=== PATIENT | male | born 1950 | race Caucasian/White ===

== ENCOUNTER 2017-07-01 12:18 | Inpatient (IN) | payer MEDICARE, OTHER ==
[2017-07-01] MEDS ORDERED: methylPREDNISolone 125 MG* 2 ML VIAL IV ONE (12:21)
[2017-07-01] MEDS ORDERED: Albuterol/Ipratropium NEB.SOL* Albuterol 2.5 MG/Ipratropium 0.5 MG 3 ML INH ONE (12:21)
[2017-07-01] MEDS ORDERED: Diltiazem IV* 5 MG/ML 5 ML VIAL (for loading dose/IV Push) (25 MG) IV SLOW PU ONE ×2 (12:30→16:55)
[2017-07-01 13:01] LABS: Hematocrit 39 % (42-52); Mean Corpuscular HGB Conc 33 g/dl (31-36); Mean Corpuscular Hemoglobin 35 pg (27-31); Mean Corpuscular Volume 105 fL (80-94); Mean Platelet Volume 7.9 um3 (7.4-10.4); Platelet Count 318 10^3/ul (150-450); Red Blood Count 3.73 10^6/ul (4.0-5.4); Red Cell Distribution Width 20 % (10.5-15); White Blood Count 5.8 10^3/ul (3.5-10.8)
[2017-07-01 13:08] LABS: INR 1.24 (0.77-1.02)
--- NOTE | 2017-07-01 13:10 | RAD ---
INDICATION: Shortness of breath. COMPARISON: Comparison is made with a prior chest x-ray study from March 03, 2017. TECHNIQUE: Dual-energy PA and lateral views of the chest were obtained. FINDINGS: The heart is upper limits of normal in size and unchanged from the prior exam. The lungs are clear. No pleural effusion is present. IMPRESSION: NO EVIDENCE FOR ACTIVE CARDIOPULMONARY DISEASE.
[2017-07-01 13:21] LABS: EGFR Non-African American 71.2 (>60)
[2017-07-01 13:55] LABS: ABS Basophils 0.1 10^3/ul (0-0.2); ABS Eosinophils 0.1 10^3/ul (0-0.6); ABS Lymphocytes 1.7 10^3/ul (1.0-4.8); ABS Monocytes 0.7 10^3/ul (0-0.8); ABS Neutrophils 3.3 10^3/ul (1.5-7.7); ABS Nucleated RBC 0 10^3/ul; Nucleated Red Blood Cells % 0.3
[2017-07-01 13:59] LABS: Monocytes % 10 % (0-7)
[2017-07-01] MEDS ORDERED: Mouth Piece, Nicotine* 1 EACH CARTRIDGE INH PRN (14:38)
[2017-07-01] MEDS ORDERED: Acetaminophen TAB* 325 MG PO PRN (14:38)
[2017-07-01] MEDS ORDERED: Ondansetron INJ* 2 MG/ML VIAL IV PRN (14:38)
[2017-07-01] MEDS ORDERED: Thiamine IV* 100 MG/ML 2 ML VIAL IM ONE (14:38)
[2017-07-01] MEDS ORDERED: Nicotine Inhaler* 10 MG AMP INH PRN (14:38)
[2017-07-01 14:39] LABS: Urine Appearance Cloudy; Urine Blood 3+ (Negative); Urine Color Yellow; Urine Ketones Negative (Negative); Urine Protein 2+(100 mg/dL) (Negative); Urine Specific Gravity 1.009 (1.010-1.030); Urine Urobilinogen Negative (Negative)
[2017-07-01] MEDS ORDERED: LORazepam INJ* 2 MG/ML 1 ML VIAL IV PUSH SCH (15:00)
--- NOTE | 2017-07-01 16:35 | RAD ---
Indication: Swollen feet. Abdominal pain. Comparison: No relevant prior exams available on the [facility] for comparison. Technique: RIGHT upper quadrant ultrasound. Report: Appropriate direction flow documented in the portal and hepatic veins. 16 cm liver is heterogeneously increased in echogenicity. Negative for focal hepatic lesions. Negative for intrahepatic biliary dilatation. 3.5 mm common bile duct. Adequately distended gallbladder with thickened 6.5 mm wall. No conspicuous gallstones or biliary sludge. Trace pericholecystic fluid however this is nonspecific in setting of mild diffuse perihepatic ascites. Negative for sonographic Card's sign. The pancreas is obscured secondary to bowel gas and body habitus limiting assessment. 9.8 x 4.7 x 5.3 cm RIGHT kidney with normal cortical echogenicity and absence of conspicuous stones or hydronephrosis is remarkable for a sharply circumscribed 5.6 cm maximum dimension simple cortical cyst at the upper pole without concern. IMPRESSION: 1. Hepatosteatosis with suggestion of early cirrhotic morphology. No focal hepatic lesions evident. 2. Small perihepatic ascites. 3. Nonspecific mild gallbladder wall thickening and trace pericholecystic fluid without additional abnormality of the gallbladder or sonographic Card's sign to suggest acute gallbladder pathology. 4. Negative for biliary dilatation.
--- NOTE | 2017-07-01 16:43 | ECHO ---
Patient: SHAE DOMINIQUE [facility] Rec#: [id number] : 1950 Date: 07/01/2017 Age: 66y Height: 175.26 cm / 69.0 in Weight: 81.65 kg / 180.0 lbs Sex: M BSA: 1.98 Room#: [id number] Admit Date#: 07/01/2017 Type: Inpatient Referring: Escobar Le Reading: Esvin Smiley MD Joy Operator Helper: Maddi Dumont RDCS CC: Amandeep Morel MD Transthoracic Echocardiogram Indication: Edema, dyspnea BP: 125/103 HR: 104 Rhythm: A-Fib Findings History: HTN, HLD, COPD, CHF, prostate cancer, smoker, ETOH use. Technical Comments: The study quality is fair. The study is technically limited due to the patient's history of COPD. Completed at 1610. Left Ventricle: The left ventricular chamber size is decreased. Mild concentric left ventricular hypertrophy is observed. Global left ventricular wall motion and contractility are within normal limits. Left ventricular systolic function is at the lower limits of normal. With longer R to R interval beats the LVEF is higher. The estimated ejection fraction is 50-55%. There is septal flattening of the interventricular septum consistent with right ventricular volume or pressure overload. The assessment of diastolic function is non-diagnostic. Left Atrium: The left atrium is mildly dilated. Right Ventricle: Moderator Band present. The right ventricle is mildly dilated. The right ventricular global systolic function is mildly reduced. Right Atrium: The right atrium is mild to moderately dilated. Aortic Valve: The aortic valve is trileaflet. The aortic valve leaflets are mildly thickened. There is evidence of aortic sclerosis without stenosis. There is a trace of aortic regurgitation. There is no evidence of aortic stenosis. Mitral Valve: The mitral valve leaflets are mildly thickened. There is mild mitral regurgitation. There is no evidence of mitral stenosis. Tricuspid Valve: The tricuspid valve leaflets are normal. There is mild tricuspid regurgitation. The right ventricular systolic pressure is estimated at 49 mmHg. There is evidence of moderate pulmonary hypertension. There is no tricuspid stenosis. Pulmonic Valve: The pulmonic valve appears normal. There is a trace pulmonic regurgitation. There is no pulmonic stenosis. Pericardium: There is no significant pericardial effusion. Aorta: There is no dilatation of the ascending aorta. The aortic arch is not well visualized. The aortic root is normal in size. Pulmonary Artery: The main pulmonary artery appears normal. Venous: The inferior vena cava is dilated. There is an approximate 50% respiratory change in the inferior vena cava dimension. Conclusions Suboptimal imaging due to lung tissue interference Mild concentric left ventricular hypertrophy is observed. Global left ventricular wall motion and contractility are within normal limits. Left ventricular systolic function is at the lower limits of normal. (With longer R to R interval beats the LVEF is higher). The estimated ejection fraction is 50-55%. The right ventricle is mildly dilated. The right ventricular global systolic function is mildly reduced. There is a trace of aortic regurgitation. There is mild mitral regurgitation. There is mild tricuspid regurgitation. There is evidence of moderate pulmonary hypertension. The right ventricular systolic pressure is estimated at 49 mmHg. There is a trace pulmonic regurgitation. Compared to report of study from 07/31/2015 the overall LV systolic function is mildly decreased (was 55-60%). The degree of tricuspid regurgitation is mildly increased (was trace and no pulmonary HTN could be assessed). RV systolic function is decreased (was reported as normal). The patient is now seen to be in atrial fibrillation (was reported as being in NSR 89 beats/min). Measurements Name Value Normal Range RVIDd (AP) 2D 3.98 cm (0.9 - 2.6) RVDdMajor (2D) 4.8 cm (2.2 - 4.4) RAd ISD 4CH 5.8 cm (3.4 - 4.9) RA (A4C)W 5.2 cm (2.9 - 4.6) IVSd (2D) 1.1 cm (0.6 - 1) LVPWd (2D) 1.2 cm (0.6 - 1) LVIDd (2D) 3.4 cm (3.6 - 5.4) LVIDs (2D) 3 cm - LV FS (2D) 14 % (25 - 45) Aortic Annulus 2 cm (1.4 - 2.6) Ao root diameter (2D) 3.2 cm (2.1 - 3.5) Ascending Ao 3.1 cm (2.1 - 3.4) LA dimension (AP) 2D 4.8 cm (2.3 - 3.8) LAd ISD 4CH 5.3 cm (2.9 - 5.3) LA ISD 4CH W 4.4 cm (2.5 - 4.5) Name Value Normal Range LA ESV SP 4CH (A/L) 75 ml - LA ESV SP 2CH (A/L) 46 ml - LA ESV BP (A/L) 59 ml - LA ESV BP (A/L) index 30 ml/m2 - LA ESV SP 4CH (MOD) 68 ml - LA ESV SP 2CH (MOD) 46 ml - Name Value Normal Range MV E-wave Vmax 1.23 m/sec - MV deceleration time 89.8 msec - LV septal e' Vmax 0.13 m/sec - LV lateral e' Vmax 0.12 m/sec - LV E:e' septal ratio 9.46 ratio - LV E:e' lateral ratio 10.25 ratio - Name Value Normal Range AV Vmax 1.3 m/sec - AV VTI 20.25 cm - AV peak gradient 6.62 mmHg - AV mean gradient 3.66 mmHg - LVOT Vmax 0.8 m/sec - LVOT VTI 11.89 cm - LVOT peak gradient 2.43 mmHg - LVOT mean gradient 1.11 mmHg - Name Value Normal Range TR Vmax 2.9 m/sec - TR peak gradient 34 mmHg - RAP 15 mmHg - RVSP 49 mmHg - IVC diameter 2.2 cm - Name Value Normal Range PV Vmax 0.75 m/sec - PV peak gradient 2.24 mmHg - NC end-diastolic Vmax 1.28 m/sec -
[2017-07-01] MEDS: Rivaroxaban TAB(*) 20 MG TAB PO SCH (16:53)
[2017-07-01] MEDS: Metoprolol Tartrate TAB* 25 MG PO SCH ×2 (16:53→22:40)
[2017-07-01] MEDS ORDERED: Magnesium Sulfate IV* 3 GM in NS 0.9% 100 ML* 100 ML IVPB ONE (17:07)
[2017-07-01] MEDS ORDERED: NS 0.9% 100 ML* 100 ML ONE (17:48)
[2017-07-01] MEDS: Levalbuterol 1.25MG/0.5ML NEB INH SCH ×2 (18:25→20:38)
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
[2017-07-01] MEDS ORDERED: CMCS Melatonin (NF) 3 MG TAB PO PRN (21:00)
[2017-07-01] MEDS ORDERED: Metoprolol Tartrate TAB* 50 mg PO SCH (21:00)
[2017-07-02] MEDS: Levalbuterol 1.25MG/0.5ML NEB INH SCH ×3 (00:55→07:25)
[2017-07-02 05:25] LABS: Hematocrit 38 % (42-52); Hemoglobin 13.1 g/dl (14.0-18.0); Mean Corpuscular HGB Conc 34 g/dl (31-36); Mean Corpuscular Hemoglobin 36 pg (27-31); Mean Corpuscular Volume 105 fL (80-94); Mean Platelet Volume 8.2 um3 (7.4-10.4); Platelet Count 330 10^3/ul (150-450); Red Blood Count 3.64 10^6/ul (4.0-5.4); Red Cell Distribution Width 20 % (10.5-15); White Blood Count 3.2 10^3/ul (3.5-10.8)
[2017-07-02 05:33] LABS: EGFR Non-African American 66.1 (>60)
[2017-07-02] MEDS: Metoprolol Tartrate TAB* 25 MG PO SCH ×3 (06:17→16:35)
[2017-07-02 06:27] LABS: ABS Basophils 0 10^3/ul (0-0.2); ABS Eosinophils 0 10^3/ul (0-0.6); ABS Lymphocytes 0.6 10^3/ul (1.0-4.8); ABS Monocytes 0.3 10^3/ul (0-0.8); ABS Neutrophils 2.3 10^3/ul (1.5-7.7); ABS Nucleated RBC 0 10^3/ul; Eosinophil % 0 % (0-6); Lymphocyte % 17.8 % (25-47); Nucleated Red Blood Cells % 0.6
[2017-07-02] MEDS: Furosemide IV* 10 MG/ML 2 ML VIAL (20 MG) IV SLOW PU SCH (08:18)
[2017-07-02] MEDS: Calcium Carbonate CHEW TAB* 500 MG (TUMS) PO SCH (08:19)
[2017-07-02] MEDS: predniSONE TAB* 50 MG PO SCH (08:19)
[2017-07-02] MEDS: Diltiazem CD CAP* 120 MG PO SCH (08:19)
[2017-07-02] MEDS: Rivaroxaban TAB(*) 20 MG TAB PO SCH (08:19)
[2017-07-02] MEDS: Multivitamins/Minerals TAB PO SCH (08:19)
[2017-07-02] MEDS: Cholecalciferol TAB* 1000 UNITS PO SCH (08:19)
[2017-07-02] MEDS: Folic Acid TAB* 1 MG PO SCH (08:19)
[2017-07-02] MEDS: Thiamine TAB* 100 MG TAB PO SCH (08:19)
[2017-07-02] MEDS: Tamsulosin CAP* 0.4 MG PO SCH (08:19)
[2017-07-02] MEDS ORDERED: Rivaroxaban TAB(*) 20 MG TAB PO SCH (09:00)
[2017-07-02] MEDS ORDERED: Metoprolol Tartrate IV* 1 MG/ML 5 ML VIAL IV PRN (09:29)
[2017-07-02] MEDS ORDERED: Levalbuterol 1.25MG/0.5ML NEB INH SCH (13:00)
--- NOTE | 2017-07-02 16:25 | ED ---
Marlon Pearce Thomas, scribed for Eliseo Wong MD on 07/01/17 at 1317 . Shortness of Breath - HPI Summary HPI Summary: The patient is a 66 year old male brought in by ambulance with shortness of breath and a productive cough for the last few days. He went to see the MI and they noticed lower extremity edema and shortness of breath. Since there is no EKG available at the MI office, the patient was sent to the emergency department for further evaluation. In the emergency department, the patient denies chest pain. He was drinking a couple of beers this morning. He smokes one PPD. He was taking Lasix for 20 days but he ran out of his medication and now he has more lower extremity edema than before. - History of Current Complaint Chief Complaint: EDExtremityLower Time Seen by Provider: 07/01/17 12:21 Hx Obtained From: Patient Onset/Duration: Lasting Days, Still Present Timing: Constant Current Severity: Moderate Dyspnea At: Rest Alleviating Factors: Nothing Associated Signs & Symptoms: Negative - CP, Edema - Allergy/Home Medications Allergies/Adverse Reactions: Allergies Allergy/AdvReac Type Severity Reaction Status Date / Time meperidine [From Demerol] Allergy Mild Nausea Verified 07/01/17 14:04 morphine Allergy Nausea Verified 07/01/17 14:04 Home Medications: Home Medications Albuterol HFA INHALER* [Ventolin HFA Inhaler*] 2 puff INH Q4H PRN 07/01/17 [ History Confirmed 07/01/17] Calcium Carbonate CHEW TAB* [Tums*] 1,000 mg PO DAILY 07/01/17 [History Confirmed 07/01/17] Carvedilol TAB* [Coreg TAB*] 25 mg PO BID 07/01/17 [History Confirmed 07/01/17] Hydrocortisone 1% CREAM(NF) 1 applic TOPICAL DAILY PRN 07/01/17 [History Confirmed 07/01/17] Oxybutynin TAB* [Ditropan TAB*] 10 mg PO DAILY 07/01/17 [History Confirmed 07/01] Rivaroxaban TAB(*) [Xarelto 20 mg] 20 mg PO DAILY 07/01/17 [History Confirmed ] dilTIAZem HCl [Cardizem] 120 mg PO DAILY 07/01/17 [History Confirmed 07/01/17] PMH/Surg Hx/FS Hx/Imm Hx Endocrine/Hematology History: Denies: Hx Anemia, Hx Unexplained Bleeding Cardiovascular History: Reports: Hx Hypercholesterolemia, Hx Hypertension - W/ MEDS Denies: Hx Aneurysm, Hx Angina, Hx Angioplasty, Hx Auto Implanted Cardiovert Defib, Hx Cardiac Arrest, Hx Cardiomegaly, Hx Congenital Heart Disease, Hx Congestive Heart Failure - elevated BNP on admit, Hx Coronary Artery Disease, Hx Deep Vein Thrombosis, Hx Embolism, Hx Hypotension, Hx Pacemaker/ICD, Hx Peripheral Vascular Disease, Hx Rheumatic Fever, Hx Syncope, Hx Valvular Heart Disease Respiratory History: Reports: Hx Chronic Obstructive Pulmonary Disease (COPD) History: Comment Only: Other Problems/Disorders - h/o prostate CA 2009, s/p radiation Musculoskeletal History: Comment Only: Other Musculoskeletal History - degenerative arthritis L knee Sensory History: Reports: Hx Contacts or Glasses - reading Denies: Hx Eye Injury, Hx Eye Prosthesis, Hx Glaucoma, Hx Legally Blind, Hx Macular Degeneration, Hx Vision Problem, Hx Deafness, Hx Hearing Aid, Hx Hearing Problem, Other Sensory Impairments Opthamlomology History: Reports: Hx Contacts or Glasses - reading Denies: Hx Eye Injury, Hx Eye Prosthesis, Hx Glaucoma, Hx Legally Blind, Hx Macular Degeneration, Hx Vision Problem, Other Sensory Impairments Psychiatric History: Reports: Hx Anxiety, Hx Depression, Hx Suicide Attempt, Hx Substance Abuse Denies: Hx Eating Disorder, Hx of Violent Episodes Against Others - Cancer History Cancer Type, Location and Year: prostate 2009 Hx Radiation Therapy: Yes - Surgical History Surgery Procedure, Year, and Place: R ankle ORIF. L knee "screws placed" Hx Anesthesia Reactions: No Infectious Disease History: No Infectious Disease History: Denies: Traveled Outside the [place] in Last 30 Days - Family History Known Family History: Positive: Other - Patient denies relevant FHx - Social History Alcohol Use: Daily Alcohol Amount: 5-6 beers daily, and whiskey 4-5 shots Substance Use Type: Reports: Prescribed, Sedatives Substance Use Comment - Amount & Last Used: Pt now reports chronic lower back pain, takes Hydrocodone prn Hx Tobacco Use: Yes Smoking Status (MU): Heavy Every Day Tobacco Smoker Type: Cigarettes Amount Used/How Often: 1 PPD Length of Time of Smoking/Using Tobacco: 50 years Have You Smoked in the Last Year: Yes Review of Systems Negative: Chest Pain Positive: Shortness Of Breath, Cough Positive: Edema All Other Systems Reviewed And Are Negative: Yes Physical Exam - Summary Physical Exam Summary: VITAL SIGNS: Reviewed. GENERAL: Patient is a well-developed and nourished male who is lying comfortable in the stretcher. Patient is not in any acute respiratory distress. There is the smell of alcohol on his breath. He smells of cigarette smoke. He is speaking in full sentences. HEAD AND FACE: No signs of trauma.~No ecchymosis, hematomas or skull depressions. No sinus tenderness. EYES: PERRLA, EOMI x 2, No injected conjunctiva, no nystagmus. EARS: Hearing grossly intact. Ear canals and tympanic membranes are within normal limits. MOUTH: Oropharynx within normal limits. NECK: Supple, trachea is midline, no adenopathy, no JVD, no carotid bruit, no c- spine tenderness, neck with full ROM. CHEST: Symmetric, no tenderness at palpation LUNGS: He has crackles on both bases of the lungs. He is not in any acute respiratory distress. He is speaking in full sentences. CVS: Regular rate and rhythm, S1 and S2 present, no murmurs or gallops appreciated. ABDOMEN: Soft, non-tender. No signs of distention. No rebound no guarding, and no masses palpated. Bowel sounds are normal. EXTREMITIES: He has 2+ pitting edema. FROM in all major joints, no cyanosis or clubbing. NEURO: Alert and oriented x 3. No acute neurological deficits. Speech is normal and follows commands. SKIN: Dry and warm Triage Information Reviewed: Yes Vital Signs On Initial Exam: Initial Vitals Temp Pulse Resp BP Pulse Ox 99 F 117 24 145/105 93 07/01/17 12:20 07/01/17 12:20 07/01/17 12:20 07/01/17 12:20 07/01/17 12:20 Vital Signs Reviewed: Yes Diagnostics - Vital Signs Vital Signs Temp Pulse Resp BP Pulse Ox 07/01/17 13:03 132 19 116/86 90 07/01/17 13:01 110 96 07/01/17 12:30 120 21 149/101 94 07/01/17 12:24 111 25 95 07/01/17 12:23 145/105 07/01/17 12:20 99 F 117 24 145/105 93 - Laboratory Lab Results: Lab Results 07/01/17 07/01/17 Range/Units 12:45 12:45 WBC 5.8 (3.5-10.8) 10^3/ul RBC 3.73 L (4.0-5.4) 10^6/ul Hgb 13.0 L (14.0-18.0) g/dl Hct 39 L (42-52) % MCV 105 H (80-94) fL MCH 35 H (27-31) pg MCHC 33 (31-36) g/dl RDW 20 H (10.5-15) % Plt Count 318 (150-450) 10^3/ul MPV 7.9 (7.4-10.4) um3 Neut % (Auto) Pending Lymph % (Auto) Pending [place] % (Auto) Pending Eos % (Auto) Pending Baso % (Auto) Pending Absolute Neuts (auto) Pending Absolute Lymphs (auto) Pending Absolute Monos (auto) Pending Absolute Eos (auto) Pending Absolute Basos (auto) Pending Absolute Nucleated RBC Pending Nucleated RBC % Pending INR (Anticoag Therapy) 1.24 H (0.77-1.02) APTT 38.3 H (26.0-36.3) seconds Result Diagrams: 07/01/17 12:45 07/01/17 12:45 Lab Statement: Any lab studies that have been ordered have been reviewed, and results considered in the medical decision making process. - Radiology CXR Xray Interpretation: No Acute Changes - IMPRESSION: NO EVIDENCE FOR ACTIVE CARDIOPULMONARY DISEASE. Dr. Wong has reviewed this report. Radiology Interpretation Completed By: Radiologist - EKG 12:24 Cardiac Rate: Tachycardia EKG Rhythm: Atrial Fibrillation - at 118 BPM EKG Interpretation: No ST elevations. Re-Evaluation - Re-Evaluation First Eval Comment: Results discussed. Patient will be admitted to Dr. Caraballo. Course/Dx - Course Assessment/Plan: The patient is a 66 year old male brought in by ambulance with shortness of breath and a productive cough for the last few days. He went to see the MI and they noticed lower extremity edema and shortness of breath. Since there is no EKG available at the MI office, the patient was sent to the emergency department for further evaluation. In the emergency department, the patient denies chest pain. He was drinking a couple of beers this morning. He smokes one PPD. He was taking Lasix for 20 days but he ran out of his medication and now he has more lower extremity edema than before. Rest results show a slight anemia. ABG shows that the patient is slightly hypoxic. Troponin is 0.04 and CRP is 7.61. CXR shows no evidence for active cardiopulmonary disease. In the ED course, the patient was given DuoNebs and SoluMedrol for his COPD exacerbation. I ordered Cardizem because of the patients A-Fib, however his blood pressure was low and his heart rate was in the 110-120s so this was not given. The patient is hemodynamically stable. I discussed the case with Dr. Caraballo, who accepts the patient for admission. ADDITIONAL DIAGNOSIS: Increased troponin rule out acute coronary syndrome. - Diagnoses Provider Diagnoses: Atrial fibrillation with RVR, Bilateral lower extremity edema, New onset a-fib , COPD exacerbation - Physician Notifications Discussed Care of Patient With: Abisai Caraballo Time Discussed With Above Provider: 14:00 Instructed by Provider To: Admit As Inpatient Discharge - Sign-Out/Discharge Documenting (check all that apply): Discharge - The patient is [place] [facility] [place] - Discharge Plan Condition: Stable Disposition: ADMITTED TO [facility] Referrals: Amandeep Morel DO [Primary Care Provider] - The documentation as recorded by the Marlon kong Thomas accurately reflects the service I personally performed and the decisions made by me, Eliseo Wong MD.
--- NOTE | 2017-07-02 16:47 | PN ---
Subjective Date of Service: 07/02/17 Interval History: No overnight events, he feels good this morning. Breathing feels comfortable unless he lies down flat, still complains of leg edema. No chest pain, cough, palpitations. Objective Active Medications: Acetaminophen (Tylenol Tab*) 650 mg PO Q6H PRN PRN Reason: FEVER/PAIN Calcium Carbonate (Tums*) 1,000 mg PO DAILY [facility] Last Admin: 07/02/17 08:19 Dose: 1,000 mg Cholecalciferol (Vitamin D Tab*) 4,000 units PO DAILY [facility] Last Admin: 07/02/17 08:19 Dose: 4,000 units Device (Nicotine Mouth Piece*) 1 each INH .USE WITH NICOTROL PRN PRN Reason: CRAVING Diltiazem HCl (Cardizem Cd Cap*) 120 mg PO DAILY [facility] Last Admin: 07/02/17 08:19 Dose: 120 mg Folic Acid (Folvite Tab*) 1 mg PO DAILY [facility] Last Admin: 07/02/17 08:19 Dose: 1 mg Furosemide (Lasix Iv*) 20 mg IV SLOW PU DAILY [facility] Last Admin: 07/02/17 08:18 Dose: 20 mg Lorazepam (Ativan Inj*) 0 - 3 mg IV PUSH .PER [facility] PROTOCOL [facility] PRN Reason: Protocol Melatonin (Melatonin (Nf)) 1 mg PO BEDTIME PRN PRN Reason: INSOMNIA Metoprolol Tartrate (Lopressor Tab*) 25 mg PO Q6H [facility] Last Admin: 07/02/17 16:35 Dose: 25 mg Metoprolol Tartrate (Lopressor Iv*) 5 mg IV Q6H PRN PRN Reason: HEART RATE/PULSE GREATER THAN: Last Admin: 07/02/17 09:47 Dose: 5 mg Multivitamins/Minerals (Theragran/Minerals Tab*) 1 tab PO DAILY [facility] Last Admin: 07/02/17 08:19 Dose: 1 tab Nicotine (Nicotine Inhaler*) 10 mg INH Q2H PRN PRN Reason: CRAVING Ondansetron HCl (Zofran Inj*) 4 mg IV Q6H PRN PRN Reason: NAUSEA Prednisone (Deltasone Tab*) 50 mg PO DAILY [facility] Last Admin: 07/02/17 08:19 Dose: 50 mg Rivaroxaban (Xarelto(*)) 20 mg PO DAILY [facility] Last Admin: 07/02/17 08:19 Dose: 20 mg Tamsulosin HCl (Flomax Cap*) 0.4 mg PO DAILY [facility] Last Admin: 07/02/17 08:19 Dose: 0.4 mg Thiamine HCl (Vitamin B-1 Tab*) 100 mg PO DAILY [facility] Last Admin: 07/02/17 08:19 Dose: 100 mg Vital Signs - 8 hr 07/02/17 07/02/17 11:14 15:44 Temperature 99.1 F 97.3 F Pulse Rate 113 112 Respiratory 16 18 Rate Blood Pressure 117/72 108/89 (mmHg) O2 Sat by Pulse 99 100 Oximetry Oxygen Devices in Use Now: Nasal Cannula Appearance: alert, no distress, no tremor Eyes: No Scleral Icterus Ears/Nose/Mouth/Throat: NL Teeth, Lips, Gums Neck: - - JVP ~12cm Respiratory: Symmetrical Chest Expansion and Respiratory Effort, Clear to Auscultation Cardiovascular: - - tachycardic, no murmurs, irregular rhythm Abdominal: NL Sounds; No Tenderness; No Distention, No Hepatosplenomegaly Lymphatic: No Cervical Adenopathy Extremities: - - 3+ edema b/l Skin: No Rash or Ulcers Neurological: Alert and Oriented x 3 Result Diagrams: 07/02/17 04:35 07/02/17 04:35 Additional Lab and Data: Lab Results 07/01/17 07/01/17 Range/Units 12:45 12:45 WBC 5.8 (3.5-10.8) 10^3/ul RBC 3.73 L (4.0-5.4) 10^6/ul Hgb 13.0 L (14.0-18.0) g/dl Hct 39 L (42-52) % MCV 105 H (80-94) fL MCH 35 H (27-31) pg MCHC 33 (31-36) g/dl RDW 20 H (10.5-15) % Plt Count 318 (150-450) 10^3/ul MPV 7.9 (7.4-10.4) um3 Neut % (Auto) Pending Lymph % (Auto) Pending [place] % (Auto) Pending Eos % (Auto) Pending Baso % (Auto) Pending Absolute Neuts (auto) Pending Absolute Lymphs (auto) Pending Absolute Monos (auto) Pending Absolute Eos (auto) Pending Absolute Basos (auto) Pending Absolute Nucleated RBC Pending Nucleated RBC % Pending INR (Anticoag Therapy) 1.24 H (0.77-1.02) APTT 38.3 H (26.0-36.3) seconds Assess/Plan/Problems-Billing Assessment: 66 yo man with history of atrial fibrillation and alcohol abuse admitted yesterday with leg swelling and sob, found to be in afib with RVR - Patient Problems (1) Atrial fibrillation with rapid ventricular response Current Visit: Yes Status: Acute Code(s): I48.91 - UNSPECIFIED ATRIAL FIBRILLATION SNOMED Code(s): 135084715929978 Comment: poorly controlled, likely due to volume overload (versus volume overload is a result of poorly controlled afib) required iv metoprolol 5mg this morning increase po metoprolol now continue diuresis (2) Volume overload Current Visit: Yes Status: Acute Code(s): E87.70 - FLUID OVERLOAD, UNSPECIFIED SNOMED Code(s): 67053657 Comment: In/Out inaccurate, continue iv diuresis (3) Alcoholism /alcohol abuse Current Visit: No Status: Acute Priority: High Code(s): F10.20 - ALCOHOL DEPENDENCE, UNCOMPLICATED SNOMED Code(s): 6224689 Comment: no signs of withdrawal (4) COPD (chronic obstructive pulmonary disease) Current Visit: No Status: Chronic Priority: Medium Code(s): J44.9 - CHRONIC OBSTRUCTIVE PULMONARY DISEASE, UNSPECIFIED SNOMED Code(s): 50936671 Comment: no exacerbation
[2017-07-02] MEDS: Metoprolol Tartrate TAB* 50 mg PO SCH ×2 (17:23→22:03)
[2017-07-02] MEDS: Albuterol HFA INHALER* 8 gm MDI INH PRN (23:03)
[2017-07-03] MEDS: Metoprolol Tartrate TAB* 50 mg PO SCH ×4 (04:46→21:05)
[2017-07-03 05:34] LABS: ABS Basophils 0.1 10^3/ul (0-0.2); ABS Eosinophils 0 10^3/ul (0-0.6); ABS Lymphocytes 1.7 10^3/ul (1.0-4.8); ABS Monocytes 1.2 10^3/ul (0-0.8); ABS Neutrophils 6.2 10^3/ul (1.5-7.7); ABS Nucleated RBC 0.1 10^3/ul; Eosinophil % 0.3 % (0-6); Hematocrit 40 % (42-52); Hemoglobin 13.3 g/dl (14.0-18.0); Lymphocyte % 18.2 % (25-47); Mean Corpuscular HGB Conc 33 g/dl (31-36); Mean Corpuscular Hemoglobin 35 pg (27-31); Mean Corpuscular Volume 105 fL (80-94); Nucleated Red Blood Cells % 0.7; Platelet Count 343 10^3/ul (150-450); Red Cell Distribution Width 20 % (10.5-15); White Blood Count 9.1 10^3/ul (3.5-10.8)
[2017-07-03 05:51] LABS: EGFR Non-African American 53.6 (>60)
[2017-07-03] MEDS: Cholecalciferol TAB* 1000 UNITS PO SCH (09:21)
[2017-07-03] MEDS: Folic Acid TAB* 1 MG PO SCH (09:22)
[2017-07-03] MEDS: Rivaroxaban TAB(*) 20 MG TAB PO SCH (09:22)
[2017-07-03] MEDS: predniSONE TAB* 50 MG PO SCH (09:22)
[2017-07-03] MEDS: Furosemide IV* 10 MG/ML 2 ML VIAL (20 MG) IV SLOW PU SCH (09:22)
[2017-07-03] MEDS: Multivitamins/Minerals TAB PO SCH (09:22)
[2017-07-03] MEDS: Thiamine TAB* 100 MG TAB PO SCH (09:22)
[2017-07-03] MEDS: Diltiazem CD CAP* 120 MG PO SCH (09:22)
[2017-07-03] MEDS: Tamsulosin CAP* 0.4 MG PO SCH (09:22)
[2017-07-03] MEDS: Calcium Carbonate CHEW TAB* 500 MG (TUMS) PO SCH (09:25)
--- NOTE | 2017-07-03 10:43 | PN ---
Subjective Date of Service: 07/03/17 Interval History: No overnight events, hr has been 110s-120s. His is at the bedside and says he is more short of breath than usual with ambulation. Objective Active Medications: Acetaminophen (Tylenol Tab*) 650 mg PO Q6H PRN PRN Reason: FEVER/PAIN Albuterol (Ventolin Hfa Inhaler*) 2 puff INH Q4H PRN PRN Reason: SHORTNESS OF BREATH Last Admin: 07/02/17 23:03 Dose: 2 puff Calcium Carbonate (Tums*) 1,000 mg PO DAILY [facility] Last Admin: 07/03/17 09:25 Dose: 1,000 mg Cholecalciferol (Vitamin D Tab*) 4,000 units PO DAILY [facility] Last Admin: 07/03/17 09:21 Dose: 4,000 units Device (Nicotine Mouth Piece*) 1 each INH .USE WITH NICOTROL PRN PRN Reason: CRAVING Diltiazem HCl (Cardizem Cd Cap*) 120 mg PO DAILY [facility] Last Admin: 07/03/17 09:22 Dose: 120 mg Folic Acid (Folvite Tab*) 1 mg PO DAILY [facility] Last Admin: 07/03/17 09:22 Dose: 1 mg Lorazepam (Ativan Inj*) 0 - 3 mg IV PUSH .PER [facility] PROTOCOL [facility] PRN Reason: Protocol Melatonin (Melatonin (Nf)) 1 mg PO BEDTIME PRN PRN Reason: INSOMNIA Metoprolol Tartrate (Lopressor Iv*) 5 mg IV Q6H PRN PRN Reason: HEART RATE/PULSE GREATER THAN: Last Admin: 07/02/17 09:47 Dose: 5 mg Metoprolol Tartrate (Lopressor Tab*) 50 mg PO Q6H [facility] Last Admin: 07/03/17 09:22 Dose: 50 mg Multivitamins/Minerals (Theragran/Minerals Tab*) 1 tab PO DAILY [facility] Last Admin: 07/03/17 09:22 Dose: 1 tab Nicotine (Nicotine Inhaler*) 10 mg INH Q2H PRN PRN Reason: CRAVING Ondansetron HCl (Zofran Inj*) 4 mg IV Q6H PRN PRN Reason: NAUSEA Prednisone (Deltasone Tab*) 50 mg PO DAILY [facility] Last Admin: 07/03/17 09:22 Dose: 50 mg Rivaroxaban (Xarelto(*)) 20 mg PO DAILY [facility] Last Admin: 07/03/17 09:22 Dose: 20 mg Tamsulosin HCl (Flomax Cap*) 0.4 mg PO DAILY [facility] Last Admin: 07/03/17 09:22 Dose: 0.4 mg Thiamine HCl (Vitamin B-1 Tab*) 100 mg PO DAILY [facility] Last Admin: 07/03/17 09:22 Dose: 100 mg Vital Signs - 8 hr 07/03/17 07/03/17 07/03/17 04:03 06:00 07:42 Temperature 97.3 F 97.5 F Pulse Rate 120 87 Respiratory 20 20 24 Rate Blood Pressure 120/80 117/88 (mmHg) O2 Sat by Pulse 100 98 Oximetry Oxygen Devices in Use Now: Nasal Cannula Appearance: alert, dyspneic when speaking in full sentences, ambulated to the bathroom without trouble but was tachypneic when he returned to the bed Eyes: No Scleral Icterus Ears/Nose/Mouth/Throat: NL Teeth, Lips, Gums Neck: - - no JVP Respiratory: - - prolonged expiratory phase, no wheezing or rhonchi or rales Cardiovascular: - - tachycardic, irregular rhythm Abdominal: NL Sounds; No Tenderness; No Distention Lymphatic: No Cervical Adenopathy Extremities: No Edema, - - legs wrapped with stacey wraps Skin: No Rash or Ulcers Neurological: Alert and Oriented x 3 Result Diagrams: 07/03/17 05:04 07/03/17 05:04 Additional Lab and Data: Lab Results 07/01/17 07/01/17 Range/Units 12:45 12:45 WBC 5.8 (3.5-10.8) 10^3/ul RBC 3.73 L (4.0-5.4) 10^6/ul Hgb 13.0 L (14.0-18.0) g/dl Hct 39 L (42-52) % MCV 105 H (80-94) fL MCH 35 H (27-31) pg MCHC 33 (31-36) g/dl RDW 20 H (10.5-15) % Plt Count 318 (150-450) 10^3/ul MPV 7.9 (7.4-10.4) um3 Neut % (Auto) Pending Lymph % (Auto) Pending [place] % (Auto) Pending Eos % (Auto) Pending Baso % (Auto) Pending Absolute Neuts (auto) Pending Absolute Lymphs (auto) Pending Absolute Monos (auto) Pending Absolute Eos (auto) Pending Absolute Basos (auto) Pending Absolute Nucleated RBC Pending Nucleated RBC % Pending INR (Anticoag Therapy) 1.24 H (0.77-1.02) APTT 38.3 H (26.0-36.3) seconds Microbiology and Other Data: Microbiology 07/03/17 06:50 Gram Stain - Final Sputum 07/02/17 22:00 Gram Stain - Final Sputum Assess/Plan/Problems-Billing Assessment: 66 yo man with history of atrial fibrillation and alcohol abuse admitted with leg swelling and sob, found to be in afib with RVR - Patient Problems (1) Atrial fibrillation with rapid ventricular response Current Visit: Yes Status: Acute Code(s): I48.91 - UNSPECIFIED ATRIAL FIBRILLATION SNOMED Code(s): 643030098697448 Comment: poorly controlled, but improved this morning with increasing doses of metoprolol--now on 50mg q6 and cardizem 120mg daily he reports checking his hr at home, and it has been in the 150s for months now appears euvolemic; may have been exacerbated by volume overload, which is now resolved continue eliquis consult cardiology today for consideration of cardioversion/celine Wednesday may have symptomatic relief by being in normal sinus rhythm (2) JOSE ENRIQUE (acute kidney injury) Current Visit: Yes Status: Acute Code(s): N17.9 - ACUTE KIDNEY FAILURE, UNSPECIFIED SNOMED Code(s): 73741465 Comment: may have been overdiuresed; also some evidence of contraction with rising hco3- dc lasix today in/out inaccurate (3) Volume overload Current Visit: Yes Status: Acute Code(s): E87.70 - FLUID OVERLOAD, UNSPECIFIED SNOMED Code(s): 12561581 Comment: Now resolved s/p diuresis In/Out inaccurate (4) Alcoholism /alcohol abuse Current Visit: No Status: Acute Priority: High Code(s): F10.20 - ALCOHOL DEPENDENCE, UNCOMPLICATED SNOMED Code(s): 5514870 Comment: no signs of withdrawal, can decrease frequency of WAM protocol (5) COPD (chronic obstructive pulmonary disease) Current Visit: No Status: Chronic Priority: Medium Code(s): J44.9 - CHRONIC OBSTRUCTIVE PULMONARY DISEASE, UNSPECIFIED SNOMED Code(s): 95316494 Comment: May be in some exacerbation; prednisone started at admission. His reports poor exertional capacity at baseline, but it is currently worse than usual. Status and Disposition: stop iv lasix today; cardiology consult, add nebs, possible cardioversion wednesday
[2017-07-03] MEDS ORDERED: Albuterol/Ipratropium NEB.SOL* Albuterol 2.5 MG/Ipratropium 0.5 MG 3 ML INH PRN (10:45)
[2017-07-03] MEDS ORDERED: Diltiazem TAB* 30 MG PO ONE (11:23)
[2017-07-04] MEDS: Albuterol HFA INHALER* 8 gm MDI INH PRN ×2 (01:30→16:40)
[2017-07-04] MEDS: Metoprolol Tartrate TAB* 50 mg PO SCH ×4 (04:21→23:41)
[2017-07-04 05:25] LABS: Hematocrit 38 % (42-52); Hemoglobin 12.5 g/dl (14.0-18.0); Mean Corpuscular HGB Conc 33 g/dl (31-36); Mean Corpuscular Hemoglobin 35 pg (27-31); Mean Corpuscular Volume 105 fL (80-94); Platelet Count 339 10^3/ul (150-450); Red Blood Count 3.59 10^6/ul (4.0-5.4); Red Cell Distribution Width 20 % (10.5-15); White Blood Count 8.5 10^3/ul (3.5-10.8)
[2017-07-04 05:40] LABS: EGFR Non-African American 54.6 (>60)
[2017-07-04 05:45] LABS: ABS Basophils 0.1 10^3/ul (0-0.2); ABS Eosinophils 0 10^3/ul (0-0.6); ABS Lymphocytes 1.8 10^3/ul (1.0-4.8); ABS Monocytes 0.9 10^3/ul (0-0.8); ABS Neutrophils 5.7 10^3/ul (1.5-7.7); ABS Nucleated RBC 0.1 10^3/ul; Eosinophil % 0.4 % (0-6); Lymphocyte % 21.7 % (25-47); Nucleated Red Blood Cells % 0.5
[2017-07-04] MEDS ORDERED: Magnesium Sulfate 2 GM IV* 2 GM/50 ML BAG IVPB ONE (07:57)
[2017-07-04] MEDS: Calcium Carbonate CHEW TAB* 500 MG (TUMS) PO SCH (09:08)
[2017-07-04] MEDS: Cholecalciferol TAB* 1000 UNITS PO SCH (09:09)
[2017-07-04] MEDS: predniSONE TAB* 50 MG PO SCH (09:09)
[2017-07-04] MEDS: Tamsulosin CAP* 0.4 MG PO SCH (09:09)
[2017-07-04] MEDS: Rivaroxaban TAB(*) 20 MG TAB PO SCH (09:09)
[2017-07-04] MEDS: Thiamine TAB* 100 MG TAB PO SCH (09:09)
[2017-07-04] MEDS: Multivitamins/Minerals TAB PO SCH (09:09)
[2017-07-04] MEDS: Folic Acid TAB* 1 MG PO SCH (09:09)
[2017-07-04] MEDS: Diltiazem CD CAP* 120 MG PO SCH (09:09)
[2017-07-04] MEDS: Amiodarone TAB* 200 MG PO SCH ×2 (11:03→20:45)
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
--- NOTE | 2017-07-04 17:33 | PN ---
Subjective Date of Service: 07/04/17 Interval History: Feels much better today. Feels his shortness of breath is improving. Has been walking to the hallways without trouble. Still cannot lie down flat, but says this has been the case for years. Still complains of a cough, also says he has a chronic cough and that this is unchanged from baseline. Objective Active Medications: Acetaminophen (Tylenol Tab*) 650 mg PO Q6H PRN PRN Reason: FEVER/PAIN Albuterol (Ventolin Hfa Inhaler*) 2 puff INH Q4H PRN PRN Reason: SHORTNESS OF BREATH Last Admin: 07/04/17 16:40 Dose: 2 puff Albuterol/Ipratropium (Duoneb (Albuterol 2.5 Mg/Ipratropium 0.5 Mg)) 1 neb INH Q4H PRN PRN Reason: SOB/WHEEZING Amiodarone HCl (Cordarone Tab*) 200 mg PO BID [facility] Last Admin: 07/04/17 11:03 Dose: 200 mg Calcium Carbonate (Tums*) 1,000 mg PO DAILY [facility] Last Admin: 07/04/17 09:08 Dose: 1,000 mg Cholecalciferol (Vitamin D Tab*) 4,000 units PO DAILY [facility] Last Admin: 07/04/17 09:09 Dose: 4,000 units Device (Nicotine Mouth Piece*) 1 each INH .USE WITH NICOTROL PRN PRN Reason: CRAVING Folic Acid (Folvite Tab*) 1 mg PO DAILY [facility] Last Admin: 07/04/17 09:09 Dose: 1 mg Lorazepam (Ativan Inj*) 0 - 3 mg IV PUSH .PER [facility] PROTOCOL [facility] PRN Reason: Protocol Melatonin (Melatonin (Nf)) 1 mg PO BEDTIME PRN PRN Reason: INSOMNIA Last Admin: 07/04/17 01:33 Dose: 1 mg Metoprolol Tartrate (Lopressor Iv*) 5 mg IV Q6H PRN PRN Reason: HEART RATE/PULSE GREATER THAN: Last Admin: 07/02/17 09:47 Dose: 5 mg Metoprolol Tartrate (Lopressor Tab*) 50 mg PO Q6H [facility] Last Admin: 07/04/17 17:02 Dose: 50 mg Multivitamins/Minerals (Theragran/Minerals Tab*) 1 tab PO DAILY [facility] Last Admin: 07/04/17 09:09 Dose: 1 tab Nicotine (Nicotine Inhaler*) 10 mg INH Q2H PRN PRN Reason: CRAVING Ondansetron HCl (Zofran Inj*) 4 mg IV Q6H PRN PRN Reason: NAUSEA Prednisone (Deltasone Tab*) 50 mg PO DAILY [facility] Last Admin: 07/04/17 09:09 Dose: 50 mg Rivaroxaban (Xarelto(*)) 20 mg PO DAILY [facility] Last Admin: 07/04/17 09:09 Dose: 20 mg Tamsulosin HCl (Flomax Cap*) 0.4 mg PO DAILY [facility] Last Admin: 07/04/17 09:09 Dose: 0.4 mg Thiamine HCl (Vitamin B-1 Tab*) 100 mg PO DAILY [facility] Last Admin: 07/04/17 09:09 Dose: 100 mg Vital Signs - 8 hr 07/04/17 07/04/17 07/04/17 12:03 15:15 16:40 Temperature 97.5 F 97.6 F Pulse Rate 117 96 92 Respiratory 20 20 18 Rate Blood Pressure 129/80 110/62 (mmHg) O2 Sat by Pulse 97 96 95 Oximetry Oxygen Devices in Use Now: Nasal Cannula Appearance: alert, well appearing, sitting on the edge of the bed Eyes: No Scleral Icterus Ears/Nose/Mouth/Throat: NL Teeth, Lips, Gums Neck: NL Appearance and Movements; NL JVP, - - No JVP Respiratory: Symmetrical Chest Expansion and Respiratory Effort, - - prolonged expiratory phase, no wheezes or rhonchi Cardiovascular: No Edema, - Abdominal: NL Sounds; No Tenderness; No Distention, No Hepatosplenomegaly Lymphatic: No Cervical Adenopathy Extremities: No Edema Skin: No Rash or Ulcers Neurological: Alert and Oriented x 3 Result Diagrams: 07/04/17 04:53 07/04/17 04:53 Additional Lab and Data: Lab Results 07/01/17 07/01/17 Range/Units 12:45 12:45 WBC 5.8 (3.5-10.8) 10^3/ul RBC 3.73 L (4.0-5.4) 10^6/ul Hgb 13.0 L (14.0-18.0) g/dl Hct 39 L (42-52) % MCV 105 H (80-94) fL MCH 35 H (27-31) pg MCHC 33 (31-36) g/dl RDW 20 H (10.5-15) % Plt Count 318 (150-450) 10^3/ul MPV 7.9 (7.4-10.4) um3 Neut % (Auto) Pending Lymph % (Auto) Pending [place] % (Auto) Pending Eos % (Auto) Pending Baso % (Auto) Pending Absolute Neuts (auto) Pending Absolute Lymphs (auto) Pending Absolute Monos (auto) Pending Absolute Eos (auto) Pending Absolute Basos (auto) Pending Absolute Nucleated RBC Pending Nucleated RBC % Pending INR (Anticoag Therapy) 1.24 H (0.77-1.02) APTT 38.3 H (26.0-36.3) seconds Microbiology and Other Data: Microbiology 07/03/17 06:50 Gram Stain - Final Sputum 07/02/17 22:00 Gram Stain - Final Sputum Assess/Plan/Problems-Billing Assessment: 66 yo man with history of atrial fibrillation and alcohol abuse admitted with leg swelling and sob, found to be in afib with RVR - Patient Problems (1) Atrial fibrillation with rapid ventricular response Current Visit: Yes Status: Acute Code(s): I48.91 - UNSPECIFIED ATRIAL FIBRILLATION SNOMED Code(s): 616572301934142 Comment: now well controlled on metoprolol 50mg q6 and cardizem 120mg daily he reports checking his hr at home, and it has been in the 150s for months now appears euvolemic; may have been exacerbated by volume overload, which is now resolved continue eliquis Evaluated by Dr. Bradley for consideration of cardioversion--planned for tomorrow may have symptomatic relief by being in normal sinus rhythm (2) JOSE ENRIQUE (acute kidney injury) Current Visit: Yes Status: Acute Code(s): N17.9 - ACUTE KIDNEY FAILURE, UNSPECIFIED SNOMED Code(s): 45968781 Comment: may have been overdiuresed in/out inaccurate I do not think he is volume overloaded (3) Volume overload Current Visit: Yes Status: Acute Code(s): E87.70 - FLUID OVERLOAD, UNSPECIFIED SNOMED Code(s): 33642344 Comment: Now resolved s/p diuresis In/Out inaccurate (4) Alcoholism /alcohol abuse Current Visit: No Status: Acute Priority: High Code(s): F10.20 - ALCOHOL DEPENDENCE, UNCOMPLICATED SNOMED Code(s): 3370928 Comment: no signs of withdrawal (5) COPD (chronic obstructive pulmonary disease) Current Visit: No Status: Chronic Priority: Medium Code(s): J44.9 - CHRONIC OBSTRUCTIVE PULMONARY DISEASE, UNSPECIFIED SNOMED Code(s): 32981827 Comment: May be in some exacerbation; prednisone started at admission. His reports poor exertional capacity at baseline, but it is currently worse than usual. Continue nebs. Status and Disposition: cardioversion tomorrow
[2017-07-05] MEDS: Metoprolol Tartrate TAB* 50 mg PO SCH ×2 (04:00→09:38)
[2017-07-05 06:06] LABS: EGFR Non-African American 64.1 (>60)
[2017-07-05] MEDS: Amiodarone TAB* 200 MG PO SCH (09:08)
[2017-07-05] MEDS: Calcium Carbonate CHEW TAB* 500 MG (TUMS) PO SCH (09:08)
[2017-07-05] MEDS: Cholecalciferol TAB* 1000 UNITS PO SCH (09:09)
[2017-07-05] MEDS: predniSONE TAB* 50 MG PO SCH (09:09)
[2017-07-05] MEDS: Multivitamins/Minerals TAB PO SCH (09:09)
[2017-07-05] MEDS: Folic Acid TAB* 1 MG PO SCH (09:09)
[2017-07-05] MEDS: Rivaroxaban TAB(*) 20 MG TAB PO SCH (09:10)
[2017-07-05] MEDS: Thiamine TAB* 100 MG TAB PO SCH (09:10)
[2017-07-05] MEDS: Tamsulosin CAP* 0.4 MG PO SCH (09:10)
[2017-07-05] MEDS ORDERED: Midazolam* 1 MG/ML 10 ML VIAL (10 MG) ONE (11:28)
[2017-07-05] MEDS ORDERED: fentaNYL* 50 MCG/ML 2 ML VIAL (100 MCG VIAL) ONE (11:29)
[2017-07-05] MEDS ORDERED: Naloxone* 0.4 MG/ML 1 ML VIAL ONE (11:31)
[2017-07-05] MEDS ORDERED: Flumazenil* 0.1 MG/ML 5 ML MDV ONE (11:31)
--- NOTE | 2017-07-05 12:41 | CARD ---
CARDIOVERSION: DATE OF PROCEDURE: 07/05/17 - ROOM #431 PROCEDURE: Cardioversion. INDICATION: Atrial fibrillation. HISTORY: The patient is a 66-year-old gentleman who was in atrial fibrillation for a number of months. He was started on anticoagulation 6 weeks ago. The patient was admitted to the hospital with shortness of breath. Cardioversion was recommended. The patient had started on amiodarone last night. DESCRIPTION OF PROCEDURE: The patient was in a fasting state. Informed consent had been obtained prior to the procedure. All labs were reviewed. The patient was given 8 mg of Versed and 100 mcg of fentanyl for conscious sedation. The patient was cardioverted with 150 joules of synchronized biphasic energy. The patient converted to normal sinus rhythm. The patient tolerated the procedure well with no complications. The patient will be discharged from the hospital. He will be continued on Xarelto. Recommendation is that he start amiodarone 200 mg b.i.d. for 2 weeks and then decrease to 200 mg once a day. The patient's metoprolol tartrate should be 25 mg twice a day. I will be glad to see the patient in followup as an outpatient; however, the patient does have a [place] regional economist that he could follow up with. [id number]/[facility] #: [id number] TOBY
[2017-07-05 13:52] VITALS: BP 126/71
--- NOTE | 2017-07-05 18:30 | PN ---
Subjective Date of Service: 07/05/17 Interval History: No complaints, states that he want to leave, wants to smoke, agitated. Denies chest pain or shortness of breath. denies abd pain, n/v/d Family History: Unchanged from Admission Social History: Unchanged from Admission Past Medical History: Unchanged from Admission Objective Vital Signs - 8 hr 07/05/17 12:51 Temperature 97.2 F Pulse Rate 54 Respiratory 16 Rate Blood Pressure 126/71 (mmHg) O2 Sat by Pulse 98 Oximetry Oxygen Devices in Use Now: Nasal Cannula Appearance: appears comfortable sitting on the bed. Ears/Nose/Mouth/Throat: Clear Oropharnyx, Mucous Membranes Moist Neck: NL Appearance and Movements; NL JVP, Trachea Midline Respiratory: Symmetrical Chest Expansion and Respiratory Effort, Clear to Auscultation Cardiovascular: NL Sounds; No Murmurs; No JVD Abdominal: NL Sounds; No Tenderness; No Distention Extremities: No Clubbing, Cyanosis, - - bilat lower leg with edema +2 Skin: No Rash or Ulcers Neurological: Alert and Oriented x 3, NL Gait, NL Muscle Strength and Tone Nutrition: Taking PO's Result Diagrams: 07/04/17 04:53 07/05/17 05:16 Additional Lab and Data: Lab Results 07/01/17 07/01/17 Range/Units 12:45 12:45 WBC 5.8 (3.5-10.8) 10^3/ul RBC 3.73 L (4.0-5.4) 10^6/ul Hgb 13.0 L (14.0-18.0) g/dl Hct 39 L (42-52) % MCV 105 H (80-94) fL MCH 35 H (27-31) pg MCHC 33 (31-36) g/dl RDW 20 H (10.5-15) % Plt Count 318 (150-450) 10^3/ul MPV 7.9 (7.4-10.4) um3 Neut % (Auto) Pending Lymph % (Auto) Pending [place] % (Auto) Pending Eos % (Auto) Pending Baso % (Auto) Pending Absolute Neuts (auto) Pending Absolute Lymphs (auto) Pending Absolute Monos (auto) Pending Absolute Eos (auto) Pending Absolute Basos (auto) Pending Absolute Nucleated RBC Pending Nucleated RBC % Pending INR (Anticoag Therapy) 1.24 H (0.77-1.02) APTT 38.3 H (26.0-36.3) seconds Microbiology and Other Data: Microbiology 07/03/17 06:50 Gram Stain - Final Sputum 07/02/17 22:00 Gram Stain - Final Sputum Assess/Plan/Problems-Billing Assessment: 66 yo man with history of atrial fibrillation and alcohol abuse admitted with leg swelling and sob, found to be in afib with RVR - Patient Problems (1) Alcoholism /alcohol abuse Status: Acute Priority: High Code(s): F10.20 - ALCOHOL DEPENDENCE, UNCOMPLICATED SNOMED Code(s): 9695808 Comment: no signs of withdrawal (2) Atrial fibrillation with rapid ventricular response Status: Acute Code(s): I48.91 - UNSPECIFIED ATRIAL FIBRILLATION SNOMED Code( s): 515908947667475 Comment: Evaluated by Dr. Bradley for cardioversion--completed converted to NSR Will continue metoprolol 50 mg daily amiodarone 200 mg BID for 14 days then 200 mg daily follow up with DR. Bradley or [place] [facility] 3 to 4 weeks (3) COPD (chronic obstructive pulmonary disease) Status: Chronic Priority: Medium Code(s): J44.9 - CHRONIC OBSTRUCTIVE PULMONARY DISEASE, UNSPECIFIED SNOMED Code(s): 52419326 Comment: Denies shortness - no wheezing resume home medications Status and Disposition: cardioversion tomorrow - discharge home
--- NOTE | 2017-07-07 04:04 | DS ---
DISCHARGE SUMMARY: DATE OF ADMISSION: 07/01/17 DATE OF DISCHARGE: 07/05/17 ATTENDING PHYSICIAN: Dr. Abisai Caraballo * (Dictated by Joy Cazares NP). PROVIDER: Joy Cazares NP. PRIMARY CARE PROVIDER: YESSENIA Pastor. PRIMARY DIAGNOSES: 1. Atrial fibrillation with rapid ventricular response. 2. Cardioversion. 3. Acute kidney injury. SECONDARY DIAGNOSES: 1. Hypertension. 2. Hyperlipidemia. 3. Chronic obstructive pulmonary disease. 4. Alcoholism. 5. Tobacco abuse. 6. Prostate cancer in remission status post radiation. 7. Depression. STUDIES COMPLETED WHILE IN THE HOSPITAL: 1. Head and chest x-ray on 07/01/17. Impression: No evidence for active cardiopulmonary disease. A transthoracic echo on 07/01/17. Conclusion: Suboptimal imaging due to lung tissue interference and mild concentric left ventricular hypertrophy is observed, global left ventricular wall motion and contractility were all within normal limits. Left ventricular systolic function is at the lower limits of normal. Estimated ejection fraction is 55%. The right ventricle is mildly dilated. The right ventricular global systolic function is mildly reduced. There is trace aortic regurgitation. There is mild mitral regurgitation. There is mild tricuspid regurgitation. There is evidence of moderate pulmonary hypertension. The right ventricular systolic pressure is estimated at 49. There is trace pulmonic regurgitation. Compared to report studied from 07/31/15. The overall left ventricular systolic function is mildly decreased, was 55% to 60%. The degree of tricuspid regurgitation is mildly increased and no pulmonary hypertension could be assessed. The right systolic function is decreased, was reported as normal. The patient now seem to be in atrial fibrillation and was reported in normal sinus rhythm. He also had a gallbladder ultrasound on 07/01/17. Radiologist's impression: 1. Hepatosteatosis with suggestion of early cirrhotic pathology. No focal hepatic lesion evident. 2. Small perihepatic ascites. 3. Nonspecific mild gallbladder wall thickening with trace pericholecystic fluid without additional abnormality of the gallbladder or sonographic Card sign to suggest acute gallbladder pathology. 4. Negative for biliary dilation. He had a cardioversion on 07/05/17 and was converted to normal sinus rhythm in the rate of 70s. DISCHARGE MEDICATIONS: New medications: 1. Amiodarone 200 mg p.o. b.i.d. x14 days, then needs to decrease to amiodarone 200 mg p.o. daily. 2. Metoprolol succinate 50 mg p.o. daily. Continued Home Medications: 1. Albuterol inhaler. 2. Symbicort 160/4.5. 3. Calcium carbonate 1000 mg p.o. daily. 4. Vitamin D 4000 units p.o. daily. 5. Folic acid 1 mg p.o. daily. 6. Hydrocortisone cream one topically as needed. 7. Oxybutynin 10 mg p.o. daily. 8. Xarelto 20 mg p.o. daily. 9. Viagra 100 mg p.o. daily as needed. 10. Flomax 0.4 mg p.o. daily. 11. Trazodone 100 mg p.o. at bedtime. 12. Vitamin B complex one tablet p.o. b.i.d. HISTORY OF PRESENT ILLNESS AND HOSPITAL COURSE: Mr. Solis is a 66-year-old male with a past medical history significant for hypertension, hyperlipidemia, COPD, alcohol, AFib, who presented after swelling in his feet, which has gotten worse over the past couple of days. The patient previously had this issue approximately two months ago. He took 20 days of Lasix during which time it resolved. The patient reports that he has been having increased orthopnea, now sleeping on two pillows and increased dyspnea with exertion and being unable to climb up moderate grades anymore without being short of breath. The patient has difficulty breathing at all times and a chronic productive cough of clear sputum. No changes in the shortness of breath or sputum have occurred. The patient reports that he does not take inhalers frequently. The patient has also noticed no wheezing. The patient has had no fever, chills, nausea, vomiting, diarrhea. The patient does report that he drinks a 6-pack of beer a day and a pint of whiskey on the weekends. He states he has been doing this for a long period of time and is not interested in stopping. The patient 4 months ago was told that he was in atrial fibrillation with the rate in the 150s. He was started on Xarelto, and another pill for his heart, which he does know what it the name is, likely metoprolol. The patient has been feeling palpitations, lightheaded, chest pain with this increased heart rate. In the emergency room, the patient was found to be in atrial fibrillation with the rates in the 130s as well and having significant wheezing, elevated troponin and elevated severe alcohol level as well and 3+ edema in his bilateral lower extremities for his multiple medical complaints. The hospitalist team was asked to evaluate him and admitted him to the hospital. During his hospitalization, he was placed on monitor and routine lab work was drawn. The patient had an echocardiogram. Results are noted as above. He also was seen by Cardiology. Cardiology was consulted on this case and elected to do a cardioversion. The patient was cardioverted on 07/05/17 to see if this assists with his symptomatic relief of shortness of breath. Postcardioversion, the patient was very adamant and wanted to leave. The patient threatened to remove his IVs and leave against medical advice. He was adamant that he wanted to go home. The patient is rate controlled now. His blood pressure is also controlled. He is in normal sinus rhythm. At this time, I feel Mr. Solis can return home. Mr. Solis will be discharged home. Vital signs are as follows. Blood pressure was 126/71, respirations were 16, heart rate was anywhere from 54 to 87 , temperature was 97.2, O2 saturation was 98%. DISCHARGE PLAN: 1. Mr. Solis will be discharged home. 2. Activity as tolerated. He should continue on a heart-healthy low sodium diet. 3. In regards to his AFib and cardioversion, he should continue with amiodarone 200 mg p.o. b.i.d. for 14 days and then decrease to 200 mg p.o. daily. He is to continue metoprolol 50 mg p.o. daily. He should also continue his Xarelto 20 mg p.o. daily as previously prescribed. He was instructed to return to the hospital in the event he is lightheaded, dizzy, or any syncopal episodes or develops any chest pain or shortness of breath. Per his COPD, he should continue his albuterol and Symbicort inhalers. As far as his alcohol abuse, he was advised not to drink any alcohol as he does have some changes on the CAT scan of his liver as well as the effects that he is having on his heart. FOLLOWUP: The patient is to follow up with his primary care provider in 4 to 7 days. He should follow up with Cardiology in 2-[address] Bradley or with [facility]. The patient was advised to return to the emergency room for any chest pain, shortness of breath or any other concerning symptoms. This is a summarization of her hospitalization. For further details, please see the entire medical record. TIME SPENT: Time spent on this discharge was approximately 60 minutes, greater than half that time was spent with the patient discussing discharge plans. CONDITION AT DISCHARGE: Stable. This discharge plan was discussed with my attending Dr. Abisai Caraballo and he is in agreement with my plan. JOY CAZARES, [employer] [id number]/[facility] #: [id number] TOBY
== END 2017-07-05 17:19 | disposition home or self-care (01) | DRG 309 ==
LOC: ED 12:18 → MEDTELE 16:01
PROVIDERS: ADMIT Internal Medicine; ATTEND Internal Medicine
PROC: 5A2204Z Restoration of Cardiac Rhythm, Single (ICD-10-PCS; principal; 2017-07-05 09:30)
DX: I48.91 Unspecified atrial fibrillation (principal); N17.9 Acute kidney failure, unspecified; I10 Essential (primary) hypertension; E78.5 Hyperlipidemia, unspecified; J44.9 Chronic obstructive pulmonary disease, unspecified; F10.20 Alcohol dependence, uncomplicated; Y90.4 Blood alcohol level of 80-99 mg/100 ml; I08.1 Rheumatic disorders of both mitral and tricuspid valves; F17.210 Nicotine dependence, cigarettes, uncomplicated; I27.20 Pulmonary hypertension, unspecified; F32.9 Major depressive disorder, single episode, unspecified; R10.11 Right upper quadrant pain; E87.70 Fluid overload, unspecified; R06.02 Shortness of breath; Z85.46 Personal history of malignant neoplasm of prostate; Z92.3 Personal history of irradiation; Z79.899 Other long term (current) drug therapy; Z88.5 Allergy status to narcotic agent; Z88.8 Allergy status to other drugs, medicaments and biological substances; Z82.49 Family history of ischemic heart disease and other diseases of the circulatory system; Z79.01 Long term (current) use of anticoagulants
CPT/HCPCS: 36415; 36600; 71046; 76705; 80048; 80053; 80061; 80320; 81003; 81015; 82550; 82553; 82607; 82728; 82746; 82803; 83540; 83550; 83605; 83735; 83880; 84484; 85025; 85610; 85730; 86140; 87070; 87086; 87205; 92960; 93005; 93306; 94640; 94760; 99156; 99284; A9270-GY; G0480; J1940; J2250; J2310; J2930; J3010; J3411; J3475; J3490; J7512

== ENCOUNTER 2018-08-02 14:23 | Observation (INO) | payer MEDICARE, OTHER ==
[2018-08-02] MEDS ORDERED: NS 0.9% 1000 ML** 2,000 ML IV ONE (14:54)
--- NOTE | 2018-08-02 14:54 | ED ---
GI/ HPI - HPI Summary HPI Summary: Patient is a 67 y/o M presenting to ED with complaints of bloody stool onsetting this morning at around 0700. He states that he was sitting in a chair drinking coffee when he began to feel something come out of his rectum. Patient went to the bathroom, had a bowel movement, and noted bright red blood. Bleeding eventually stopped, patient continued with his day. He states that later, while he was taking a shower, patient began to experience rectal bleeding once more. Patient reports another episode of rectal bleeding while he was doing his dishes later, stating that he went to the bathroom and the "bowl was red" after bowel movement. Patient states that he was asymptomatic yesterday. He denies having abdominal pain, dizziness and light-headedness at any point but states that he felt a pressure before having bowel movements. Patient notes that he had similar Sx years ago when he was received radiotherapy for his prostate cancer. PMHx of afib, patient is on Xeralto. PMHx of HLD, HTN, COPD, anxiety, depression, suicide attempt, substance abuse. History of prostate cancer. PSHx of R ankle ORIF, left knee surgery. FMHx of cardiac disease. Patient reports daily alcohol usage and smokes tobacco daily. On triage, pain is denied, nothing is noted to aggravate/alleviate Sx. Home medications and allergies are reviewed. - History of Current Complaint Chief Complaint: EDGIBleed Time Seen by Provider: 08/02/18 14:31 Stated Complaint: RECTAL BLEED PER EMS Hx Obtained From: Patient Onset/Duration: Started Hours Ago - onset 0700 this morning, Still Present Timing: Constant, Lasting Hours - onset 0700 this morning Current Severity: None - pain denied Pain Intensity: 0 Associated Signs and Symptoms: Positive: Bright Red Blood w/Stool, Other: - pressure before having bowel movements. Negative: Dizziness, Lightheadedness, Abdominal Pain Aggravating Factor(s): Nothing Alleviating Factor(s): Nothing - Additional Pertinent History Primary Care Physician: [id number] - Allergy/Home Medications Allergies/Adverse Reactions: Allergies Allergy/AdvReac Type Severity Reaction Status Date / Time meperidine [From Demerol] Allergy Mild Nausea Verified 07/01/17 14:04 morphine Allergy Nausea Verified 07/01/17 14:04 Home Medications: Home Medications Albuterol HFA INHALER* [Ventolin HFA Inhaler*] 2 puff INH Q4H PRN 08/02/18 [ History Confirmed 08/02/18] Calcium Carbonate CHEW TAB* [Tums*] 1,000 mg PO DAILY 08/02/18 [History Confirmed 08/02/18] Hydrocortisone 1% CREAM(NF) 1 applic TOPICAL DAILY PRN 08/02/18 [History Confirmed 08/02/18] Lidocaine [Rectasmoothe] 5 % TOPICAL BID 08/02/18 [History Confirmed 08/02/18] Psyllium JOANNA* [Metamucil JOANNA*] 1 pkt PO DAILY PRN 08/02/18 [History Confirmed ] PMH/Surg Hx/FS Hx/Imm Hx Endocrine/Hematology History: Denies: Hx Anemia, Hx Unexplained Bleeding Cardiovascular History: Reports: Hx Hypercholesterolemia, Hx Hypertension - W/ MEDS Denies: Hx Aneurysm, Hx Angina, Hx Angioplasty, Hx Auto Implanted Cardiovert Defib, Hx Cardiac Arrest, Hx Cardiomegaly, Hx Congenital Heart Disease, Hx Congestive Heart Failure - elevated BNP on admit, Hx Coronary Artery Disease, Hx Deep Vein Thrombosis, Hx Embolism, Hx Hypotension, Hx Pacemaker/ICD, Hx Peripheral Vascular Disease, Hx Rheumatic Fever, Hx Syncope, Hx Valvular Heart Disease Respiratory History: Reports: Hx Chronic Obstructive Pulmonary Disease (COPD) Denies: Hx Asthma History: Comment Only: Other Problems/Disorders - h/o prostate CA 2009, s/p radiation Musculoskeletal History: Comment Only: Other Musculoskeletal History - degenerative arthritis L knee Sensory History: Denies: Hx Contacts or Glasses - unable to obtain at this time, Hx Eye Injury , Hx Eye Prosthesis, Hx Glaucoma, Hx Legally Blind, Hx Macular Degeneration, Hx Vision Problem, Hx Deafness, Hx Hearing Aid - unable to obtain at this time, Hx Hearing Problem, Other Sensory Impairments Opthamlomology History: Denies: Hx Contacts or Glasses - unable to obtain at this time, Hx Eye Injury , Hx Eye Prosthesis, Hx Glaucoma, Hx Legally Blind, Hx Macular Degeneration, Hx Vision Problem, Other Sensory Impairments Psychiatric History: Reports: Hx Anxiety, Hx Depression, Hx Suicide Attempt, Hx Substance Abuse Denies: Hx Eating Disorder, Hx of Violent Episodes Against Others - Cancer History Cancer Type, Location and Year: 2009 Hx Radiation Therapy: Yes - Surgical History Surgery Procedure, Year, and Place: R ankle ORIF. L knee "screws placed" Hx Anesthesia Reactions: No - Immunization History Immunizations Up to Date: Yes Infectious Disease History: No Infectious Disease History: Denies: Traveled Outside the [place] in Last 30 Days - Social History Alcohol Use: Daily Alcohol Amount: 5-6 beers daily, and whiskey 4-5 shots Substance Use Type: Reports: Other Substance Use Comment - Amount & Last Used: HX of substance abuse Hx Tobacco Use: Yes Smoking Status (MU): Heavy Every Day Tobacco Smoker Type: Cigarettes Amount Used/How Often: 1 PPD Length of Time of Smoking/Using Tobacco: 50 years Have You Smoked in the Last Year: Yes Review of Systems Gastrointestinal: Other - POSITIVE - bloody stools, pressure before having bowel movements Negative: Abdominal Pain Neurological: Other - NEGATIVE - DIZZINESS/LIGHT-HEADEDNESS All Other Systems Reviewed And Are Negative: Yes Physical Exam - Summary Physical Exam Summary: Appearance: Well-appearing, Well-nourished, lying in bed comfortably Skin: Warm, dry, no obvious rash Eyes: sclera anicteric, no conjunctival pallor ENT: mucous membranes moist, pharynx appears normal Neck: Supple, nontender Respiratory: Clear to auscultation, no signs of respiratory distress Cardiovascular: Normal S1, S2. No murmurs. Normal distal pulses in tibial and radial bilaterally. Abdomen: Soft, nontender, normal active bowel sounds present Rectal: Bright red blood in rectal vault, no hemorrhoids Musculoskeletal: Normal, Strength/ROM Intact Neurological: A&Ox3, awake and alert, mentation is normal, speech is fluent and appropriate Psychiatric: affect is normal, does not appear anxious or depressed Triage Information Reviewed: Yes Vital Signs On Initial Exam: Initial Vitals Temp Pulse Resp BP Pulse Ox 99.2 F 66 18 150/88 96 08/02/18 14:29 08/02/18 14:29 08/02/18 14:29 08/02/18 14:29 08/02/18 14:29 Vital Signs Reviewed: Yes Diagnostics - Vital Signs Vital Signs Temp Pulse Resp BP Pulse Ox 08/02/18 14:29 99.2 F 66 18 150/88 96 - Laboratory Result Diagrams: 08/02/18 14:43 08/02/18 14:43 Lab Statement: Any lab studies that have been ordered have been reviewed, and results considered in the medical decision making process. - EKG 1445 Cardiac Rate: NL - rate of 63 BPM EKG Rhythm: Sinus Rhythm Summary of EKG Findings: NSR at 63 BPM, P waves, QRS complex, and T waves are within normal limits, T waves and intervals are normal, no ischemic changes. This is a normal EKG. Re-Evaluation - Re-Evaluation First Eval Re-Evaluation Time: 15:26 Comment: Nurse Heath notes that the patient had a small amount of blood in his attends GIGU Course/Dx - Course Course Of Treatment: Patient is a 67 y/o M presenting to ED with complaints of bloody stool onsetting this morning at around 0700. He states that he was sitting in a chair drinking coffee when he began to feel something come out of his rectum. Patient went to the bathroom, had a bowel movement, and noted bright red blood. Bleeding eventually stopped, patient continued with his day. He states that later, while he was taking a shower, patient began to experience rectal bleeding once more. Patient reports another episode of rectal bleeding while he was doing his dishes later, stating that he went to the bathroom and the "bowl was red" after bowel movement. Patient states that he was asymptomatic yesterday. He denies having abdominal pain, dizziness and light- headedness at any point but states that he felt a pressure before having bowel movements. Patient notes that he had similar Sx years ago when he was received radiotherapy for his prostate cancer. On physial exam, bright red blood in rectal vault is noted, no hemorrhoids. EKG showed NSR at 63 BPM, P waves, QRS complex, and T waves are within normal limits, T waves and intervals are normal , no ischemic changes. This is a normal EKG. Labs showed RBC 3.81, Hgb 13.5, Hct 40, MCV 105, MCH 35, RDW 20, absolute monos 0.9, INR 2.2, APTT 47.2, chloride 100, BUN 29, creatinine 1.3, BUN/creatinine ratio 22.3, globulin 4.3, albumin/globulin ratio 0.9. During ED course, patient received fluids. Patient 's case was discussed with Dr. Gonzalez, Dr. Gonzalez will admit the patient. - Diagnoses Provider Diagnoses: Lower GI bleed, Coagulopathy - Physician Notifications Discussed Care Of Patient With: Basilia Gonzalez Time Discussed With Above Provider: 16:19 Instructed by Provider To: Other - Patient's case was discussed with Dr. Gonzalez , Dr. Gonzalez will admit the patient. Discharge - Sign-Out/Discharge Documenting (check all that apply): Patient Departure - admit Patient Received Moderate/Deep Sedation with Procedure: No - Discharge Plan Condition: Stable Disposition: ADMITTED TO [facility] - Billing Disposition and Condition Condition: STABLE Disposition: Admitted to [facility] - Attestation Statements Document Initiated by Perla: Yes Documenting Scribe: JAYSON HICKS Provider For Whom Perla is Documenting (Include Credential): YOUNG ALBERTS MD Scribe Attestation: IJAYSON, scribed for YOUNG ALBERTS MD on 08/02/18 at 2053. Scribe Documentation Reviewed: Yes Provider Attestation: The documentation as recorded by the JAYSON kong accurately reflects the service I personally performed and the decisions made by me, YOUNG ALBERTS MD Status of Scribe Document: Viewed
[2018-08-02 15:11] LABS: Calcium 9.6 mg/dL (8.6-10.3); Potassium 4.4 mmol/L (3.5-5.0); Total Bilirubin 0.2 mg/dL (0.2-1.0)
[2018-08-02 15:17] LABS: Albumin/Globulin Ratio 0.9 (1-3); BUN/Creatinine Ratio 22.3 (8-20); EGFR African American 66.4 (>60); EGFR Non-African American 54.9 (>60); Globulin 4.3 g/dL (2-4); Total Protein 8.3 g/dL (6.4-8.9)
[2018-08-02 15:22] LABS: Activated Partial Thrombo Time 47.2 seconds (26.0-36.3); INR 2.2 (0.82-1.09)
[2018-08-02 16:12] LABS: Hematocrit 40 % (42-52); Hemoglobin 13.5 g/dL (14.0-18.0); Mean Corpuscular HGB Conc 34 g/dL (31-36); Mean Corpuscular Hemoglobin 35 pg (27-31); Mean Corpuscular Volume 105 fL (80-94); Mean Platelet Volume 8.3 fL (7.4-10.4); Platelet Count 348 10^3/uL (150-450); Red Blood Count 3.81 10^6 /uL (4.18-5.48); Red Cell Distribution Width 20 % (10.5-15); White Blood Count 8.8 10^3/uL (3.5-10.8)
[2018-08-02 16:29] LABS: ABS Basophils 0.1 10^3/ul (0-0.2); ABS Eosinophils 0.4 10^3/ul (0-0.6); ABS Lymphocytes 2.1 10^3/ul (1.0-4.8); ABS Monocytes 0.9 10^3/ul (0-0.8); ABS Neutrophils 5.4 10^3/ul (1.5-7.7); Eosinophil % 4.5 %; Lymphocyte % 24.2 %; Nucleated Red Blood Cells % 0.1
[2018-08-02] MEDS ORDERED: traZODone TAB* 100 MG PO PRN (17:19)
[2018-08-02] MEDS ORDERED: Albuterol HFA INHALER* 8 gm MDI INH PRN (17:19)
[2018-08-02] MEDS: NS 0.9% 1000 ML** 1,000 ML IV SCH (20:04)
--- NOTE | 2018-08-02 20:04 | HP ---
CC: Betty Saunders NP * [facility] MEDICINE HISTORY AND PHYSICAL: DATE OF ADMISSION: 08/02/18 PRIMARY CARE PROVIDER: Betty Saunders NP ATTENDING PHYSICIAN: Dr. Garcia * (dictation provided by Rea Subramanian NP). CHIEF COMPLAINT: Bright red blood per rectum. HISTORY OF PRESENT ILLNESS: Mr. Solis is a 67-year-old male with a past medical history of COPD, atrial fibrillation, on chronic Xarelto therapy, recent colonoscopy with finding of multiple benign polyps approximately 1 month ago, diastolic congestive heart failure and continued smoking with history of alcoholism, who presents to the hospital today with concern for bright red blood per rectum. Mr. Solis states that he has been in his normal state of health when today he noticed 2 episodes where he had bright red blood per rectum. He denies lightheadedness or dizziness. The report is that since being in the emergency room, he has also had continued small amount of blood per rectum noted mostly in his Depends undergarment. He states he has never had any GI bleeding before. He notes that he recently had a colonoscopy 1 month ago in [place], at which time there were multiple polyps removed, all of which were reported to him to be benign. He did not report NSAID use, but is on Xarelto for atrial fibrillation. In the emergency room, Mr. Solis had labs which showed that his hemoglobin was 13.5 with hematocrit of 40. He does have a slight acute kidney injury with a creatinine of 1.30 and a BUN of 29. His vitals are stable showing heart rate in the 60s and blood pressure systolically running in the 130s. PAST MEDICAL HISTORY: 1. COPD. 2. Hypertension. 3. Hyperlipidemia. 4. Alcoholism. 5. Tobacco abuse, continued. 6. History of prostate cancer, status post radiation. 7. History of depression. MEDICATIONS: 1. Trazodone 100 mg p.o. at bedtime p.r.n. 2. Tamsulosin 0.4 mg p.o. daily. 3. Oxybutynin 10 mg p.o. daily. 4. Symbicort 160/4.5 one puff inhaled b.i.d. 5. Albuterol inhaler 2 puffs inhaled q.4 hours p.r.n. 6. Vitamin B complex 1 cap p.o. daily. 7. Tiotropium 1 cap inhaled daily. 8. Thiamine 100 mg p.o. daily. 9. Sildenafil 25 mg p.o. daily p.r.n. 10. Rivaroxaban 20 mg p.o. daily. 11. Psyllium 1 packet p.o. daily p.r.n. 12. Metoprolol tartrate 25 mg p.o. b.i.d. 13. Magnesium oxide 400 mg p.o. daily. 14. Lidocaine 5% topically b.i.d. 15. Hydrocortisone 1% cream 1 application topically daily p.r.n. 16. Folic acid 1 mg p.o. daily. 17. Diltiazem CD 120 mg p.o. daily. 18. Cholecalciferol 1000 units p.o. daily. 19. Calcium carbonate 1000 mg p.o. daily. 20. Amiodarone 200 mg p.o. b.i.d. ALLERGIES: MEPERIDINE and MORPHINE. SOCIAL HISTORY: The patient states he is a continued pack-a-day smoker. He has previously reported to drink 6 pack a day with whisky on the weekends, but tells me today that he is only drinking about 2 beers per day. The patient lives with his and states that she would be the healthcare proxy. FAMILY HISTORY: The patient's mother related to an aneurysm, the father related to an NV. He has several uncles who of an NV. He has a brother who accidently, and a sister who is alive and well. He has 2 children, one of whom related to accident and one of whom is alive and well. REVIEW OF SYSTEMS: A 14-point review of systems was completed with Mr. Solis and all those not mentioned above are negative. PHYSICAL EXAMINATION GENERAL: Mr. Solis is sitting in the bed. He is in good spirits, in no acute distress. VITAL SIGNS: Temperature 99.2, pulse rate 62, respiratory rate 18, O2 saturation 96% on room air, blood pressure 130/84. LUNGS: Clear to auscultation bilaterally with no accessory muscle use and good aeration. HEART: S1, S2. No murmur, rub, or gallop and regular. ABDOMEN: Soft, nontender with bowel sounds positive x4. EXTREMITIES: No cyanosis, no edema. NEURO: He is alert, he is oriented x3. He moves all extremities equally. There is no facial asymmetry or focal weakness. Extraocular movements are intact. SKIN: Intact. LABORATORY DATA: Sodium 133, potassium 4.4, chloride 100, serum bicarbonate 26 , BUN 29, creatinine 1.30, glucose 83. WBC 8.8, hemoglobin 13.5, hematocrit 40 , platelet count 348. INR 2.20, aPTT is 47.2. ASSESSMENT: Mr. Solis is a 67-year-old male with a past medical history of chronic obstructive pulmonary disease, diastolic congestive heart failure, and atrial fibrillation, on Xarelto, who presents to the hospital today with concern for bright red blood per rectum with concern for lower gastrointestinal bleed. Our plan is for observation in the hospital for the followin. Lower gastrointestinal bleeding: The patient has had a small amount of blood per rectum today. Fortunately, his hemoglobin is thus far stable. We will continue to check it about every q.8 hours through the night. I have written for the patient to have 2 large-bore IVs at all times. He will have normal saline at 75 mL per hour. I have spoken with Dr. Reardon from GI who will be providing consultation tomorrow as needed. The patient does have a history of recent colonoscopy about a month ago and we will seek to obtain those records from [facility] in the morning when the office is open. Plan to hold Xarelto. 2. Chronic obstructive pulmonary disease. The patient has no evidence of exacerbation. Plan to continue his home albuterol and tiotropium. We will hold Symbicort as it is non-formulary. He does not wear oxygen at home and is not requiring oxygen now. 3. History of atrial fibrillation. Plan to hold Xarelto. He states that he takes amiodarone 200 mg p.o. b.i.d., though on his list he states it is written for daily. It would be prudent to check in with his primary care physician tomorrow to verify the dose. Given that he is bleeding, we will plan to hold Cardizem for now, but we will continue metoprolol 25 b.i.d. and we can resume Cardizem in the a.m. if he is stable. 4. History of diastolic congestive heart failure. No evidence of exacerbation. We will monitor closely. 5. Code status is full code. This was addressed with the patient today at the bedside. TIME SPENT: Approximately 60 minutes were spent in the admission of this patient; more than half of the time was spent with the patient at the bedside reviewing the events leading up to this hospitalization, performing the physical examination and reviewing the plan of care. REA SUBRAMANIAN NP [id number]/[facility] #: [id number] TOBY
[2018-08-02] MEDS: Amiodarone TAB* 200 MG PO SCH (20:05)
[2018-08-02] MEDS: Metoprolol Tartrate TAB* 50 mg PO SCH (20:07)
[2018-08-03 00:09] LABS: Hematocrit 32 % (42-52); Hemoglobin 10.7 g/dL (14.0-18.0)
[2018-08-03 06:56] LABS: Hematocrit 34 % (42-52); Hemoglobin 11.1 g/dL (14.0-18.0)
[2018-08-03 07:14] LABS: BUN/Creatinine Ratio 17.8 (8-20); Calcium 8.3 mg/dL (8.6-10.3); EGFR African American 74.3 (>60); EGFR Non-African American 61.4 (>60); Potassium 4.6 mmol/L (3.5-5.0)
[2018-08-03] MEDS: Metoprolol Tartrate TAB* 50 mg PO SCH (08:52)
[2018-08-03] MEDS: Amiodarone TAB* 200 MG PO SCH (08:52)
[2018-08-03] MEDS ORDERED: Pantoprazole TAB * 40 MG TAB PO SCH (09:00)
[2018-08-03] MEDS ORDERED: Tamsulosin CAP* 0.4 MG PO SCH (09:00)
[2018-08-03] MEDS ORDERED: Tiotropium CAP.INH* CAP.INH/18 MCG (USE ORDER SET !) INH SCH (09:00)
[2018-08-03] MEDS ORDERED: Spiriva Inhaler DEVICE* 1 EACH DEVICE INH ONE (09:00)
[2018-08-03] MEDS ORDERED: Calcium Carbonate CHEW TAB* 500 MG (TUMS) PO SCH (09:00)
[2018-08-03] MEDS: NS 0.9% 1000 ML** 1,000 ML IV SCH (09:30)
--- NOTE | 2018-08-03 10:23 | PN ---
Subjective Date of Service: 08/03/18 Interval History: Mr. Solis reports that he is feeling well. He continued to have blood that was "dripping out" any time he stood or had a bowel movement through the night. However, he only had a pink tinge in the toilet bowl when he went to the bathroom most recently. He has a history of hemorrhoids but denies pain or itching now and though he has had some blood tinged bowel movements in the past he has never had anything like this amount of bleeding before. Objective Active Medications: Albuterol (Ventolin Hfa Inhaler*) 2 puff INH Q4H PRN Amiodarone HCl (Cordarone Tab*) 200 mg PO BID ARLENE Calcium Carbonate (Tums*) 1,000 mg PO DAILY ARLENE Sodium Chloride (Ns 0.9% 1000 Ml) 1,000 mls @ 75 mls/hr IV PER RATE ARLENE Metoprolol Tartrate (Lopressor Tab*) 25 mg PO BID ARLENE Pantoprazole Sodium (Protonix Tab*) 40 mg PO DAILY ARLENE Tamsulosin HCl (Flomax Cap*) 0.4 mg PO DAILY ARLENE Tiotropium [place] (Spiriva Cap.Inh*) 1 cap INH DAILY ARLENE Trazodone HCl (Desyrel Tab*) 100 mg PO BEDTIME PRN Vital Signs: Temp Pulse Resp BP Pulse Ox 97.5 F 64 18 138/90 96 08/03/18 07:31 08/03/18 07:31 08/03/18 08:00 08/03/18 07:31 08/03/18 07:31 Oxygen Devices in Use Now: None Appearance: Male ambulating in room in [facility] Eyes: No Scleral Icterus Ears/Nose/Mouth/Throat: Mucous Membranes Moist Neck: Trachea Midline Respiratory: Symmetrical Chest Expansion and Respiratory Effort, Clear to Auscultation Cardiovascular: NL Sounds; No Murmurs; No JVD, No Edema Abdominal: NL Sounds; No Tenderness; No Distention, - - No external hemorrhoids Extremities: No Edema Skin: No Rash or Ulcers Neurological: Alert and Oriented x 3, NL Muscle Strength and Tone Nutrition: Taking PO's Result Diagrams: 08/03/18 04:56 08/03/18 06:27 Assess/Plan/Problems-Billing Assessment: Mr. Solis is a 67 yo M with a PMH of afib on eliquis and COPD who was admitted on 08/02/18 with lower GI bleed. - Patient Problems (1) Lower GI bleed Comment: - Hgb feel slightly to 11, small amount of blood in stool this morning. Anemia could be related to hydration as well. Asymptomatic. - GI consult pending. I have requested records regarding recent colonoscopy ( one month ago at [place] with reported finding of multiple benign polyps). - Hold xarelto. Continue IVF, maintain 2 large bore IVs. (2) JOSE ENRIQUE (acute kidney injury) Comment: - Resolving with IVF, continue NS @ 75 ml/hr. (3) COPD (chronic obstructive pulmonary disease) Comment: - No evidence of acute exacerbation - Continue available home meds (4) Atrial fibrillation Comment: - HR 60s - Continue amiodarone - Hold xarelto in setting of GI bleed. (5) DVT prophylaxis Comment: - SCDs. (6) Full code status Comment: Status and Disposition: OBV. Anticipate discharge to home when medically stable.
[2018-08-03 13:13] VITALS: BP 140/76
[2018-08-03 15:00] LABS: Hematocrit 34 % (42-52); Hemoglobin 11.3 g/dL (14.0-18.0)
--- NOTE | 2018-08-03 22:22 | DS ---
CC: Betty Saunders NP * DISCHARGE SUMMARY: DATE OF ADMISSION: 08/02/18 DATE OF DISCHARGE: 08/03/18 PRIMARY CARE PROVIDER: Betty Saunders NP ATTENDING PHYSICIAN: Dr. Aby Grissom * (dictation provided by Rea Subramanian NP ). PRIMARY DIAGNOSIS: Lower gastrointestinal bleed, stable. SECONDARY DIAGNOSES: 1. History of chronic obstructive pulmonary disease. 2. Hypertension. 3. Hyperlipidemia. 4. History of alcoholism. 5. Tobacco abuse, continued. 6. History of prostate cancer, status post radiation. 7. History of depression. MEDICATIONS AT THE TIME OF DISCHARGE: 1. Trazodone 100 mg p.o. at bedtime p.r.n. 2. Tamsulosin 0.4 mg p.o. daily. 3. Oxybutynin 10 mg p.o. daily. 4. Symbicort 160/4.5 one puff inhaled b.i.d. 5. Albuterol 2 puffs inhaled q.4 hours p.r.n. 6. Vitamin B complex 1 cap p.o. daily. 7. Tiotropium 1 cap inhaled daily. 8. Thiamine 100 mg p.o. daily. 9. Psyllium pack 1 packet p.o. daily p.r.n. 10. Metoprolol tartrate 25 mg p.o. b.i.d. 11. Magnesium oxide 400 mg p.o. daily. 12. Lidocaine as needed. 13. Hydrocortisone cream as needed. 14. Folic acid 1 mg p.o. daily. 15. Diltiazem CD 120 mg p.o. daily. 16. Cholecalciferol 1000 units p.o. daily. 17. Calcium carbonate 2 tabs 1000 mg p.o. daily. 18. Amiodarone 200 mg p.o. daily (hold Xarelto until followup with GI). HOSPITAL COURSE: Mr. Solis is a 67-year-old male with past medical history as outlined above who presented to the emergency room on 08/02/18 with concern for bright red blood per rectum. Please see the dictated H and P from myself for complete details. In brief, the patient had stated that the morning prior to admission he developed blood in his stool. As it persisted through today, he ultimately presented to the ED for evaluation. He denied lightheadedness or dizziness. His vitals were stable. His initial hemoglobin was 13.5. He reported that he had had a colonoscopy 1 month ago, outpatient, with findings of benign polyps only. Mr. Solis was admitted to the hospital. His hemoglobin and hematocrit were checked repeatedly and as of time of discharge is 11.3 and 34. He did not require blood transfusions. He has remained stable with stable vital signs. I discussed the case with Dr. Felicity Rosales. The patient reported he has had no further blood per stool after his last bowel movement this morning. He is up and ambulating independently. Suspected that perhaps he had some bleeding internal hemorrhoids. I did obtain the record from his colonoscopy 1 month ago where internal hemorrhoids were noted. Regardless, he is stable and has a recent negative colonoscopy and has had no further bleeding and is not anemic, therefore, he will be following up with his GI doctor in [place]; I have asked that he call for an appointment in the morning. DISPOSITION: Home. DIET: Low fat, low salt. ACTIVITY: As tolerated. FOLLOWUP PLANS: 1. Please follow up with the GI provider in [place] for evaluation in the next 1 to 2 weeks. 2. The patient is strongly encouraged to return to the emergency room immediately should he have further bleeding per rectum. TIME SPENT: Approximately 60 minutes was spent on the discharge of this patient , more than half of the time was spent with the patient at the bedside reviewing the events leading up to this hospitalization, performing the physical examination, and reviewing the plan of care. REA SUBRAMANIAN NP [id number]/[facility] #: [id number] TOBY
[2018-08-04] MEDS ORDERED: Amiodarone TAB* 200 MG PO SCH (09:00)
== END 2018-08-03 17:50 | disposition home or self-care (01) ==
LOC: ED 14:23 → MEDTELE 17:14
PROVIDERS: ADMIT Internal Medicine; ATTEND Hospitalist
DX: K92.2 Gastrointestinal hemorrhage, unspecified (principal); J44.9 Chronic obstructive pulmonary disease, unspecified; I10 Essential (primary) hypertension; E78.5 Hyperlipidemia, unspecified; F10.21 Alcohol dependence, in remission; F17.210 Nicotine dependence, cigarettes, uncomplicated; Z85.46 Personal history of malignant neoplasm of prostate; F32.9 Major depressive disorder, single episode, unspecified; N17.9 Acute kidney failure, unspecified; Z88.6 Allergy status to analgesic agent; Z79.899 Other long term (current) drug therapy
CPT/HCPCS: 36415; 80048; 80053; 85014; 85018; 85025; 85610; 85730; 86850; 86900; 86901; 93005; 94640; 99284; A9270-GY; G0378

== ENCOUNTER 2018-10-08 22:52 | Inpatient (IN) | payer OTHER ==
[2018-10-08] MEDS ORDERED: methylPREDNISolone 125 MG* 2 ML VIAL IV ONE (22:56)
[2018-10-08] MEDS ORDERED: Albuterol/Ipratropium NEB.SOL* Albuterol 2.5 MG/Ipratropium 0.5 MG 3 ML INH ONE (22:56)
[2018-10-08] MEDS ORDERED: Magnesium Sulfate 2 GM IV* 2 GM/50 ML BAG IVPB ONE (22:58)
--- NOTE | 2018-10-08 23:00 | ED ---
Shortness of Breath - HPI Summary HPI Summary: Patient is a 67 y/o M presenting to ED via EMS with complaints of SOB for the past 24 hours. PMHx of COPD and recent Lung CA Dx. Patient was placed on bipap. PMHx of HTN, HLD, anxiety, depression. Patient is a daily smoker, daily drinker , and has Hx of substance abuse. FMHx of cardiac disease. On triage, pain is denied, nothing is noted to aggravate/alleviate Sx. Home medications and allergies are reviewed. It is reported that the patient is a full code. - History of Current Complaint Hx Obtained From: Patient Onset/Duration: Lasting Days, Still Present Aggravating Factors: Nothing Alleviating Factors: Nothing Associated Signs & Symptoms: Negative - Allergy/Home Medications Allergies/Adverse Reactions: Allergies Allergy/AdvReac Type Severity Reaction Status Date / Time meperidine [From Demerol] Allergy Mild Nausea Verified 07/01/17 14:04 morphine Allergy Nausea Verified 07/01/17 14:04 PMH/Surg Hx/FS Hx/Imm Hx Endocrine/Hematology History: Denies: Hx Anemia, Hx Unexplained Bleeding Cardiovascular History: Reports: Hx Hypercholesterolemia, Hx Hypertension - W/ MEDS Denies: Hx Aneurysm, Hx Angina, Hx Angioplasty, Hx Auto Implanted Cardiovert Defib, Hx Cardiac Arrest, Hx Cardiomegaly, Hx Congenital Heart Disease, Hx Congestive Heart Failure - elevated BNP on admit, Hx Coronary Artery Disease, Hx Deep Vein Thrombosis, Hx Embolism, Hx Hypotension, Hx Pacemaker/ICD, Hx Peripheral Vascular Disease, Hx Rheumatic Fever, Hx Syncope, Hx Valvular Heart Disease Respiratory History: Reports: Hx Chronic Obstructive Pulmonary Disease (COPD) Denies: Hx Asthma History: Comment Only: Other Problems/Disorders - h/o prostate CA 2009, s/p radiation Musculoskeletal History: Comment Only: Other Musculoskeletal History - degenerative arthritis L knee Sensory History: Denies: Hx Contacts or Glasses - unable to obtain at this time, Hx Eye Injury , Hx Eye Prosthesis, Hx Glaucoma, Hx Legally Blind, Hx Macular Degeneration, Hx Vision Problem, Hx Deafness, Hx Hearing Aid - unable to obtain at this time, Hx Hearing Problem, Other Sensory Impairments Opthamlomology History: Denies: Hx Contacts or Glasses - unable to obtain at this time, Hx Eye Injury , Hx Eye Prosthesis, Hx Glaucoma, Hx Legally Blind, Hx Macular Degeneration, Hx Vision Problem, Other Sensory Impairments Psychiatric History: Reports: Hx Anxiety, Hx Depression, Hx Suicide Attempt, Hx Substance Abuse Denies: Hx Eating Disorder, Hx of Violent Episodes Against Others - Cancer History Cancer Type, Location and Year: prostate 2010 Hx Radiation Therapy: Yes - Surgical History Surgery Procedure, Year, and Place: R ankle ORIF. L knee "screws placed" Hx Anesthesia Reactions: No - Social History Alcohol Use: Daily Alcohol Amount: 5-6 beers daily, and whiskey 4-5 shots Substance Use Type: Reports: Other Substance Use Comment - Amount & Last Used: HX of substance abuse Hx Tobacco Use: Yes Smoking Status (MU): Heavy Every Day Tobacco Smoker Type: Cigarettes Amount Used/How Often: 1 PPD Length of Time of Smoking/Using Tobacco: 50 years Have You Smoked in the Last Year: Yes Review of Systems Negative: Fever - on vitals, temp 96.5 F Positive: Shortness Of Breath All Other Systems Reviewed And Are Negative: Yes Physical Exam - Summary Physical Exam Summary: VITAL SIGNS: Reviewed. GENERAL: Patient is a well-developed and nourished male who is lying comfortable in the stretcher. Patient is in respiratory distress. HEAD AND FACE: No signs of trauma. No ecchymosis, hematomas or skull depressions. No sinus tenderness. EYES: PERRLA, EOMI x 2, No injected conjunctiva, no nystagmus. EARS: Hearing grossly intact. Ear canals and tympanic membranes are within normal limits. MOUTH: Oropharynx within normal limits. NECK: Supple, trachea is midline, no adenopathy, no JVD, no carotid bruit, no c- spine tenderness, neck with full ROM CHEST: Symmetric, no tenderness at palpation LUNGS: Significantly decreased breath sounds bilaterally. Tachypneic. CVS: Regular rate and rhythm, S1 and S2 present, no murmurs or gallops appreciated. ABDOMEN: Soft, non-tender. No signs of distention. No rebound no guarding, and no masses palpated. Bowel sounds are normal. EXTREMITIES: FROM in all major joints, no edema, no cyanosis or clubbing. NEURO: Alert and oriented x 3. No acute neurological deficits. Speech is normal and follows commands. SKIN: Dry and warm Triage Information Reviewed: Yes Vital Signs On Initial Exam: Initial Vitals Temp Pulse Resp BP Pulse Ox 96.5 F 118 31 157/124 95 10/08/18 22:54 10/08/18 22:54 10/08/18 22:54 10/08/18 22:54 10/08/18 22:54 Vital Signs Reviewed: Yes Procedures - Central Line Right Jugular Central Line Lumen: triple Central Line Procedure: betadine prep, sterile drapes applied, sterile dressing applied Central Line Position: internal jugular (R) Anesthesia: intubated and sedated Complications: none Central Line Post Position: sutured, good blood return, position confirmed w/ CXR - Chest Tube Left Mid Anterior Chest Tube Location: fifth interspace Size of Pashto Tube (cm): 20 Chest Tube Procedure: betadine prep, sterile drapes applied, sterile dressing applied Volume Anesthetic (ccs): 0 - sedated and intubated Number of Attempts: 1 Time of Successful Intubation: 02:45 Tube Drainage: none Tube Sutured to Skin: Yes Post Procedure CXR?: Yes - Pneumothorax almost resolved. Chest tube tip in mid lung field. - Intubation Time of Intubation: 02:30 Intubation Method: orotracheal Tube Size (cm): 8.0 Medications: Succinylcholine - with etomidate Breath Sounds after Intubation: equal Intubation Complications: no complications Post Intubation Xray: Yes Progress/Xray Impression: ET tube in place, pneumothorax at 1.5-2 cm Diagnostics - Laboratory Result Diagrams: 10/09/18 05:05 10/09/18 05:05 Lab Statement: Any lab studies that have been ordered have been reviewed, and results considered in the medical decision making process. - Radiology CXR Radiology Interpretation Completed By: ED Physician Summary of Radiographic Findings: CXR showed left pneumothorax, largest is 1 cm from the chest wall, no infiltrate, pending official report. 2nd CXR Radiology Interpretation Completed By: ED Physician Summary of Radiographic Findings: CXR showed left pneumothorax increased to 1.5 cm, pending official report. 3rd CXR Radiology Interpretation Completed By: ED Physician Summary of Radiographic Findings: CXR showed ET tube in place, pneumothorax at 1.5-2 cm, pending official report. 4th CXR Radiology Interpretation Completed By: ED Physician Summary of Radiographic Findings: CXR showed post chest tube, pneumothorax almost resolved, chest tube tip in mid lung field, pending official report. 5th CXR Radiology Interpretation Completed By: ED Physician Summary of Radiographic Findings: CXR showed central line in place, et tube in place, pending official report. - CT CT CHEST CT Interpretation Completed By: Radiologist Summary of CT Findings: IMPRESSION: 1. Left pneumothorax occupying approximately 20% of the left hemithorax. 2. Multiple pulmonary nodules located in the left lung. Largest nodule is. approximately 1.4 cm in length. The CT findings are very suspicious for a. malignancy. There are at least 3 nodules located in the left lung. For patients. at low risk (minimal or absent history of smoking and of other known risk. factors), recommend CT at 3-6 months, then consider CT at 18-24 months. For. patients at high risk (history of smoking or of other known risk factors),. recommend CT at 3-6 months, then CT at 18-24 months. (Juliette et al.,. Fleischner Society, 2017). 3. Multiple large paratracheal and mediastinal adenopathy. THIS REPORT WAS REVIEWED BY DR. JOHNSON. - EKG 2309 Cardiac Rate: Tachycardia - rate of 122 BPM EKG Rhythm: Sinus Tachycardia Summary of EKG Findings: EKG showed sinus tachycardia with rate of 122 BPM, normal interval, normal axis, no acute ischemic changes. 2358 Cardiac Rate: Tachycardia - rate of 115 BPM EKG Rhythm: Sinus Tachycardia Summary of EKG Findings: Repeat EKG showed showed sinus tachycardia with rate of 115 BPM no acute ischemic changes. Re-Evaluation - Re-Evaluation First Eval Re-Evaluation Time: 23:44 Comment: Nurse notifies MD of trop 1.3 and lactic 5.3 Second Eval Re-Evaluation Time: 02:30 Comment: Intubation completed. Third Eval Re-Evaluation Time: 02:45 Comment: Chest tube placed. Fourth Eval Re-Evaluation Time: 04:30 Comment: Central line had been placed Course/Dx - Course Course Of Treatment: Patient is a 67 y/o M presenting to ED via EMS with complaints of SOB for the past 24 hours. PMHx of COPD and recent Lung CA Dx. Patient was placed on bipap. PMHx of HTN, HLD, anxiety, depression. Patient is a daily smoker, daily drinker, and has Hx of substance abuse. FMHx of cardiac disease. Patient is in respiratory distress. Patient has significantly decreased breath sounds bilaterally and is tachypneic. EKG showed sinus tachycardia with rate of 122 BPM no acute ischemic changes. Repeat EKG showed showed sinus tachycardia with rate of 115 BPM no acute ischemic changes. CXR showed left pneumothorax, largest is 1 cm from the chest wall, no infiltrate, pending official report. Labs showed WBC 13.4, MCV 104, MCH 35, RDW 22, absolute neuts 11.3, absolute lymphs 0.8, absolute monos 1.3, sodium 134, chloride 94, anion gap 17, BUN 42, creatinine 1.86, BUN/creatinine 22.6, glucose 216, lactic acid 5.3, AST 44, alk phos 105, trop 1.3, CRP 401.78, BNP > 1300, total protein 10.1, globulin 6.3, albumin/globulin ratio 0.6. ABG showed o2 sat 100, pO2 193. During ED course, patient received anabel-medrol 125 mg IV, magnesium sulfate 2 gm in 50 mls @ 50 mls/hr IVPB, Levaquin 750 mg in 150 mls @ 100 mls/hr IVPB, duoneb, 1 neb, albuterol 2.5 mg INH, and fluids. 0018 - Patient's case was discussed with Dr. Jaramillo, Dr. Jaramillo requests CT chest of patient and agrees to admit. 0109 - Dr. Tran, surgery, was consulted on the patient's case. Dr. Tran states that the pneumothorax is too small for intervention at this time, she recommends admission of patient. CT CHEST IMPRESSION: 1. Left pneumothorax occupying approximately 20% of the left hemithorax. 2. Multiple pulmonary nodules located in the left lung. Largest nodule is. approximately 1.4 cm in length. The CT findings are very suspicious for a. malignancy. There are at least 3 nodules located in the left lung. For patients. at low risk (minimal or absent history of smoking and of other known risk. factors), recommend CT at 3-6 months, then consider CT at 18-24 months. For. patients at high risk (history of smoking or of other known risk factors), . recommend CT at 3-6 months, then CT at 18-24 months. (Juliette et al.,. Fleischner Society, 2017). 3. Multiple large paratracheal and mediastinal adenopathy. Attempted to wean the patient off of bipap. However, the patient failed. He has visible shakes, compares Sx to withdrawals but worse. Patient placed on bipap, 2 mg Ativan and 10 mg valium given. Repeat Lactic was 3, second trop 1.1. 2nd CXR showed pneumothorax at 1.5 cm. Patient was intubated with orotracheal 8 cm tube. He was sedated with succinylcholine and etomidate. During intubation, it was found that the patient's trachea was shifted to the right side. No complications, breath sounds equal, CXR post intubation showed ET tube in place. Chest tube placed at fifth interspace, betadine prep, sterile drapes and dressing applied. Patient already sedated and intubated. No tube drainage. Tube sutured to skin. CXR showed pneumothorax almost resolved, chest tube in mid lung field. Central line was placed. Triple Central Line Lumen used. Betadine prep, sterile drapes and dressing applied. RIJ, patient was already intubated and sedated. No complications, central line sutured, good blood return, position confirmed w/ CXR. Case discussed with Dr. Tran, post chest tube insertion, she reviewed X-ray, chest tube position is satisfactory. Maria Alejandranet was admitted to ICU. - Diagnoses Provider Diagnoses: Pneumothorax, COPD (chronic obstructive pulmonary disease) - Physician Notifications Discussed Care of Patient With: David Jaramillo Time Discussed With Above Provider: 00:18 Instructed by Provider To: Other - 0018 - Patient's case was discussed with Dr. Jaramillo, Dr. Jaramillo requests CT chest and accepts for admission. 0109 - Dr. Tran, surgery, was consulted on the patient's case. Dr. Tran states that the pneumothorax is too small for intervention at this time, she recommends admission of patient. 0418 - Case discussed with Dr. Tran, post chest tube insertion, she reviewed X-ray, chest tube position is satisfactory. Discharge - Sign-Out/Discharge Documenting (check all that apply): Patient Departure - admit All imaging exams completed and their final reports reviewed: Yes Patient Received Moderate/Deep Sedation with Procedure: Yes - Discharge Plan Condition: Fair Disposition: ADMITTED TO [facility] - Billing Disposition and Condition Condition: FAIR Disposition: Admitted to [facility] - Attestation Statements Document Initiated by Scribe: Yes Documenting Scribe: JAYSON HICKS Provider For Whom Scribe is Documenting (Include Credential): REJI JOHNSON MD Scribe Attestation: I, JAYSON HICKS, scribed for REJI JOHNSON MD on 10/09/18 at 1931. Scribe Documentation Reviewed: Yes Provider Attestation: The documentation as recorded by the scribeJAYSON accurately reflects the service I personally performed and the decisions made by me, REJI JOHNSON MD Status of Scribe Document: Viewed
[2018-10-08 23:16] LABS: Hematocrit 46 % (42-52); Hemoglobin 15.3 g/dL (14.0-18.0); Mean Corpuscular HGB Conc 33 g/dL (31-36); Mean Corpuscular Hemoglobin 35 pg (27-31); Mean Corpuscular Volume 104 fL (80-94); Platelet Count 353 10^3/uL (150-450); Red Blood Count 4.41 10^6 /uL (4.18-5.48); Red Cell Distribution Width 22 % (10-15); White Blood Count 13.4 10^3/uL (3.5-10.8)
[2018-10-08] MEDS: Albuterol 2.5 MG/3 ML NEB.SOL* (0.083%) INH SCH ×2 (23:16→23:30)
[2018-10-08 23:20] LABS: ABS Lymphocytes 0.8 10^3/ul (1.0-4.8); ABS Monocytes 1.3 10^3/ul (0-0.8); ABS Neutrophils 11.3 10^3/ul (1.5-7.7); ABS Nucleated RBC 0.1 10^3/ul
[2018-10-08 23:25] LABS: Activated Partial Thrombo Time 35.3 seconds (26.0-38.0); INR 1.06 (0.82-1.09)
[2018-10-08 23:39] LABS: ALT 22 U/L (7-52); AST 44 U/L (13-39); Albumin 3.8 g/dL (3.2-5.2); Albumin/Globulin Ratio 0.6 (1-3); Alkaline Phosphatase 105 U/L (34-104); Anion Gap 17 mmol/L (2-11); BUN/Creatinine Ratio 22.6 (8-20); Blood Urea Nitrogen 42 mg/dL (6-24); C Reactive Protein 401.78 mg/L (<8.01); CO2 Carbon Dioxide 23 mmol/L (22-32); Calcium 9.4 mg/dL (8.6-10.3); Chloride 94 mmol/L (101-111); EGFR African American 43.9 (>60); EGFR Non-African American 36.3 (>60); Globulin 6.3 g/dL (2-4); Glucose 216 mg/dL (70-100); Sodium 134 mmol/L (135-145); Total Protein 10.1 g/dL (6.4-8.9)
[2018-10-08 23:41] LABS: Eosinophil % 0.1 %; Lymphocyte % 5.7 %; Nucleated Red Blood Cells % 0.8
[2018-10-08] MEDS ORDERED: Levofloxacin 750 MG IVPREMIX(* 750 MG/150 ML BAG IVPB ONE (23:49)
[2018-10-09] MEDS: NS 0.9% 1000 ML** 1,000 ML IV SCH ×2 (00:08→01:19)
--- NOTE | 2018-10-09 01:21 | HP ---
History of Present Illness - History of Present Illness Reason for Visit: Shortness of breath History of Present Illness: Mr. Solis is a 67-year-old male with a past medical history of COPD, atrial fibrillation, on chronic Xarelto therapy stopped 2 months ago, diastolic congestive heart failure and continued smoking with history of alcoholism, recently admitted for lower GI bleeding from hemorrhoids, recent lung biopsy on 09/28/2018 postive for lung cancer comes in due to shortness of breath for over a day. Denies any chest pain. Has chronic cough. He also attempted to stop alcohol as of Wednesday which was his last drink and states he is withdrawing. He is having shakes feels anxious. Past Medical History Admitted for GI bleed 2 months ago suspected internal hemorrhoidal Atrial Fibrillation was on xarelto up until 2 months ago COPD. Hypertension. Hyperlipidemia. Alcoholism. Diastolic Heart Failure. Tobacco abuse, continued. History of prostate cancer, status post radiation in 2009. History of depression. Past Surgical History Left Knee screws Right Ankle ORIF Social History The patient states he is a continued pack-a-day smoker. He has previously reported to drink 6 pack a day with whisky on the weekends, but has completely stopped as of Wednesday. The patient lives with his and states that she would be the healthcare proxy. Family History The patient's mother related to an aneurysm, the father related to an NV. He has several uncles who of an NV. He has a brother who accidentally, and a sister who is alive and well. He has 2 children, one of whom related to accident and one of whom is alive and well. Allergies Allergy/AdvReac Type Severity Reaction Status Date / Time meperidine [From Demerol] Allergy Mild Nausea Verified 07/01/17 14:04 morphine Allergy Nausea Verified 07/01/17 14:04 Home Medications Medication Instructions Recorded Confirmed Type Budesonide/Formote 160/4.5(NF) 1 puff INH BID 09/03/17 10/08/18 History [Symbicort 160/4.5 (NF)] Cholecalciferol TAB* [Vitamin D 1,000 unit PO DAILY 09/03/17 10/08/18 History TAB*] Folic Acid TAB* [Folvite TAB*] 1 mg PO DAILY 09/03/17 10/08/18 History Metoprolol Tartrate TAB* 25 mg PO BID 09/03/17 10/08/18 History [Lopressor TAB*] Oxybutynin TAB* [Ditropan TAB*] 10 mg PO DAILY 09/03/17 10/08/18 History Tamsulosin CAP* [Flomax CAP*] 0.4 mg PO DAILY 09/03/17 10/08/18 History Thiamine TAB* [Vitamin B-1 TAB 100 100 mg PO DAILY 09/03/17 10/08/18 History MG*] Tiotropium CAP.INH* [Spiriva 1 cap.inh INH DAILY 09/03/17 10/08/18 History CAP.INH*] Vitamin B Complex CAP* [B Complex 1 cap PO DAILY 09/03/17 10/08/18 History CAP*] traZODone TAB* [Desyrel TAB*] 100 mg PO BEDTIME PRN 09/03/17 10/08/18 History Diltiazem CD CAP* [Cardizem CD 120 mg PO DAILY #30 cap.cd 09/09/17 10/08/18 Rx CAP*] Magnesium Oxide TAB* [MagOx 400 400 mg PO DAILY #30 tab 09/09/17 10/08/18 Rx TAB*] Albuterol HFA INHALER* [Ventolin 2 puff INH Q4H PRN 08/02/18 10/08/18 History HFA Inhaler*] Calcium Carbonate CHEW TAB* [Tums*] 1,000 mg PO DAILY 08/02/18 10/08/18 History Hydrocortisone 1% CREAM(NF) 1 applic TOPICAL DAILY PRN 08/02/18 10/08/18 History Lidocaine [Rectasmoothe] 5 % TOPICAL BID 08/02/18 10/08/18 History Psyllium JOANNA* [Metamucil JOANNA*] 1 pkt PO DAILY PRN 08/02/18 10/08/18 History Amiodarone TAB* [Cordarone Tab*] 200 mg PO DAILY tab 08/03/18 10/08/18 Rx Review of Systems - Measurements Intake and Output: Intake and Output Last 24 Hours 10/06/18 10/07/18 10/08/18 10/09/18 06:59 06:59 06:59 06:59 Weight 158 lb - Review of Systems Constitutional Symptoms: Negative: Fever Thyroid: Positive: Tremor - Shakes due to alcohol withdrawl. Cardiology: Positive: Shortness of Breath, Palpitations Negative: Chest Pain, Swelling of Ankles, Edema Gastroenterology: Negative: Abdominal Pain, Nausea, Vomiting Objective Active Medications: Sodium Chloride (Ns 0.9% 1000 Ml) 1,000 mls @ 150 mls/hr IV PER RATE ARLENE Last Admin: 10/09/18 00:08 Dose: 150 mls/hr Vital Signs - 8 hr 10/08/18 10/08/18 10/08/18 22:54 22:57 23:01 Temperature 96.5 F Pulse Rate 118 120 120 Respiratory 31 39 48 Rate Blood Pressure 157/124 164/116 (mmHg) O2 Sat by Pulse 95 95 95 Oximetry 10/08/18 10/08/18 10/08/18 23:17 23:18 23:20 Temperature Pulse Rate 116 116 114 Respiratory 38 38 40 Rate Blood Pressure 132/96 (mmHg) O2 Sat by Pulse 100 100 100 Oximetry 10/08/18 10/08/18 10/08/18 23:31 23:32 23:46 Temperature Pulse Rate 114 114 Respiratory 40 39 42 Rate Blood Pressure 112/91 127/94 (mmHg) O2 Sat by Pulse 100 99 Oximetry 10/09/18 10/09/18 10/09/18 00:00 00:01 00:05 Temperature Pulse Rate 115 115 114 Respiratory 24 30 40 Rate Blood Pressure 140/100 (mmHg) O2 Sat by Pulse 99 100 100 Oximetry 10/09/18 10/09/18 10/09/18 00:16 00:32 00:47 Temperature Pulse Rate 113 111 114 Respiratory 33 33 Rate Blood Pressure 119/87 83/61 141/94 (mmHg) O2 Sat by Pulse 99 99 97 Oximetry 10/09/18 01:01 Temperature Pulse Rate 110 Respiratory 30 Rate Blood Pressure (mmHg) O2 Sat by Pulse 99 Oximetry Oxygen Devices in Use Now: BiPAP Eyes: No Scleral Icterus, PERRLA Ears/Nose/Mouth/Throat: - - Wearing mask. Neck: - - Trachea deviated. Respiratory: - - Tachypneac with use of accessary muscles. Decreased air entry on the left. Some wheezing noted. Cardiovascular: - - Regular tachycardic. Abdominal: NL Sounds; No Tenderness; No Distention Extremities: No Edema Skin: No Rash or Ulcers Neurological: Alert and Oriented x 3 Result Diagrams: 10/08/18 23:03 10/08/18 23:03 Diagnostic Imaging: CT chest shows circumferential pneumothorax on the left side EKG Data: Sinus Tachycardia no Assess/Plan/Problems-Billing Impression: 67year old male with PMHx of COPD, recently diagnosed lung cancer here due to respiratory distress secondary to pneumothorax. Initially case was discussed with Dr. Tran by ER and plan was to monitor without chest tube. After much discussion with ER it was decided to intubate the patient along with a chest tube placement. Assessment: Left Pneumothorax s/p VDRF likely secondary to recent biopsy. Elevated troponin likely due to increased intrathorasix pressure and cardiac stress from pneumothorax. Acute Kidney Injury Hypotension likely due to dehydration and decreased venous return due to pneumothorax Alcohol abuse with acute withdrawal COPD. Elevated lactic acid again from dehydration and decreased venous return Recent GI bleeding. Atrial Fibrillation was on xarelto up until 2 months ago Hypertension. Hyperlipidemia. Diastolic Heart Failure. Plan: Continue with vent monitoring, repeat ABG, Successful chest tube placement done by ER. Central line placed by ER. Case to be transferred to underwriting consultant in AM. Serial troponin for now. ECHO in AM. Cardiology consult in AM. Continue aggressive IV hydration. Hold home BP meds. Code status and goals of care discussed with patient prior to intubation he wants everything to be done. Patient already on versed will consider WAM once he gets extubated. Start IV banana bag once daily for now. Murphy placed monitor urine output. Follow up UA and repeat creatinine in AM. DVT PPx Subcutaneous Heparin. Over 120 minutes of critical care time spent reviewing labs, images and discussing with ER doctor.
[2018-10-09] MEDS ORDERED: LORazepam INJ* 2 MG/ML 1 ML VIAL IV PUSH ONE ×2 (01:34→01:49)
[2018-10-09] MEDS ORDERED: Lorazepam PYXIS KEY PRN ×3 (01:34→11:50)
[2018-10-09] MEDS ORDERED: Lorazepam PYXIS KEY ONE ×2 (01:46→11:54)
[2018-10-09] MEDS ORDERED: LORazepam INJ* 2 MG/ML 1 ML VIAL ONE ×2 (01:47→11:54)
[2018-10-09] MEDS ORDERED: Diazepam INJ (NF) 5 MG/ML 10 ML VIAL (50 MG TOTAL) IV ONE (01:50)
[2018-10-09] MEDS ORDERED: Diazepam INJ CARPUJECT* 5 MG/ML IV ONE (01:50)
[2018-10-09] MEDS ORDERED: Succinylcholine* 20 MG/ML 10 ML VIAL IV ONE (02:14)
[2018-10-09] MEDS ORDERED: Etomidate* 2 MG/ML 10 ML VIAL IV ONE (02:14)
[2018-10-09] MEDS ORDERED: Etomidate* 2 MG/ML 20 ML VIAL (40 MG) ONE (02:20)
[2018-10-09] MEDS ORDERED: Rocuronium* 10 MG/ML VIAL ONE (02:20)
[2018-10-09] MEDS ORDERED: Midazolam* 1 MG/ML 10 ML VIAL (10 MG) ONE (02:35)
[2018-10-09] MEDS ORDERED: Midazolam IV for DRIP* 100 MG in NS 0.9% 100 ML* 80 ML IV SCH (03:00)
[2018-10-09] MEDS ORDERED: fentaNYL* 50 MCG/ML 2 ML VIAL (100 MCG VIAL) ONE (03:07)
[2018-10-09] MEDS ORDERED: fentaNYL INFUSION 50 MCG/ML* 2,500 MCG/50 ML BAG IV SCH ×2 (03:30→04:00)
[2018-10-09] MEDS ORDERED: NS 0.9% 1000 ML** 1,000 ML IV SCH (03:45)
[2018-10-09] MEDS: Thiamine IV 100 MG, Folic Acid IV* 1 MG, Multiple Vitamin IV ADULT* 10 ML in NS 0.9% 10... IV SCH ×2 (04:44→10:38)
[2018-10-09 05:26] LABS: Hematocrit 33 % (42-52); Hemoglobin 11.4 g/dL (14.0-18.0); Mean Corpuscular HGB Conc 34 g/dL (31-36); Mean Corpuscular Hemoglobin 35 pg (27-31); Mean Corpuscular Volume 102 fL (80-94); Mean Platelet Volume 7.8 fL (7.4-10.4); Platelet Count 275 10^3/uL (150-450); Red Blood Count 3.27 10^6 /uL (4.18-5.48); Red Cell Distribution Width 22 % (10-15); White Blood Count 12.6 10^3/uL (3.5-10.8)
[2018-10-09 05:31] LABS: ABS Basophils 0.1 10^3/ul (0-0.2); ABS Lymphocytes 0.2 10^3/ul (1.0-4.8); ABS Monocytes 0.3 10^3/ul (0-0.8)
[2018-10-09 05:37] LABS: Urine Appearance Turbid; Urine Bacteria Absent (Absent); Urine Bilirubin Negative (Negative); Urine Blood 3+ (Negative); Urine Color Amber; Urine Glucose 1+(50 mg/dL) (Negative); Urine Granular Casts Present (Absent); Urine Ketones Negative (Negative); Urine Nitrite Negative (Negative); Urine Protein 3+(>=500 mg/dL) (Negative); Urine Red Blood Cell 3+(>10/hpf) (Absent); Urine Specific Gravity 1.024 (1.010-1.030); Urine Squamous Epithelial Cell Present (Absent); Urine Transitional Epithelial Present (Absent); Urine Urobilinogen Negative (Negative); Urine White Blood Cell 2+(11-20/hpf) (Absent)
[2018-10-09 05:52] LABS: Troponin I 1.24 ng/mL (<0.04)
[2018-10-09 05:59] LABS: Eosinophil % 0.1 %; Lymphocyte % 1.7 %; Nucleated Red Blood Cells % 0.2
[2018-10-09] MEDS: Heparin VIAL(*) 5000 UNITS/ML VIAL (FIVE THOUSAND) SUBCUT SCH ×3 (06:13→23:11)
[2018-10-09 06:37] LABS: ALT 15 U/L (7-52); AST 33 U/L (13-39); Albumin 2.8 g/dL (3.2-5.2); Albumin/Globulin Ratio 0.7 (1-3); Alkaline Phosphatase 67 U/L (34-104); Anion Gap 9 mmol/L (2-11); BUN/Creatinine Ratio 25.7 (8-20); Blood Urea Nitrogen 44 mg/dL (6-24); CO2 Carbon Dioxide 24 mmol/L (22-32); Calcium 7.4 mg/dL (8.6-10.3); Chloride 103 mmol/L (101-111); EGFR African American 48.4 (>60); Globulin 3.8 g/dL (2-4); Glucose 160 mg/dL (70-100); Magnesium 2.1 mg/dL (1.9-2.7); Phosphorus 4.4 mg/dL (2.5-5.0); Potassium 4.4 mmol/L (3.5-5.0); Sodium 136 mmol/L (135-145); Total Protein 6.6 g/dL (6.4-8.9)
[2018-10-09 09:16] LABS: Troponin I 1.3 ng/mL (<0.04)
[2018-10-09] MEDS ORDERED: Aspirin TAB* 325 MG PO ONE (10:19)
--- NOTE | 2018-10-09 10:21 | CONSULT ---
Consult Consult: Consultation Note -- Critical Care Requesting Physician: Dr David Jaramillo Reason for consult: respiratory failure, pneumothorax Limitations in history/physical: intubated, sedated; histoyr from chart and record Date of consult: 10/09/2018 HPI: 67y M w/pmhx of HTN, HLD, COPD, lung nodules, Afib (h/o cardiovesion 2017) off Xarelto due to recent GI bleeds, h/o alcohol abuse, Active smoker+, LV diastolic dysfunction, H/o PRostate Ca s/p radiation tx, depression; comes to ER for respiratory distress x1 day. He stated to ER last drink on or wednesday and possible feeling of withdrawal. Noted to have recent left lung biopsy at [facility] on 09/28 as per ER history and diagnosed with lung cancer, unknown type. In ER, CXR revealed small ptx on the left. He was intubated for increasing respiratory distress. A Chest tube was placed in the ER on the left, with subsequent CXR demonstrating improvement. CT chest confirmed 20% left PTX. He has remained hemodynamically stable, no pressors, only IVF administration. IV levaquin x1 dose and solumedrol/nebulizers given. Currently he is sedated on versed and fentanyl, intubated, sats 100% on 40% fio2. Secretions mild thick on suctioning. ED/floor Course: as above ROS: ROS limited due to intubated/sedated state PMHx: HTN, HLD, COPD, lung nodules, Afib off Xarelto due to recent GI bleeds, h/ o alcohol abuse, Active smoker+, LV diastolic dysfunction, H/o PRostate Ca s/p radiation tx, depression PSHx: Right ankle ORIF, left knee screws Family History: mother from aneurysm, father from [place]; 2 children but one alive Social History: Alcohol-6pack per day, Smoking-active 1 ppd, Drug use-unknown; family-lived with who is HCP Allergies: Allergies Allergy/AdvReac Type Severity Reaction Status Date / Time meperidine [From Demerol] Allergy Mild Nausea Verified 07/01/17 14:04 morphine Allergy Nausea Verified 07/01/17 14:04 Home Medications: Budesonide/Formote 160/4.5(NF) [Symbicort 160/4.5 (NF)] 1 puff INH BID 09/03/17 [History Confirmed 10/08/18] Cholecalciferol TAB* [Vitamin D TAB*] 1,000 unit PO DAILY 09/03/17 [History Confirmed 10/08/18] Folic Acid TAB* [Folvite TAB*] 1 mg PO DAILY 09/03/17 [History Confirmed ] Metoprolol Tartrate TAB* [Lopressor TAB*] 25 mg PO BID 09/03/17 [History Confirmed 10/08/18] Oxybutynin TAB* [Ditropan TAB*] 10 mg PO DAILY 09/03/17 [History Confirmed 10/08] Tamsulosin CAP* [Flomax CAP*] 0.4 mg PO DAILY 09/03/17 [History Confirmed ] Thiamine TAB* [Vitamin B-1 TAB 100 MG*] 100 mg PO DAILY 09/03/17 [History Confirmed 10/08/18] Tiotropium CAP.INH* [Spiriva CAP.INH*] 1 cap.inh INH DAILY 09/03/17 [History Confirmed 10/08/18] Vitamin B Complex CAP* [B Complex CAP*] 1 cap PO DAILY 09/03/17 [History Confirmed 10/08/18] traZODone TAB* [Desyrel TAB*] 100 mg PO BEDTIME PRN 09/03/17 [History Confirmed 10/08/18] Diltiazem CD CAP* [Cardizem CD CAP*] 120 mg PO DAILY #30 cap.cd 09/09/17 [Rx Confirmed 10/08/18] Magnesium Oxide TAB* [MagOx 400 TAB*] 400 mg PO DAILY #30 tab 09/09/17 [Rx Confirmed 10/08/18] Albuterol HFA INHALER* [Ventolin HFA Inhaler*] 2 puff INH Q4H PRN 08/02/18 [ History Confirmed 10/08/18] Calcium Carbonate CHEW TAB* [Tums*] 1,000 mg PO DAILY 08/02/18 [History Confirmed 10/08/18] Hydrocortisone 1% CREAM(NF) 1 applic TOPICAL DAILY PRN 08/02/18 [History Confirmed 10/08/18] Lidocaine [Rectasmoothe] 5 % TOPICAL BID 08/02/18 [History Confirmed 10/08/18] Psyllium JOANNA* [Metamucil JOANNA*] 1 pkt PO DAILY PRN 08/02/18 [History Confirmed ] Amiodarone TAB* [Cordarone Tab*] 200 mg PO DAILY tab 08/03/18 [Rx Confirmed ] Tele: NSR Vitals: Vital Signs Temp 98.2 F 10/09/18 09:30 Pulse 94 10/09/18 09:30 Resp 20 10/09/18 06:00 BP 111/78 10/09/18 09:30 Pulse Ox 96 10/09/18 09:30 Intake & Output 10/08/18 10/09/18 10/09/18 18:59 06:59 18:59 Intake Total 339 Output Total 100 Balance 239 Weight 73.2 kg Intake: IV Fluids 339 thiamine 339 Output: Beatty 100 O2/Vent: Ac 20/500/+5/40% Infusions: fentanyl, versed, NS 125 Current Medications: Amiodarone HCl (Cordarone Tab*) 200 mg G TUBE DAILY [facility] Folic Acid (Folvite Tab*) 1 mg G TUBE DAILY [facility] Heparin Sodium (Porcine) (Heparin Vial(*)) 5,000 units SUBCUT Q8HR ARLENE Last Admin: 10/09/18 06:13 Dose: 5,000 units Midazolam HCl 100 mg/ Sodium (Chloride) 100 mls @ 0 mls/hr IV .Q24HR ARLENE; Protocol Last Admin: 10/09/18 04:47 Dose: 2 mls/hr Thiamine HCl 100 mg/ Folic Acid 1 mg/ Multivitamins 10 ml / Sodium Chloride 1, 011.2 mls @ 249.013 mls/hr IV DAILY ARLENE Stop: 10/12/18 03:59 Last Admin: 10/09/18 04:44 Dose: 249.013 mls/hr Sodium Chloride (Ns 0.9% 1000 Ml) 1,000 mls @ 100 mls/hr IV PER RATE [facility] Methylprednisolone Sodium Succinate (Solu-Medrol 40 Mg) 40 mg IV Q8H [facility] Miscellaneous (Ativan Pyxis Lai) 1 ea N/A .ATIVAN IV LAI PRN PRN Reason: PYXIS LAI Pantoprazole Sodium (Protonix Iv*) 40 mg IV DAILY [facility] Thiamine HCl (Vitamin B-1 Tab*) 100 mg G TUBE DAILY [facility] Physical Exam: Constitutional: intubated, sedated, no distress, no diaphoresis Head: normocephalic, atraumatic Eyes: no pallor, no icterus ENT: moist mucous membranes Neck: soft, supple, no jvd CVS: normal rate, regular, no murmur Resp: bilateral air entry, no rhales, Left wheeze+, no rhonchi, no acc muscle use; Left lower chest tube+ Abdomen/GI: soft, nondistended, BS+ Ext/Msk: warm, pulses+, no edema Skin: intact, warm Neuro: sedated, pupils reactive, intubated Labs: Laboratory Results - last 24 hr 10/08/18 10/08/18 10/08/18 23:03 23:03 23:03 WBC 13.4 H RBC 4.41 Hgb 15.3 Hct 46 MCV 104 H MCH 35 H MCHC 33 RDW 22 H Plt Count 353 MPV 8.0 Neut % (Auto) 84.1 Lymph % (Auto) 5.7 Faulkner % (Auto) 9.8 Eos % (Auto) 0.1 Baso % (Auto) 0.3 Absolute Neuts (auto) 11.3 H Absolute Lymphs (auto) 0.8 L Absolute Monos (auto) 1.3 H Absolute Eos (auto) 0.0 Absolute Basos (auto) 0.0 Absolute Nucleated RBC 0.1 Nucleated RBC % 0.8 INR (Anticoag Therapy) 1.06 APTT 35.3 Patient Temperature ABG pH ABG pH (Temp Correct) ABG pCO2 ABG pCO2 (Temp Corrct ABG pO2 ABG pO2 (Temp Correct ABG HCO3 ABG O2 Saturation ABG Base Excess Respiration Rate Ventilator Type Vent Mode FiO2 Inspiratory Time PEEP Pressure Support Pressure Control EPAP IPAP BiPAP Sodium 134 L Potassium 5.0 Chloride 94 L Carbon Dioxide 23 Anion Gap 17 H BUN 42 H Creatinine 1.86 H Est GFR ( Amer) 43.9 Est GFR (Non-Af Amer) 36.3 BUN/Creatinine Ratio 22.6 H Glucose 216 H Lactic Acid Calcium 9.4 Phosphorus Magnesium Total Bilirubin 0.90 AST 44 H ALT 22 Alkaline Phosphatase 105 H Troponin I 1.30 H* C-Reactive Protein 401.78 H B-Natriuretic Peptide Total Protein 10.1 H Albumin 3.8 Globulin 6.3 H Albumin/Globulin Ratio 0.6 L Urine Color Urine Appearance Urine pH Ur Specific [place] Urine Protein Urine Ketones Urine Blood Urine Nitrate Urine Bilirubin Urine Urobilinogen Ur Leukocyte Esterase Urine WBC (Auto) Urine RBC (Auto) Ur Squamous Epith Cells Ur Transition Epith Cell Urine Bacteria Hyaline Casts Granular Casts Urine Glucose 10/08/18 10/08/18 10/08/18 23:03 23:03 23:45 WBC RBC Hgb Hct MCV MCH MCHC RDW Plt Count MPV Neut % (Auto) Lymph % (Auto) [place] % (Auto) Eos % (Auto) Baso % (Auto) Absolute Neuts (auto) Absolute Lymphs (auto) Absolute Monos (auto) Absolute Eos (auto) Absolute Basos (auto) Absolute Nucleated RBC Nucleated RBC % INR (Anticoag Therapy) APTT Patient Temperature ABG pH 7.37 ABG pH (Temp Correct) ABG pCO2 40 ABG pCO2 (Temp Corrct ABG pO2 193 H ABG pO2 (Temp Correct ABG HCO3 23.4 ABG O2 Saturation 100.0 H ABG Base Excess -2.0 Respiration Rate Ventilator Type Vent Mode FiO2 Inspiratory Time PEEP Pressure Support Pressure Control EPAP IPAP BiPAP Sodium Potassium Chloride Carbon Dioxide Anion Gap BUN Creatinine Est GFR ( Amer) Est GFR (Non-Af Amer) BUN/Creatinine Ratio Glucose Lactic Acid 5.3 H* Calcium Phosphorus Magnesium Total Bilirubin AST ALT Alkaline Phosphatase Troponin I C-Reactive Protein B-Natriuretic Peptide > 1300 H Total Protein Albumin Globulin Albumin/Globulin Ratio Urine Color Urine Appearance Urine pH Ur Specific [place] Urine Protein Urine Ketones Urine Blood Urine Nitrate Urine Bilirubin Urine Urobilinogen Ur Leukocyte Esterase Urine WBC (Auto) Urine RBC (Auto) Ur Squamous Epith Cells Ur Transition Epith Cell Urine Bacteria Hyaline Casts Granular Casts Urine Glucose 10/09/18 10/09/18 10/09/18 01:56 02:30 05:05 WBC RBC Hgb Hct MCV MCH MCHC RDW Plt Count MPV Neut % (Auto) Lymph % (Auto) [place] % (Auto) Eos % (Auto) Baso % (Auto) Absolute Neuts (auto) Absolute Lymphs (auto) Absolute Monos (auto) Absolute Eos (auto) Absolute Basos (auto) Absolute Nucleated RBC Nucleated RBC % INR (Anticoag Therapy) APTT Patient Temperature ABG pH ABG pH (Temp Correct) ABG pCO2 ABG pCO2 (Temp Corrct ABG pO2 ABG pO2 (Temp Correct ABG HCO3 ABG O2 Saturation ABG Base Excess Respiration Rate Ventilator Type Vent Mode FiO2 Inspiratory Time PEEP Pressure Support Pressure Control EPAP IPAP BiPAP Sodium Potassium Chloride Carbon Dioxide Anion Gap BUN Creatinine Est GFR ( Amer) Est GFR (Non-Af Amer) BUN/Creatinine Ratio Glucose Lactic Acid 3.0 H* Calcium Phosphorus Magnesium Total Bilirubin AST ALT Alkaline Phosphatase Troponin I 1.10 H* C-Reactive Protein B-Natriuretic Peptide Total Protein Albumin Globulin Albumin/Globulin Ratio Urine Color Karen Urine Appearance Turbid Urine pH 5.0 Ur Specific [place] 1.024 Urine Protein 3+(>=500 mg/dl) A Urine Ketones Negative Urine Blood 3+ A Urine Nitrate Negative Urine Bilirubin Negative Urine Urobilinogen Negative Ur Leukocyte Esterase Negative Urine WBC (Auto) 2+(11-20/hpf) A Urine RBC (Auto) 3+(>10/hpf) A Ur Squamous Epith Cells Present A Ur Transition Epith Cell Present A Urine Bacteria Absent Hyaline Casts Present A Granular Casts Present A Urine Glucose 1+(50 mg/dl) A 10/09/18 10/09/18 10/09/18 05:05 05:05 05:05 WBC 12.6 H RBC 3.27 L Hgb 11.4 L Hct 33 L MCV 102 H MCH 35 H MCHC 34 RDW 22 H Plt Count 275 MPV 7.8 Neut % (Auto) 95.0 Lymph % (Auto) 1.7 [place] % (Auto) 2.8 Eos % (Auto) 0.1 Baso % (Auto) 0.4 Absolute Neuts (auto) 12.0 H Absolute Lymphs (auto) 0.2 L Absolute Monos (auto) 0.3 Absolute Eos (auto) 0.0 Absolute Basos (auto) 0.1 Absolute Nucleated RBC 0.0 Nucleated RBC % 0.2 INR (Anticoag Therapy) APTT Patient Temperature ABG pH ABG pH (Temp Correct) ABG pCO2 ABG pCO2 (Temp Corrct ABG pO2 ABG pO2 (Temp Correct ABG HCO3 ABG O2 Saturation ABG Base Excess Respiration Rate Ventilator Type Vent Mode FiO2 Inspiratory Time PEEP Pressure Support Pressure Control EPAP IPAP BiPAP Sodium 136 Potassium 4.4 Chloride 103 Carbon Dioxide 24 Anion Gap 9 BUN 44 H Creatinine 1.71 H Est GFR ( Amer) 48.4 Est GFR (Non-Af Amer) 40.0 BUN/Creatinine Ratio 25.7 H Glucose 160 H Lactic Acid 1.3 Calcium 7.4 L Phosphorus 4.4 Magnesium 2.1 Total Bilirubin 0.40 AST 33 ALT 15 Alkaline Phosphatase 67 Troponin I 1.24 H* C-Reactive Protein B-Natriuretic Peptide Total Protein 6.6 Albumin 2.8 L Globulin 3.8 D Albumin/Globulin Ratio 0.7 L Urine Color Urine Appearance Urine pH Ur Specific [place] Urine Protein Urine Ketones Urine Blood Urine Nitrate Urine Bilirubin Urine Urobilinogen Ur Leukocyte Esterase Urine WBC (Auto) Urine RBC (Auto) Ur Squamous Epith Cells Ur Transition Epith Cell Urine Bacteria Hyaline Casts Granular Casts Urine Glucose 10/09/18 10/09/18 10/09/18 05:25 07:05 08:46 WBC RBC Hgb Hct MCV MCH MCHC RDW Plt Count MPV Neut % (Auto) Lymph % (Auto) [place] % (Auto) Eos % (Auto) Baso % (Auto) Absolute Neuts (auto) Absolute Lymphs (auto) Absolute Monos (auto) Absolute Eos (auto) Absolute Basos (auto) Absolute Nucleated RBC Nucleated RBC % INR (Anticoag Therapy) APTT Patient Temperature Not Reportable ABG pH 7.29 L 7.30 L ABG pH (Temp Correct) Not Reportable ABG pCO2 50 H 47 H ABG pCO2 (Temp Corrct Not Reportable ABG pO2 82 95 ABG pO2 (Temp Correct Not Reportable ABG HCO3 22.4 22.1 ABG O2 Saturation 96.7 98.5 H ABG Base Excess -3.1 L -3.6 L Respiration Rate Not Reportable Ventilator Type Not Reportable Vent Mode bipap FiO2 60 Inspiratory Time Not Reportable PEEP Not Reportable Pressure Support Not Reportable Pressure Control Not Reportable EPAP 8 IPAP 16 BiPAP Not Reportable Sodium Potassium Chloride Carbon Dioxide Anion Gap BUN Creatinine Est GFR ( Amer) Est GFR (Non-Af Amer) BUN/Creatinine Ratio Glucose Lactic Acid 1.0 Calcium Phosphorus Magnesium Total Bilirubin AST ALT Alkaline Phosphatase Troponin I C-Reactive Protein B-Natriuretic Peptide Total Protein Albumin Globulin Albumin/Globulin Ratio Urine Color Urine Appearance Urine pH Ur Specific [place] Urine Protein Urine Ketones Urine Blood Urine Nitrate Urine Bilirubin Urine Urobilinogen Ur Leukocyte Esterase Urine WBC (Auto) Urine RBC (Auto) Ur Squamous Epith Cells Ur Transition Epith Cell Urine Bacteria Hyaline Casts Granular Casts Urine Glucose 10/09/18 08:46 WBC RBC Hgb Hct MCV MCH MCHC RDW Plt Count MPV Neut % (Auto) Lymph % (Auto) [place] % (Auto) Eos % (Auto) Baso % (Auto) Absolute Neuts (auto) Absolute Lymphs (auto) Absolute Monos (auto) Absolute Eos (auto) Absolute Basos (auto) Absolute Nucleated RBC Nucleated RBC % INR (Anticoag Therapy) APTT Patient Temperature ABG pH ABG pH (Temp Correct) ABG pCO2 ABG pCO2 (Temp Corrct ABG pO2 ABG pO2 (Temp Correct ABG HCO3 ABG O2 Saturation ABG Base Excess Respiration Rate Ventilator Type Vent Mode FiO2 Inspiratory Time PEEP Pressure Support Pressure Control EPAP IPAP BiPAP Sodium Potassium Chloride Carbon Dioxide Anion Gap BUN Creatinine Est GFR ( Amer) Est GFR (Non-Af Amer) BUN/Creatinine Ratio Glucose Lactic Acid Calcium Phosphorus Magnesium Total Bilirubin AST ALT Alkaline Phosphatase Troponin I 1.30 H* C-Reactive Protein B-Natriuretic Peptide Total Protein Albumin Globulin Albumin/Globulin Ratio Urine Color Urine Appearance Urine pH Ur Specific [place] Urine Protein Urine Ketones Urine Blood Urine Nitrate Urine Bilirubin Urine Urobilinogen Ur Leukocyte Esterase Urine WBC (Auto) Urine RBC (Auto) Ur Squamous Epith Cells Ur Transition Epith Cell Urine Bacteria Hyaline Casts Granular Casts Urine Glucose Imaging: CXr 10/08-10/09 - reviewed; Left small PTX; Left CT in place with improving PTX; no clear focal infitlrates noted EKG - reviewed 10/08 and 10/09 - NSR; similar lateral aand inferior ST changes as prior 07/2018 EKGs Assessment: 67y M w/pmhx of HTN, HLD, COPD, lung nodules, Afib (h/o cardiovesion 2017) off Xarelto due to recent GI bleeds, h/o alcohol abuse, Active smoker+, LV diastolic dysfunction, H/o PRostate Ca s/p radiation tx, depression; comes to ER for respiratory distress x1 day. He stated to ER last drink on or wednesday and possible feeling of withdrawal. Noted to have recent left lung biopsy at [facility] on 09/28 as per ER history and diagnosed with lung cancer, unknown type. In ER, CXR revealed small ptx on the left. He was intubated for increasing respiratory distress. A Chest tube was placed in the ER on the left, with subsequent CXR demonstrating improvement. CT chest confirmed 20% left PTX. He has remained hemodynamically stable, no pressors, only IVF administration. IV levaquin x1 dose and solumedrol/nebulizers given. -acute hypercapneic respiratory failure; intubated 10/08 -Left Pneumothorax; suspect iatrogenic from biopsy? ; s/p left CT 10/08 -r/o bronchitis/pneumonia -Acute COPD exaccerbation -JOSE ENRIQUE Newly diagnosed Lung Ca Afib HTn Alcohol abuse Plan: Neuro- -stop fentanyl; hold versed -neuro assessment -WAM protocol once awake for possible withdrawal -cont thiaminie/folate -Delirium prec CVS- -BP stable -noted elevated troponin; last 1.3; no acute ST/T changes on EKG -obtain Cardiology consult for eval of NSTEMI; will start ASA; start statin; discussed with Cardiology; check trop trend, TTE; hold heparin IV for now -Afib history; currently in NSR; cont amio 200 po daily; restart Metoprolol and cardizem with holding parameters -off AC due to h/o GI bleed -check TTE for LV function -cont NS 100cc/hr -Maintain MAP>65 Resp- -intubated; on 40% -secretions thick and white; send sputum cultures -will start CTX IV for infxn coverage -Left PTX; s/p CT on left with improvedment; keep to continuous suction; no noted airleak of pleuravac -solumedrol 40mg iv q8h -bronchodilators q4h -Wean Fio2 to keep sat>92% -Bronchodilators PRN, Aspiration prec, Pulmonary Toilet -VAP bundle ID- afebrile. wbc 12-13. send sputum culture. -pending blood cx in lab -send sputum cultures -start CTX 1gm daily (day#2) of abx; avoid levaquin given elevated trop/nstemi GI- -NPO -GI prophylaxis - ppi Renal- -JOSE ENRIQUE noted; making urine, nonoliguric; hypoperfusion? volume depletion? -IVF NS infusion 100cc/hr -K and Mg okay; no acidosis -strict I/O, replete to keep K>4, Mg>2 -beatty as indicated Heme- hg stable, on bleeding -off AC due to GI bleeds in past -start ASA for nstemi tx, watch for bleeding -DVT proph ; SCD and heparin sq Endo- Maintain BG<200, insulin protocol as needed Musculsk- pressure ulcer prophylaxis. Bedrest. Wounds- none Nutrition- NPO DVT prophylaxis: SCD, heparin sq GI prophylaxis: ppi Central Line: no Arterial Line: no Beatty Cathetor: yes 10/09 Disposition: Patient requires Critical Care/ICU for respiratoyr failure, intubated, left ptx Patient Clinical Status: guarded, critical Code Status: full code Total Critical Care time is 45 minutes, excluding procedures/teaching Ranulfo Riggins MD Dermatologist And Dermatopathologist (Electronically Signed)
[2018-10-09] MEDS: methylPREDNISolone SOD 40 MG* 1 ML VIAL IV SCH ×2 (10:39→17:19)
[2018-10-09] MEDS: Pantoprazole IV* 40 MG IV SCH (10:39)
[2018-10-09] MEDS: Folic Acid TAB* 1 MG G TUBE SCH (10:39)
[2018-10-09] MEDS: Amiodarone TAB* 200 MG G TUBE SCH (10:39)
[2018-10-09] MEDS: Thiamine TAB* 100 MG TAB G TUBE SCH (10:39)
[2018-10-09] MEDS ORDERED: Diazepam TAB(*) 5 MG PO ONE (10:41)
[2018-10-09] MEDS: Albuterol/Ipratropium NEB.SOL* Albuterol 2.5 MG/Ipratropium 0.5 MG 3 ML INH SCH ×3 (10:48→19:03)
[2018-10-09] MEDS: Atorvastatin* 40 MG TAB PO SCH (11:10)
[2018-10-09] MEDS: Chlorhexidine MOUTHWASH 0.12%* 15 ML UDC TOPICAL SCH ×4 (11:19→23:11)
[2018-10-09] MEDS: LORazepam INJ* 2 MG/ML 1 ML VIAL IV PUSH PRN (11:58)
[2018-10-09] MEDS: cefTRIAXone(*) 1 GM in NS 0.9% 50 ML* 50 ML IVPB SCH (12:51)
[2018-10-09] MEDS: Dexmedetomidine* 1,000 MCG in NS 0.9% 250 ML* 240 ML IV SCH (12:57)
--- NOTE | 2018-10-09 14:54 | ECHO ---
*[facility]* [place] [id number] Fax #: [phone] Patient: Duane Solis : 1950 Study Date: 10/09/2018 Age: 67 Gender: M HR: 103 bpm Height: 70 in /177.8 cm BSA: 1.89 m^2 Weight: 157.7 lb /71.7 kg BMI: 22.7 kg/m^2 *Field Counsel: * Maddi Dumont [facility] *Referring Physician: * David Jaramillo *Reading Physician: * Roberto Estevez MD Indications: Elevated Troponins. Congestive Heart Failure. History: Chronic obstructive pulmonary disease. Risk factors: Current tobacco use. Heavy ETOH use. Hypertension. Dyslipidemia. Conclusions Summary: 1. Left ventricle: Systolic function is mildly reduced. The estimated ejection fraction is 40-45%. TDS and the endocardium is not well visualized. Pt is intubated. In rapid atrial flutter and difficult to make a final left ventricle ejection fraction estimate. 2. Right ventricle: The cavity size is moderately to severely dilated. Systolic function is moderately reduced. 3. Left atrium: The atrium is moderately dilated. 4. Right atrium: The atrium is moderately dilated. 5. Mitral valve: There is mild regurgitation. 6. Aortic valve: The findings are consistent with mild stenosis. There is trace regurgitation. 7. Tricuspid valve: There is trace to mild regurgitation. 8. Pulmonic valve: There is trace to mild regurgitation. 9. C/t 07/01/2017, left ventricle ejection fraction is probably reduced now from 50-55% then although it is TDS. Study data: Procedure: Transthoracic echocardiography was performed. Image quality was fair. The study was technically limited due to surgical dressings and Patient on ventilator. Complete 2D, spectral Doppler, and color flow Doppler. Location: ICU Patient status: Inpatient. Patient room number: ICU-1. Rhythm: Tachycardia. Findings Left ventricle: The cavity size is normal. Wall thickness is mildly increased. Systolic function is mildly reduced. The estimated ejection fraction is 40-45%. TDS and the endocardium is not well visualized. Pt is intubated. In rapid atrial flutter and difficult to make a final left ventricle ejection fraction estimate. Regional wall motion abnormalities: Hypokinesis of the basal-midanteroseptal and anterior myocardium. There is no consistent Doppler evidence of clinically significant diastolic dysfunction. Right ventricle: The cavity size is moderately to severely dilated. Systolic function is moderately reduced. Systolic pressure cannot be accurately determined, but appears to be increased. Ventricular septum: There is septal flattening of the interventricular septum consistent with RV volume or pressure overload. Left atrium: The atrium is moderately dilated. Right atrium: The atrium is moderately dilated. Mitral valve: The leaflets are mildly thickened. There is no evidence of stenosis. There is mild regurgitation. Aortic valve: The valve is trileaflet. The leaflets are mildly thickened. The findings are consistent with mild stenosis. There is trace regurgitation. Tricuspid valve: The leaflets are normal thickness. There is no evidence of stenosis. There is trace to mild regurgitation. Pulmonic valve: The leaflets are normal thickness. There is no evidence of stenosis. There is trace to mild regurgitation. Aorta: Aortic root: The aortic root is appears normal. Ascending aorta: The ascending aorta is upper normal in size. Aortic arch: The aortic arch is not visualized. Pericardium: A prominent pericardial fat pad is present. There is no significant pericardial effusion. Pulmonary arteries: The main pulmonary artery is normal-sized. Systemic veins: Inferior vena cava: The vessel is dilated. The respirophasic diameter changes are blunted (< 50%). Measurements Left ventricle Value Ref Right atrium Value Ref RAMO, LAX (L) 3.9 cm 4.2 - 5.8 SI dim, ES (H) 6.0 cm 3.4 - 5.3 ESD, LAX 3.2 cm 2.5 - 4.0 ML dim, ES, A4C (H) 5.3 cm 2.6 - 4.4 FS, LAX (L) 17 % 25 - 43 SI dim, ES, A4C (H) 6.0 cm 3.4 - 5.3 PW, ED, LAX (H) 1.1 cm 0.6 - 1.0 FS (L) 17 % 25 - 43 Aortic valve Value Ref PW, ED (H) 1.1 cm 0.6 - 1.0 Chance diam, ED 2.1 cm --------- E', lat chance, TDI (L) 8.5 cm/sec >=10.0 Peak v, S 1.52 m/sec -- ------- E/e', lat chance, 13 VTI, S 26.7 cm ----- ---- TDI Mean grad, S 5.0 mm Hg --------- E', med chance, TDI 11.1 cm/sec >=7.0 Peak grad, S 9.0 mm Hg -- ------- E/e', med chance, 10 LVOT/AV, VTI ratio 0.45 ----- ---- TDI FIONA, VTI 1.41 cm^2 --------- E', avg, TDI 9.8 cm/sec FIONA, Vmax 1.69 cm^2 ----- ---- E/e', avg, TDI 12 <=14 Mitral valve Value Ref LVOT Value Ref Peak E 1.13 m/sec --------- Diam, S 2.00 cm Peak A 0.89 m/sec --------- Area 3.1 cm^2 Decel time 56 ms --------- Peak rosy, S 0.82 m/sec Peak grad, D 5.1 mm Hg --------- VTI, S 12.0 cm Peak E/A ratio 1.3 --------- Mean grad, S 1 mm Hg SV 37 ml Pulmonic valve Value Ref SV/bsa 20 ml/m^2 Peak v, S 0.99 m/sec --------- Peak grad, S 4.0 mm Hg --------- Ventricular septum Value Ref IVS, ED (H) 1.2 cm 0.6 - 1.0 Tricuspid valve Value Ref TR peak v 2.32 m/sec <=2.8 Right ventricle Value Ref Peak RV-RA grad, S 22 mm Hg --------- RAMO, LAX 3.8 cm RAMO minor ax, (H) 6.0 cm 1.9 - 3.5 Aortic root Value Ref A4C mid Root diam 3.4 cm <4.1 Left atrium Value Ref Ascending aorta Value Ref AP dim, ES (H) 4.20 cm 3.00 - AAo AP diam, S 3.7 cm --------- 4.00 ML dim, A4C 5.0 cm Inferior vena cava Value Ref SI dim, A4C 6.5 cm Diam 2.7 cm --------- Vol/bsa, ES, 1-p (H) 49 ml/m^2 12 - 37 A4C Vol/bsa, ES, A/L (H) 46 ml/m^2 16 - 34 Legend: (L) and (H) tao values outside specified reference range. Prepared and electronically signed by Roberto Estevez MD 10/09/2018 14:54
[2018-10-09] MEDS ORDERED: Lactated Ringers 1000 ML Bag* 1,000 ML IV SCH (15:00)
--- NOTE | 2018-10-09 17:45 | CONS ---
CC: Hospitalist Service * CARDIOLOGY CONSULTATION: DATE OF CONSULT: 10/09/18 HISTORY OF PRESENT ILLNESS: I was asked by starcher and tenter range feeder, Dr. Riggins, to see this 67- year-old male patient, who was hospitalized on 10/09/18 with symptoms of respiratory distress. The patient does have a known history of COPD, atrial fibrillation, and on a chronic medication with Xarelto that was stopped 2 months ago because of some concerns for bleeding. He does have history of diastolic congestive heart failure, alcoholism, tobacco consumption and recently was admitted with GI bleed from hemorrhoids. He did have lung biopsy on 09/28/18 and was found to have lung cancer and when he came in, he was found to have pneumothorax in the left side related to the biopsy and then he underwent intubation because of respiratory distress and chest tube was placed and he was admitted to the intensive care unit. Cardiology consult was further requested because he was found to have mildly elevated troponin of 1.1, third one 1.30. His EKG showed what appears to be rapid atrial flutter with some ST- T abnormalities. The patient is currently intubated, sedated. His medical history is obtained from the medical chart. There is no documented history of myocardial infarction. No history of coronary artery disease. He did have cardioversion in the past for atrial fibrillation. He did have an echo that was done on 07/01/17. At that time, the report showed the difficult study, LVH , EF was 50% to 55%, trace aortic insufficiency, mild mitral insufficiency, mild tricuspid insufficiency, moderate pulmonary hypertension. There is no fever, no chills appreciated. CT scan showed pneumothorax in the left side. His EKG showed, I believe what appears with the morphology more into atrial flutter. PAST MEDICAL HISTORY: Extensive, includes systemic arterial hypertension; hyperlipidemia; alcoholism; diastolic congestive heart failure; history of atrial fibrillation, was on Xarelto; history of GI bleed; history of tobacco abuse; history of prostate cancer, status post radiation in 2009; history of depression; and recently was diagnosed with lung cancer and now pneumothorax and chest tube. PAST SURGICAL HISTORY: History of right ankle ORIF, left knee screws. MEDICATIONS: His medications as an inpatient include: 1. Lipitor 40 mg daily. 2. Ceftriaxone 1 g q.24 hours. 3. Diltiazem 120 mg daily. 4. Folic acid 1 daily. 5. Heparin 5000 units subcu q.8 hours. 6. He is also on Solu-Medrol 40 mg IV q.8 hours. 7. Lopressor 25 mg twice a day. 8. Protonix IV 40 mg. 9. Vitamin B one daily. ALLERGIES: He is allergic to MEPERIDINE, nausea and MORPHINE giving him nausea. FAMILY HISTORY: There is no family history of premature coronary artery disease in the family. SOCIAL HISTORY: He continues to do 1-pack daily smoker. He drinks 6-pack a day with whiskey on the weekends. PHYSICAL EXAM: On exam, he is currently intubated and sedated. Vitals: Blood pressure 100 to 124 over 80, pulse 101, temperature 98.8. Head and Neck Exam: Normocephalic, atraumatic head. Ears, Nose, and Throat: Essentially benign. Neck: Supple. JVP is not elevated. No carotid bruits. Chest: Diminished air entry bilaterally. Cardiac: S1, S2. No added sounds. No gallops, no rubs. Abdomen: Benign. Positive bowel sounds. Extremities: No edema, no cyanosis, no clubbing. Skin exam is normal. Psych: Difficult to evaluate as he is intubated. VETERINARY PHYSIOLOGIST: No focal deficits appreciated. DIAGNOSTIC STUDIES/LAB DATA: His labs showed the following: White blood cell 12.6, hemoglobin 11.4, hematocrit 33, platelets 275. See labs from today. Sodium 136, potassium 4.4, chloride 103, total CO2 24, BUN 44, creatinine 1.7, magnesium 2.1. Troponin 1.24 and then 1.3. His BNP more than 1300. His chest x-ray was done today, shows the patient to have left chest tube in place. No pneumothorax is seen on either lung raines. IMPRESSION: The patient is a 67-year-old male with: 1. Presentation with acute respiratory distress secondary to pneumothorax, felt to be related to his lung biopsy that was done earlier this month. 2. Newly diagnosed lung cancer. 3. Severe chronic obstructive pulmonary disease. 4. History of atrial fibrillation/flutter. He was on Xarelto, that was discontinued 2 months ago secondary to bleed. 5. Gastrointestinal bleed and anemia. 6. Hyperlipidemia. 7. Abnormal EKG as described. 8. History of cardioversion for atrial flutter/fibrillation. 9. Pneumonia. 10. Mildly elevated troponin. PLAN: The patient is currently intubated and sedated, chest tube in place. His troponin could be multifactorial in nature including demand given his acute respiratory distress going on with him or could be truly indicative of mild coronary event. At the present time, continue as per starcher and tenter range feeder treatment and respiratory support, serial troponins, EKG. I agree with amiodarone. I agree with Cardizem, rate control at the present time and anticoagulation, I defer as per the starcher and tenter range feeder once it is safe. He is already on heparin subcu 5000 units q.8 hours. I agree with obtaining an echocardio-gram to evaluate his left ventricular systolic function and valvular disease, pulmonary hypertension. Once he is more stabilized and to evaluate, risk stratify him for a Lexiscan Myoview nuclear stress test sometime in the future. Thank you very much for asking us to participate in the care of this patient. TIME SPENT: Cardiology consult, discussing him further with the starcher and tenter range feeder and evaluating him, decision making, more than 65 minutes. [id number]/CPS #: [id number] TOBY
[2018-10-09] MEDS ORDERED: LR @ 40 MLS/HR IV ONE (19:00)
[2018-10-09 19:15] LABS: Troponin I 1.66 ng/mL (<0.04)
[2018-10-09 19:16] LABS: CKMB ng/mL 22.7 ng/mL (0.6-6.3)
[2018-10-09] MEDS: Metoprolol Tartrate TAB* 25 MG PO SCH (21:18)
[2018-10-10] MEDS: Albuterol/Ipratropium NEB.SOL* Albuterol 2.5 MG/Ipratropium 0.5 MG 3 ML INH SCH (00:03)
[2018-10-10] MEDS: Dexmedetomidine* 1,000 MCG in NS 0.9% 250 ML* 240 ML IV SCH ×2 (01:10→13:39)
[2018-10-10] MEDS: methylPREDNISolone SOD 40 MG* 1 ML VIAL IV SCH ×2 (02:14→08:31)
[2018-10-10] MEDS: Chlorhexidine MOUTHWASH 0.12%* 15 ML UDC TOPICAL SCH ×5 (02:15→19:53)
[2018-10-10] MEDS ORDERED: Midazolam IV for DRIP* 100 MG in NS 0.9% 100 ML* 80 ML IV SCH (03:00)
[2018-10-10] MEDS: NS 0.9% 1000 ML** 1,000 ML IV SCH (04:59)
[2018-10-10] MEDS: Heparin VIAL(*) 5000 UNITS/ML VIAL (FIVE THOUSAND) SUBCUT SCH ×2 (05:00→15:06)
[2018-10-10 05:36] LABS: ABS Lymphocytes 0.2 10^3/ul (1.0-4.8); ABS Monocytes 0.3 10^3/ul (0-0.8); ABS Neutrophils 8.1 10^3/ul (1.5-7.7); Hematocrit 29 % (42-52); Hemoglobin 9.8 g/dL (14.0-18.0); Mean Corpuscular HGB Conc 34 g/dL (31-36); Mean Corpuscular Hemoglobin 35 pg (27-31); Mean Corpuscular Volume 104 fL (80-94); Platelet Count 205 10^3/uL (150-450); Red Blood Count 2.78 10^6 /uL (4.18-5.48); Red Cell Distribution Width 22 % (10-15); White Blood Count 8.6 10^3/uL (3.5-10.8)
[2018-10-10 05:53] LABS: Albumin 2.6 g/dL (3.2-5.2); Albumin/Globulin Ratio 0.8 (1-3); BUN/Creatinine Ratio 26.2 (8-20); Calcium 6.9 mg/dL (8.6-10.3); EGFR African American 50.8 (>60); Globulin 3.4 g/dL (2-4); Potassium 4.4 mmol/L (3.5-5.0); Total Bilirubin 0.3 mg/dL (0.2-1.0)
[2018-10-10 05:58] LABS: CKMB ng/mL 17.5 ng/mL (0.6-6.3); Lymphocyte % 1.8 %; Nucleated Red Blood Cells % 0.1
[2018-10-10 05:59] LABS: Troponin I 1.78 ng/mL (<0.04)
[2018-10-10] MEDS: Diltiazem CD CAP* 120 MG PO SCH (08:31)
[2018-10-10] MEDS: Folic Acid TAB* 1 MG G TUBE SCH (08:31)
[2018-10-10] MEDS: Thiamine TAB* 100 MG TAB G TUBE SCH (08:31)
[2018-10-10] MEDS: Amiodarone TAB* 200 MG G TUBE SCH (08:31)
[2018-10-10] MEDS: Metoprolol Tartrate TAB* 25 MG PO SCH ×2 (08:32→19:53)
[2018-10-10] MEDS: Aspirin 81 mg CHEW TAB* 81 MG TAB.CHEW PO SCH (08:32)
[2018-10-10] MEDS: Pantoprazole IV* 40 MG IV SCH (11:57)
[2018-10-10] MEDS: cefTRIAXone(*) 1 GM in NS 0.9% 50 ML* 50 ML IVPB SCH (11:57)
[2018-10-10] MEDS: LORazepam INJ* 2 MG/ML 1 ML VIAL IV PUSH PRN (15:25)
--- NOTE | 2018-10-10 15:43 | PN ---
Date of Service: 10/10/18 Critical Care Services: Patient has stadily rising troponin levels - ECG shows no acute changes but cardiac ECHO shows regional wall motion abnormalities - the combination of these fndings is consistent with NSTEMI. Currently no leak from chest tube. Vital Signs: Temp Pulse Resp BP SpO2 FiO2 99.0 F 68 33 113/81 93 30 Physical Exam: Gen: agitated but unresponsive (on versed and Precedex) HEENT:No facial asymmetry Lungs: clear Cardiac: no murmurs Extremities: Cool, no cyanosis. trace edema. Fluid Balance (Past 24 Hours): 10/08/18 10/09/18 10/10/18 06:59 06:59 06:59 Intake Total 339 5149 Output Total 100 599 Balance 239 4550 Weight 161 lb 172 lb Intake: IV Fluids 339 4346 NS (0.9%) 2446 thiamine 339 1900 IVPB 607 thiamine 607 Medicated IV 106 precedex 106 IV Narcotic Infusion 80 Versed 80 Oral Murphy Irrigate Amount 10 Output: Chest Tube #1 Murphy 100 599 Other: Estimated Void Small Labs: 10/09/18 10/10/18 10/10/18 18:30 05:05 05:05 WBC 8.6 RBC 2.78 L Hgb 9.8 L Hct 29 L MCV 104 H MCH 35 H MCHC 34 RDW 22 H Plt Count 205 MPV 8.0 Neut % (Auto) 94.5 Lymph % (Auto) 1.8 [place] % (Auto) 3.4 Eos % (Auto) 0.0 Baso % (Auto) 0.3 Absolute Neuts (auto) 8.1 H Absolute Lymphs (auto) 0.2 L Absolute Monos (auto) 0.3 Absolute Eos (auto) 0.0 Absolute Basos (auto) 0.0 Absolute Nucleated RBC 0.0 Nucleated RBC % 0.1 Sodium 138 Potassium 4.4 Chloride 109 Carbon Dioxide 21 L Anion Gap 8 BUN 43 Creatinine 1.64 Est GFR ( Amer) 50.8 Est GFR (Non-Af Amer) 42.0 BUN/Creatinine Ratio 26.2 H Glucose 148 H Calcium 6.9 L Total Bilirubin 0.30 AST 38 ALT 21 Alkaline Phosphatase 79 CK-MB (CK-2) 22.7 H 17.5 Troponin I 1.66 H* 1.78 Total Protein 6.0 L Albumin 2.6 L Globulin 3.4 Albumin/Globulin Ratio 0.8 L Triglycerides 114 Cholesterol 130 LDL Cholesterol 43 HDL Cholesterol 64.0 Studies: CXR: No infiltrates - probable small left apical pneumothorax. Nutrition: None Impression: 1. Probable NSTEMI with rising troponins. Is hemodynamically stable. 2. Delirium - ? ETOH withdrawal 3. Persistent small left-sided pneumothorax, although there is no leak through BP fistula Plan: 1. Is on ASA, statin, and beta meagan for NSTEMI. 2. Monitor troponin levels until they decline. 3. No weaning until troponin levels improve. 4. Benzos for agitation Critical Care Time: 45 minutes
[2018-10-10 16:34] LABS: Troponin I 2.04 ng/mL (<0.04)
[2018-10-10] MEDS ORDERED: Propofol* 100 ML ONE (17:01)
[2018-10-10] MEDS: Heparin DRIP 25,000 UNITS(*) 25,000 UNITS/500 ML BAG IV SCH (17:47)
[2018-10-10] MEDS: Heparin VIAL(*) 5000 UNITS/ML VIAL (FIVE THOUSAND) IV SCH (17:48)
[2018-10-10] MEDS: Atorvastatin* 40 MG TAB PO SCH (19:53)
[2018-10-10] MEDS: Propofol* 100 ML IV SCH (20:53)
[2018-10-10 23:51] LABS: Troponin I 1.68 ng/mL (<0.04)
[2018-10-11] MEDS: Chlorhexidine MOUTHWASH 0.12%* 15 ML UDC TOPICAL SCH ×7 (00:22→23:48)
[2018-10-11] MEDS: Propofol* 100 ML IV SCH ×4 (00:22→20:02)
[2018-10-11] MEDS: NS 0.9% 1000 ML** 1,000 ML IV SCH ×2 (00:22→08:53)
[2018-10-11 05:31] LABS: Hematocrit 29 % (42-52); Hemoglobin 9.6 g/dL (14.0-18.0); Mean Corpuscular HGB Conc 33 g/dL (31-36); Mean Corpuscular Hemoglobin 35 pg (27-31); Mean Corpuscular Volume 104 fL (80-94); Platelet Count 203 10^3/uL (150-450); Red Blood Count 2.79 10^6 /uL (4.18-5.48); Red Cell Distribution Width 22 % (10-15); White Blood Count 6.8 10^3/uL (3.5-10.8)
[2018-10-11 06:30] LABS: ABS Lymphocytes 0.4 10^3/ul (1.0-4.8); ABS Monocytes 0.4 10^3/ul (0-0.8); ABS Neutrophils 5.8 10^3/ul (1.5-7.7); Eosinophil % 0.1 %; Lymphocyte % 6.1 %; Nucleated Red Blood Cells % 0.2
[2018-10-11] MEDS: Pantoprazole IV* 40 MG IV SCH (08:52)
[2018-10-11] MEDS: methylPREDNISolone SOD 40 MG* 1 ML VIAL IV SCH (08:52)
[2018-10-11] MEDS: Aspirin 81 mg CHEW TAB* 81 MG TAB.CHEW PO SCH (08:52)
[2018-10-11] MEDS: Folic Acid TAB* 1 MG G TUBE SCH (08:52)
[2018-10-11] MEDS: Amiodarone TAB* 200 MG G TUBE SCH (08:53)
[2018-10-11] MEDS: Thiamine TAB* 100 MG TAB G TUBE SCH (08:53)
[2018-10-11] MEDS: Metoprolol Tartrate TAB* 25 MG PO SCH ×2 (10:11→20:02)
[2018-10-11] MEDS: cefTRIAXone(*) 1 GM in NS 0.9% 50 ML* 50 ML IVPB SCH (10:30)
[2018-10-11] MEDS: Diltiazem CD CAP* 120 MG PO SCH (12:30)
--- NOTE | 2018-10-11 17:56 | PN ---
Date of Service: 10/11/18 Critical Care Services: Troponins have peaked. Patient remains on propofol - gets agitated when dose is decreased. Chest tube now on water seal without increase in pneumothorax. Vital Signs: Temp Pulse Resp BP SpO2 FiO2 97.2 F 59 20 108/75 95 30 Physical Exam: Gen: Uresponsive on propofol Lungs:Clear Cardiac: No murmurs or rubs Extremities:Trace edema - no cyanosis Fluid Balance (Past 24 Hours): 10/09/18 10/10/18 10/11/18 06:59 06:59 06:59 Intake Total 339 5149 2306 Output Total 100 599 855 Balance 239 4550 1451 Weight 161 lb 172 lb 180 lb Intake: IV Fluids 339 4346 1911 NS (0.9%) 2446 1911 thiamine 339 1900 IVPB 607 NS (0.9%) thiamine 607 Medicated IV 106 395 heparin 117 precedex 106 121 propofol 157 IV Narcotic Infusion 80 Versed 80 Oral 0 Tube Feeding Tube Feeding Flush Amount Murphy Irrigate Amount 10 0 Output: Chest Tube #1 130 Murphy 100 599 725 Other: Estimated Void Small Small Date of Last Bowel 10/10/18 Movement # Bowel Movements 1 Estimated Stool Amount Small Labs: 10/10/18 10/10/18 10/11/18 17:30 23:00 00:38 WBC RBC Hgb Hct MCV MCH MCHC RDW Plt Count MPV Neut % (Auto) Lymph % (Auto) [place] % (Auto) Eos % (Auto) Baso % (Auto) Absolute Neuts (auto) Absolute Lymphs (auto) Absolute Monos (auto) Absolute Eos (auto) Absolute Basos (auto) Absolute Nucleated RBC Nucleated RBC % APTT 35.1 126.0 H* Troponin I 1.68 10/11/18 10/11/18 10/11/18 05:14 05:14 09:32 WBC 6.8 RBC 2.79 L Hgb 9.6 L Hct 29 L MCV 104 H MCH 35 H MCHC 33 RDW 22 H Plt Count 203 MPV 8.0 Neut % (Auto) 87.1 Lymph % (Auto) 6.1 [place] % (Auto) 6.4 Eos % (Auto) 0.1 Baso % (Auto) 0.3 Absolute Neuts (auto) 5.8 Absolute Lymphs (auto) 0.4 L Absolute Monos (auto) 0.4 Absolute Eos (auto) 0.0 Absolute Basos (auto) 0.0 Absolute Nucleated RBC 0.0 Nucleated RBC % 0.2 APTT 91.0 H 77.7 H Troponin I 10/11/18 15:44 WBC RBC Hgb Hct MCV MCH MCHC RDW Plt Count MPV Neut % (Auto) Lymph % (Auto) [place] % (Auto) Eos % (Auto) Baso % (Auto) Absolute Neuts (auto) Absolute Lymphs (auto) Absolute Monos (auto) Absolute Eos (auto) Absolute Basos (auto) Absolute Nucleated RBC Nucleated RBC % APTT 73.0 H Troponin I Studies: None today Nutrition: Tube feedings started Impression: 1. Probable NSTEMI - improving by troponins 2. Still agitated - probable ETOH roxanna Plan: 1. Can wean when less agitated. 2. Keep chest tube as long as patient is on the ventilator 3. Monitor troponin levels. Critical Care Time: 40 minutes
[2018-10-11] MEDS: Atorvastatin* 40 MG TAB PO SCH (20:02)
[2018-10-12] MEDS: NS 0.9% 1000 ML** 1,000 ML IV SCH ×3 (02:22→23:23)
[2018-10-12] MEDS: Chlorhexidine MOUTHWASH 0.12%* 15 ML UDC TOPICAL SCH ×6 (02:22→23:02)
[2018-10-12] MEDS: Heparin DRIP 25,000 UNITS(*) 25,000 UNITS/500 ML BAG IV SCH (02:22)
[2018-10-12] MEDS: Propofol* 100 ML IV SCH ×4 (02:23→22:06)
[2018-10-12 04:50] LABS: Hematocrit 29 % (42-52); Hemoglobin 9.4 g/dL (14.0-18.0); Mean Corpuscular HGB Conc 33 g/dL (31-36); Mean Corpuscular Hemoglobin 35 pg (27-31); Mean Corpuscular Volume 106 fL (80-94); Mean Platelet Volume 8.1 fL (7.4-10.4); Platelet Count 218 10^3/uL (150-450); Red Blood Count 2.71 10^6 /uL (4.18-5.48); Red Cell Distribution Width 22 % (10-15); White Blood Count 10.1 10^3/uL (3.5-10.8)
[2018-10-12 05:20] LABS: Troponin I 0.85 ng/mL (<0.04)
[2018-10-12 05:33] LABS: ABS Lymphocytes 0.6 10^3/ul (1.0-4.8); ABS Monocytes 0.6 10^3/ul (0-0.8); ABS Neutrophils 8.9 10^3/ul (1.5-7.7); Lymphocyte % 5.9 %; Nucleated Red Blood Cells % 0.2
[2018-10-12] MEDS: Pantoprazole IV* 40 MG IV SCH (09:27)
[2018-10-12] MEDS: methylPREDNISolone SOD 40 MG* 1 ML VIAL IV SCH (09:30)
[2018-10-12] MEDS: Aspirin 81 mg CHEW TAB* 81 MG TAB.CHEW PO SCH (09:34)
[2018-10-12] MEDS: Thiamine TAB* 100 MG TAB G TUBE SCH (09:34)
[2018-10-12] MEDS: Folic Acid TAB* 1 MG G TUBE SCH (09:34)
[2018-10-12] MEDS: Metoprolol Tartrate TAB* 25 MG PO SCH ×2 (09:34→21:50)
[2018-10-12] MEDS: Amiodarone TAB* 200 MG G TUBE SCH (09:34)
[2018-10-12] MEDS: Diltiazem CD CAP* 120 MG PO SCH (09:35)
[2018-10-12] MEDS: cefTRIAXone(*) 1 GM in NS 0.9% 50 ML* 50 ML IVPB SCH (11:55)
--- NOTE | 2018-10-12 15:14 | PN ---
Date of Service: 10/12/18 Critical Care Services: Patient remains on the ventilator and requires propofol sedation - gets very agitated when propofol dose decreased. Vital Signs: Temp Pulse Resp BP SpO2 FiO2 98.4 F 59 26 115/76 97 30 Physical Exam: Gen:Unresponsive HEENT:OT tube in place Lungs:clear Extremities:warm. no cyanosis or edema Fluid Balance (Past 24 Hours): 10/10/18 10/11/18 10/12/18 06:59 06:59 06:59 Intake Total 5149 2306 3397 Output Total 599 855 937 Balance 4550 1451 2460 Weight 172 lb 13.478 oz 180 lb 1.883 oz 187 lb 2.759 oz Intake: IV Fluids 4346 1911 2354 NS (0.9%) 2446 1911 2354 thiamine 1900 IVPB 607 50 Ceftriaxone NS (0.9%) 50 thiamine 607 Medicated IV 106 395 504 heparin 117 239 precedex 106 121 propofol 157 265 IV Narcotic Infusion 80 Versed 80 Heparin 68 Oral 0 0 Tube Feeding 261 Tube Feeding Flush Amount 160 Murphy Irrigate Amount 10 0 0 Output: Chest Tube #1 130 102 Murphy 599 725 835 Tube Feeding Residual 0 Amount Wasted Other: Estimated Void Small Small Date of Last Bowel 10/10/18 10/10/18 Movement # Bowel Movements 1 Estimated Stool Amount Small Labs: 10/11/18 10/12/18 15:44 04:34 WBC 10.1 RBC 2.71 L Hgb 9.4 L Hct 29 L MCV 106 H MCH 35 H MCHC 33 RDW 22 H Plt Count 218 APTT 73.0 H Troponin I 0.85 Studies: Chest tube: no leak (is off sunction) Nutrition: Tube feedings Impression: No change in clinical status past 24 hrs. Plan: Continue weaning propofol when feasible - after ETOH withdrawal is over, we can wean from the ventilator. Critical Care Time: 30 minutes
[2018-10-12 15:23] LABS: ALT 22 U/L (7-52); AST 17 U/L (13-39); Albumin 2.3 g/dL (3.2-5.2); Albumin/Globulin Ratio 0.7 (1-3); Alkaline Phosphatase 91 U/L (34-104); BUN/Creatinine Ratio 33.8 (8-20); Blood Urea Nitrogen 45 mg/dL (6-24); CO2 Carbon Dioxide 21 mmol/L (22-32); Calcium 6.7 mg/dL (8.6-10.3); EGFR African American 64.7 (>60); EGFR Non-African American 53.5 (>60); Globulin 3.1 g/dL (2-4); Glucose 175 mg/dL (70-100); Potassium 4.3 mmol/L (3.5-5.0); Sodium 141 mmol/L (135-145); Total Protein 5.4 g/dL (6.4-8.9)
[2018-10-12 15:31] LABS: Anion Gap 7 mmol/L (2-11); Chloride 113 mmol/L (101-111)
--- NOTE | 2018-10-12 15:47 | PN ---
Progress Note - Progress Note Date of Service: 10/12/18 Note: ADDENDUM: NG tube draining reddish aspirate - could be blood, but not grossly bloody. Is hemoodynamically stable. Will follow hemoglobin levels.
[2018-10-12] MEDS: Atorvastatin* 40 MG TAB PO SCH (21:50)
[2018-10-13] MEDS: Propofol* 100 ML IV SCH ×5 (03:32→22:49)
[2018-10-13] MEDS: Chlorhexidine MOUTHWASH 0.12%* 15 ML UDC TOPICAL SCH ×6 (03:33→20:37)
[2018-10-13 06:17] LABS: Hematocrit 31 % (42-52); Hemoglobin 10.2 g/dL (14.0-18.0); Mean Corpuscular HGB Conc 33 g/dL (31-36); Mean Corpuscular Hemoglobin 35 pg (27-31); Mean Corpuscular Volume 106 fL (80-94); Mean Platelet Volume 7.9 fL (7.4-10.4); Platelet Count 271 10^3/uL (150-450); Red Blood Count 2.95 10^6 /uL (4.18-5.48); Red Cell Distribution Width 22 % (10-15); White Blood Count 17.8 10^3/uL (3.5-10.8)
[2018-10-13 06:30] LABS: BUN/Creatinine Ratio 33.6 (8-20); Calcium 7.3 mg/dL (8.6-10.3); EGFR African American 78.1 (>60); EGFR Non-African American 64.5 (>60)
[2018-10-13] MEDS: Heparin VIAL(*) 5000 UNITS/ML VIAL (FIVE THOUSAND) IV SCH (07:25)
[2018-10-13] MEDS: methylPREDNISolone SOD 40 MG* 1 ML VIAL IV SCH (08:29)
[2018-10-13] MEDS: Pantoprazole IV* 40 MG IV SCH (08:29)
[2018-10-13] MEDS: Amiodarone TAB* 200 MG G TUBE SCH (08:32)
[2018-10-13] MEDS: Aspirin 81 mg CHEW TAB* 81 MG TAB.CHEW PO SCH (08:32)
[2018-10-13] MEDS: Folic Acid TAB* 1 MG G TUBE SCH (08:32)
[2018-10-13] MEDS: Thiamine TAB* 100 MG TAB G TUBE SCH (08:32)
[2018-10-13] MEDS: Metoprolol Tartrate TAB* 25 MG PO SCH ×2 (08:34→20:36)
[2018-10-13] MEDS: Diltiazem CD CAP* 120 MG PO SCH (08:34)
[2018-10-13] MEDS: NS 0.9% 1000 ML** 1,000 ML IV SCH ×2 (10:42→21:56)
[2018-10-13] MEDS: cefTRIAXone(*) 1 GM in NS 0.9% 50 ML* 50 ML IVPB SCH (10:42)
[2018-10-13 11:13] LABS: Troponin I 1.02 ng/mL (<0.04)
[2018-10-13] MEDS: Heparin DRIP 25,000 UNITS(*) 25,000 UNITS/500 ML BAG IV SCH (12:55)
[2018-10-13 14:59] LABS: Troponin I 0.77 ng/mL (<0.04)
--- NOTE | 2018-10-13 15:49 | PN ---
Date of Service: 10/13/18 Critical Care Services: Continues to require propofol sedation. Becomes very agitated when propofol dose is reduced. Also leukocytosis today - Origin unclear Vital Signs: Temp Pulse Resp BP SpO2 FiO2 98.8 F 76 19 132/80 93 30 Physical Exam: Gen: unresponsive (on propofol) Lungs: scattered rhonchi. No wheezes Extremities: No cyanosis or edema. Fluid Balance (Past 24 Hours): 10/11/18 10/12/18 10/13/18 10/14/18 06:59 06:59 06:59 06:59 Intake Total 2306 3397 4675.2 1145 Output Total 247 237 2001 615 Balance 1451 2460 3532.2 530 Weight 180 lb 1.883 oz 187 lb 2.759 oz 188 lb 4.396 oz Intake: IV Fluids 1910 2354 2334 691 Ceftriaxone 691 NS (0.9%) 1910 2354 2334 IVPB 50 73 64 Ceftriaxone 73 64 NS (0.9%) 50 Medicated IV 395 504 745.2 144 heparin 117 239 349.2 precedex 121 propofol 157 265 396 144 Heparin 68 Oral 0 0 Tube Feeding 261 1183 216 Tube Feeding Flush Amount 160 340 NG Tube Irrigate Amount 30 Murphy Irrigate Amount 0 0 Output: Chest Tube #1 130 102 58 50 Murphy 529 242 3839 565 Tube Feeding Residual 0 0 0 Amount Wasted Other: Estimated Void Small Medium Date of Last Bowel 10/10/18 10/10/18 10/13/18 Movement # Bowel Movements 1 1 1 Estimated Stool Amount Small Small Medium # Voids 1 Labs: 10/13/18 10/13/18 10/13/18 06:06 06:06 06:06 WBC 17.8 H Hgb 10.2 L Hct 31 L MCV 106 H RDW 22 H Plt Count 271 MPV 7.9 APTT 41.8 H Sodium 141 Potassium 4.0 Chloride 112 H Carbon Dioxide 24 Anion Gap 5 BUN 38 H Creatinine 1.13 Est GFR ( Amer) 78.1 Est GFR (Non-Af Amer) 64.5 BUN/Creatinine Ratio 33.6 H Glucose 150 H Calcium 7.3 L Total Creatine Kinase 72 Troponin I 10/13/18 10/13/18 10/13/18 10:40 14:01 14:01 WBC RBC Hgb Hct MCV MCH MCHC RDW Plt Count MPV APTT 68.9 H Sodium Potassium Chloride Carbon Dioxide Anion Gap BUN Creatinine Est GFR ( Amer) Est GFR (Non-Af Amer) BUN/Creatinine Ratio Glucose Calcium Total Creatine Kinase Troponin I 1.02 H* 0.77 H* Studies: Sputum culture: Hemophilus influenza ECG T-wave inversion anterior precordial leads Nutrition: Tube feedings Impression: 1. Persistent agitation - maybe this is not from ETOH withdrawal. Other possibility is acute Wernicke's 2. Leukocytosis could be from 1) H flu pneumonia, or 2)extension of NSTEMI Plan: 1. Doxycycline for the H flu 2. Will rx for Wernicke's empirically with high-dose thiamine. Critical Care Time: 70 minutes (including time to evaluate possible reinfarction and possible pneumonia).
[2018-10-13] MEDS: Thiamine INJ* 500 MG in NS 0.9% 250 ML* 250 ML IV SCH (17:33)
[2018-10-13] MEDS: DOXYcycline IV* 100 MG in NS 0.9% 250 ML* 250 ML IVPB SCH (17:34)
[2018-10-13] MEDS ORDERED: Metoprolol Tartrate IV* 1 MG/ML 5 ML VIAL IV ONE (20:25)
[2018-10-13] MEDS ORDERED: Metoprolol Tartrate IV* 1 MG/ML 5 ML VIAL ONE (20:27)
[2018-10-13] MEDS: Heparin VIAL(*) 5000 UNITS/ML VIAL (FIVE THOUSAND) SUBCUT SCH (20:35)
[2018-10-13] MEDS: Atorvastatin* 40 MG TAB PO SCH (20:36)
[2018-10-14] MEDS: Thiamine INJ* 500 MG in NS 0.9% 250 ML* 250 ML IV SCH ×3 (01:17→17:31)
[2018-10-14] MEDS: Chlorhexidine MOUTHWASH 0.12%* 15 ML UDC TOPICAL SCH ×7 (01:20→22:14)
[2018-10-14] MEDS: Metoprolol Tartrate IV* 1 MG/ML 5 ML VIAL IV PRN ×3 (02:53→13:56)
[2018-10-14] MEDS: Propofol* 100 ML IV SCH ×5 (03:40→22:13)
[2018-10-14] MEDS: DOXYcycline IV* 100 MG in NS 0.9% 250 ML* 250 ML IVPB SCH ×2 (04:58→16:50)
[2018-10-14 05:30] LABS: Hematocrit 30 % (42-52); Hemoglobin 9.6 g/dL (14.0-18.0); Mean Corpuscular HGB Conc 32 g/dL (31-36); Mean Corpuscular Hemoglobin 34 pg (27-31); Mean Corpuscular Volume 106 fL (80-94); Mean Platelet Volume 7.9 fL (7.4-10.4); Platelet Count 260 10^3/uL (150-450); Red Blood Count 2.81 10^6 /uL (4.18-5.48); Red Cell Distribution Width 23 % (10-15); White Blood Count 17.9 10^3/uL (3.5-10.8)
[2018-10-14 05:36] LABS: BUN/Creatinine Ratio 29.2 (8-20); Calcium 6.7 mg/dL (8.6-10.3); EGFR African American 94.3 (>60); EGFR Non-African American 77.9 (>60); Potassium 3.8 mmol/L (3.5-5.0)
[2018-10-14] MEDS: Amiodarone TAB* 200 MG G TUBE SCH (08:03)
[2018-10-14] MEDS: Pantoprazole IV* 40 MG IV SCH (08:03)
[2018-10-14] MEDS: Aspirin 81 mg CHEW TAB* 81 MG TAB.CHEW PO SCH (08:03)
[2018-10-14] MEDS: Heparin VIAL(*) 5000 UNITS/ML VIAL (FIVE THOUSAND) SUBCUT SCH ×2 (09:51→20:19)
[2018-10-14] MEDS: methylPREDNISolone SOD 40 MG* 1 ML VIAL IV SCH (09:51)
[2018-10-14] MEDS: Folic Acid TAB* 1 MG G TUBE SCH (09:51)
[2018-10-14] MEDS: Metoprolol Tartrate TAB* 25 MG PO SCH (09:51)
[2018-10-14] MEDS: LORazepam INJ* 2 MG/ML 1 ML VIAL IV PUSH PRN (13:54)
[2018-10-14] MEDS: NS 0.9% 1000 ML** 1,000 ML IV SCH (16:32)
[2018-10-14] MEDS ORDERED: Furosemide IV* 10 MG/ML VIAL (40 MG) IV SLOW PU ONE (18:04)
--- NOTE | 2018-10-14 18:05 | PN ---
Date of Service: 10/14/16 Critical Care Services: Continued problems with agitation and rapid AF (latter controlled with beta blockers) Vital Signs: Temp Pulse Resp BP SpO2 FiO2 98.1 F 60 20 86/54 95 35 Physical Exam: Gen:Unresponsive on propofol Lungs:Scattered rhonchi Extremities:No cyanosis or edema Fluid Balance (Past 24 Hours): 10/12/18 10/13/18 10/14/18 06:59 06:59 06:59 Intake Total 3397 4675.2 5141 Output Total 937 1143 1544 Balance 2460 3532.2 3597 Weight 187 lb 188 lb 192 lb Intake: IV Fluids 2354 2334 2359 Ceftriaxone 691 NS (0.9%) 2354 2334 1668 IVPB 50 73 1108 ABX - DOXYCYCLINE 514 Ceftriaxone 73 64 NS (0.9%) 50 thiamine 530 Medicated IV 504 745.2 421 heparin 239 349.2 propofol 265 396 421 Heparin 68 175 Oral 0 Tube Feeding 261 1183 968 Tube Feeding Flush Amount 160 340 80 NG Tube Irrigate Amount 30 Murphy Irrigate Amount 0 Output: Chest Tube #1 102 58 85 Murphy 835 1085 1459 Liquid Stool Tube Feeding Residual 0 0 0 Amount Wasted Other: Estimated Void Medium Large Date of Last Bowel 10/10/18 10/13/18 10/14/18 Movement # Bowel Movements 1 1 Estimated Stool Amount Small Small # Voids 1 3 Labs: 10/13/18 10/14/18 10/14/18 20:50 05:05 05:05 WBC 17.9 H RBC 2.81 L Hgb 9.6 L Hct 30 L MCV 106 H MCH 34 H MCHC 32 RDW 23 H Plt Count 260 MPV 7.9 APTT 43.4 H Sodium 142 Potassium 3.8 Chloride 114 H Carbon Dioxide 24 Anion Gap 4 BUN 28 H Creatinine 0.96 Est GFR ( Amer) 94.3 Est GFR (Non-Af Amer) 77.9 BUN/Creatinine Ratio 29.2 H Glucose 158 H Calcium 6.7 L Nutrition: Tube feedings Impression: 1. Continued agitation - seems too prolonged for ETOH withdrawal. 2. Markedly positive fluid balance past few days. Plan: 1. Diuresis with furosemide. 2. Switch from propofol to Precedex (to wean sedation). Critical Care Time: 35 minutes
[2018-10-14] MEDS ORDERED: Furosemide IV* 10 MG/ML VIAL (40 MG) ONE (18:27)
[2018-10-14] MEDS: Atorvastatin* 40 MG TAB PO SCH (20:19)
[2018-10-14] MEDS: Metoprolol Tartrate TAB* 50 mg PO SCH (20:19)
[2018-10-15] MEDS ORDERED: NS 0.9% 250 ML* 250 ML ONE (00:28)
[2018-10-15] MEDS: Thiamine INJ* 500 MG in NS 0.9% 250 ML* 250 ML IV SCH ×3 (00:29→16:55)
[2018-10-15] MEDS: Propofol* 100 ML IV SCH ×3 (01:47→10:46)
[2018-10-15] MEDS: DOXYcycline IV* 100 MG in NS 0.9% 250 ML* 250 ML IVPB SCH ×2 (03:23→16:55)
[2018-10-15] MEDS: Chlorhexidine MOUTHWASH 0.12%* 15 ML UDC TOPICAL SCH ×3 (03:23→12:09)
[2018-10-15 05:16] LABS: Hematocrit 29 % (42-52); Hemoglobin 9.1 g/dL (14.0-18.0); Mean Corpuscular HGB Conc 32 g/dL (31-36); Mean Corpuscular Hemoglobin 34 pg (27-31); Mean Corpuscular Volume 106 fL (80-94); Mean Platelet Volume 7.9 fL (7.4-10.4); Platelet Count 272 10^3/uL (150-450); Red Cell Distribution Width 23 % (10-15); White Blood Count 11.4 10^3/uL (3.5-10.8)
[2018-10-15 05:30] LABS: BUN/Creatinine Ratio 23.2 (8-20); EGFR Non-African American 75.2 (>60)
[2018-10-15] MEDS: Heparin VIAL(*) 5000 UNITS/ML VIAL (FIVE THOUSAND) SUBCUT SCH ×2 (08:22→21:33)
[2018-10-15] MEDS ORDERED: Furosemide IV* 10 MG/ML VIAL (40 MG) IV ONE ×2 (08:24→21:18)
[2018-10-15] MEDS: Metoprolol Tartrate TAB* 50 mg PO SCH ×2 (08:28→20:33)
[2018-10-15] MEDS: Folic Acid TAB* 1 MG G TUBE SCH (08:28)
[2018-10-15] MEDS: Aspirin 81 mg CHEW TAB* 81 MG TAB.CHEW PO SCH (08:28)
[2018-10-15] MEDS: Amiodarone TAB* 200 MG G TUBE SCH (08:29)
[2018-10-15] MEDS ORDERED: Dexmedetomidine* 1,000 MCG in NS 0.9% 250 ML* 240 ML IV SCH (09:00)
[2018-10-15] MEDS: Famotidine SUSP ORALSYR 8 MG/ML G TUBE SCH (11:01)
--- NOTE | 2018-10-15 13:44 | PN ---
Date of Service: 10/15/18 Critical Care Services: Much better today. Off propofol and patient not agitated - was then weaned and extubated without incident - currently on O2 by face mask and breathing comfortably Vital Signs: Temp Pulse Resp BP SpO2 FiO2 99.5 F 74 22 135/79 97 35 Physical Exam: Gen:Somnolent but easily arousable Lungs: Inspiratory wheezes (mild) throughout Extremities:No cyanosis. 1+edema Neuro:No tremors Fluid Balance (Past 24 Hours): 10/13/18 10/14/18 10/15/18 10/16/18 06:59 06:59 06:59 06:59 Intake Total 4675.2 5141 4608 1406.1 Output Total 1143 1544 4050 1989 Balance 3532.2 3597 558 -583.9 Weight 188 lb 192 lb 193 lb Intake: IV Fluids 2334 2359 1548 20.1 ABX - DOXYCYCLINE 685 Ceftriaxone 691 NS (0.9%) 2334 1668 863 20.1 IVPB 73 1108 1188 285 ABX - DOXYCYCLINE 514 854 Ceftriaxone 73 64 thiamine 530 334 285 Medicated IV 745.2 421 495 heparin 349.2 propofol 396 421 495 Heparin 175 Oral 0 Tube Feeding 3417 635 1373 1011 Tube Feeding Flush Amount 340 80 260 90 NG Tube Irrigate Amount 30 30 Output: Chest Tube #1 58 85 40 Murphy 1085 1459 3310 1989 Liquid Stool 200 Tube Feeding Residual 0 0 250 Amount Wasted Other 250 Other: Estimated Void Medium Large Date of Last Bowel 10/13/18 10/14/18 10/14/18 Movement # Bowel Movements 1 1 1 Estimated Stool Amount Small Small Large tube Other Amount Description feed residual # Voids 1 3 Labs: 10/15/18 10/15/18 05:05 05:05 WBC 11.4 H Hgb 9.1 L Hct 29 L MCV 106 H MCH 34 H MCHC 32 RDW 23 H Plt Count 272 MPV 7.9 Sodium 142 Potassium 4.0 Chloride 111 Carbon Dioxide 25 Anion Gap 6 BUN 23 Creatinine 0.99 Glucose 148 H Calcium 7.0 L Studies: CXR: Cardiomegaly with hilar fullness and left pleural effusion. Nutrition: Has been on tube feedings - will switch to oral diet. Impression: 1. Doing well since extbation 2. Delirium has subsided - is this from resolved ETOH withdrawal or treated Wernicke's encephalopathy?? 3. Macrocytc anemia - probably folate deficiency (despite being on folate at 1 mg daily). Plan: 1. Continue high-dose thiamine Rx for Wernicke's 2. Increase folate dose to 2 mg daily 3. Diurese as needed. 4. Watch carefully for signs of laryngeal edema post-extubation. Critical Care Time: 50 minutes
[2018-10-15] MEDS ORDERED: Lorazepam PYXIS KEY ONE ×2 (14:25→19:24)
[2018-10-15] MEDS: LORazepam INJ* 2 MG/ML 1 ML VIAL IV PUSH PRN ×2 (14:27→19:28)
[2018-10-15] MEDS: Albuterol/Ipratropium NEB.SOL* Albuterol 2.5 MG/Ipratropium 0.5 MG 3 ML INH PRN (15:42)
[2018-10-15] MEDS: Metoprolol Tartrate IV* 1 MG/ML 5 ML VIAL IV PRN ×2 (18:17→21:33)
[2018-10-15] MEDS: NICARDIPINE IVPB SCH ×4 (19:28→23:57)
[2018-10-15] MEDS: [UNRECOGNIZED DRUG - OTHER] IVPB SCH ×4 (19:28→23:57)
[2018-10-15] MEDS: SODIUM CHLORIDE IVPB SCH ×4 (19:28→23:57)
[2018-10-16] MEDS: Metoprolol Tartrate IV* 1 MG/ML 5 ML VIAL IV PRN ×2 (00:31→10:16)
[2018-10-16] MEDS ORDERED: Lorazepam PYXIS KEY ONE ×3 (00:45→16:39)
[2018-10-16] MEDS ORDERED: Diltiazem IV push/loading dose 5 MG/ML 5 ML vial (25 mg) IV PUSH ONE (00:45)
[2018-10-16] MEDS ORDERED: Diltiazem IV push/loading dose 5 MG/ML 5 ML vial (25 mg) ONE (00:49)
[2018-10-16] MEDS: Metoprolol Tartrate IV* 1 MG/ML 5 ML VIAL IV ONE ×2 (01:03→01:54)
[2018-10-16] MEDS: LORazepam INJ* 2 MG/ML 1 ML VIAL IV PUSH PRN ×3 (01:29→16:44)
[2018-10-16] MEDS: NICARDIPINE IVPB SCH ×2 (04:10)
[2018-10-16] MEDS: [UNRECOGNIZED DRUG - OTHER] IVPB SCH ×2 (04:10)
[2018-10-16] MEDS: DOXYcycline IV* 100 MG in NS 0.9% 250 ML* 250 ML IVPB SCH ×2 (04:10→16:25)
[2018-10-16] MEDS: SODIUM CHLORIDE IVPB SCH ×2 (04:10)
[2018-10-16 05:02] LABS: BUN/Creatinine Ratio 22.3 (8-20); Calcium 7.8 mg/dL (8.6-10.3); EGFR African American 96.6 (>60); EGFR Non-African American 79.8 (>60); Potassium 3.8 mmol/L (3.5-5.0)
[2018-10-16 05:15] LABS: Hematocrit 32 % (42-52); Hemoglobin 10.5 g/dL (14.0-18.0); Mean Corpuscular HGB Conc 33 g/dL (31-36); Mean Corpuscular Hemoglobin 34 pg (27-31); Mean Corpuscular Volume 104 fL (80-94); Mean Platelet Volume 8.3 fL (7.4-10.4); Platelet Count 330 10^3/uL (150-450); Red Blood Count 3.05 10^6 /uL (4.18-5.48); Red Cell Distribution Width 23 % (10-15); White Blood Count 15.5 10^3/uL (3.5-10.8)
[2018-10-16] MEDS: Heparin VIAL(*) 5000 UNITS/ML VIAL (FIVE THOUSAND) SUBCUT SCH ×2 (08:21→21:51)
[2018-10-16] MEDS: Amiodarone TAB* 200 MG G TUBE SCH (08:22)
[2018-10-16] MEDS: Metoprolol Tartrate TAB* 50 mg PO SCH ×2 (08:22→21:52)
[2018-10-16] MEDS: Famotidine SUSP ORALSYR 8 MG/ML G TUBE SCH (08:22)
[2018-10-16] MEDS ORDERED: Furosemide IV* 10 MG/ML VIAL (40 MG) IV ONE (09:50)
[2018-10-16] MEDS ORDERED: Clopidogrel TAB* 75 MG PO SCH (10:00)
--- NOTE | 2018-10-16 10:05 | PN ---
Date of Service: 10/16/18 Critical Care Services: Patient has done well since extubation - states he is hungry this AM. Major problem now is rapid Afib poorly responsive to beta blockers and oral amiodarone. Vital Signs: Temp Pulse Resp BP SpO2 FiO2 98.8 F 125 24 108/79 99 60 Physical Exam: Gen: Somnolent but arousable HEENT: Oropharynx clear. No stridor Lungs: Fine insp wheezes throughout Extremities:Warm. No cyanosis or edema. Fluid Balance (Past 24 Hours): 10/15/18 10/16/18 06:59 06:59 Intake Total 4608 2301.4 Output Total 4050 6744 Balance 558 -4442.6 Weight 193 lb 1.999 oz 187 lb Intake: IV Fluids 1548 706.1 ABX - DOXYCYCLINE 685 640 Ceftriaxone NS (0.9%) 863 66.1 IVPB 1188 285 ABX - DOXYCYCLINE 854 Ceftriaxone thiamine 334 285 Medicated IV 495 209.3 cardene 67 precedex 25.3 propofol 495 117 Heparin Oral 0 0 Tube Feeding 1087 1011 Tube Feeding Flush Amount 260 90 NG Tube Irrigate Amount 30 Output: Chest Tube #1 40 Murphy 3310 6744 Liquid Stool 200 Tube Feeding Residual 250 Amount Wasted Other 250 Other: Estimated Void Date of Last Bowel 10/14/18 Movement # Bowel Movements 1 1 Estimated Stool Amount Large Medium Other Amount Description tube feed residual # Voids Labs: 10/16/18 10/16/18 04:19 04:19 WBC 15.5 H Hgb 10.5 L Hct 32 L MCV 104 H Plt Count 330 Sodium 144 Potassium 3.8 Chloride 106 Carbon Dioxide 32 Anion Gap 6 BUN 21 Creatinine 0.94 Glucose 72 Calcium 7.8 L 10/16/18 06:25 WBC RBC Hgb Hct MCV MCH MCHC RDW Plt Count MPV ABG pH 7.45 ABG pCO2 50 H ABG pO2 158 H ABG HCO3 32.1 H ABG O2 Saturation 99.3 H ABG Base Excess 9.2 H O2 Delivery Device V60 FiO2 90 Sodium Potassium Chloride Carbon Dioxide Anion Gap BUN Creatinine Est GFR ( Amer) Est GFR (Non-Af Amer) BUN/Creatinine Ratio Glucose Calcium Studies: None today Nutrition: Evaluating swallowing function for anticipated oral diet Impression: Slow but steady overall improvement. Major problems include: 1. Possible NSTEMI earlier this week. On ASA and will start Plavix when tolerates oral meds. 2. Rapid AFib, but no evidence of recurring ischemia. 3. Recovering from an encephalopathy that could be ETOH withdrawal or acute Wernicke's (treated for the latter and improved) 4. Macrocytic anemia (MCV > 100) on folate and B12 Plan: 1. Amiodarone infusion for the AFib (had been on oral amiodarone, but unsure of absorption and bioavailability from oral dosing) 2. Continue treatment for Wernicke's encephalopathy. 3. Swallowing evaluation and start oral diet as soon as feasible. Critical Care Time: 30 minutes
[2018-10-16] MEDS: Cyanocobalamin TAB* 500 MCG PO SCH (10:16)
[2018-10-16] MEDS: Aspirin 81 mg CHEW TAB* 81 MG TAB.CHEW PO SCH (10:16)
[2018-10-16] MEDS: Folic Acid TAB* 1 MG PO SCH (10:16)
[2018-10-16] MEDS: Thiamine TAB* 100 MG TAB PO SCH (11:11)
[2018-10-16 11:53] LABS: Troponin I 0.48 ng/mL (<0.04)
[2018-10-16 14:40] LABS: Troponin I 0.5 ng/mL (<0.04)
[2018-10-16] MEDS ORDERED: Amiodarone 150 MG IVPREMIX* 150 MG/100 ML BAG IV ONE (15:35)
[2018-10-16] MEDS ORDERED: Amiodarone 360 MG IVPREMIX* 360 MG/200 ML BAG IV ONE (15:35)
[2018-10-16 18:11] LABS: Troponin I 0.48 ng/mL (<0.04)
[2018-10-16] MEDS ORDERED: Magnesium Sulfate 1 GM IV* 1 GM/100 ML BAG IV ONE (19:00)
[2018-10-17] MEDS ORDERED: Lorazepam PYXIS KEY ONE ×2 (00:12→06:12)
[2018-10-17] MEDS: LORazepam INJ* 2 MG/ML 1 ML VIAL IV PUSH PRN ×2 (00:14→06:14)
[2018-10-17] MEDS: Metoprolol Tartrate IV* 1 MG/ML 5 ML VIAL IV PRN ×3 (00:21→17:06)
[2018-10-17] MEDS: DOXYcycline IV* 100 MG in NS 0.9% 250 ML* 250 ML IVPB SCH ×2 (04:04→17:10)
[2018-10-17 04:44] LABS: Hematocrit 30 % (42-52); Hemoglobin 9.7 g/dL (14.0-18.0); Mean Corpuscular HGB Conc 32 g/dL (31-36); Mean Corpuscular Hemoglobin 34 pg (27-31); Mean Corpuscular Volume 104 fL (80-94); Platelet Count 302 10^3/uL (150-450); Red Blood Count 2.87 10^6 /uL (4.18-5.48); Red Cell Distribution Width 22 % (10-15); White Blood Count 12.2 10^3/uL (3.5-10.8)
[2018-10-17 04:58] LABS: BUN/Creatinine Ratio 23.5 (8-20); EGFR African American 108.5 (>60); EGFR Non-African American 89.6 (>60); Magnesium 1.6 mg/dL (1.9-2.7); Potassium 3.6 mmol/L (3.5-5.0)
[2018-10-17] MEDS ORDERED: Potassium Chloride* LIQUID 20 MEQ/15 ML UDC PO ONE (08:55)
[2018-10-17] MEDS ORDERED: Magnesium Sulf 4 GM/100 ML IV* 4,000 MG/100 ML BAG IVPB ONE (09:15)
--- NOTE | 2018-10-17 11:25 | PN ---
Progress Note - Progress Note Date of Service: 10/17/18 Note: Progress Note -- Critical Care 24 hour events -overnight on NC, still unable to talk but does follow commands -on NIV now and had increased WOB this morning; off NIV tachypneic and placed back on -afebrile 98.6 -NSR Tele: NSR Vitals: Vital Signs Temp 98.8 F 10/17/18 10:00 Pulse 76 10/17/18 10:00 Resp 24 10/17/18 10:00 BP 157/95 10/17/18 10:00 Pulse Ox 100 10/17/18 10:00 Intake & Output 10/16/18 10/17/18 10/17/18 18:59 06:59 18:59 Intake Total 104 1087 0 Output Total 2555 890 200 Balance -2451 197 -200 Weight 78.5 kg Intake: IV Fluids 104 823 NS (0.9%) 104 823 Medicated IV 264 amiodarone 264 Oral 0 0 NG Tube Irrigate Amount 0 0 Output: Chest Tube #1 15 Beatty 2540 890 200 Other: # Bowel Movements 1 Estimated Stool Amount Medium O2/Vent: NIV 20/8 50% Infusions: heplock Current Medications: Albuterol/Ipratropium (Duoneb (Albuterol 2.5 Mg/Ipratropium 0.5 Mg)) 1 neb INH Q4H PRN PRN Reason: SOB/WHEEZING Last Admin: 10/15/18 15:42 Dose: 1 neb Aspirin (Aspirin 81 Mg Chew Tab*) 81 mg PO DAILY [facility] Last Admin: 10/16/18 10:16 Dose: Not Given Cyanocobalamin (Vitamin B12 Tab*) 500 mcg PO DAILY [facility] Last Admin: 10/16/18 10:16 Dose: Not Given Famotidine (Pepcid Susp 8mg/Ml) 20 mg G TUBE DAILY [facility] Last Admin: 10/16/18 08:22 Dose: 20 mg Folic Acid (Folvite Tab*) 2 mg PO DAILY [facility] Last Admin: 10/16/18 10:16 Dose: Not Given Heparin Sodium (Porcine) (Heparin Vial(*)) 5,000 units SUBCUT Q12HR [facility] Last Admin: 10/16/18 21:51 Dose: 5,000 units Doxycycline Hyclate 100 mg/ (Sodium Chloride) 250 mls @ 250 mls/hr IVPB Q12H [facility] Stop: 10/17/18 23:59 Last Admin: 10/17/18 04:04 Dose: 250 mls/hr Magnesium Sulfate (Magnesium Sulf 4 Gm/100 Ml Iv*) 4,000 mg in 100 mls @ 33.333 mls/hr IVPB ONCE ONE Stop: 10/17/18 12:14 Last Admin: 10/17/18 09:31 Dose: 33.333 mls/hr Lorazepam (Ativan Inj*) 2 mg IV PUSH Q4H PRN PRN Reason: ANXIETY Last Admin: 10/17/18 06:14 Dose: 2 mg Metoprolol Tartrate (Lopressor Iv*) 10 mg IV Q4H PRN PRN Reason: HR >140 Last Admin: 10/17/18 06:14 Dose: 10 mg Metoprolol Tartrate (Lopressor Tab*) 50 mg PO BID [facility] Last Admin: 10/16/18 21:52 Dose: Not Given Thiamine HCl (Vitamin B-1 Tab*) 200 mg PO DAILY [facility] Last Admin: 10/16/18 11:11 Dose: Not Given Physical Exam: Constitutional: awake, alert appearing, cant speak but follows some commands, tachypnea+, no diaphoresis Head: normocephalic, atraumatic Eyes: no pallor, no icterus ENT: moist mucous membranes Neck: soft, supple, no jvd CVS: normal rate, iregular, no murmur Resp: some dimiished BS on right, no rhales/rhonchi/wheeze, no acc muscle use; Left lower chest tube+ Abdomen/GI: soft, nondistended, BS+ Ext/Msk: warm, pulses+, no edema Skin: intact, warm Neuro: awake, alert, unable to speak but appears to be trying to speak Labs: Laboratory Results - last 24 hr 10/16/18 10/16/18 10/16/18 11:26 14:13 17:40 WBC RBC Hgb Hct MCV MCH MCHC RDW Plt Count MPV Patient Temperature ABG pH ABG pH (Temp Correct) ABG pCO2 ABG pCO2 (Temp Corrct ABG pO2 ABG pO2 (Temp Correct ABG HCO3 ABG O2 Saturation ABG Base Excess Respiration Rate O2 Delivery Device Ventilator Type Vent Mode FiO2 Inspiratory Time PEEP Pressure Support Pressure Control EPAP IPAP BiPAP Sodium Potassium Chloride Carbon Dioxide Anion Gap BUN Creatinine Est GFR ( Amer) Est GFR (Non-Af Amer) BUN/Creatinine Ratio Glucose Calcium Magnesium Troponin I 0.48 H* 0.50 H* 0.48 H* 10/17/18 10/17/18 10/17/18 04:29 04:29 10:41 WBC 12.2 H RBC 2.87 L Hgb 9.7 L Hct 30 L MCV 104 H MCH 34 H MCHC 32 RDW 22 H Plt Count 302 MPV 8.0 Patient Temperature Not Reportable ABG pH 7.41 ABG pH (Temp Correct) Not Reportable ABG pCO2 52 H ABG pCO2 (Temp Corrct Not Reportable ABG pO2 111 H ABG pO2 (Temp Correct Not Reportable ABG HCO3 30.3 ABG O2 Saturation 99.8 H ABG Base Excess 6.9 H Respiration Rate Not Reportable O2 Delivery Device Bipap Ventilator Type Not Reportable Vent Mode Not Reportable FiO2 50 Inspiratory Time Not Reportable PEEP Not Reportable Pressure Support Not Reportable Pressure Control Not Reportable EPAP 8 IPAP 20 BiPAP Not Reportable Sodium 142 Potassium 3.6 Chloride 102 Carbon Dioxide 36 H Anion Gap 4 BUN 20 Creatinine 0.85 Est GFR ( Amer) 108.5 Est GFR (Non-Af Amer) 89.6 BUN/Creatinine Ratio 23.5 H Glucose 78 Calcium 8.0 L Magnesium 1.6 L Troponin I Imaging: cxr 10/17 - improved congestion on left; right sided increased infiltrates++; left CT+; NGT+ in stomach Assessment: 67y M w/pmhx of HTN, HLD, COPD, lung nodules, Afib (h/o cardiovesion 2018) off Xarelto due to recent GI bleeds, h/o alcohol abuse, Active smoker+, LV diastolic dysfunction, H/o PRostate Ca s/p radiation tx, depression; comes to ER for respiratory distress x1 day. He stated to ER last drink on or wednesday and possible feeling of withdrawal. Noted to have recent left lung biopsy at [facility] on 09/28 as per ER history and diagnosed with lung cancer, unknown type. In ER, CXR revealed small ptx on the left. He was intubated for increasing respiratory distress. A Chest tube was placed in the ER on the left, with subsequent CXR demonstrating improvement. CT chest confirmed 20% left PTX. He has remained hemodynamically stable, no pressors, only IVF administration. IV levaquin x1 dose and solumedrol/nebulizers given. -acute hypercapneic respiratory failure; intubated 10/08; extubated 10/15 -acute hypoxic respiratory failure; on NIV -Left Pneumothorax; suspect iatrogenic from biopsy? ; s/p left CT 10/08 -r/o new developing pneumonia vs congestion on right -H.influenza pneumonia -Acute COPD exaccerbation -Encephalopathy, suspected metabolic vs wernickes -JOSE ENRIQUE, resolved Newly diagnosed Lung Ca pAfib HTn Alcohol abuse Plan: Neuro- -still appears with some encephalopathy but i can see he is trying to answer qhen told -not able to speak -ENT eval for VC dysfunction -needs speech/swallow eval for dysphagia -cont thiamine 200mg po daily for 7 days; change to 100mg daily 09/22 -avoid bdz/sedatives; delirium prec CVS- -BP stable -Cont ASA -Afib history; currently in NSR; cont amio 200 po daily; Metoprolol 50mg po bid ; iv lopressor prn -off AC due to h/o GI bleed -TTE 10/09 - lvef 40-45% -Maintain MAP>65 Resp- -on NIV now and tachypneic off -CXR 10/17 with left chest clearer, but right sided increased infiltrates+; CT on left -if resp status stable, can d/c CT today or tomorrow after clamping for 2 hours and repeat CXR; maintained on water-seal now, no leak -completing doxy bid today for H.influenza tx -no wheezing -bronchodilators q4h prn -Wean Fio2 to keep sat>92% -Bronchodilators PRN, Aspiration prec ID- afebrile. wbc 11-15-12 -H.influenza+ sputum culture; doxy day 10 today, d/c after today -CXR new right infiltrates+ -monitor next 24 hours if new course of HCAP required GI- -NGT placed; PO meds; hold TF today -swallow eval formal -GI prophylaxis - ppi Renal- -JOSE ENRIQUE resolved; Cr normal -can d/c beatty -replete K Po and IV Mg -IVF PRN -strict I/O, replete to keep K>4, Mg>2 -beatty as indicated Heme- hg stable, no bleeding -off AC due to GI bleeds in past - ASA for nstemi tx -DVT proph ; SCD and heparin sq Endo- Maintain BG<200, insulin protocol as needed Musculsk- pressure ulcer prophylaxis. Bedrest, oob to chair as tolerated Wounds- none Nutrition- NPO; ngt+ DVT prophylaxis: SCD, heparin sq GI prophylaxis: h2b Central Line: RIJ Arterial Line: no Beatty Cathetor: yes 10/09 Disposition: Patient requires Critical Care/ICU for respiratory failure req NIV Patient Clinical Status: guarded, critical Code Status: full code Total Critical Care time is 40 minutes, excluding procedures/teaching Ranulfo Riggins MD Review Trainer (Electronically Signed)
[2018-10-17] MEDS: Heparin VIAL(*) 5000 UNITS/ML VIAL (FIVE THOUSAND) SUBCUT SCH ×2 (11:42→20:04)
[2018-10-17] MEDS: Cyanocobalamin TAB* 500 MCG PO SCH (11:42)
[2018-10-17] MEDS: Thiamine TAB* 100 MG TAB PO SCH (11:43)
[2018-10-17] MEDS: Metoprolol Tartrate TAB* 50 mg PO SCH ×2 (11:43→20:04)
[2018-10-17] MEDS: Aspirin 81 mg CHEW TAB* 81 MG TAB.CHEW PO SCH (11:43)
[2018-10-17] MEDS: Famotidine SUSP ORALSYR 8 MG/ML G TUBE SCH (11:44)
[2018-10-17] MEDS: Folic Acid TAB* 1 MG PO SCH (11:47)
[2018-10-17] MEDS: Albuterol/Ipratropium NEB.SOL* Albuterol 2.5 MG/Ipratropium 0.5 MG 3 ML INH PRN (12:11)
[2018-10-18] MEDS: Metoprolol Tartrate IV* 1 MG/ML 5 ML VIAL IV PRN ×3 (03:08→14:39)
[2018-10-18 05:32] LABS: Hematocrit 28 % (42-52); Hemoglobin 9.1 g/dL (14.0-18.0); Mean Corpuscular HGB Conc 33 g/dL (31-36); Mean Corpuscular Hemoglobin 34 pg (27-31); Mean Corpuscular Volume 104 fL (80-94); Mean Platelet Volume 7.8 fL (7.4-10.4); Platelet Count 286 10^3/uL (150-450); Red Blood Count 2.65 10^6 /uL (4.18-5.48); Red Cell Distribution Width 22 % (10-15); White Blood Count 9.9 10^3/uL (3.5-10.8)
[2018-10-18 05:48] LABS: BUN/Creatinine Ratio 26.9 (8-20); Calcium 7.9 mg/dL (8.6-10.3); EGFR African American 142.7 (>60); Magnesium 1.9 mg/dL (1.9-2.7); Phosphorus 2.7 mg/dL (2.5-5.0); Potassium 3.6 mmol/L (3.5-5.0)
[2018-10-18] MEDS ORDERED: Magnesium Sulfate 2 GM IV* 2 GM/50 ML BAG IVPB ONE (08:23)
[2018-10-18] MEDS ORDERED: D5W 1/2 NS 40 Meq KCL 1000 ML* 1,000 ML IV SCH (09:00)
[2018-10-18] MEDS ORDERED: Famotidine SUSP ORALSYR 8 MG/ML PO SCH (09:00)
--- NOTE | 2018-10-18 09:47 | PN ---
Progress Note - Progress Note Date of Service: 10/18/18 Note: Progress Note -- Critical Care 24 hour events -overnight was on NIV; no distress; this morning awake, alert on NC -pulled out NGT -afebrile, BP and HR stable -soem slight improvement in voice -back on NIV Tele: NSR Vitals: Vital Signs Temp 98.8 F 10/18/18 04:03 Pulse 78 10/18/18 09:00 Resp 22 10/18/18 09:00 BP 137/74 10/18/18 09:00 Pulse Ox 98 10/18/18 09:00 Intake & Output 10/17/18 10/18/18 10/18/18 18:59 06:59 18:59 Intake Total 228 645 0 Output Total 550 160 200 Balance -322 485 -200 Weight 79 kg Intake: IV Fluids 48 148 NS (0.9%) 48 148 IVPB 100 250 ABX - DOXYCYCLINE 250 NS (0.9%) 100 Oral 0 0 Tube Feeding 197 Tube Feeding Flush Amount 80 50 NG Tube Irrigate Amount 0 Output: Urine 0 160 Beatty 550 Liquid Stool 200 Other: Estimated Void Large Large Date of Last Bowel 10/17/18 10/18/18 Movement # Bowel Movements 1 1 Estimated Stool Amount Large Small # Voids 1 1 O2/Vent: NIV Infusions: heplock Current Medications: Albuterol/Ipratropium (Duoneb (Albuterol 2.5 Mg/Ipratropium 0.5 Mg)) 1 neb INH Q4H PRN PRN Reason: SOB/WHEEZING Last Admin: 10/17/18 12:11 Dose: 1 neb Aspirin (Aspirin 81 Mg Chew Tab*) 81 mg PO DAILY [facility] Last Admin: 10/17/18 11:43 Dose: 81 mg Cyanocobalamin (Vitamin B12 Tab*) 500 mcg PO DAILY [facility] Last Admin: 10/17/18 11:42 Dose: 500 mcg Famotidine (Pepcid Susp 8mg/Ml) 20 mg G TUBE DAILY [facility] Last Admin: 10/17/18 11:44 Dose: 20 mg Folic Acid (Folvite Tab*) 2 mg PO DAILY [facility] Last Admin: 10/17/18 11:47 Dose: 2 mg Heparin Sodium (Porcine) (Heparin Vial(*)) 5,000 units SUBCUT Q12HR [facility] Last Admin: 10/17/18 20:04 Dose: 5,000 units Potassium Chloride/Dextrose (D5w 1/2 Ns 40 Meq Kcl 1000 Ml*) 1,000 mls @ 75 mls /hr IV PER RATE [facility] Stop: 10/18/18 22:19 Lorazepam (Ativan Inj*) 2 mg IV PUSH Q4H PRN PRN Reason: ANXIETY Last Admin: 10/17/18 06:14 Dose: 2 mg Metoprolol Tartrate (Lopressor Iv*) 10 mg IV Q4H PRN PRN Reason: HR >140 Last Admin: 10/18/18 03:08 Dose: 10 mg Metoprolol Tartrate (Lopressor Tab*) 50 mg PO BID [facility] Last Admin: 10/17/18 20:04 Dose: 50 mg Thiamine HCl (Vitamin B-1 Tab*) 200 mg PO DAILY [facility] Last Admin: 10/17/18 11:43 Dose: 200 mg Physical Exam: Constitutional: awake, alert , following commands, oriented appearing, minimal tachypnea, no diaphoresis Head: normocephalic, atraumatic Eyes: no pallor, no icterus ENT: moist mucous membranes Neck: soft, supple, no jvd CVS: normal rate, iregular, no murmur Resp: bilateral air entry, no RRW, no acc muscle use; Left lower chest tube+ Abdomen/GI: soft, nondistended, BS+ Ext/Msk: warm, pulses+, no edema Skin: intact, warm Neuro: awake, alert, moving all ext, can say some words now Labs: Laboratory Results - last 24 hr 10/17/18 10/18/18 10/18/18 10:41 05:20 05:20 WBC 9.9 RBC 2.65 L Hgb 9.1 L Hct 28 L MCV 104 H MCH 34 H MCHC 33 RDW 22 H Plt Count 286 MPV 7.8 Patient Temperature Not Reportable ABG pH 7.41 ABG pH (Temp Correct) Not Reportable ABG pCO2 52 H ABG pCO2 (Temp Corrct Not Reportable ABG pO2 111 H ABG pO2 (Temp Correct Not Reportable ABG HCO3 30.3 ABG O2 Saturation 99.8 H ABG Base Excess 6.9 H Respiration Rate Not Reportable O2 Delivery Device Bipap Ventilator Type Not Reportable Vent Mode Not Reportable FiO2 50 Inspiratory Time Not Reportable PEEP Not Reportable Pressure Support Not Reportable Pressure Control Not Reportable EPAP 8 IPAP 20 BiPAP Not Reportable Sodium 145 Potassium 3.6 Chloride 106 Carbon Dioxide 31 Anion Gap 8 BUN 18 Creatinine 0.67 Est GFR ( Amer) 142.7 Est GFR (Non-Af Amer) 118.0 BUN/Creatinine Ratio 26.9 H Glucose 106 H Calcium 7.9 L Phosphorus 2.7 Magnesium 1.9 Imaging: cxr 10/17 - improved congestion on left; right sided increased infiltrates++; left CT+; NGT+ in stomach cxr 10/18 - improved right sided infitlrates; left CT; no ptx Assessment: 67y M w/pmhx of HTN, HLD, COPD, lung nodules, Afib (h/o cardiovesion 2017) off Xarelto due to recent GI bleeds, h/o alcohol abuse, Active smoker+, LV diastolic dysfunction, H/o PRostate Ca s/p radiation tx, depression; comes to ER for respiratory distress x1 day. He stated to ER last drink on or wednesday and possible feeling of withdrawal. Noted to have recent left lung biopsy at [facility] on 09/28 as per ER history and diagnosed with lung cancer, unknown type. In ER, CXR revealed small ptx on the left. He was intubated for increasing respiratory distress. A Chest tube was placed in the ER on the left, with subsequent CXR demonstrating improvement. CT chest confirmed 20% left PTX. He has remained hemodynamically stable, no pressors, only IVF administration. IV levaquin x1 dose and solumedrol/nebulizers given. -acute hypercapneic respiratory failure; intubated 10/08; extubated 10/15 -acute hypoxic respiratory failure; on NIV -Left Pneumothorax; suspect iatrogenic from biopsy? ; s/p left CT 10/08 -r/o new developing pneumonia vs congestion on right -H.influenza pneumonia -Acute COPD exaccerbation -Encephalopathy, suspected metabolic vs wernickes -JOSE ENRIQUE, resolved Newly diagnosed Lung Ca pAfib HTn Alcohol abuse Plan: Neuro- -appears to be improving encephalopathy -voice slightly improved; ENT did bedside scope and sluggish cords it appears -cough+, may repeat swallow today -cont thiamine 200mg po daily for 7 days; change to 100mg daily 09/22 -avoid bdz/sedatives; delirium prec CVS- -BP stable -Cont ASA -Afib history; currently in NSR; cont amio 200 po daily; Metoprolol 50mg po bid ; iv lopressor prn -off AC due to h/o GI bleed; hg 9-10s -TTE 10/09 - lvef 40-45% -Maintain MAP>65 Resp- -CXR 10/18 improved from 10/17 -on NC; but back on intermittent NIV -does not require diuresis -clamp CT now, repeat CT in 2 hours and then will likely pull Left CT -completed doxy 10/17 for H.influenza tx -no wheezing -bronchodilators q4h prn -Wean Fio2 to keep sat>92% -Bronchodilators PRN, Aspiration prec -new lung Ca diagnosed recently; unclear status of treatment, ronald depend on his clinical improvement and progress; family would like palliative care consult for helping them with pain and GOC ID- afebrile. wbc 11-15-12-9 -H.influenza+ pneumonia/bronchitis; doxy 10day compelted 10/17 -CXR 10/18 infiltrates imrpoved -monitor off abx GI- -removed ngt by patient -repeat formal swallow today -GI prophylaxis - ppi Renal- -JOSE ENRIQUE resolved; Cr normal -hypernatremia; started d5 1/2 ns with 40meq kcl -replet IV kcl in d5 solution -strict I/O, replete to keep K>4, Mg>2 -beatty as indicated Heme- hg stable 9-10s, no bleeding -off AC due to GI bleeds in past -ASA for nstemi tx -DVT proph ; SCD and heparin sq Endo- Maintain BG<200, insulin protocol as needed Musculsk- pressure ulcer prophylaxis. Bedrest, oob to chair as tolerated Wounds- none Nutrition- NPO; swallow eval today again DVT prophylaxis: SCD, heparin sq GI prophylaxis: h2b Central Line: none, TLC out 10/17 Arterial Line: none Beatty Cathetor: none, d/c 10/17 Palliative Care consult requested by family for GOC Disposition: Patient requires Critical Care/ICU for respiratory failure , improving; but on intermittent NIV Patient Clinical Status: guarded Code Status: full code Total Critical Care time is 35 minutes, excluding procedures/teaching Ranulfo Riggins MD Application Consultant (Electronically Signed)
[2018-10-18] MEDS: Heparin VIAL(*) 5000 UNITS/ML VIAL (FIVE THOUSAND) SUBCUT SCH ×2 (09:48→20:30)
[2018-10-18] MEDS: Aspirin 81 mg CHEW TAB* 81 MG TAB.CHEW PO SCH (10:52)
[2018-10-18] MEDS: Famotidine SUSP ORALSYR 8 MG/ML G TUBE SCH (10:52)
[2018-10-18] MEDS: Metoprolol Tartrate TAB* 50 mg PO SCH ×2 (10:53→20:30)
[2018-10-18] MEDS: Thiamine TAB* 100 MG TAB PO SCH (10:53)
[2018-10-18] MEDS: Folic Acid TAB* 1 MG PO SCH (10:53)
[2018-10-18] MEDS: Cyanocobalamin TAB* 500 MCG PO SCH (10:53)
--- NOTE | 2018-10-18 13:19 | CONSULT ---
Palliative / Hospice Consult Ordering Provider: Ranulfo Riggins - PCP-Nicky Referal Reason: Goals of care discussion - Subjective Code Status: Full Code Advance Directives Location: No Advance Directives - History or Present Illness History or Present Illness: 67yo male presents with respiratory distress. PMH is significant for HTN, COPD, hyperlipidemia, recently diagnosed non small cell lung cancer, afib h/o of cardioversion 2017, stopped xarelto secondary to GI bleed, h/o etoh abuse, h/o prostate ca s/p radiation, depression. 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 Studies show CXR-L pneumothorax, Echo EF 40-45% , mild, CXR-CHF/resolving pneumothorax, CXR R basilar atelectasis vs consolidation, H/H 9.04/18, BUN/Cr 18/.67, egfr 118, Ca 7.9, tprot 5.4, alb 2.3 and blood culture negative. All history is from pt, , sister and medical record. Pt was admitted with respiratory failure and pneumothorax, was intubated on 10/08 and extubated 10/15, COPD exacerbation, delirium secondary to etoh withdrawal or wernicke and Hflu pneumona treated. Pt last admission was - for lower GI bleed. Pt receives most of his care through the [facility], where he was recently diagnosed with non small cell lung cancer. Lab Values: Abnormal Lab Results 10/18/18 10/18/18 05:20 05:20 WBC 9.9 RBC 2.65 L Hgb 9.1 L Hct 28 L MCV 104 H MCH 34 H MCHC 33 RDW 22 H Plt Count 286 MPV 7.8 Sodium 145 Potassium 3.6 Chloride 106 Carbon Dioxide 31 Anion Gap 8 BUN 18 Creatinine 0.67 Est GFR ( Amer) 142.7 Est GFR (Non-Af Amer) 118.0 BUN/Creatinine Ratio 26.9 H Glucose 106 H Calcium 7.9 L Phosphorus 2.7 Magnesium 1.9 Laboratory Last Values WBC 9.9 10^3/uL (3.5-10.8) 10/18/18 05:20 RBC 2.65 10^6 /uL (4.18-5.48) L 10/18/18 05:20 Hgb 9.1 g/dL (14.0-18.0) L 10/18/18 05:20 Hct 28 % (42-52) L 10/18/18 05:20 MCV 104 fL (80-94) H 10/18/18 05:20 MCH 34 pg (27-31) H 10/18/18 05:20 MCHC 33 g/dL (31-36) 10/18/18 05:20 RDW 22 % (10-15) H 10/18/18 05:20 Plt Count 286 10^3/uL (150-450) 10/18/18 05:20 MPV 7.8 fL (7.4-10.4) 10/18/18 05:20 Neut % (Auto) 87.8 % 10/12/18 04:34 Lymph % (Auto) 5.9 % 10/12/18 04:34 [place] % (Auto) 6.1 % 10/12/18 04:34 Eos % (Auto) 0.0 % 10/12/18 04:34 Baso % (Auto) 0.2 % 10/12/18 04:34 Absolute Neuts (auto) 8.9 10^3/ul (1.5-7.7) H 10/12/18 04:34 Absolute Lymphs (auto) 0.6 10^3/ul (1.0-4.8) L 10/12/18 04:34 Absolute Monos (auto) 0.6 10^3/ul (0-0.8) 10/12/18 04:34 Absolute Eos (auto) 0.0 10^3/ul (0-0.6) 10/12/18 04:34 Absolute Basos (auto) 0.0 10^3/ul (0-0.2) 10/12/18 04:34 Absolute Nucleated RBC 0.0 10^3/ul 10/12/18 04:34 Nucleated RBC % 0.2 10/12/18 04:34 INR (Anticoag Therapy) 1.06 (0.82-1.09) 10/08/18 23:03 APTT 43.4 seconds (26.0-38.0) H 10/13/18 20:50 Patient Temperature Not Reportable 10/17/18 10:41 ABG pH 7.41 (7.35-7.45) 10/17/18 10:41 ABG pH (Temp Correct) Not Reportable 10/17/18 10:41 ABG pCO2 52 mmHg (35-45) H 10/17/18 10:41 ABG pCO2 (Temp Corrct Not Reportable 10/17/18 10:41 ABG pO2 111 mmHg (80-100) H 10/17/18 10:41 ABG pO2 (Temp Correct Not Reportable 10/17/18 10:41 ABG HCO3 30.3 mmol/L (19-31) 10/17/18 10:41 ABG O2 Saturation 99.8 % (94.0-98.0) H 10/17/18 10:41 ABG Base Excess 6.9 mmol/L (-2.0-2.0) H 10/17/18 10:41 Respiration Rate Not Reportable 10/17/18 10:41 O2 Delivery Device Bipap 10/17/18 10:41 Ventilator Type Not Reportable 10/17/18 10:41 Vent Mode Not Reportable 10/17/18 10:41 FiO2 50 10/17/18 10:41 Inspiratory Time Not Reportable 10/17/18 10:41 PEEP Not Reportable 10/17/18 10:41 Pressure Support Not Reportable 10/17/18 10:41 Pressure Control Not Reportable 10/17/18 10:41 EPAP 8 10/17/18 10:41 IPAP 20 10/17/18 10:41 BiPAP Not Reportable 10/17/18 10:41 Sodium 145 mmol/L (135-145) 10/18/18 05:20 Potassium 3.6 mmol/L (3.5-5.0) 10/18/18 05:20 Chloride 106 mmol/L (101-111) 10/18/18 05:20 Carbon Dioxide 31 mmol/L (22-32) 10/18/18 05:20 Anion Gap 8 mmol/L (2-11) 10/18/18 05:20 BUN 18 mg/dL (6-24) 10/18/18 05:20 Creatinine 0.67 mg/dL (0.67-1.17) 10/18/18 05:20 Est GFR ( Amer) 142.7 (>60) 10/18/18 05:20 Est GFR (Non-Af Amer) 118.0 (>60) 10/18/18 05:20 BUN/Creatinine Ratio 26.9 (8-20) H 10/18/18 05:20 Glucose 106 mg/dL (70-100) H 10/18/18 05:20 Lactic Acid 1.0 mmol/L (0.5-2.0) 10/09/18 08:46 Calcium 7.9 mg/dL (8.6-10.3) L 10/18/18 05:20 Phosphorus 2.7 mg/dL (2.5-5.0) 10/18/18 05:20 Magnesium 1.9 mg/dL (1.9-2.7) 10/18/18 05:20 Total Bilirubin 0.20 mg/dL (0.2-1.0) 10/12/18 04:34 AST 17 U/L (13-39) 10/12/18 04:34 ALT 22 U/L (7-52) 10/12/18 04:34 Alkaline Phosphatase 91 U/L (34-104) 10/12/18 04:34 Total Creatine Kinase 72 U/L (10-223) 10/13/18 06:06 CK-MB (CK-2) 17.5 ng/mL (0.6-6.3) H 10/10/18 05:05 Troponin I 0.48 ng/mL (<0.04) H* 10/16/18 17:40 C-Reactive Protein 401.78 mg/L (<8.01) H 10/08/18 23:03 B-Natriuretic Peptide > 1300 pg/mL (<=100) H 10/08/18 23:03 Total Protein 5.4 g/dL (6.4-8.9) L 10/12/18 04:34 Albumin 2.3 g/dL (3.2-5.2) L 10/12/18 04:34 Globulin 3.1 g/dL (2-4) 10/12/18 04:34 Albumin/Globulin Ratio 0.7 (1-3) L 10/12/18 04:34 Triglycerides 114 mg/dL 10/10/18 05:05 Cholesterol 130 mg/dL 10/10/18 05:05 LDL Cholesterol 43 mg/dL 10/10/18 05:05 HDL Cholesterol 64.0 mg/dL 10/10/18 05:05 Urine Color Karen 10/09/18 05:05 Urine Appearance Turbid 10/09/18 05:05 Urine pH 5.0 (5-9) 10/09/18 05:05 Ur Specific [place] 1.024 (1.010-1.030) 10/09/18 05:05 Urine Protein 3+(>=500 mg/dl) (Negative) A 10/09/18 05:05 Urine Ketones Negative (Negative) 10/09/18 05:05 Urine Blood 3+ (Negative) A 10/09/18 05:05 Urine Nitrate Negative (Negative) 10/09/18 05:05 Urine Bilirubin Negative (Negative) 10/09/18 05:05 Urine Urobilinogen Negative (Negative) 10/09/18 05:05 Ur Leukocyte Esterase Negative (Negative) 10/09/18 05:05 Urine WBC (Auto) 2+(11-20/hpf) (Absent) A 10/09/18 05:05 Urine RBC (Auto) 3+(>10/hpf) (Absent) A 10/09/18 05:05 Ur Squamous Epith Cells Present (Absent) A 10/09/18 05:05 Ur Transition Epith Cell Present (Absent) A 10/09/18 05:05 Urine Bacteria Absent (Absent) 10/09/18 05:05 Hyaline Casts Present (Absent) A 10/09/18 05:05 Granular Casts Present (Absent) A 10/09/18 05:05 Urine Glucose 1+(50 mg/dl) (Negative) A 10/09/18 05:05 - Objective Active Medications: Albuterol/Ipratropium (Duoneb (Albuterol 2.5 Mg/Ipratropium 0.5 Mg)) 1 neb INH Q4H PRN PRN Reason: SOB/WHEEZING Last Admin: 10/17/18 12:11 Dose: 1 neb Aspirin (Aspirin 81 Mg Chew Tab*) 81 mg PO DAILY [facility] Last Admin: 10/18/18 10:52 Dose: 81 mg Cyanocobalamin (Vitamin B12 Tab*) 500 mcg PO DAILY [facility] Last Admin: 10/18/18 10:53 Dose: 500 mcg Famotidine (Pepcid Susp 8mg/Ml) 20 mg G TUBE DAILY [facility] Last Admin: 10/18/18 10:52 Dose: 20 mg Folic Acid (Folvite Tab*) 2 mg PO DAILY [facility] Last Admin: 10/18/18 10:53 Dose: 2 mg Heparin Sodium (Porcine) (Heparin Vial(*)) 5,000 units SUBCUT Q12HR [facility] Last Admin: 10/18/18 09:48 Dose: 5,000 units Potassium Chloride/Dextrose (D5w 1/2 Ns 40 Meq Kcl 1000 Ml*) 1,000 mls @ 75 mls /hr IV PER RATE [facility] Stop: 10/18/18 22:19 Last Admin: 10/18/18 10:26 Dose: 75 mls/hr Lorazepam (Ativan Inj*) 2 mg IV PUSH Q4H PRN PRN Reason: ANXIETY Last Admin: 10/17/18 06:14 Dose: 2 mg Metoprolol Tartrate (Lopressor Iv*) 10 mg IV Q4H PRN PRN Reason: HR >140 Last Admin: 10/18/18 09:48 Dose: 10 mg Metoprolol Tartrate (Lopressor Tab*) 50 mg PO BID [facility] Last Admin: 10/18/18 10:53 Dose: 50 mg Thiamine HCl (Vitamin B-1 Tab*) 200 mg PO DAILY [facility] Last Admin: 10/18/18 10:53 Dose: 200 mg Vital Signs: Vital Signs: Temp Pulse Resp BP Pulse Ox 98.8 F 70 22 129/78 100 10/18/18 04:03 10/18/18 13:00 10/18/18 13:00 10/18/18 13:00 10/18/18 13:00 Patient Weight: Weight 79 kg Intake and Output: Intake & Output 10/16/18 10/17/18 10/18/18 10/19/18 06:59 06:59 06:59 06:59 Intake Total 2301.4 1191 873 0 Output Total 6744 3445 710 330 Balance -4442.6 -3744 163 -330 Weight 85 kg 78.5 kg 79 kg Intake: IV Fluids 706.1 927 196 ABX - DOXYCYCLINE 640 NS (0.9%) 66.1 927 196 IVPB 285 350 ABX - DOXYCYCLINE 250 NS (0.9%) 100 thiamine 285 Medicated IV 209.3 264 amiodarone 264 cardene 67 precedex 25.3 propofol 117 Oral 0 0 0 0 Tube Feeding 1011 197 Tube Feeding Flush Amount 90 130 NG Tube Irrigate Amount 0 0 0 Output: Chest Tube #1 15 80 Urine 160 50 Murphy 6744 3430 550 Liquid Stool 200 Other: Estimated Void Large Large Date of Last Bowel 10/17/18 10/18/18 Movement # Bowel Movements 1 1 1 Estimated Stool Amount Medium Large Small # Voids 1 1 ADLs: Meal Record Start: 10/09/18 04: 09 Freq: 09,13,18 Status: Active Protocol: Created 10/09/18 04:09 System (Rec: 10/09/18 04:09 System IMG-CS03) Document 10/09/18 09:00 [id number] (Rec: 10/09/18 11:08 KDT5784 ICU-M35) Document 10/09/18 13:00 JPJ9615 (Rec: 10/09/18 13:20 RBS4640 ICU-C16) Document 10/09/18 18:00 FZS2029 (Rec: 10/09/18 18:27 KMC6196 ICU-C16) Document 10/10/18 09:00 HUZ8754 (Rec: 10/10/18 12:06 FLU8200 ICU-C16) Document 10/10/18 13:00 FHK1385 (Rec: 10/10/18 15:47 KKF6720 ICU-C16) Document 10/10/18 18:00 DXV4408 (Rec: 10/10/18 18:13 NFY4614 ICU-C16) Document 10/11/18 09:00 XRB4464 (Rec: 10/11/18 09:20 HPP8410 ICU-C16) Document 10/11/18 13:00 ZEE3138 (Rec: 10/11/18 13:03 PNV9016 ICU-C16) Document 10/11/18 18:00 QTT0837 (Rec: 10/11/18 18:01 MUH2491 ICU-M35) Document 10/12/18 09:00 TIK0862 (Rec: 10/12/18 10:44 TCN1877 ICU-C16) Document 10/12/18 13:00 WOZ9724 (Rec: 10/12/18 13:05 OPO3870 ICU-C10) Document 10/12/18 18:00 DJH4644 (Rec: 10/12/18 18:03 WRA4390 ICU-C16) Document 10/13/18 09:00 CVA2069 (Rec: 10/13/18 11:29 YZU4963 ICU-M35) Document 10/13/18 12:47 HJX2977 (Rec: 10/13/18 12:47 BRY9254 ICU-C10) Document 10/13/18 18:00 PCQ9426 (Rec: 10/13/18 18:28 RUB9690 ICU-C10) Document 10/14/18 09:00 YZE4303 (Rec: 10/14/18 10:34 CEA5704 ICU-C16) Document 10/14/18 13:00 PKT3412 (Rec: 10/14/18 15:15 DNG5000 ICU-C16) Document 10/14/18 18:00 ZEA6004 (Rec: 10/14/18 18:54 VBA8713 ICU-C16) Document 10/15/18 09:00 ESR2865 (Rec: 10/15/18 09:09 ZQS3279 ICU-C16) Document 10/15/18 12:46 NER7544 (Rec: 10/15/18 12:46 UNH6038 ICU-C10) Document 10/15/18 18:00 WYK7374 (Rec: 10/15/18 18:08 YTD4634 ICU-C16) Document 10/17/18 13:00 HSW8774 (Rec: 10/17/18 15:11 YMY5046 ICU-C16) Document 10/18/18 09:00 DET6585 (Rec: 10/18/18 09:29 SUA8182 ICU-C16) Intake and Output Start: 10/08/18 22: 57 Freq: Status: Active Protocol: Created 10/08/18 22:57 System (Rec: 10/08/18 22:57 System EDRM-C14) Intake and Output Start: 10/09/18 04: 09 Freq: Q4HR Status: Active Protocol: Created 10/09/18 04:09 System (Rec: 10/09/18 04:09 System IMG-CS03) Document 10/09/18 05:00 OOB4613 (Rec: 10/09/18 05:15 VXF6871 ICU-M35) Document 10/09/18 07:00 TWF1863 (Rec: 10/09/18 10:58 QOP1457 ICU-M35) Document 10/09/18 08:00 TSF6531 (Rec: 10/09/18 10:58 IAB9198 ICU-M35) Document 10/09/18 09:00 UMM0458 (Rec: 10/09/18 10:58 BXK4983 ICU-M35) Document 10/09/18 10:00 NDA2474 (Rec: 10/09/18 10:58 VUT1394 ICU-M35) Document 10/09/18 11:00 PTI2689 (Rec: 10/09/18 14:06 QDJ0409 ICU-M35) Document 10/09/18 12:00 GIH0346 (Rec: 10/09/18 14:07 ZLS8682 ICU-M35) Document 10/09/18 13:00 FKC9659 (Rec: 10/09/18 14:07 EFB1169 ICU-M35) Document 10/09/18 14:00 TLS9641 (Rec: 10/09/18 14:08 EUN1727 ICU-M35) Document 10/09/18 15:20 UHW7626 (Rec: 10/09/18 15:20 CRP9192 ICU-M35) Document 10/09/18 16:52 HJT5385 (Rec: 10/09/18 16:52 PUF4153 ICU-M35) Document 10/09/18 17:00 IOL7455 (Rec: 10/09/18 18:21 XIJ8143 ICU-C16) Document 10/09/18 18:00 JRA7608 (Rec: 10/09/18 18:26 IYQ4870 ICU-C16) Document 10/09/18 20:45 YNQ6641 (Rec: 10/09/18 20:45 UFI8118 ICU-C12) Document 10/09/18 22:00 KYN4807 (Rec: 10/09/18 22:58 ZBM5799 ICU-C12) Document 10/10/18 00:00 STA9880 (Rec: 10/10/18 00:22 LCK7496 ICU-C12) Document 10/10/18 01:00 HCR5973 (Rec: 10/10/18 01:09 WRR2578 ICU-C12) Document 10/10/18 02:00 USF9658 (Rec: 10/10/18 02:24 TXZ2282 ICU-M35) Document 10/10/18 03:58 UUO0736 (Rec: 10/10/18 03:58 HNF6580 ICU-C12) Document 10/10/18 06:00 KCO1264 (Rec: 10/10/18 06:05 SQZ0521 ICU-C12) Document 10/10/18 08:00 VBV0890 (Rec: 10/10/18 10:05 YEL1125 ICU-C16) Document 10/10/18 10:00 JXQ0191 (Rec: 10/10/18 10:30 FHR8077 ICU-C16) Document 10/10/18 11:00 OTK9681 (Rec: 10/10/18 12:06 HMV6579 ICU-C16) Document 10/10/18 12:00 SCF2306 (Rec: 10/10/18 12:20 RRG8164 ICU-C16) Co-Sign 10/10/18 12:00 XVB1599 Document 10/10/18 13:00 IDC6416 (Rec: 10/10/18 13:41 BZU7109 ICU-M35) Document 10/10/18 13:41 SKH0660 (Rec: 10/10/18 13:41 CMV0551 ICU-M35) Document 10/10/18 13:44 ZLD4334 (Rec: 10/10/18 13:44 OVJ3193 ICU-M35) Document 10/10/18 15:00 AQZ3641 (Rec: 10/10/18 15:29 QVK9809 ICU-M35) Document 10/10/18 16:00 EPC0384 (Rec: 10/10/18 16:17 LJR3387 ICU-C16) Co-Sign 10/10/18 16:00 TXW0881 Document 10/10/18 17:00 MSQ9862 (Rec: 10/10/18 17:24 LII0851 ICU-M35) Document 10/10/18 18:00 WFG3236 (Rec: 10/10/18 18:13 MBP6010 ICU-C16) Document 10/10/18 19:00 KVT0060 (Rec: 10/10/18 22:35 QYB0444 ICU-C10) Document 10/10/18 20:00 IBK9050 (Rec: 10/10/18 22:37 ACK9598 ICU-C10) Document 10/10/18 21:00 OFF4161 (Rec: 10/10/18 22:37 YHS4521 ICU-C10) Document 10/10/18 22:00 WUD8242 (Rec: 10/10/18 22:37 KRY5360 ICU-C10) Document 10/10/18 23:00 YSM1672 (Rec: 10/10/18 23:40 GFJ6156 ICU-C10) Document 10/11/18 00:00 ESY9953 (Rec: 10/11/18 00:51 HFJ7947 ICU-C10) Document 10/11/18 01:00 XZV7785 (Rec: 10/11/18 01:18 ZFI0948 ICU-C10) Document 10/11/18 02:00 VAA3416 (Rec: 10/11/18 02:02 DTR0910 ICU-C10) Document 10/11/18 03:00 QOO6628 (Rec: 10/11/18 03:20 GHQ7885 ICU-C10) Document 10/11/18 04:00 JMK6810 (Rec: 10/11/18 04:12 RDK6891 ICU-C10) Document 10/11/18 05:00 ZDS1952 (Rec: 10/11/18 05:09 FDK4121 ICU-M35) Document 10/11/18 06:00 YKD4065 (Rec: 10/11/18 06:09 LAF3313 ICU-C10) Document 10/11/18 07:00 MAV6727 (Rec: 10/11/18 07:02 SMO6578 ICU-C10) Document 10/11/18 09:00 VRI6464 (Rec: 10/11/18 09:20 OQW1443 ICU-C16) Document 10/11/18 10:00 VJT8071 (Rec: 10/11/18 10:11 HKQ3600 ICU-M35) Document 10/11/18 11:00 JKE8774 (Rec: 10/11/18 13:02 CNI1192 ICU-C16) Document 10/11/18 13:00 ZJE4916 (Rec: 10/11/18 13:03 QHW5163 ICU-C16) Document 10/11/18 14:00 CLX1647 (Rec: 10/11/18 16:09 LVE1252 ICU-C16) Document 10/11/18 15:00 CKA1022 (Rec: 10/11/18 16:34 THF0794 ICU-M35) Document 10/11/18 16:00 SGF9803 (Rec: 10/11/18 16:34 NNY5683 ICU-M35) Document 10/11/18 17:00 LOV6783 (Rec: 10/11/18 17:25 AOZ6642 ICU-C16) Document 10/11/18 18:00 RRA4360 (Rec: 10/11/18 18:01 NJU1933 ICU-M35) Document 10/11/18 19:08 AQK1611 (Rec: 10/11/18 19:09 SOQ6365 ICU-C16) Document 10/11/18 20:00 UDW3733 (Rec: 10/11/18 20:01 IVK6737 ICU-M35) Document 10/11/18 21:00 MTV7986 (Rec: 10/11/18 22:39 FRF4812 ICU-C10) Document 10/11/18 22:00 QRI7208 (Rec: 10/11/18 22:39 EIT0632 ICU-C10) Document 10/11/18 23:00 TIL8862 (Rec: 10/12/18 00:19 VWG8742 ICU-C10) Document 10/12/18 00:00 END7626 (Rec: 10/12/18 00:20 PIW8825 ICU-C10) Document 10/12/18 01:00 QOV3180 (Rec: 10/12/18 01:12 DNK0026 ICU-C10) Document 10/12/18 02:00 WDW3113 (Rec: 10/12/18 02:51 FYS1257 ICU-C10) Document 10/12/18 03:00 NNI6762 (Rec: 10/12/18 04:27 AYI4742 ICU-M35) Document 10/12/18 04:00 KBS7251 (Rec: 10/12/18 04:27 FPQ7104 ICU-M35) Document 10/12/18 04:51 TSN9346 (Rec: 10/12/18 04:52 KFA1251 ICU-M35) Document 10/12/18 05:55 KKC3069 (Rec: 10/12/18 05:55 KEP9545 ICU-C10) Document 10/12/18 07:00 UUR7940 (Rec: 10/12/18 07:02 WNV1463 ICU-C10) Document 10/12/18 08:00 NUX1146 (Rec: 10/12/18 09:27 DRU1911 ICU-M35) Document 10/12/18 09:00 TXV6636 (Rec: 10/12/18 09:27 SEG7732 ICU-M35) Document 10/12/18 10:00 GHS6554 (Rec: 10/12/18 10:32 XAM4415 ICU-C16) Document 10/12/18 11:00 WLX7510 (Rec: 10/12/18 12:04 CIZ2115 ICU-M35) Document 10/12/18 12:00 GGF2901 (Rec: 10/12/18 12:04 RXN8249 ICU-M35) Document 10/12/18 13:00 QXU8120 (Rec: 10/12/18 13:10 IQG9124 ICU-C10) Document 10/12/18 14:00 QJQ5893 (Rec: 10/12/18 14:13 KCJ7458 ICU-M35) Document 10/12/18 15:00 QLV2874 (Rec: 10/12/18 15:38 OTI3974 ICU-C16) Document 10/12/18 16:00 XRO6198 (Rec: 10/12/18 17:00 XSH0985 ICU-M35) Document 10/12/18 17:00 YCZ5677 (Rec: 10/12/18 17:00 YSD0347 ICU-M35) Document 10/12/18 18:00 SEJ4695 (Rec: 10/12/18 18:14 JZF1527 ICU-M35) Document 10/12/18 21:00 CAN1336 (Rec: 10/12/18 22:04 UHE8844 ICU-M35) Document 10/12/18 22:00 YNM9272 (Rec: 10/12/18 22:04 KLN7414 ICU-M35) Document 10/12/18 23:00 BIB8899 (Rec: 10/12/18 23:01 GTR2103 ICU-M35) Document 10/13/18 00:00 CFY9543 (Rec: 10/13/18 00:43 TEG7741 ICU-C16) Document 10/13/18 01:00 KJV1087 (Rec: 10/13/18 01:13 YAL2321 ICU-C16) Document 10/13/18 02:00 BZK9408 (Rec: 10/13/18 02:07 ZOT1590 ICU-C10) Document 10/13/18 03:00 FLQ1712 (Rec: 10/13/18 03:03 EEU4716 ICU-C10) Document 10/13/18 04:00 TFQ8345 (Rec: 10/13/18 04:23 IZQ0894 ICU-M35) Document 10/13/18 05:00 BHE3496 (Rec: 10/13/18 05:44 ARF7957 ICU-C10) Document 10/13/18 06:00 XEJ1600 (Rec: 10/13/18 06:10 LWZ7337 ICU-M35) Document 10/13/18 07:00 LKC2328 (Rec: 10/13/18 07:41 QUA5177 ICU-M35) Document 10/13/18 08:00 SKA1846 (Rec: 10/13/18 08:37 ABP5056 ICU-M35) Document 10/13/18 09:00 DLO5751 (Rec: 10/13/18 10:41 MOY7511 ICU-M35) Document 10/13/18 10:00 VQL1014 (Rec: 10/13/18 10:41 NHB9563 ICU-M35) Document 10/13/18 11:00 IGF2317 (Rec: 10/13/18 11:29 YMP9092 ICU-M35) Document 10/13/18 12:00 PRB0297 (Rec: 10/13/18 12:44 YKY1557 ICU-C10) Document 10/13/18 12:44 AZV3373 (Rec: 10/13/18 12:44 DCP8521 ICU-C10) Document 10/13/18 14:00 MND1129 (Rec: 10/13/18 14:02 XPV9761 ICU-M35) Document 10/13/18 14:31 TYY4810 (Rec: 10/13/18 14:31 TMG7020 ICU-C10) Document 10/13/18 14:32 PKG8986 (Rec: 10/13/18 14:32 HHE4558 ICU-C10) Document 10/13/18 15:00 QSN9618 (Rec: 10/13/18 16:15 IUH9197 ICU-C16) Document 10/13/18 16:00 XET7800 (Rec: 10/13/18 16:15 ZES4221 ICU-C16) Document 10/13/18 17:00 FZL5055 (Rec: 10/13/18 17:27 IDH3881 ICU-M35) Document 10/13/18 18:00 PWW0891 (Rec: 10/13/18 18:46 DTZ5592 ICU-C16) Document 10/13/18 20:00 ZLZ1348 (Rec: 10/13/18 20:37 WMX9045 ICU-M35) Document 10/13/18 21:57 WXG6448 (Rec: 10/13/18 21:57 MYB6473 ICU-M35) Document 10/13/18 22:52 MIA9437 (Rec: 10/13/18 22:52 BJN0032 ICU-M35) Document 10/14/18 01:00 NZH7392 (Rec: 10/14/18 01:42 RUH5136 ICU-C10) Document 10/14/18 02:00 AJZ6614 (Rec: 10/14/18 02:19 AGL6368 ICU-C10) Document 10/14/18 03:00 GEP7221 (Rec: 10/14/18 03:01 GCJ3781 ICU-M35) Document 10/14/18 04:00 HAB1654 (Rec: 10/14/18 04:31 UHT7873 ICU-M35) Document 10/14/18 05:00 CXU2664 (Rec: 10/14/18 05:07 LVO9959 ICU-C10) Document 10/14/18 05:57 VBW3807 (Rec: 10/14/18 05:57 SZN3444 ICU-M35) Document 10/14/18 07:09 MRD5935 (Rec: 10/14/18 07:10 GYS5396 ICU-M35) Document 10/14/18 08:00 DSA5246 (Rec: 10/14/18 08:15 MLZ1308 ICU-M35) Document 10/14/18 09:00 UBX3393 (Rec: 10/14/18 09:10 HXK1651 ICU-C16) Document 10/14/18 09:58 JEJ4529 (Rec: 10/14/18 09:58 ZEO2234 ICU-C16) Document 10/14/18 11:00 WIV2675 (Rec: 10/14/18 11:02 BKT0617 ICU-C16) Document 10/14/18 12:00 OLR0456 (Rec: 10/14/18 12:24 PMF3359 ICU-C16) Document 10/14/18 13:00 LWX3506 (Rec: 10/14/18 13:02 DDL1252 ICU-C16) Document 10/14/18 14:00 GXH3974 (Rec: 10/14/18 14:20 XKE2431 ICU-M35) Document 10/14/18 15:00 VBJ8875 (Rec: 10/14/18 15:17 ACL7272 ICU-C16) Document 10/14/18 15:27 XOC9490 (Rec: 10/14/18 15:34 EHN8013 ICU-C16) Document 10/14/18 16:56 WJI2640 (Rec: 10/14/18 16:56 HFF1171 ICU-M35) Document 10/14/18 17:00 IFJ4764 (Rec: 10/14/18 18:53 TIK4550 ICU-C16) Document 10/14/18 18:00 UOR2483 (Rec: 10/14/18 18:54 SQA9350 ICU-C16) Document 10/14/18 19:00 LAD8354 (Rec: 10/14/18 20:36 BFX5347 ICU-C10) Document 10/14/18 20:00 THO5314 (Rec: 10/14/18 20:37 OBB4935 ICU-C10) Document 10/14/18 21:00 WVV9881 (Rec: 10/14/18 21:06 UGN9513 ICU-C10) Document 10/14/18 22:00 BVS0661 (Rec: 10/14/18 22:10 YZF7333 ICU-M35) Document 10/14/18 23:00 WRN2474 (Rec: 10/14/18 23:11 QTI9478 ICU-C10) Document 10/15/18 00:00 TYB9014 (Rec: 10/15/18 00:26 JXX7445 ICU-C10) Document 10/15/18 01:00 MND9969 (Rec: 10/15/18 01:40 ZIN2827 ICU-C10) Document 10/15/18 02:00 SUZ2328 (Rec: 10/15/18 02:30 UOD9937 ICU-C10) Document 10/15/18 03:00 MIW8548 (Rec: 10/15/18 03:03 ENE4767 ICU-C10) Document 10/15/18 03:44 YJG6868 (Rec: 10/15/18 03:44 UUW4870 ICU-C10) Document 10/15/18 04:59 QNC1875 (Rec: 10/15/18 04:59 VAD1815 ICU-M35) Document 10/15/18 05:33 KYL0476 (Rec: 10/15/18 05:33 QBE5211 ICU-M35) Document 10/15/18 06:55 QFC6734 (Rec: 10/15/18 06:56 VPN5133 ICU-C10) Document 10/15/18 08:00 YCO2373 (Rec: 10/15/18 08:26 VZM9665 ICU-M35) Document 10/15/18 08:26 SUJ9514 (Rec: 10/15/18 08:26 DZK2183 ICU-M35) Document 10/15/18 09:30 CXM1725 (Rec: 10/15/18 15:36 ESW1704 ICU-C16) Document 10/15/18 10:00 KPU8671 (Rec: 10/15/18 11:01 SRO9313 ICU-M35) Document 10/15/18 11:00 LAW8297 (Rec: 10/15/18 11:01 BBM2343 ICU-M35) Document 10/15/18 12:00 QXN1151 (Rec: 10/15/18 12:06 WIB6249 ICU-C16) Document 10/15/18 13:00 KGZ0754 (Rec: 10/15/18 13:28 OAZ2988 ICU-M35) Document 10/15/18 14:00 USR0099 (Rec: 10/15/18 14:54 GXC9768 ICU-M35) Document 10/15/18 15:00 YJA9413 (Rec: 10/15/18 15:01 DGV0521 ICU-M35) Document 10/15/18 16:00 MUT3476 (Rec: 10/15/18 17:11 PQR2661 ICU-M35) Document 10/15/18 17:00 SCQ2608 (Rec: 10/15/18 17:11 YZJ7193 ICU-M35) Document 07/27/19 17:11 ZSL1686 (Rec: 10/15/18 17:11 NEY6024 ICU-M35) Document 10/15/18 18:00 SOK9861 (Rec: 10/15/18 18:09 POC3098 ICU-C16) Document 10/15/18 19:00 ZGD7271 (Rec: 10/15/18 20:31 AQS6706 ICU-M35) Document 10/15/18 20:00 KYY0147 (Rec: 10/15/18 20:31 QBA8209 ICU-M35) Document 10/15/18 21:00 BWF2188 (Rec: 10/15/18 22:03 LXO8615 ICU-C10) Document 10/15/18 22:00 EFP3159 (Rec: 10/15/18 22:03 BGY1094 ICU-C10) Document 10/15/18 23:00 FMS3203 (Rec: 10/15/18 23:19 HHC7434 ICU-C10) Document 10/16/18 00:00 MIW4684 (Rec: 10/16/18 00:07 LJO1439 ICU-C10) Document 10/16/18 01:00 PHY2189 (Rec: 10/16/18 01:04 YSQ9466 ICU-M35) Document 10/16/18 02:00 VXZ1269 (Rec: 10/16/18 02:04 MJK1307 ICU-C10) Document 10/16/18 03:00 GWK1102 (Rec: 10/16/18 03:29 CLM1607 ICU-C10) Document 10/16/18 04:00 AJS1495 (Rec: 10/16/18 04:02 FQP7164 ICU-C10) Document 10/16/18 05:00 TSD0565 (Rec: 10/16/18 05:52 OSJ0912 ICU-C10) Document 10/16/18 06:00 GZR6525 (Rec: 10/16/18 06:13 GMM7347 ICU-C10) Document 10/16/18 07:00 CIU5085 (Rec: 10/16/18 07:11 STH7392 ICU-C10) Document 10/16/18 08:00 LLB3636 (Rec: 10/16/18 09:28 ZFT4858 ICU-C10) Document 10/16/18 09:00 IAL7437 (Rec: 10/16/18 09:28 ZZE4380 ICU-C10) Document 10/16/18 10:00 RQW4804 (Rec: 10/16/18 11:23 TTN4379 ICU-M35) Document 10/16/18 11:00 POO5592 (Rec: 10/16/18 11:23 DHC5278 ICU-M35) Document 10/16/18 12:05 BTP5018 (Rec: 10/16/18 13:09 UYR1128 ICU-C10) Document 10/16/18 13:00 TLM9032 (Rec: 10/16/18 14:13 XFI6352 ICU-M35) Document 10/16/18 14:00 UKM2350 (Rec: 10/16/18 14:13 MCE2816 ICU-M35) Document 10/16/18 15:00 KLX3369 (Rec: 10/16/18 17:39 SBZ4942 ICU-M35) Document 10/16/18 16:00 UIR5094 (Rec: 10/16/18 17:39 PUX2912 ICU-M35) Document 10/16/18 17:00 AJO8302 (Rec: 10/16/18 17:39 CBM2389 ICU-M35) Document 10/16/18 18:00 SZT0186 (Rec: 10/16/18 18:04 ONF8824 ICU-C10) Document 10/16/18 19:00 JEI1259 (Rec: 10/16/18 22:01 HCS4757 ICU-C16) Document 10/16/18 20:00 QCY4924 (Rec: 10/16/18 22:01 FCG4646 ICU-C16) Document 10/16/18 21:00 ERL3694 (Rec: 10/16/18 22:01 WWF9312 ICU-C16) Document 10/16/18 22:00 TFY8714 (Rec: 10/16/18 23:19 VTG9529 ICU-C16) Document 10/16/18 23:00 IZQ4197 (Rec: 10/16/18 23:19 BLG9184 ICU-C16) Document 10/17/18 00:00 TDS0736 (Rec: 10/17/18 02:08 HDR7434 ICU-C10) Document 10/17/18 01:00 SWU4521 (Rec: 10/17/18 02:09 LMH3636 ICU-C10) Document 10/17/18 02:00 JCL9717 (Rec: 10/17/18 02:09 PED1357 ICU-C10) Document 10/17/18 03:00 JUT1455 (Rec: 10/17/18 04:05 UPK4797 ICU-M35) Document 10/17/18 04:00 PAU3759 (Rec: 10/17/18 04:05 WGF3064 ICU-M35) Document 10/17/18 05:00 TGG9099 (Rec: 10/17/18 05:27 KBX7789 ICU-C10) Document 10/17/18 06:00 SVK7525 (Rec: 10/17/18 06:10 BAG7357 ICU-C10) Document 10/17/18 07:00 IPR4716 (Rec: 10/17/18 10:01 OWQ4583 ICU-C16) Document 10/17/18 10:00 XEO0621 (Rec: 10/17/18 10:43 YXG0250 ICU-C16) Document 10/17/18 11:00 XYG4026 (Rec: 10/17/18 15:09 ZMB4861 ICU-C16) Document 10/17/18 13:00 DUN7098 (Rec: 10/17/18 15:11 AVZ4656 ICU-C16) Document 10/17/18 14:00 CCU5388 (Rec: 10/17/18 15:13 USH1075 ICU-C16) Document 10/17/18 15:00 XGT9456 (Rec: 10/17/18 17:05 IZQ2247 ICU-M35) Document 10/17/18 17:00 USE9647 (Rec: 10/17/18 17:50 CYT7434 ICU-C16) Document 10/17/18 18:00 [id number] (Rec: 10/17/18 18:15 [id number] ICU-C16) Document 10/17/18 20:17 [id number] (Rec: 10/17/18 20:17 [id number] ICU-C10) Document 10/17/18 21:30 [id number] (Rec: 10/17/18 21:30 [id number] ICU-C10) Document 10/17/18 22:00 [id number] (Rec: 10/17/18 22:59 [id number] ICU-C10) Document 07/30/19 04:00 [id number] (Rec: 10/18/18 04:46 [id number] ICU-C10) Document 10/18/18 06:07 [id number] (Rec: 10/18/18 06:07 [id number] ICU-C10) Document 10/18/18 07:00 [id number] (Rec: 10/18/18 07:24 [id number] ICU-C10) Document 10/18/18 08:00 [id number] (Rec: 10/18/18 10:36 [id number] ICU-C16) Document 10/18/18 12:00 [id number] (Rec: 10/18/18 12:19 [id number] ICU-C16) Eyes: No Scleral Icterus, PERRLA Ears/Nose/Mouth/Throat: NL Teeth, Lips, Gums, - - Wearing mask. Neck: NL Appearance and Movements; NL JVP, - - Trachea deviated. Cardiovascular: NL Sounds; No Murmurs; No JVD, - - Regular tachycardic. Respiratory: Clear to Auscultation - poor air movement Abdominal: NL Sounds; No Tenderness; No Distention Extremities: No Edema Neurological: Alert and Oriented x 3 - Assessment Assessment: 67yo male with respiratory failure and newly diagnosed non small cell lung cancer - Plan Consult Plan (MU): Palliative Plan: Long discussion with pt, and sister. Information and brochure on hospice given. Information on [facility] and rehab given. Also discussed [facility] form. Emotional and practical support given. Pt having difficulty talking because of recent intubation. Pt has not seen oncologist yet and doesn't know his treatment options or prognosis. Pt is interested in receiving his treatment in [place]. says he also has medicare insurance. Will follow up with [facility]OLST discussion tomorrow. Today was mostly informational as per family request to know their options. Pt will most likely need rehab at discharge either at home or in SNF. Pt and family will need support given his alcohol use. KPS 60%, PPS 50% - Time On Unit Date of Evaluation: 10/18/18 Hospice Consult Time in: 11:30 Hospice Consult Time Out: 13:00 Hospice Consult Time Total: 90 > 50% of Time Spend In Counseling or Coordinating Care: Yes
--- NOTE | 2018-10-18 14:18 | PN ---
Progress Note - Progress Note Date of Service: 10/18/18 Note: Left CXR after clamping without PTX; no resp or o2 change Left CT was removed and pressure held, dressing applied. Repeat CXR at 4-5pm as followup. Ranulfo Riggins Md
[2018-10-18] MEDS ORDERED: Digoxin IV* 0.5 MG/2 ML AMP (0.25 MG/ML) IV SLOW PU ONE (15:09)
[2018-10-18] MEDS ORDERED: Melatonin 3 MG TAB PO PRN (23:09)
[2018-10-19] MEDS: Metoprolol Tartrate IV* 1 MG/ML 5 ML VIAL IV PRN ×2 (05:45→15:46)
[2018-10-19 06:01] LABS: Hematocrit 31 % (42-52); Hemoglobin 9.9 g/dL (14.0-18.0); Mean Corpuscular HGB Conc 32 g/dL (31-36); Mean Corpuscular Hemoglobin 34 pg (27-31); Mean Corpuscular Volume 105 fL (80-94); Mean Platelet Volume 8.3 fL (7.4-10.4); Platelet Count 315 10^3/uL (150-450); Red Blood Count 2.95 10^6 /uL (4.18-5.48); Red Cell Distribution Width 22 % (10-15); White Blood Count 16.3 10^3/uL (3.5-10.8)
[2018-10-19 06:21] LABS: BUN/Creatinine Ratio 24.1 (8-20); Calcium 8.7 mg/dL (8.6-10.3); EGFR Non-African American 97.5 (>60); Phosphorus 3.4 mg/dL (2.5-5.0); Potassium 4.5 mmol/L (3.5-5.0)
[2018-10-19] MEDS ORDERED: Digoxin IV* 0.5 MG/2 ML AMP (0.25 MG/ML) IV SLOW PU ONE (06:23)
[2018-10-19] MEDS ORDERED: Digoxin IV* 0.5 MG/2 ML AMP (0.25 MG/ML) ONE (06:25)
[2018-10-19] MEDS: Heparin VIAL(*) 5000 UNITS/ML VIAL (FIVE THOUSAND) SUBCUT SCH ×2 (09:05→21:43)
[2018-10-19] MEDS: Metoprolol Tartrate TAB* 50 mg PO SCH ×2 (09:06→21:32)
[2018-10-19] MEDS: Aspirin 81 mg CHEW TAB* 81 MG TAB.CHEW PO SCH (09:06)
[2018-10-19] MEDS: Thiamine TAB* 100 MG TAB PO SCH (09:07)
[2018-10-19] MEDS: Cyanocobalamin TAB* 500 MCG PO SCH (09:08)
[2018-10-19] MEDS: Famotidine TAB* 20 MG PO SCH (09:08)
[2018-10-19] MEDS: Folic Acid TAB* 1 MG PO SCH (09:08)
[2018-10-19] MEDS ORDERED: Lorazepam PYXIS KEY ONE (09:09)
[2018-10-19] MEDS: LORazepam INJ* 2 MG/ML 1 ML VIAL IV PUSH PRN (09:12)
[2018-10-19] MEDS ORDERED: Lorazepam PYXIS KEY PRN (09:44)
[2018-10-19] MEDS ORDERED: Furosemide IV* 10 MG/ML 2 ML VIAL (20 MG) IV ONE (10:00)
--- NOTE | 2018-10-19 10:03 | PN ---
Progress Note - Progress Note Date of Service: 10/19/18 Note: Progress Note -- Critical Care 24 hour events -NC, but then overnight back on NIV; he was turned and desaturated, placed on high fio2 -this morning back to NC but had some tachypnea, given ativan for distress -sleeping, sats 90s on NC, arousable, mild tachypnea to low 20s noted -afebrile, BP stable, HR improved after ativan -chest tube removed yesterday Tele: NSR Vitals: Vital Signs Temp 97.5 F 10/19/18 07:25 Pulse 91 10/19/18 09:00 Resp 28 10/19/18 09:12 BP 106/83 10/19/18 06:12 Pulse Ox 86 10/19/18 09:00 Intake & Output 10/18/18 10/19/18 10/19/18 18:59 06:59 18:59 Intake Total 852 976 Output Total 330 50 Balance 522 976 -50 Weight 79.7 kg Intake: IV Fluids 312 736 D5W 1/2 NS 40 meq KCL 312 736 Oral 540 240 NG Tube Irrigate Amount 0 Output: Chest Tube #1 80 Urine 50 50 Liquid Stool 200 Other: Estimated Void Large Large Date of Last Bowel 10/18/18 10/18/18 Movement # Bowel Movements 1 1 Estimated Stool Amount Small Large # Voids 1 1 O2/Vent: NC 6 L now Infusions: heplock Current Medications: Albuterol/Ipratropium (Duoneb (Albuterol 2.5 Mg/Ipratropium 0.5 Mg)) 1 neb INH Q4H PRN PRN Reason: SOB/WHEEZING Last Admin: 10/17/18 12:11 Dose: 1 neb Aspirin (Aspirin 81 Mg Chew Tab*) 81 mg PO DAILY [facility] Last Admin: 10/19/18 09:06 Dose: 81 mg Cyanocobalamin (Vitamin B12 Tab*) 500 mcg PO DAILY [facility] Last Admin: 10/19/18 09:08 Dose: 500 mcg Famotidine (Pepcid Tab*) 20 mg PO DAILY [facility] Last Admin: 10/19/18 09:08 Dose: 20 mg Folic Acid (Folvite Tab*) 2 mg PO DAILY [facility] Last Admin: 10/19/18 09:08 Dose: 2 mg Heparin Sodium (Porcine) (Heparin Vial(*)) 5,000 units SUBCUT Q12HR [facility] Last Admin: 10/19/18 09:05 Dose: 5,000 units Lorazepam (Ativan Inj*) 2 mg IV PUSH Q4H PRN PRN Reason: ANXIETY Last Admin: 10/19/18 09:12 Dose: 2 mg Melatonin (Melatonin) 3 mg PO BEDTIME PRN PRN Reason: SLEEP Last Admin: 10/18/18 23:24 Dose: 3 mg Metoprolol Tartrate (Lopressor Iv*) 10 mg IV Q4H PRN PRN Reason: HR >140 Last Admin: 10/19/18 05:45 Dose: 10 mg Metoprolol Tartrate (Lopressor Tab*) 50 mg PO BID [facility] Last Admin: 10/19/18 09:06 Dose: 50 mg Miscellaneous (Ativan Pyxis Lai) 1 ea N/A .PYXIS LAI PRN PRN Reason: PER PROTOCOL Thiamine HCl (Vitamin B-1 Tab*) 200 mg PO DAILY [facility] Last Admin: 10/19/18 09:07 Dose: 200 mg Physical Exam: Constitutional: sleeping now but arousable, no distress noted now, no diaphoresis Head: normocephalic, atraumatic Eyes: no pallor, no icterus ENT: moist mucous membranes Neck: soft, supple, no jvd CVS: normal rate, iregular, no murmur Resp: bilateral air entry, mild basal rhales+, no Rhonchi/wheeze, no acc muscle use Abdomen/GI: soft, nondistended, BS+ Ext/Msk: warm, pulses+, no edema Skin: intact, warm Neuro: arousable, moving all ext Labs: Laboratory Results - last 24 hr 10/19/18 10/19/18 05:49 05:49 WBC 16.3 H RBC 2.95 L Hgb 9.9 L Hct 31 L MCV 105 H MCH 34 H MCHC 32 RDW 22 H Plt Count 315 MPV 8.3 Sodium 143 Potassium 4.5 Chloride 103 Carbon Dioxide 35 H Anion Gap 5 BUN 19 Creatinine 0.79 Est GFR ( Amer) 118.0 Est GFR (Non-Af Amer) 97.5 BUN/Creatinine Ratio 24.1 H Glucose 120 H Calcium 8.7 Phosphorus 3.4 Magnesium 2.0 Imaging: cxr 10/17 - improved congestion on left; right sided increased infiltrates++; left CT+; NGT+ in stomach cxr 10/18 - improved right sided infitlrates; left CT; no ptx cxr 10/19 - increased bibasilar consolidations; no PTX on the left noted, Chest tube removed Assessment: 67y M w/pmhx of HTN, HLD, COPD, lung nodules, Afib (h/o cardiovesion 2017) off Xarelto due to recent GI bleeds, h/o alcohol abuse, Active smoker+, LV diastolic dysfunction, H/o PRostate Ca s/p radiation tx, depression; comes to ER for respiratory distress x1 day. He stated to ER last drink on or wednesday and possible feeling of withdrawal. Noted to have recent left lung biopsy at [facility] on 09/28 as per ER history and diagnosed with lung cancer, unknown type. In ER, CXR revealed small ptx on the left. He was intubated for increasing respiratory distress. A Chest tube was placed in the ER on the left, with subsequent CXR demonstrating improvement. CT chest confirmed 20% left PTX. He has remained hemodynamically stable, no pressors, only IVF administration. IV levaquin x1 dose and solumedrol/nebulizers given. 10/18 - Chest tube out 10/19 - lethargic at times, NIV depedant more; increasing consolidations at bases -acute hypercapneic respiratory failure; intubated 10/08; extubated 10/15 -acute hypoxic respiratory failure; on NIV -Left Pneumothorax; suspect iatrogenic from biopsy? ; s/p left CT 10/08, removed 10/18 -r/o new developing pneumonia vs congestion bibasilar -H.influenza pneumonia -Acute COPD exaccerbation -Encephalopathy, suspected metabolic vs wernickes; improving -JOSE ENRIQUE, resolved Newly diagnosed Non-small Cell Lung Ca pAfib HTn Alcohol abuse Plan: Neuro- -appears to be improving encephalopathy -post ativan effect now; re-eval later today; monitor if progressive mental status changes -voice slightly improved -cough+; passed swallow -cont thiamine 200mg po daily for 7 days; change to 100mg daily 09/22 -avoid bdz/sedatives; delirium prec CVS- -BP stable -Cont ASA -Afib history; currently in NSR; cont amio 200 po daily; Metoprolol 50mg po bid ; iv lopressor prn -CXR with consolidation/mild congestion -lasix 20mg IV x1 today -off AC due to h/o GI bleed; hg 9-10s -TTE 10/09 - lvef 40-45% -Maintain MAP>65 Resp- -CXR 10/19 with increased basal consolidations/congestion -at risk of worsening respiratory failure again -lasix 20mg iv x1 -on NC, still alternating with NIV; not improving -Chest tube out on 10/18; no ptx noted; will monitor -completed doxy 10/17 for H.influenza tx -bronchodilators q4h prn -Wean Fio2 to keep sat>92% -Bronchodilators PRN, Aspiration prec -palliative care and oncology consult called at family request for prognosis and plan ID- afebrile. [email or web address] [id number] -H.influenza+ pneumonia/bronchitis; doxy 10day compelted 10/17 -CXR 10/19 bilateral basal consolidation -monitor off abx today, if appears to worsen then may have to consider new abx GI- -passed swallow yesterday -keep NPO today on NIV and till mental status imprved -GI prophylaxis - ppi Renal- -JOSE ENRIQUE resolved; Cr normal -hypernatremia; improved; off ivf -strict I/O, replete to keep K>4, Mg>2 -beatty as indicated Heme- hg stable 9-10s, no bleeding -off AC due to GI bleeds in past -ASA for nstemi tx -DVT proph ; SCD and heparin sq -Oncology consult for non-small cell Ca diagnosis Endo- Maintain BG<200, insulin protocol as needed Musculsk- pressure ulcer prophylaxis. Bedrest, oob to chair as tolerated Wounds- none Nutrition- NPO DVT prophylaxis: SCD, heparin sq GI prophylaxis: h2b Central Line: none, TLC out 10/17 Arterial Line: none Beatty Cathetor: none, d/c 10/17 Palliative Care consult requested by family for GOC; reviewed Oncology called also Disposition: Patient requires Critical Care/ICU for respiratory failure , on intermittent NIV Patient Clinical Status: guarded Code Status: full code Total Critical Care time is 35 minutes, excluding procedures/teaching Ranulfo Riggins MD Telegraphic Instrument Supervisor (Electronically Signed)
[2018-10-19] MEDS: Albuterol/Ipratropium NEB.SOL* Albuterol 2.5 MG/Ipratropium 0.5 MG 3 ML INH PRN (15:02)
[2018-10-19] MEDS ORDERED: Spiriva HANDIHALER DEVICE (NF) 1 EACH DEVICE INH SCH ×2 (16:00)
[2018-10-19] MEDS: Tiotropium CAPSULE (NF) 1 CAP/18 MCG CAP.INH INH SCH (16:17)
[2018-10-19] MEDS ORDERED: Acetaminophen ADULT LIQ* 650 MG/20.3 ML UDC PO PRN (16:50)
[2018-10-19] MEDS: Amiodarone TAB* 200 MG PO SCH (17:06)
[2018-10-19] MEDS ORDERED: Metoprolol Tartrate IV* 1 MG/ML 5 ML VIAL IV ONE (19:20)
[2018-10-19] MEDS ORDERED: Diltiazem TAB* 30 MG ONE (19:29)
[2018-10-19] MEDS ORDERED: Metoprolol Tartrate IV* 1 MG/ML 5 ML VIAL ONE (19:29)
[2018-10-19] MEDS ORDERED: Amiodarone 150 MG IVPREMIX* 150 MG/100 ML BAG IV ONE (20:07)
[2018-10-19] MEDS ORDERED: Amiodarone 360 MG IVPREMIX* 360 MG/200 ML BAG IV ONE (20:07)
--- NOTE | 2018-10-19 21:43 | CONS ---
MEDICAL ONCOLOGY CONSULTATION NOTE: DATE OF CONSULT: 10/19/18 REASON FOR CONSULTATION: New diagnosis of non-small cell lung cancer. HISTORY OF PRESENT ILLNESS: Mr. Solis is a 67-year-old male with a longstanding history of COPD secondary to cigarette smoking. He also has a history of atrial fibrillation but Xarelto was stopped several months ago due to bleeding. Per his , he developed some increasing shortness of breath over the last several months and had a CT scan performed through [facility]. This revealed significant abnormalities and the patient then underwent a CT- guided lung biopsy on 09/28/18 and an overnight stay at [facility] [place]. This revealed adenocarcinoma, which was moderately to poorly differentiated with a lepidic component. It is unclear if this was sent for a typical workup for lung cancer to look for targetable mutations. As far as his knows, he has not had more of a workup looking for metastatic disease. The CT scan had revealed a bulky lymphadenopathy in the mediastinum and right hilum with largest lymph node measuring up to 3.4 cm. In addition, there was enlarging right lobe opacities and cavitary opacities in the lung raines suspicious for tumor. The patient developed increasing shortness of breath several days after the lung biopsy and was found to have a pneumothorax. He was initially watched without a chest tube but then decided to intubate the patient along with chest tube placement. He was found to have an elevated troponin. He remained intubated for several days and had a rising troponin level with probable non- STEMI. He was seen in consultation by Cardiology and was found to be in atrial flutter as well. He was treated with amiodarone and Cardizem. He has recently been extubated but remains with significant respiratory issues. He is not able to participate much in our conversation today but the above information was obtained from the chart and from the patient's current . Chest tube was removed on 10/18/18. He has remained hemodynamically stable and not required pressors. He has been treated with IV Levaquin along with nebulizers and Solu- Medrol. It appears as though he is developing bibasilar pneumonia. He has had acute kidney injury during the hospitalization, which is improving. Microbiology has revealed haemophilus influenzae in the sputum from admission. PAST MEDICAL HISTORY: Otherwise significant for hyperlipidemia, hypertension, COPD, AFib, history of alcohol use and abuse. He is status post prostate cancer 7 to 8 years ago. is unsure as to his therapy at the time, which was done in [place] and has done well since without evidence of recurrence. Chronic back pain for which he is on hydrocodone on a regular basis. Diastolic heart failure, depression, orthopedic surgeries. MEDICATIONS: Outlined in the admission history and physical. ALLERGIES: No true allergies. FAMILY HISTORY: is unaware of any family history of malignancies. SOCIAL HISTORY: A pack a day smoker, continuing to smoke. Alcohol, drinks on a daily basis and has huge amounts of binge drinking of whisky after his diagnosis of lung cancer 2 weeks ago. 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 REVIEW OF SYSTEMS: The patient is able to walk at the grocery store, short distances but uses a cart to go to any longer distances. He was not on oxygen at home. Appetite had been good and weight stable per his . Her ability to provide a cogent history; however, seems somewhat limited as I speak to her. PHYSICAL EXAM: A 67-year-old male. Vital signs stable. Afebrile. HEENT: PERRL. No scleral icterus. No erythema or exudates. Moist mucous membranes. No palpable cervical, supraclavicular, or axillary adenopathy. Heart: Regular rate but irregular rhythm. No murmurs. Lungs: Decreased breath sounds in the bases bilaterally. Abdomen: Soft, nontender without masses or organomegaly. Extremities: No edema. DIAGNOSTIC STUDIES/LAB DATA: White count 16,300, H and H 31/9.9, platelet count 315,000. Chemistry studies: Basic metabolic profile without significant abnormalities. 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 He has significant adenopathy in the chest along with multiple lung nodules. Assuming the multiple lung nodules to be malignant would make this as a stage IV lung cancer, if not it would be stage III. He has had only minimal workup to this point and will require significant further workup before having any therapy assuming he recovers from the standpoint of his respiratory failure and cardiac issues. RECOMMENDATIONS: Before commencing any therapy for his lung cancer would include a PET scan as an outpatient, MRI of the brain, further evaluation of the pathology including sending the material for ALK, EGFR, ROS, BRAF, and PD- L1 or potentially a larger lung panel as is typically done through our hospital through [facility]. At the moment, her certainly requires continued care for his likely pneumonia and respiratory failure along with recovery from current cardiac issues. [id number]/[facility] #: [id number] TOBY
[2018-10-19] MEDS: Phenylephrine INJ* 50 MG in NS 0.9% IV SCH (21:57)
[2018-10-19] MEDS ORDERED: Diltiazem TAB* 30 MG PO SCH (22:00)
[2018-10-19] MEDS ORDERED: NS 0.9% 500 ML* 500 ML IV ONE (22:00)
[2018-10-19] MEDS ORDERED: Metoprolol Tartrate TAB* 50 mg PO ONE (23:30)
[2018-10-20] MEDS ORDERED: Diltiazem TAB* 30 MG PO SCH (01:30)
[2018-10-20] MEDS: LORazepam INJ* 2 MG/ML 1 ML VIAL IV PUSH PRN (02:15)
[2018-10-20 04:39] LABS: Hematocrit 27 % (42-52); Mean Corpuscular HGB Conc 34 g/dL (31-36); Mean Corpuscular Hemoglobin 35 pg (27-31); Mean Corpuscular Volume 104 fL (80-94); Mean Platelet Volume 8.2 fL (7.4-10.4); Platelet Count 280 10^3/uL (150-450); Red Blood Count 2.57 10^6 /uL (4.18-5.48); Red Cell Distribution Width 21 % (10-15); White Blood Count 9.7 10^3/uL (3.5-10.8)
[2018-10-20 05:01] LABS: BUN/Creatinine Ratio 31.9 (8-20); Calcium 8.3 mg/dL (8.6-10.3); Magnesium 1.7 mg/dL (1.9-2.7); Phosphorus 3.6 mg/dL (2.5-5.0)
[2018-10-20] MEDS: Phenylephrine INJ* 50 MG in NS 0.9% IV SCH (05:48)
[2018-10-20] MEDS: Tiotropium CAPSULE (NF) 1 CAP/18 MCG CAP.INH INH SCH (08:08)
[2018-10-20] MEDS ORDERED: methylPREDNISolone SOD 40 MG* 1 ML VIAL IV SCH (09:00)
[2018-10-20] MEDS: Albuterol/Ipratropium NEB.SOL* Albuterol 2.5 MG/Ipratropium 0.5 MG 3 ML INH PRN (09:22)
[2018-10-20] MEDS: Thiamine TAB* 100 MG TAB PO SCH (10:33)
[2018-10-20] MEDS: Folic Acid TAB* 1 MG PO SCH (10:33)
[2018-10-20] MEDS: Metoprolol Tartrate TAB* 50 mg PO SCH ×2 (10:34→20:52)
[2018-10-20] MEDS: Famotidine TAB* 20 MG PO SCH (10:34)
[2018-10-20] MEDS: Aspirin 81 mg CHEW TAB* 81 MG TAB.CHEW PO SCH (10:34)
[2018-10-20] MEDS: Cyanocobalamin TAB* 500 MCG PO SCH (10:34)
[2018-10-20] MEDS: Amiodarone TAB* 200 MG PO SCH (10:34)
[2018-10-20] MEDS: Heparin VIAL(*) 5000 UNITS/ML VIAL (FIVE THOUSAND) SUBCUT SCH (10:34)
[2018-10-20] MEDS ORDERED: Magnesium Sulf 4 GM/100 ML IV* 4,000 MG/100 ML BAG IVPB ONE (11:52)
[2018-10-20] MEDS ORDERED: Furosemide IV* 10 MG/ML 2 ML VIAL (20 MG) IV ONE (11:53)
--- NOTE | 2018-10-20 12:03 | PN ---
Progress Note - Progress Note Date of Service: 10/20/18 Note: Progress Note -- Critical Care 24 hour events -yesterday evening had rapid afib RVR: given amio bolus/infusion; then BP dropped -IVF bolus and then hailey infusion for a few hours but weaned off -currently in NSR 60-70s; BP 130-150s -in chair, no distress; cough+, sputum + -CXR with congestion today -afebrile overnight -speech slowly improving and less coarse voice Tele: NSR; afib yesterday Vitals: Vital Signs Temp 97.2 F 10/20/18 08:00 Pulse 75 10/20/18 11:01 Resp 22 10/20/18 11:01 BP 144/83 10/20/18 11:01 Pulse Ox 97 10/20/18 11:01 Intake & Output 10/19/18 10/20/18 10/20/18 18:59 06:59 18:59 Intake Total 420 1117 Output Total 50 115 50 Balance 370 1002 -50 Weight 78.1 kg Intake: IV Fluids 500 NS (0.9%) 500 Medicated IV 617 Neosynephrine 387 amiodarone 230 Oral 420 Output: Urine 50 115 Beatty 50 Other: Estimated Void Medium Large O2/Vent: NC 15 L Infusions: heplock Current Medications: Acetaminophen (Tylenol Adult Liq*) 650 mg PO Q6H PRN PRN Reason: PAIN Last Admin: 10/19/18 17:06 Dose: 650 mg Albuterol/Ipratropium (Duoneb (Albuterol 2.5 Mg/Ipratropium 0.5 Mg)) 1 neb INH Q4H PRN PRN Reason: SOB/WHEEZING Last Admin: 10/20/18 09:22 Dose: 1 neb Amiodarone HCl (Cordarone Tab*) 200 mg PO DAILY [facility] Last Admin: 10/20/18 10:34 Dose: 200 mg Aspirin (Aspirin 81 Mg Chew Tab*) 81 mg PO DAILY [facility] Last Admin: 10/20/18 10:34 Dose: 81 mg Cyanocobalamin (Vitamin B12 Tab*) 500 mcg PO DAILY [facility] Last Admin: 10/20/18 10:34 Dose: 500 mcg Device (Tiotropium Inhaler Device*) 1 each INH .USE w/ SPIRIVA CAPS [facility] Famotidine (Pepcid Tab*) 20 mg PO DAILY [facility] Last Admin: 10/20/18 10:34 Dose: 20 mg Folic Acid (Folvite Tab*) 2 mg PO DAILY [facility] Last Admin: 10/20/18 10:33 Dose: 2 mg Furosemide (Lasix Iv*) 20 mg IV ONCE ONE Stop: 10/20/18 11:54 Heparin Sodium (Porcine) (Heparin Vial(*)) 5,000 units SUBCUT Q12HR [facility] Last Admin: 10/20/18 10:34 Dose: 5,000 units Magnesium Sulfate (Magnesium Sulf 4 Gm/100 Ml Iv*) 4,000 mg in 100 mls @ 33.333 mls/hr IVPB ONCE ONE Stop: 10/20/18 14:51 Lorazepam (Ativan Inj*) 2 mg IV PUSH Q4H PRN PRN Reason: ANXIETY Last Admin: 10/20/18 02:15 Dose: 2 mg Melatonin (Melatonin) 3 mg PO BEDTIME PRN PRN Reason: SLEEP Last Admin: 10/18/18 23:24 Dose: 3 mg Methylprednisolone Sodium Succinate (Solu-Medrol 40 Mg) 40 mg IV DAILY [facility] Metoprolol Tartrate (Lopressor Iv*) 10 mg IV Q4H PRN PRN Reason: HR >140 Last Admin: 10/19/18 15:46 Dose: 10 mg Metoprolol Tartrate (Lopressor Tab*) 50 mg PO BID [facility] Last Admin: 10/20/18 10:34 Dose: 50 mg Miscellaneous (Ativan Pyxis Lai) 1 ea N/A .PYXIS LAI PRN PRN Reason: PER PROTOCOL Thiamine HCl (Vitamin B-1 Tab*) 200 mg PO DAILY [facility] Last Admin: 10/20/18 10:33 Dose: 200 mg Tiotropium [place] (Spiriva Cap.Inh*) 1 cap INH DAILY [facility] Last Admin: 10/20/18 08:08 Dose: 1 cap Physical Exam: Constitutional: awake, alert, no distress, no diaphoresis Head: normocephalic, atraumatic Eyes: no pallor, no icterus ENT: moist mucous membranes Neck: soft, supple, no jvd CVS: normal rate, regular, no murmur Resp: bilateral air entry, basal rhales+, no Rhonchi/wheeze, no acc muscle use Abdomen/GI: soft, nondistended, BS+ Ext/Msk: warm, pulses+, no edema Skin: intact, warm Neuro: awake, alert, moving all ext Labs: Laboratory Results - last 24 hr 10/20/18 10/20/18 04:25 04:25 WBC 9.7 RBC 2.57 L Hgb 9.0 L Hct 27 L MCV 104 H MCH 35 H MCHC 34 RDW 21 H Plt Count 280 MPV 8.2 Sodium 143 Potassium 4.0 Chloride 104 Carbon Dioxide 35 H Anion Gap 4 BUN 22 Creatinine 0.69 Est GFR ( Amer) 138.0 Est GFR (Non-Af Amer) 114.0 BUN/Creatinine Ratio 31.9 H Glucose 102 H Calcium 8.3 L Phosphorus 3.6 Magnesium 1.7 L Imaging: cxr 10/17 - improved congestion on left; right sided increased infiltrates++; left CT+; NGT+ in stomach cxr 10/18 - improved right sided infitlrates; left CT; no ptx cxr 10/19 - increased bibasilar consolidations; no PTX on the left noted, Chest tube removed CXR 10/20 - bilateral congestion+, basal infiltrates Assessment: 67y M w/pmhx of HTN, HLD, COPD, lung nodules, Afib (h/o cardiovesion 2017) off Xarelto due to recent GI bleeds, h/o alcohol abuse, Active smoker+, LV diastolic dysfunction, H/o PRostate Ca s/p radiation tx, depression; comes to ER for respiratory distress x1 day. He stated to ER last drink on or wednesday and possible feeling of withdrawal. Noted to have recent left lung biopsy at [facility] on 09/28 as per ER history and diagnosed with lung cancer, unknown type. In ER, CXR revealed small ptx on the left. He was intubated for increasing respiratory distress. A Chest tube was placed in the ER on the left, with subsequent CXR demonstrating improvement. CT chest confirmed 20% left PTX. He has remained hemodynamically stable, no pressors, only IVF administration. IV levaquin x1 dose and solumedrol/nebulizers given. 10/18 - Chest tube out 10/19 - lethargic at times, NIV depedant more; increasing consolidations at bases , rapid afib, s/p amio bolus/infusion; transient hailey required 10/20 - on 15L NC, no distress; Diuretics -acute hypercapneic respiratory failure; intubated 10/08; extubated 10/15 -acute hypoxic respiratory failure; on NIV prn -Left Pneumothorax; suspect iatrogenic from biopsy? ; s/p left CT 10/08, removed 10/18 -r/o new developing pneumonia vs congestion bibasilar -H.influenza pneumonia -Acute COPD exaccerbation -Encephalopathy, suspected metabolic vs wernickes; improving -JOSE ENRIQUE, resolved Newly diagnosed Non-small Cell Lung Ca pAfib HTn Alcohol abuse Plan: Neuro- -improved encephalopathy -voice improving -cont thiamine 200mg po daily for 7 days; change to 100mg daily 09/22 -avoid bdz/sedatives; delirium prec CVS- -BP stable -AFib; RVR; now back to NSR; s/p amio bolus and 6 hr infusion; cont po amio 200mg; cont BB and CCB po q6h -no AC due to GIB history -Cont ASA -CXR 10/20 with congestion -lasix 20mg IV x1 today -hg 9-10 range, slow downtrend? all counts down; d/c heparin sq; monitoring -TTE 10/09 - lvef 40-45% -Maintain MAP>65 Resp- -CXR 10/20 with increased basal consolidations/congestion b/l -IV diuretics -on NC 15L now; no distress -oob to chair; start CPT -lasix 20mg iv x1 today -completed doxy 10/17 for H.influenza tx; Chest tube out 10/18 -bronchodilators q4h prn -Wean Fio2 to keep sat>92% -Bronchodilators PRN, Aspiration prec -palliative care and oncology consult called at family request for prognosis and plan ID- afebrile. wbc [id number] -H.influenza+ pneumonia/bronchitis; doxy 10day compelted 10/17 -CXR 10/20 bilateral basal congestion+, basal infiltrates -cough+, send sputum -hold off abx due to no fever, and wbc improved GI- -cardiac diet -GI prophylaxis - ppi Renal- -JOSE ENRIQUE resolved; Cr normal -hypernatremia; improved -Mg Sulfate 4gm IV x1 -strict I/O, replete to keep K>4, Mg>2 -beatty as indicated Heme- hg stable 9-10s, no bleeding -off AC due to GI bleeds in past -d/c heparin sq -ASA for nstemi tx -DVT proph ; SCD -Oncology consult for non-small cell Ca diagnosis Endo- Maintain BG<200, insulin protocol as needed Musculsk- pressure ulcer prophylaxis. oob to chair as tolerated Wounds- none Nutrition- cardiac diet DVT prophylaxis: SCD GI prophylaxis: ppi Central Line: none, TLC out 10/17 Arterial Line: none Beatty Cathetor: none, d/c 10/17 Palliative Care consult requested by family for GOC; reviewed Oncology called also Disposition: Patient requires Critical Care/ICU for respiratory failure , on intermittent NIV Patient Clinical Status: guarded Code Status: full code Total Critical Care time is 35 minutes, excluding procedures/teaching Ranulfo Riggins MD Drive Thru Order Taker (Electronically Signed)
[2018-10-21] MEDS: LORazepam INJ* 2 MG/ML 1 ML VIAL IV PUSH PRN (00:37)
[2018-10-21 04:36] LABS: EGFR African American 116.3 (>60); EGFR Non-African American 96.1 (>60); Magnesium 2.2 mg/dL (1.9-2.7); Phosphorus 3.2 mg/dL (2.5-5.0); Potassium 4.6 mmol/L (3.5-5.0)
[2018-10-21 04:51] LABS: Hematocrit 31 % (42-52); Hemoglobin 10.2 g/dL (14.0-18.0); Mean Corpuscular HGB Conc 33 g/dL (31-36); Mean Corpuscular Hemoglobin 34 pg (27-31); Mean Corpuscular Volume 104 fL (80-94); Mean Platelet Volume 8.5 fL (7.4-10.4); Platelet Count 278 10^3/uL (150-450); Red Blood Count 3.03 10^6 /uL (4.18-5.48); Red Cell Distribution Width 21 % (10-15); White Blood Count 6.8 10^3/uL (3.5-10.8)
[2018-10-21] MEDS: Tiotropium CAPSULE (NF) 1 CAP/18 MCG CAP.INH INH SCH (07:51)
[2018-10-21] MEDS ORDERED: acetaZOLAMIDE VIAL* 250 MG in NS 0.9% 50 ML* 50 ML IVPB ONE (08:46)
[2018-10-21] MEDS: methylPREDNISolone SOD 40 MG* 1 ML VIAL IV SCH (09:04)
[2018-10-21] MEDS: Aspirin 81 mg CHEW TAB* 81 MG TAB.CHEW PO SCH (09:04)
[2018-10-21] MEDS: Famotidine TAB* 20 MG PO SCH (09:04)
[2018-10-21] MEDS: Folic Acid TAB* 1 MG PO SCH (09:04)
[2018-10-21] MEDS: Thiamine TAB* 100 MG TAB PO SCH (09:04)
[2018-10-21] MEDS: Cyanocobalamin TAB* 500 MCG PO SCH (09:05)
[2018-10-21] MEDS: Amiodarone TAB* 200 MG PO SCH (09:05)
[2018-10-21] MEDS: Metoprolol Tartrate TAB* 50 mg PO SCH ×2 (09:05→20:46)
--- NOTE | 2018-10-21 09:57 | PN ---
Progress Note - Progress Note Date of Service: 10/21/18 Note: Progress Note -- Critical Care 24 hour events -afebrile overnight; on NC 10 L now; BP stable, HR stable -off INfusions -in chair, awake, alert, eating and even ambulated -no distress; cough+, minimal sputum Tele: NSR Vitals: Vital Signs Temp 98.6 F 10/21/18 08:00 Pulse 117 10/21/18 09:08 Resp 25 10/21/18 09:08 BP 151/91 10/21/18 09:08 Pulse Ox 100 10/21/18 08:45 Intake & Output 10/20/18 10/21/18 10/21/18 18:59 06:59 18:59 Intake Total 1820 50 Output Total 50 100 Balance 1770 -50 Weight 79.4 kg Intake: IV Fluids 0 NS (0.9%) 0 Oral 1820 50 NG Tube Irrigate Amount 0 Output: Chest Tube #1 0 Urine 100 Beatty 50 Tube Feeding Residual 0 Amount Wasted Other 0 Other: Estimated Void Large Date of Last Bowel 10/21/18 Movement # Bowel Movements 1 Estimated Stool Amount Large # Voids 1 O2/Vent: NC 10 L Infusions: heplock Current Medications: Acetaminophen (Tylenol Adult Liq*) 650 mg PO Q6H PRN PRN Reason: PAIN Last Admin: 10/19/18 17:06 Dose: 650 mg Albuterol/Ipratropium (Duoneb (Albuterol 2.5 Mg/Ipratropium 0.5 Mg)) 1 neb INH Q4H PRN PRN Reason: SOB/WHEEZING Last Admin: 10/20/18 09:22 Dose: 1 neb Amiodarone HCl (Cordarone Tab*) 200 mg PO DAILY [facility] Last Admin: 10/21/18 09:05 Dose: 200 mg Aspirin (Aspirin 81 Mg Chew Tab*) 81 mg PO DAILY [facility] Last Admin: 10/21/18 09:04 Dose: 81 mg Cyanocobalamin (Vitamin B12 Tab*) 500 mcg PO DAILY [facility] Last Admin: 10/21/18 09:05 Dose: 500 mcg Device (Tiotropium Inhaler Device*) 1 each INH .USE w/ SPIRIVA CAPS [facility] Famotidine (Pepcid Tab*) 20 mg PO DAILY [facility] Last Admin: 10/21/18 09:04 Dose: 20 mg Folic Acid (Folvite Tab*) 2 mg PO DAILY [facility] Last Admin: 10/21/18 09:04 Dose: 2 mg Lorazepam (Ativan Inj*) 2 mg IV PUSH Q4H PRN PRN Reason: ANXIETY Last Admin: 10/21/18 00:37 Dose: 2 mg Melatonin (Melatonin) 3 mg PO BEDTIME PRN PRN Reason: SLEEP Last Admin: 10/18/18 23:24 Dose: 3 mg Methylprednisolone Sodium Succinate (Solu-Medrol 40 Mg) 40 mg IV DAILY [facility] Last Admin: 10/21/18 09:04 Dose: 40 mg Metoprolol Tartrate (Lopressor Iv*) 10 mg IV Q4H PRN PRN Reason: HR >140 Last Admin: 10/19/18 15:46 Dose: 10 mg Metoprolol Tartrate (Lopressor Tab*) 50 mg PO BID [facility] Last Admin: 10/21/18 09:05 Dose: 50 mg Miscellaneous (Ativan Pyxis Lai) 1 ea N/A .PYXIS LAI PRN PRN Reason: PER PROTOCOL Thiamine HCl (Vitamin B-1 Tab*) 200 mg PO DAILY [facility] Last Admin: 10/21/18 09:04 Dose: 200 mg Tiotropium [place] (Spiriva Cap.Inh*) 1 cap INH DAILY [facility] Last Admin: 10/21/18 07:51 Dose: 1 cap Physical Exam: Constitutional: awake, alert, no distress, no diaphoresis Head: normocephalic, atraumatic Eyes: no pallor, no icterus ENT: moist mucous membranes Neck: soft, supple, no jvd CVS: normal rate, regular, no murmur Resp: bilateral air entry, basal rhales+, no Rhonchi/wheeze, no acc muscle use Abdomen/GI: soft, nondistended, BS+ Ext/Msk: warm, pulses+, no edema Skin: intact, warm Neuro: awake, alert, moving all ext Labs: Laboratory Results - last 24 hr 10/21/18 10/21/18 04:05 04:05 WBC 6.8 RBC 3.03 L Hgb 10.2 L Hct 31 L MCV 104 H MCH 34 H MCHC 33 RDW 21 H Plt Count 278 MPV 8.5 Sodium 138 Potassium 4.6 Chloride 99 L Carbon Dioxide 35 H Anion Gap 4 BUN 24 Creatinine 0.80 Est GFR ( Amer) 116.3 Est GFR (Non-Af Amer) 96.1 BUN/Creatinine Ratio 30.0 H Glucose 132 H Calcium 9.0 Phosphorus 3.2 Magnesium 2.2 Imaging: cxr 10/17 - improved congestion on left; right sided increased infiltrates++; left CT+; NGT+ in stomach cxr 10/18 - improved right sided infitlrates; left CT; no ptx cxr 10/19 - increased bibasilar consolidations; no PTX on the left noted, Chest tube removed CXR 10/20 - bilateral congestion+, basal infiltrates Assessment: 67y M w/pmhx of HTN, HLD, COPD, lung nodules, Afib (h/o cardiovesion 2017) off Xarelto due to recent GI bleeds, h/o alcohol abuse, Active smoker+, LV diastolic dysfunction, H/o PRostate Ca s/p radiation tx, depression; comes to ER for respiratory distress x1 day. He stated to ER last drink on or wednesday and possible feeling of withdrawal. Noted to have recent left lung biopsy at [facility] on 09/28 as per ER history and diagnosed with lung cancer, unknown type. In ER, CXR revealed small ptx on the left. He was intubated for increasing respiratory distress. A Chest tube was placed in the ER on the left, with subsequent CXR demonstrating improvement. CT chest confirmed 20% left PTX. He has remained hemodynamically stable, no pressors, only IVF administration. IV levaquin x1 dose and solumedrol/nebulizers given. 10/18 - Chest tube out 10/19 - lethargic at times, NIV depedant more; increasing consolidations at bases , rapid afib, s/p amio bolus/infusion; transient hailey required 10/20 - on 15L NC, no distress; Diuretics -acute hypercapneic respiratory failure; intubated 10/08; extubated 10/15 -acute hypoxic respiratory failure; on NIV prn -Left Pneumothorax; suspect iatrogenic from biopsy? ; s/p left CT 10/08, removed 10/18 -r/o new developing pneumonia vs congestion bibasilar -H.influenza pneumonia -Acute COPD exaccerbation -Encephalopathy, suspected metabolic vs wernickes; improving -JOSE ENRIQUE, resolved Newly diagnosed Non-small Cell Lung Ca pAfib HTn Alcohol abuse Plan: Neuro- -improved encephalopathy -voice improving -cont thiamine 200mg po daily for 7 days; change to 100mg daily 09/22 -avoid bdz/sedatives; delirium prec CVS- -BP stable -AFib; now NSR; s/p amio bolus/infusion; cont po amio 200mg; cont BB and CCB po q6h -no AC due to GIB history -Cont ASA -CXR 10/20 with congestion -repeat diuretics; 250mg acetazolamide x1 now due to increased alkalosis -PRN diuretics as needed -hg 9-10 range; monitoring -TTE 10/09 - lvef 40-45% -Maintain MAP>65 Resp- -CXR 10/20 with increased basal consolidations/congestion b/l -IV diuretics -on NC 10L ; no distress -oob to chair; CPT; ambulate -completed doxy 10/17 for H.influenza tx; Chest tube out 10/18 -bronchodilators q4h prn -Wean Fio2 to keep sat>92% -Bronchodilators PRN, Aspiration prec -palliative care and oncology consult called at family request for prognosis and plan ID- afebrile. [id number] -H.influenza+ pneumonia/bronchitis; doxy 10day compelted 10/17 -CXR 10/20 bilateral basal congestion+, basal infiltrates -cough+, send sputum -hold off abx due to no fever, and wbc improved GI- -cardiac diet -GI prophylaxis - ppi Renal- -JOSE ENRIQUE resolved; Cr normal -hypernatremia resolved -diamox 250mg iv x1 -strict I/O, replete to keep K>4, Mg>2 -beatty as indicated Heme- hg stable 9-10s, no bleeding -off AC due to GI bleeds in past -ASA for nstemi tx -DVT proph ; SCD -Oncology consult for non-small cell Ca diagnosis Endo- Maintain BG<200, insulin protocol as needed Musculsk- pressure ulcer prophylaxis. oob to chair as tolerated Wounds- none Nutrition- cardiac diet DVT prophylaxis: SCD GI prophylaxis: ppi Central Line: none, TLC out 10/17 Arterial Line: none Beatty Cathetor: none, d/c 10/17 Palliative Care consult requested by family for GOC; reviewed Disposition: Patient requires Critical Care/ICU for respiratory failure , on intermittent NIV Patient Clinical Status: guarded Code Status: full code Ranulfo Riggins MD [employer] Machine Operator (Electronically Signed)
[2018-10-21] MEDS: Albuterol/Ipratropium NEB.SOL* Albuterol 2.5 MG/Ipratropium 0.5 MG 3 ML INH PRN (16:41)
--- NOTE | 2018-10-21 16:48 | PN ---
Hospitalist Progress Note Date of Service: 10/21/18 Patient evaluated for transfer out of ICU. Off Bipap, only using at night. Doing well on [place], stable for transfer. Requested by RN on [facility] to evaluate chest tube site for excessive drainage. ABD is soaked with serous drainage, but no overt drainage noted from the open site. Requested RN to replace dressing with doubled ABD and tape and re-assess in an hour. O2sat is 97 % and patient in no distress. Continue to monitor respiratory status.
[2018-10-22 06:48] LABS: Hematocrit 28 % (42-52); Hemoglobin 9.3 g/dL (14.0-18.0); Mean Corpuscular HGB Conc 34 g/dL (31-36); Mean Corpuscular Hemoglobin 35 pg (27-31); Mean Corpuscular Volume 103 fL (80-94); Mean Platelet Volume 8.1 fL (7.4-10.4); Platelet Count 311 10^3/uL (150-450); Red Cell Distribution Width 21 % (10-15); White Blood Count 7.8 10^3/uL (3.5-10.8)
[2018-10-22 07:03] LABS: Calcium 8.8 mg/dL (8.6-10.3); EGFR African American 101.5 (>60); EGFR Non-African American 83.9 (>60); Magnesium 1.8 mg/dL (1.9-2.7); Phosphorus 3.7 mg/dL (2.5-5.0); Potassium 4.4 mmol/L (3.5-5.0)
[2018-10-22] MEDS: Tiotropium CAPSULE (NF) 1 CAP/18 MCG CAP.INH INH SCH (07:28)
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
[2018-10-22] MEDS ORDERED: traZODone TAB* 100 MG PO PRN (09:31)
[2018-10-22] MEDS: Thiamine TAB* 100 MG TAB PO SCH (09:38)
[2018-10-22] MEDS: Aspirin 81 mg CHEW TAB* 81 MG TAB.CHEW PO SCH (09:38)
[2018-10-22] MEDS: Famotidine TAB* 20 MG PO SCH (09:38)
[2018-10-22] MEDS: Cyanocobalamin TAB* 500 MCG PO SCH (09:38)
[2018-10-22] MEDS: Folic Acid TAB* 1 MG PO SCH (09:38)
[2018-10-22] MEDS: Amiodarone TAB* 200 MG PO SCH (09:39)
[2018-10-22] MEDS: Metoprolol Tartrate TAB* 50 mg PO SCH ×2 (09:39→20:24)
[2018-10-22] MEDS: methylPREDNISolone SOD 40 MG* 1 ML VIAL IV SCH (09:40)
[2018-10-22] MEDS: Enoxaparin(*) 40 MG/0.4 ML SYR SUBCUT SCH (10:12)
[2018-10-22] MEDS: Diltiazem TAB* 30 MG PO SCH ×3 (10:13→17:34)
[2018-10-23] MEDS: Diltiazem TAB* 30 MG PO SCH ×2 (00:46→05:31)
[2018-10-23] MEDS: Tiotropium CAPSULE (NF) 1 CAP/18 MCG CAP.INH INH SCH (07:37)
[2018-10-23 07:38] LABS: Hematocrit 33 % (42-52); Mean Corpuscular HGB Conc 34 g/dL (31-36); Mean Corpuscular Hemoglobin 34 pg (27-31); Mean Corpuscular Volume 103 fL (80-94); Mean Platelet Volume 8.3 fL (7.4-10.4); Platelet Count 425 10^3/uL (150-450); Red Blood Count 3.19 10^6 /uL (4.18-5.48); Red Cell Distribution Width 21 % (10-15); White Blood Count 7.1 10^3/uL (3.5-10.8)
[2018-10-23 07:52] LABS: BUN/Creatinine Ratio 32.6 (8-20); Calcium 9.6 mg/dL (8.6-10.3); EGFR Non-African American 88.4 (>60); Potassium 4.3 mmol/L (3.5-5.0)
--- NOTE | 2018-10-23 08:32 | PN ---
Hospitalist Progress Note Date of Service: 10/23/18 HD # 16 on 10/23 Attending Assessment and Plan I have reviewed the subjective and objective portions of the residnet note of which I have agreed with and supervised 67M PMH HTN, HLD, COPD, Afib (h/o cardiovesion 2017) off Xarelto due to recent GI bleeds, ETOH use d/o, TOB use, HFpEF (EF 40-45% in 2019), H/o Prostate Ca s/ p radiation tx, depression, and recently dx lung Ca at DC presented in hypoxic resp failure 2/2 L PTX from recent lung bx done at DC, ETOH w/drawal. He was intubated with L chest tube placed on admission, chest tube removed on 10/18, extubated on 10/15 Transferred out of the ICU on 10/21 Met with palliative on 10/18 24 Hour events: Restarted Diltiazem for recurrent ectopy, currrently uptitrating #Acute Hypoxic Respiratory failure: 2/2 to L PTX s/p CT placement and removal on 10/18, as well as COPD exacerbation -Continue Methylpred, BiPAP QHS, Bronchodialotrs,c hange to oral pred taper on -Completed Doxy course -Now on 2L NC #L PTX: Pressure bandage still with serous leakage, needing compression bandaging q48hrs #Lung Cancer: Needs staging and outpt follow up, appreciate Dr. Kurtz contributions #HFrEF: 40-45% with diastolic dysfxn -No e/o exacerbation and euvolemic at this time #ETOH use d/o, severe, c/b withdrawal: Still on thiamine, delerium improved since transfer to floor #Afib: Amio, BB, Dilt (restarted low dose Dilt 10/22, titrate to home dose starting today 10/23) -Chads Vasc 6, Off Xarelto 2/ to recent GIB prior to this admission #COPD Exacerbation: Completed Doxy, remains on IV methyl pred, transition to oral 10/24 #Depression: Restarted home trazodone #DVT PPX: Lovenox 04/23 to active cancer #Code: DNR, appreciate palliative #Dispo: PT was reporting pt needs [facility], though patient doing remarkably well on floor, PT to reassess [facility] vs home with services, needs outpt Oncology for staging of new lung cancer.
[2018-10-23] MEDS: methylPREDNISolone SOD 40 MG* 1 ML VIAL IV SCH (09:42)
[2018-10-23] MEDS: Enoxaparin(*) 40 MG/0.4 ML SYR SUBCUT SCH (09:42)
[2018-10-23] MEDS: Metoprolol Tartrate TAB* 50 mg PO SCH ×2 (09:43→19:49)
[2018-10-23] MEDS: Folic Acid TAB* 1 MG PO SCH (09:43)
[2018-10-23] MEDS: Thiamine TAB* 100 MG TAB PO SCH (09:43)
[2018-10-23] MEDS: Amiodarone TAB* 200 MG PO SCH (09:43)
[2018-10-23] MEDS: Cyanocobalamin TAB* 500 MCG PO SCH (09:44)
[2018-10-23] MEDS: Aspirin 81 mg CHEW TAB* 81 MG TAB.CHEW PO SCH (09:44)
[2018-10-23] MEDS: Famotidine TAB* 20 MG PO SCH (09:44)
--- NOTE | 2018-10-23 10:25 | PN ---
Subjective Date of Service: 10/23/18 Interval History: No overnight events. Labs: CBC normal except macrocytosis, CMP normal. Pt felt improved in breathing, and felt stronger when he was walking with a walker. Weaned down his O2 to 2L/min this morning, his saturation 92% after weaning. Objective Active Medications: Acetaminophen (Tylenol Adult Liq*) 650 mg PO Q6H PRN PRN Reason: PAIN Last Admin: 10/19/18 17:06 Dose: 650 mg Albuterol/Ipratropium (Duoneb (Albuterol 2.5 Mg/Ipratropium 0.5 Mg)) 1 neb INH Q4H PRN PRN Reason: SOB/WHEEZING Last Admin: 10/21/18 16:41 Dose: 1 neb Amiodarone HCl (Cordarone Tab*) 200 mg PO DAILY [facility] Last Admin: 10/23/18 09:43 Dose: 200 mg Aspirin (Aspirin 81 Mg Chew Tab*) 81 mg PO DAILY [facility] Last Admin: 10/23/18 09:44 Dose: 81 mg Cyanocobalamin (Vitamin B12 Tab*) 500 mcg PO DAILY [facility] Last Admin: 10/23/18 09:44 Dose: 500 mcg Device (Tiotropium Inhaler Device*) 1 each INH .USE w/ SPIRIVA CAPS [facility] Diltiazem HCl (Cardizem Cd Cap*) 180 mg PO DAILY [facility] Enoxaparin Sodium (Lovenox(*)) 40 mg SUBCUT Q24H [facility] Last Admin: 10/23/18 09:42 Dose: 40 mg Famotidine (Pepcid Tab*) 20 mg PO DAILY [facility] Last Admin: 10/23/18 09:44 Dose: 20 mg Folic Acid (Folvite Tab*) 2 mg PO DAILY [facility] Last Admin: 10/23/18 09:43 Dose: 2 mg Melatonin (Melatonin) 3 mg PO BEDTIME PRN PRN Reason: SLEEP Last Admin: 10/18/18 23:24 Dose: 3 mg Metoprolol Tartrate (Lopressor Tab*) 50 mg PO BID [facility] Last Admin: 10/23/18 09:43 Dose: 50 mg Miscellaneous (Ativan Pyxis Lai) 1 ea N/A .PYXIS LAI PRN PRN Reason: PER PROTOCOL Prednisone (Deltasone Tab*) 60 mg PO DAILY [facility] Stop: 08/06/19 09:01 Thiamine HCl (Vitamin B-1 Tab*) 200 mg PO DAILY [facility] Last Admin: 10/23/18 09:43 Dose: 200 mg Tiotropium [place] (Spiriva Cap.Inh*) 1 cap INH DAILY [facility] Last Admin: 10/23/18 07:37 Dose: 1 cap Trazodone HCl (Desyrel Tab*) 100 mg PO BEDTIME PRN PRN Reason: SLEEP Vital Signs - 8 hr 10/23/18 10/23/18 10/23/18 04:00 07:41 08:00 Temperature 97.3 F Pulse Rate 59 60 Respiratory 16 20 18 Rate Blood Pressure 141/77 (mmHg) O2 Sat by Pulse 92 96 92 Oximetry 10/23/18 08:08 Temperature 97.4 F Pulse Rate 64 Respiratory 19 Rate Blood Pressure 153/78 (mmHg) O2 Sat by Pulse 92 Oximetry Oxygen Devices in Use Now: Nasal Cannula Exam: Sitting out of bed, not in distress Heart: normal S1S2 Lung: decreased air entry on left side, right side clear Abdomen: soft, non tender Calves: non tender, supple Result Diagrams: 10/23/18 06:47 10/23/18 06:47 Microbiology and Other Data: Microbiology 10/20/18 17:45 Gram Stain - Final Sputum Expectorated Sputum Culture - Preliminary Pseudomonas Aeruginosa 10/08/18 23:41 Aerobic Blood Culture - Final Blood Venous No Growth Day 5 Anaerobic Blood Culture - Final No Growth Day 5 10/08/18 23:41 Aerobic Blood Culture - Final Blood Venous No Growth Day 5 Anaerobic Blood Culture - Final No Growth Day 5 10/09/18 12:15 Gram Stain - Final Sputum Sputum Culture - Final Haemophilus Influenzae Normal Felipa 10/09/18 05:05 Urine Culture - Final Urine No Growth (<1,000 CFU/mL) 10/09/18 05:00 Nasal Screen MRSA (PCR) - Final Nasal Mrsa Not Detected Diagnostic Imaging: CT chest shows circumferential pneumothorax on the left side EKG Data: Sinus Tachycardia Assess/Plan/Problems-Billing Impression: 67M PMH HTN, HLD, COPD, afib (h/o cardiovesion 2017) off Xarelto due to recent GI bleeds, ETOH use d/o, tob use, HFpEF (EF 40-45 % in 09/2018), hx of prostate ca s/p radiation tx, depression, and recently dx lung Ca at [place] presented in hypoxic resp failure 2/2 L PTX from recent lung bx done at [place], ETOH w/drawal. He was intubated with L chest tube placed on admission, stay c/b COPD exacerbation and H influenza infection, prolonged ICU stay, chest tube removed on 10/18, extubated on 10/16, back to floor on 10/21. He is currently oxygen dependent, at the meantime, we are getting physiotherapy to access his fitness for rehab vs home disposition. - Patient Problems (1) Acute hypoxemic respiratory failure Current Visit: Yes Status: Acute Code(s): J96.01 - ACUTE RESPIRATORY FAILURE WITH HYPOXIA SNOMED Code(s): 986594912 Comment: - 04/23 to L sided PTX, ongoing chronic hypercarbic chronic failure from severe COPD - intubated, chest tube removed on 10/18 - oralized steroid to pred 60mg, put on tapering schedule. (2) Heart failure with preserved ejection fraction Current Visit: Yes Status: Acute Code(s): I50.30 - UNSPECIFIED DIASTOLIC ( CONGESTIVE) HEART FAILURE SNOMED Code(s): 684875143 Comment: - EF 40-45% in September 2018 while intubated - Euvolemic at this time - ON BB, not on diuertic (3) Alcohol use disorder Current Visit: Yes Status: Acute Code(s): MBC7631 - SNOMED Code(s): 3033969 Comment: - Initially in acute withdrawal and encephalopathy, no recurrence - Rec'd high dose thiamine - Remains on PRN ativan for anxiety (4) Lung cancer Current Visit: Yes Status: Acute Code(s): C34.90 - MALIGNANT NEOPLASM OF UNSP PART OF UNSP BRONCHUS OR LUNG SNOMED Code(s): 337143860 Comment: - Newly dx by bx, has not met with oncology - plan for outpatient full evaluation including PET scan, MRI brain, gene test (5) Pneumothorax, left Current Visit: Yes Status: Acute Code(s): J93.9 - PNEUMOTHORAX, UNSPECIFIED SNOMED Code(s): 008334817 Comment: - 2 to procedure before this hospitlization - Clamped and removed 10/18 (6) JOSE NERIQUE (acute kidney injury) Current Visit: No Status: Acute Code(s): N17.9 - ACUTE KIDNEY FAILURE, UNSPECIFIED SNOMED Code(s): 05058907 Comment: - Resolved (7) Alcohol withdrawal delirium, acute, hyperactive Current Visit: No Status: Acute Priority: High Code(s): F10.231 - ALCOHOL DEPENDENCE WITH WITHDRAWAL DELIRIUM SNOMED Code(s): 9755895 Comment: - WAM protocol and noted fall risk - improving steadily but not fully recovered - hydrating aggressively. - check daily labs - repleting electrolytes (8) Alcoholism /alcohol abuse Current Visit: No Status: Acute Priority: High Code(s): F10.20 - ALCOHOL DEPENDENCE, UNCOMPLICATED SNOMED Code(s): 2948927 Comment: no signs of withdrawal (9) Atrial fibrillation Current Visit: No Status: Acute Code(s): I48.91 - UNSPECIFIED ATRIAL FIBRILLATION SNOMED Code(s): 04709040 Comment: - C/b fib with RVR in this stay - CHADS VASC 6, off Xarelto 2/2 to recent GIB - Continue on amio, BB, will restart low dose home diltiazem today for persistent tachycardia on movement, start 30 q 6, can convert to home dose (10) COPD exacerbation Current Visit: No Status: Acute Code(s): J44.1 - CHRONIC OBSTRUCTIVE PULMONARY DISEASE W (ACUTE) EXACERBATION SNOMED Code(s): 748197703 Comment: - Secondary to current events - Completed Doxy 10/17 for H.influenza tx - Continue bronchodilators, on IV methylpred 40, transition to oral pred 10/23 for likely prolonged taper (11) Depression Current Visit: No Status: Acute Priority: High Code(s): F32.9 - MAJOR DEPRESSIVE DISORDER, SINGLE EPISODE, UNSPECIFIED SNOMED Code(s): 58743043 Comment: - Correlated with ETOH use d/o - PATH and palliative consulted, declines pharmacotherapy, restart home trazodone (12) Lower GI bleed Current Visit: No Status: Acute Code(s): K92.2 - GASTROINTESTINAL HEMORRHAGE , UNSPECIFIED SNOMED Code(s): 32211531 Comment: - Hgb feel slightly to 11, small amount of blood in stool this morning. Anemia could be related to hydration as well. Asymptomatic. - GI consult pending. I have requested records regarding recent colonoscopy ( one month ago at [place] with reported finding of multiple benign polyps). - Hold xarelto. Continue IVF, maintain 2 large bore IVs. (13) Full code status Current Visit: No Status: Acute Code(s): Z78.9 - OTHER SPECIFIED HEALTH STATUS SNOMED Code(s): 958151353 Comment: (14) DVT prophylaxis Current Visit: No Status: Acute Code(s): NKG7203 - SNOMED Code(s): 917538412 Comment: - Start Lovenox (15) DNR (do not resuscitate) Current Visit: Yes Status: Acute Status and Disposition: Inpatient for now, 8/ PT note recommending extensive rehab prior to d/c Attestation Documenting Resident: Ayleen Joe Supervising Physician: Jade Stanton Attestation: This service has been performed in part by a resident under the direction of a teaching physician.I, Jade Stanton, performed the service, or was physically present during the critical, or lai portions of the service, furnished by the resident. I participated in the management of the patient.
[2018-10-23] MEDS: Diltiazem CD CAP* 180 MG PO SCH (10:58)
[2018-10-24] MEDS: Cyanocobalamin TAB* 500 MCG PO SCH (08:30)
[2018-10-24] MEDS: Amiodarone TAB* 200 MG PO SCH (08:30)
[2018-10-24] MEDS: Thiamine TAB* 100 MG TAB PO SCH (08:30)
[2018-10-24] MEDS: predniSONE TAB* 20 MG PO SCH (08:30)
[2018-10-24] MEDS: Famotidine TAB* 20 MG PO SCH (08:30)
[2018-10-24] MEDS: Metoprolol Tartrate TAB* 50 mg PO SCH ×2 (08:30→22:00)
[2018-10-24] MEDS: Diltiazem CD CAP* 180 MG PO SCH (08:30)
[2018-10-24] MEDS: Aspirin 81 mg CHEW TAB* 81 MG TAB.CHEW PO SCH (08:30)
[2018-10-24] MEDS: Folic Acid TAB* 1 MG PO SCH (08:30)
[2018-10-24] MEDS: Tiotropium CAPSULE (NF) 1 CAP/18 MCG CAP.INH INH SCH (08:36)
[2018-10-24 08:53] LABS: Hematocrit 29 % (42-52); Hemoglobin 9.7 g/dL (14.0-18.0); Mean Corpuscular HGB Conc 34 g/dL (31-36); Mean Corpuscular Hemoglobin 35 pg (27-31); Mean Corpuscular Volume 103 fL (80-94); Mean Platelet Volume 8.3 fL (7.4-10.4); Platelet Count 373 10^3/uL (150-450); Red Blood Count 2.83 10^6 /uL (4.18-5.48); Red Cell Distribution Width 21 % (10-15); White Blood Count 6.6 10^3/uL (3.5-10.8)
[2018-10-24 09:21] LABS: BUN/Creatinine Ratio 27.8 (8-20); Calcium 8.9 mg/dL (8.6-10.3); EGFR African American 93.1 (>60); Potassium 4.2 mmol/L (3.5-5.0)
[2018-10-24] MEDS: Enoxaparin(*) 40 MG/0.4 ML SYR SUBCUT SCH (10:43)
--- NOTE | 2018-10-24 15:53 | PN ---
<Ayleen Joe - Last Filed: 10/24/18 15:46> Subjective Date of Service: 10/24/18 Interval History: Pt oxygen saturation dropped to 70%+ after walking with physiotherapy this morning. He was otherwise well, no complain of chest pain, SOB pt managed to sleep well without BIPAP use overnight Pt is very keen for home, but explained to him that we probably need to prepare oxygen for him at home due to his chronic dyspnea. He claimed that [facility] but taken [facility] as insurance declined it. Objective Active Medications: Acetaminophen (Tylenol Adult Liq*) 650 mg PO Q6H PRN PRN Reason: PAIN Last Admin: 10/19/18 17:06 Dose: 650 mg Albuterol/Ipratropium (Duoneb (Albuterol 2.5 Mg/Ipratropium 0.5 Mg)) 1 neb INH Q4H PRN PRN Reason: SOB/WHEEZING Last Admin: 10/21/18 16:41 Dose: 1 neb Amiodarone HCl (Cordarone Tab*) 200 mg PO DAILY [facility] Last Admin: 10/24/18 08:30 Dose: 200 mg Aspirin (Aspirin 81 Mg Chew Tab*) 81 mg PO DAILY [facility] Last Admin: 10/24/18 08:30 Dose: 81 mg Cyanocobalamin (Vitamin B12 Tab*) 500 mcg PO DAILY [facility] Last Admin: 10/24/18 08:30 Dose: 500 mcg Device (Tiotropium Inhaler Device*) 1 each INH .USE w/ SPIRIVA CAPS [facility] Diltiazem HCl (Cardizem Cd Cap*) 180 mg PO DAILY [facility] Last Admin: 10/24/18 08:30 Dose: 180 mg Enoxaparin Sodium (Lovenox(*)) 40 mg SUBCUT Q24H [facility] Last Admin: 10/24/18 10:43 Dose: 40 mg Famotidine (Pepcid Tab*) 20 mg PO DAILY [facility] Last Admin: 10/24/18 08:30 Dose: 20 mg Folic Acid (Folvite Tab*) 2 mg PO DAILY [facility] Last Admin: 10/24/18 08:30 Dose: 2 mg Melatonin (Melatonin) 3 mg PO BEDTIME PRN PRN Reason: SLEEP Last Admin: 10/18/18 23:24 Dose: 3 mg Metoprolol Tartrate (Lopressor Tab*) 50 mg PO BID [facility] Last Admin: 10/24/18 08:30 Dose: 50 mg Miscellaneous (Ativan Pyxis Lai) 1 ea N/A .PYXIS LAI PRN PRN Reason: PER PROTOCOL Prednisone (Deltasone Tab*) 60 mg PO DAILY [facility] Stop: 10/25/18 09:01 Last Admin: 10/24/18 08:30 Dose: 60 mg Thiamine HCl (Vitamin B-1 Tab*) 200 mg PO DAILY [facility] Last Admin: 10/24/18 08:30 Dose: 200 mg Tiotropium [place] (Spiriva Cap.Inh*) 1 cap INH DAILY [facility] Last Admin: 10/24/18 08:36 Dose: 1 cap Trazodone HCl (Desyrel Tab*) 100 mg PO BEDTIME PRN PRN Reason: SLEEP Vital Signs - 8 hr 10/24/18 10/24/18 10/24/18 08:00 08:39 12:00 Temperature 97.3 F 97.5 F Pulse Rate 69 64 53 Respiratory 18 16 16 Rate Blood Pressure 136/70 98/55 (mmHg) O2 Sat by Pulse 93 93 98 Oximetry 10/24/18 10/24/18 15:21 15:29 Temperature 97.8 F Pulse Rate 56 Respiratory 22 Rate Blood Pressure 104/58 (mmHg) O2 Sat by Pulse 86 95 Oximetry Oxygen Devices in Use Now: Nasal Cannula Exam: Sitting out of bed, comfortable with InO2 2L/min Heart: normal S1, S2 Lung: bibasal crackles improved, mildly decreased air entry of right side Abdomen: soft, non tender LL: swelling up to bilateral calves Result Diagrams: 10/24/18 05:40 10/24/18 05:40 Microbiology and Other Data: Microbiology 10/20/18 17:45 Gram Stain - Final Sputum Expectorated Sputum Culture - Preliminary Pseudomonas Aeruginosa 10/08/18 23:41 Aerobic Blood Culture - Final Blood Venous No Growth Day 5 Anaerobic Blood Culture - Final No Growth Day 5 10/08/18 23:41 Aerobic Blood Culture - Final Blood Venous No Growth Day 5 Anaerobic Blood Culture - Final No Growth Day 5 10/09/18 12:15 Gram Stain - Final Sputum Sputum Culture - Final Haemophilus Influenzae Normal Felipa 10/09/18 05:05 Urine Culture - Final Urine No Growth (<1,000 CFU/mL) 10/09/18 05:00 Nasal Screen MRSA (PCR) - Final Nasal Mrsa Not Detected Diagnostic Imaging: CT chest shows circumferential pneumothorax on the left side EKG Data: Sinus Tachycardia Assess/Plan/Problems-Billing Impression: 67M PMH HTN, HLD, COPD, afib (h/o cardiovesion 2017) off Xarelto due to recent GI bleeds, ETOH use d/o, tob use, HFpEF (EF 40-45 % in 09/2018), hx of prostate ca s/p radiation tx, depression, and recently dx lung Ca at [place] presented in hypoxic resp failure 2/2 L PTX from recent lung bx done at [place], ETOH w/drawal. He was intubated with L chest tube placed on admission, stay c/b COPD exacerbation and H influenza infection, prolonged ICU stay, chest tube removed on 10/18, extubated on 10/16, back to floor on 10/21. He is currently oxygen dependent, at the meantime, we are getting physiotherapy to access his fitness for rehab vs home disposition. - Patient Problems (1) Acute hypoxemic respiratory failure Current Visit: Yes Status: Acute Code(s): J96.01 - ACUTE RESPIRATORY FAILURE WITH HYPOXIA SNOMED Code(s): 808558934 Comment: - 2/2 to L sided PTX, ongoing chronic hypercarbic chronic failure from severe COPD - intubated, chest tube removed on 10/18 - oralized steroid to pred 60mg, put on tapering schedule. (2) Heart failure with preserved ejection fraction Current Visit: Yes Status: Acute Code(s): I50.30 - UNSPECIFIED DIASTOLIC ( CONGESTIVE) HEART FAILURE SNOMED Code(s): 331007168 Comment: - EF 40-45% in September 2018 while intubated - Euvolemic at this time - ON BB, not on diuertic (3) Alcohol use disorder Current Visit: Yes Status: Acute Code(s): RUA7519 - SNOMED Code(s): 5715583 Comment: - Initially in acute withdrawal and encephalopathy, no recurrence - Rec'd high dose thiamine - Remains on PRN ativan for anxiety (4) Lung cancer Current Visit: Yes Status: Acute Code(s): C34.90 - MALIGNANT NEOPLASM OF UNSP PART OF UNSP BRONCHUS OR LUNG SNOMED Code(s): 793612664 Comment: - Newly dx by bx, has not met with oncology - plan for outpatient full evaluation including PET scan, MRI brain, gene test (5) Pneumothorax, left Current Visit: Yes Status: Acute Code(s): J93.9 - PNEUMOTHORAX, UNSPECIFIED SNOMED Code(s): 086767984 Comment: - 2/2 to procedure before this hospitlization - Clamped and removed 10/18 (6) JOSE ENRIQUE (acute kidney injury) Current Visit: No Status: Acute Code(s): N17.9 - ACUTE KIDNEY FAILURE, UNSPECIFIED SNOMED Code(s): 36654588 Comment: - Resolved (7) Alcohol withdrawal delirium, acute, hyperactive Current Visit: No Status: Acute Priority: High Code(s): F10.231 - ALCOHOL DEPENDENCE WITH WITHDRAWAL DELIRIUM SNOMED Code(s): 7460510 Comment: - WAM protocol and noted fall risk - improving steadily but not fully recovered - hydrating aggressively. - check daily labs - repleting electrolytes (8) Alcoholism /alcohol abuse Current Visit: No Status: Acute Priority: High Code(s): F10.20 - ALCOHOL DEPENDENCE, UNCOMPLICATED SNOMED Code(s): 1851601 Comment: no signs of withdrawal (9) Atrial fibrillation Current Visit: No Status: Acute Code(s): I48.91 - UNSPECIFIED ATRIAL FIBRILLATION SNOMED Code(s): 44415775 Comment: - C/b fib with RVR in this stay - CHADS VASC 6, off Xarelto 2/ to recent GIB - Continue on amio, BB, will restart low dose home diltiazem today for persistent tachycardia on movement, start 30 q 6, can convert to home dose (10) COPD exacerbation Current Visit: No Status: Acute Code(s): J44.1 - CHRONIC OBSTRUCTIVE PULMONARY DISEASE W (ACUTE) EXACERBATION SNOMED Code(s): 792628547 Comment: - Secondary to current events - Completed Doxy 10/17 for H.influenza tx - Continue bronchodilators, on IV methylpred 40, transition to oral pred 10/23 for likely prolonged taper (11) Depression Current Visit: No Status: Acute Priority: High Code(s): F32.9 - MAJOR DEPRESSIVE DISORDER, SINGLE EPISODE, UNSPECIFIED SNOMED Code(s): 18547649 Comment: - Correlated with ETOH use d/o - PATH and palliative consulted, declines pharmacotherapy, restart home trazodone (12) Lower GI bleed Current Visit: No Status: Acute Code(s): K92.2 - GASTROINTESTINAL HEMORRHAGE , UNSPECIFIED SNOMED Code(s): 81485882 Comment: - Hgb feel slightly to 11, small amount of blood in stool this morning. Anemia could be related to hydration as well. Asymptomatic. - GI consult pending. I have requested records regarding recent colonoscopy ( one month ago at [place] with reported finding of multiple benign polyps). - Hold xarelto. Continue IVF, maintain 2 large bore IVs. (13) Full code status Current Visit: No Status: Acute Code(s): Z78.9 - OTHER SPECIFIED HEALTH STATUS SNOMED Code(s): 929422345 Comment: (14) DVT prophylaxis Current Visit: No Status: Acute Code(s): RBM5714 - SNOMED Code(s): 736923819 Comment: - Start Lovenox (15) DNR (do not resuscitate) Current Visit: Yes Status: Acute Status and Disposition: Inpatient for now, 8/2 PT note recommending extensive rehab prior to d/c <Judith Mulligan - Last Filed: 10/24/18 17:28> Objective Active Medications: Acetaminophen (Tylenol Adult Liq*) 650 mg PO Q6H PRN PRN Reason: PAIN Last Admin: 10/19/18 17:06 Dose: 650 mg Albuterol/Ipratropium (Duoneb (Albuterol 2.5 Mg/Ipratropium 0.5 Mg)) 1 neb INH Q4H PRN PRN Reason: SOB/WHEEZING Last Admin: 10/21/18 16:41 Dose: 1 neb Amiodarone HCl (Cordarone Tab*) 200 mg PO DAILY [facility] Last Admin: 10/24/18 08:30 Dose: 200 mg Aspirin (Aspirin 81 Mg Chew Tab*) 81 mg PO DAILY [facility] Last Admin: 10/24/18 08:30 Dose: 81 mg Cyanocobalamin (Vitamin B12 Tab*) 500 mcg PO DAILY [facility] Last Admin: 10/24/18 08:30 Dose: 500 mcg Device (Tiotropium Inhaler Device*) 1 each INH .USE w/ SPIRIVA CAPS [facility] Diltiazem HCl (Cardizem Cd Cap*) 180 mg PO DAILY [facility] Last Admin: 10/24/18 08:30 Dose: 180 mg Enoxaparin Sodium (Lovenox(*)) 40 mg SUBCUT Q24H [facility] Last Admin: 10/24/18 10:43 Dose: 40 mg Famotidine (Pepcid Tab*) 20 mg PO DAILY [facility] Last Admin: 10/24/18 08:30 Dose: 20 mg Folic Acid (Folvite Tab*) 2 mg PO DAILY [facility] Last Admin: 10/24/18 08:30 Dose: 2 mg Melatonin (Melatonin) 3 mg PO BEDTIME PRN PRN Reason: SLEEP Last Admin: 10/18/18 23:24 Dose: 3 mg Metoprolol Tartrate (Lopressor Tab*) 50 mg PO BID [facility] Last Admin: 10/24/18 08:30 Dose: 50 mg Miscellaneous (Ativan Pyxis Lai) 1 ea N/A .PYXIS LAI PRN PRN Reason: PER PROTOCOL Prednisone (Deltasone Tab*) 60 mg PO DAILY [facility] Stop: 10/25/18 09:01 Last Admin: 10/24/18 08:30 Dose: 60 mg Thiamine HCl (Vitamin B-1 Tab*) 200 mg PO DAILY [facility] Last Admin: 10/24/18 08:30 Dose: 200 mg Tiotropium [place] (Spiriva Cap.Inh*) 1 cap INH DAILY [facility] Last Admin: 10/24/18 08:36 Dose: 1 cap Trazodone HCl (Desyrel Tab*) 100 mg PO BEDTIME PRN PRN Reason: SLEEP Vital Signs - 8 hr 10/24/18 10/24/18 10/24/18 12:00 15:21 15:29 Temperature 97.5 F 97.8 F Pulse Rate 53 56 Respiratory 16 22 Rate Blood Pressure 98/55 104/58 (mmHg) O2 Sat by Pulse 98 86 95 Oximetry Result Diagrams: 10/24/18 05:40 10/24/18 05:40 Assess/Plan/Problems-Billing Assessment: Attestation Documenting Resident: Heath Supervising Physician: Ese Attending/Supervising Physician Comment: This is a 67 year old man with history of recent lung biopsy complicated by pneumonthorax, for which he was admitted to our facility. Course has been complicated by alcohol withdrawal, COPD exacerbation, afib, and ongoing hypoxic respiratory failure. This morning, he felt good and is anxious to go home. STR is recommended but he adamantly refuses it. He tells me that he was supposed to have O2 at home but it was not covered by insurance. This suggests to me that he has had chronic hypoxic respiratory failure for some time, and his hypoxia may be near his baseline. He desaturated with PT this morning. Case management looking in to [facility]. Anticipate discharge within the next 48 hours. Attestation: This service has been performed in part by a resident under the direction of a teaching physician.I, Ese, performed the service, or was physically present during the critical, or lai portions of the service, furnished by the resident. I participated in the management of the patient.
[2018-10-25] MEDS: Tiotropium CAPSULE (NF) 1 CAP/18 MCG CAP.INH INH SCH (08:28)
[2018-10-25] MEDS: Diltiazem CD CAP* 180 MG PO SCH (08:39)
[2018-10-25] MEDS: Metoprolol Tartrate TAB* 50 mg PO SCH ×2 (08:39→19:47)
[2018-10-25] MEDS: predniSONE TAB* 20 MG PO SCH (08:39)
[2018-10-25] MEDS: Aspirin 81 mg CHEW TAB* 81 MG TAB.CHEW PO SCH (08:39)
[2018-10-25] MEDS: Amiodarone TAB* 200 MG PO SCH (08:39)
[2018-10-25] MEDS: Famotidine TAB* 20 MG PO SCH (08:39)
[2018-10-25] MEDS: Enoxaparin(*) 40 MG/0.4 ML SYR SUBCUT SCH (08:40)
[2018-10-25] MEDS: Thiamine TAB* 100 MG TAB PO SCH (08:40)
[2018-10-25] MEDS: Cyanocobalamin TAB* 500 MCG PO SCH (08:40)
[2018-10-25] MEDS: Folic Acid TAB* 1 MG PO SCH (08:40)
--- NOTE | 2018-10-25 18:44 | PN ---
<Ayleen Joe - Last Filed: 10/25/18 18:38> Subjective Date of Service: 10/25/18 Interval History: Patient was able to walk with physiotherapy in the hallway, noted saturation drop yesterday. He was able to transfer himself to chair, or move to restroom by himself overnight. Disposition issue was discussed with case resource manager, we are working to get portal oxygen for him. Objective Active Medications: Acetaminophen (Tylenol Adult Liq*) 650 mg PO Q6H PRN PRN Reason: PAIN Last Admin: 10/19/18 17:06 Dose: 650 mg Albuterol/Ipratropium (Duoneb (Albuterol 2.5 Mg/Ipratropium 0.5 Mg)) 1 neb INH Q4H PRN PRN Reason: SOB/WHEEZING Last Admin: 10/21/18 16:41 Dose: 1 neb Amiodarone HCl (Cordarone Tab*) 200 mg PO DAILY [facility] Last Admin: 10/25/18 08:39 Dose: 200 mg Aspirin (Aspirin 81 Mg Chew Tab*) 81 mg PO DAILY [facility] Last Admin: 10/25/18 08:39 Dose: 81 mg Cyanocobalamin (Vitamin B12 Tab*) 500 mcg PO DAILY [facility] Last Admin: 10/25/18 08:40 Dose: 500 mcg Device (Tiotropium Inhaler Device*) 1 each INH .USE w/ SPIRIVA CAPS [facility] Diltiazem HCl (Cardizem Cd Cap*) 180 mg PO DAILY [facility] Last Admin: 10/25/18 08:39 Dose: 180 mg Enoxaparin Sodium (Lovenox(*)) 40 mg SUBCUT Q24H [facility] Last Admin: 10/25/18 08:40 Dose: 40 mg Famotidine (Pepcid Tab*) 20 mg PO DAILY [facility] Last Admin: 10/25/18 08:39 Dose: 20 mg Folic Acid (Folvite Tab*) 2 mg PO DAILY [facility] Last Admin: 10/25/18 08:40 Dose: 2 mg Melatonin (Melatonin) 3 mg PO BEDTIME PRN PRN Reason: SLEEP Last Admin: 10/18/18 23:24 Dose: 3 mg Metoprolol Tartrate (Lopressor Tab*) 50 mg PO BID [facility] Last Admin: 10/25/18 08:39 Dose: 50 mg Miscellaneous (Ativan Pyxis Lai) 1 ea N/A .PYXIS LAI PRN PRN Reason: PER PROTOCOL Thiamine HCl (Vitamin B-1 Tab*) 200 mg PO DAILY [facility] Last Admin: 10/25/18 08:40 Dose: 200 mg Tiotropium [place] (Spiriva Cap.Inh*) 1 cap INH DAILY [facility] Last Admin: 10/25/18 08:28 Dose: 1 cap Trazodone HCl (Desyrel Tab*) 100 mg PO BEDTIME PRN PRN Reason: SLEEP Vital Signs - 8 hr 10/25/18 10/25/18 12:00 16:00 Temperature 98.2 F 97.4 F Pulse Rate 56 57 Respiratory 16 16 Rate Blood Pressure 120/69 113/57 (mmHg) O2 Sat by Pulse 97 97 Oximetry Oxygen Devices in Use Now: Nasal Cannula Exam: well, alert, oriented x4 Heart normal S1S2 Lung clear Abdomen soft non tender LL swelling improving Result Diagrams: 10/24/18 05:40 10/24/18 05:40 Microbiology and Other Data: Microbiology 10/20/18 17:45 Gram Stain - Final Sputum Expectorated Sputum Culture - Preliminary Pseudomonas Aeruginosa 10/08/18 23:41 Aerobic Blood Culture - Final Blood Venous No Growth Day 5 Anaerobic Blood Culture - Final No Growth Day 5 10/08/18 23:41 Aerobic Blood Culture - Final Blood Venous No Growth Day 5 Anaerobic Blood Culture - Final No Growth Day 5 10/09/18 12:15 Gram Stain - Final Sputum Sputum Culture - Final Haemophilus Influenzae Normal Felipa 10/09/18 05:05 Urine Culture - Final Urine No Growth (<1,000 CFU/mL) 10/09/18 05:00 Nasal Screen MRSA (PCR) - Final Nasal Mrsa Not Detected Diagnostic Imaging: CT chest shows circumferential pneumothorax on the left side EKG Data: Sinus Tachycardia Assess/Plan/Problems-Billing Assessment: 67M PMH HTN, HLD, COPD, afib (h/o cardiovesion 2017) off Xarelto due to recent GI bleeds, ETOH use d/o, tob use, HFpEF (EF 40-45 % in 09/2018), hx of prostate ca s/p radiation tx, depression, and recently dx lung Ca [facility] presented in hypoxic resp failure 2/2 L PTX from recent lung bx done at [facility], ETOH w/drawal. He was intubated with L chest tube placed on admission, stay c/b COPD exacerbation and H influenza infection, prolonged ICU stay, chest tube removed on 10/18, extubated on 10/16, back to floor on 10/21. He is currently oxygen dependent, we are trying to set him up with home O2 and send him home. - Patient Problems (1) Acute hypoxemic respiratory failure Status: Acute Code(s): J96.01 - ACUTE RESPIRATORY FAILURE WITH HYPOXIA SNOMED Code(s): 065167670 Comment: - 2/2 to L sided PTX, ongoing chronic hypercarbic chronic failure from severe COPD - intubated, chest tube removed on 10/18 - oralized steroid to pred 60mg, now on tapering schedule. (2) Heart failure with preserved ejection fraction Status: Acute Code(s): I50.30 - UNSPECIFIED DIASTOLIC (CONGESTIVE) HEART FAILURE SNOMED Code(s): 864630948 Comment: - EF 40-45% in September 2018 while intubated - Euvolemic at this time - ON BB, not on diuertic (3) Lung cancer Status: Acute Code(s): C34.90 - MALIGNANT NEOPLASM OF UNSP PART OF UNSP BRONCHUS OR LUNG SNOMED Code(s): 018334895 Comment: - Newly dx by bx, has not met with oncology - plan for outpatient full evaluation including PET scan, MRI brain, gene test (4) Pneumothorax, left Status: Acute Code(s): J93.9 - PNEUMOTHORAX, UNSPECIFIED SNOMED Code(s): 397844187 Comment: - 2/2 to procedure before this hospitlization - Clamped and removed 10/18 (5) Alcohol use disorder Status: Acute Code(s): OHT4858 - SNOMED Code(s): 1661418 Comment: - Initially in acute withdrawal and encephalopathy, no recurrence - Rec'd high dose thiamine - Remains on PRN ativan for anxiety (6) JOSE ENRIQUE (acute kidney injury) Status: Acute Code(s): N17.9 - ACUTE KIDNEY FAILURE, UNSPECIFIED SNOMED Code (s): 55327855 Comment: - Resolved (7) Alcohol withdrawal delirium, acute, hyperactive Status: Acute Priority: High Code(s): F10.231 - ALCOHOL DEPENDENCE WITH WITHDRAWAL DELIRIUM SNOMED Code(s): 0245352 Comment: - WAM protocol and noted fall risk - improving steadily but not fully recovered - hydrating aggressively. - check daily labs - repleting electrolytes (8) Alcoholism /alcohol abuse Status: Acute Priority: High Code(s): F10.20 - ALCOHOL DEPENDENCE, UNCOMPLICATED SNOMED Code(s): 8860264 Comment: no signs of withdrawal (9) Atrial fibrillation Status: Acute Code(s): I48.91 - UNSPECIFIED ATRIAL FIBRILLATION SNOMED Code( s): 38990193 Comment: - C/b fib with RVR in this stay - CHADS VASC 6, off Xarelto 2/ to recent GIB - Continue on amio, BB, will restart low dose home diltiazem today for persistent tachycardia on movement, start 30 q 6, can convert to home dose (10) COPD exacerbation Status: Acute Code(s): J44.1 - CHRONIC OBSTRUCTIVE PULMONARY DISEASE W (ACUTE ) EXACERBATION SNOMED Code(s): 482350258 Comment: - Secondary to current events - Completed Doxy 10/17 for H.influenza tx - Continue bronchodilators, on IV methylpred 40, transition to oral pred 10/23 for likely prolonged taper (11) Depression Status: Acute Priority: High Code(s): F32.9 - MAJOR DEPRESSIVE DISORDER, SINGLE EPISODE, UNSPECIFIED SNOMED Code(s): 23618577 Comment: - Correlated with ETOH use d/o - PATH and palliative consulted, declines pharmacotherapy, restart home trazodone (12) Lower GI bleed Status: Acute Code(s): K92.2 - GASTROINTESTINAL HEMORRHAGE, UNSPECIFIED SNOMED Code(s): 14853561 Comment: - Hgb feel slightly to 11, small amount of blood in stool this morning. Anemia could be related to hydration as well. Asymptomatic. - GI consult pending. I have requested records regarding recent colonoscopy ( one month ago at [place] with reported finding of multiple benign polyps). - Hold xarelto. Continue IVF, maintain 2 large bore IVs. (13) Full code status Status: Acute Code(s): Z78.9 - OTHER SPECIFIED HEALTH STATUS SNOMED Code(s) : 848033437 Comment: (14) DVT prophylaxis Status: Acute Code(s): LFU7521 - SNOMED Code(s): 441467677 Comment: - Start Lovenox (15) DNR (do not resuscitate) Status: Acute Status and Disposition: Inpatient for now, 8/2 PT note recommending extensive rehab prior to d/c Attestation Documenting Resident: Ayleen Joe Supervising Physician: Bella Mulligan Attestation: This service has been performed in part by a resident under the direction of a teaching physician.I, Bella Mulligan, performed the service, or was physically present during the critical, or lai portions of the service, furnished by the resident. I participated in the management of the patient. <Judith Mulligan - Last Filed: 10/27/18 13:44> Objective Active Medications: Acetaminophen (Tylenol Adult Liq*) 650 mg PO Q6H PRN PRN Reason: PAIN Last Admin: 10/19/18 17:06 Dose: 650 mg Albuterol/Ipratropium (Duoneb (Albuterol 2.5 Mg/Ipratropium 0.5 Mg)) 1 neb INH Q4H PRN PRN Reason: SOB/WHEEZING Last Admin: 10/21/18 16:41 Dose: 1 neb Amiodarone HCl (Cordarone Tab*) 200 mg PO DAILY [facility] Last Admin: 10/25/18 08:39 Dose: 200 mg Aspirin (Aspirin 81 Mg Chew Tab*) 81 mg PO DAILY [facility] Last Admin: 10/25/18 08:39 Dose: 81 mg Cyanocobalamin (Vitamin B12 Tab*) 500 mcg PO DAILY [facility] Last Admin: 10/25/18 08:40 Dose: 500 mcg Device (Tiotropium Inhaler Device*) 1 each INH .USE w/ SPIRIVA CAPS [facility] Diltiazem HCl (Cardizem Cd Cap*) 180 mg PO DAILY [facility] Last Admin: 10/25/18 08:39 Dose: 180 mg Enoxaparin Sodium (Lovenox(*)) 40 mg SUBCUT Q24H [facility] Last Admin: 10/25/18 08:40 Dose: 40 mg Famotidine (Pepcid Tab*) 20 mg PO DAILY [facility] Last Admin: 10/25/18 08:39 Dose: 20 mg Folic Acid (Folvite Tab*) 2 mg PO DAILY [facility] Last Admin: 10/25/18 08:40 Dose: 2 mg Melatonin (Melatonin) 3 mg PO BEDTIME PRN PRN Reason: SLEEP Last Admin: 10/18/18 23:24 Dose: 3 mg Metoprolol Tartrate (Lopressor Tab*) 50 mg PO BID [facility] Last Admin: 10/25/18 19:47 Dose: 50 mg Miscellaneous (Ativan Pyxis Lai) 1 ea N/A .PYXIS LAI PRN PRN Reason: PER PROTOCOL Prednisone (Deltasone Tab*) 40 mg PO DAILY [facility] Stop: 10/27/18 09:01 Thiamine HCl (Vitamin B-1 Tab*) 200 mg PO DAILY [facility] Last Admin: 10/25/18 08:40 Dose: 200 mg Tiotropium [place] (Spiriva Cap.Inh*) 1 cap INH DAILY [facility] Last Admin: 10/25/18 08:28 Dose: 1 cap Trazodone HCl (Desyrel Tab*) 100 mg PO BEDTIME PRN PRN Reason: SLEEP Vital Signs - 8 hr 10/25/18 16:00 Temperature 97.4 F Pulse Rate 57 Respiratory 16 Rate Blood Pressure 113/57 (mmHg) O2 Sat by Pulse 97 Oximetry Result Diagrams: 10/24/18 05:40 10/24/18 05:40 Assess/Plan/Problems-Billing Assessment: Attestation Attending/Supervising Physician Comment: O2 requirement down to 2L; I suspect this is his baseline. Case management [facility]; likely for tomorrow. He does not understand who he is going to follow up with for oncology--will need to discuss this with Betty Saunders. We have recommended STR for dispo but he adamantly declines; says he will not go to rehab. I expressed my concerns about him being at home in his trailer and he understands and prefers the risk over going to rehab. His was present for this conversation. Prednisone continues to taper with improved oxygenation and decreased symptoms; xarelto continues to be on hold. HR controlled on cardizem.
[2018-10-25] MEDS ORDERED: Al Hydrox/Mg Hydrox/Simet LIQ* 30 ML UDC PO ONE (20:45)
--- NOTE | 2018-10-26 07:30 | PN ---
Subjective Date of Service: 10/26/18 Interval History: Overnight, patient had one episode of tachycardia HR around 130bpm, no chest pain, no SOB related, last half an hour or so, rate gets controlled Reviewed telemetry, AF with RVR, PVC, PAC noted during tachycardia. Another episode of sinus tachycardia with PAC recurred this morning when we saw the patient, HR 140, BP 120s+, one dose of iv metoprolol 5mg given to patient. Patient is hurrying back home and gets dressed early in the morning. He refused further stay to monitor his HR, wanted AMA and verbalized that "I will never get better and he will anyway". Talked to him in length, he verbalized he would rather at home. Objective Active Medications: Acetaminophen (Tylenol Adult Liq*) 650 mg PO Q6H PRN PRN Reason: PAIN Last Admin: 10/19/18 17:06 Dose: 650 mg Albuterol/Ipratropium (Duoneb (Albuterol 2.5 Mg/Ipratropium 0.5 Mg)) 1 neb INH Q4H PRN PRN Reason: SOB/WHEEZING Last Admin: 10/21/18 16:41 Dose: 1 neb Amiodarone HCl (Cordarone Tab*) 200 mg PO DAILY [facility] Last Admin: 10/25/18 08:39 Dose: 200 mg Aspirin (Aspirin 81 Mg Chew Tab*) 81 mg PO DAILY [facility] Last Admin: 10/25/18 08:39 Dose: 81 mg Cyanocobalamin (Vitamin B12 Tab*) 500 mcg PO DAILY [facility] Last Admin: 10/25/18 08:40 Dose: 500 mcg Device (Tiotropium Inhaler Device*) 1 each INH .USE w/ SPIRIVA CAPS [facility] Diltiazem HCl (Cardizem Cd Cap*) 180 mg PO DAILY [facility] Last Admin: 10/25/18 08:39 Dose: 180 mg Enoxaparin Sodium (Lovenox(*)) 40 mg SUBCUT Q24H [facility] Last Admin: 10/25/18 08:40 Dose: 40 mg Famotidine (Pepcid Tab*) 20 mg PO DAILY [facility] Last Admin: 10/25/18 08:39 Dose: 20 mg Folic Acid (Folvite Tab*) 2 mg PO DAILY [facility] Last Admin: 10/25/18 08:40 Dose: 2 mg Melatonin (Melatonin) 3 mg PO BEDTIME PRN PRN Reason: SLEEP Last Admin: 10/18/18 23:24 Dose: 3 mg Metoprolol Tartrate (Lopressor Tab*) 50 mg PO BID [facility] Last Admin: 10/25/18 19:47 Dose: 50 mg Miscellaneous (Ativan Pyxis Lai) 1 ea N/A .PYXIS LAI PRN PRN Reason: PER PROTOCOL Prednisone (Deltasone Tab*) 40 mg PO DAILY [facility] Stop: 10/27/18 09:01 Thiamine HCl (Vitamin B-1 Tab*) 200 mg PO DAILY [facility] Last Admin: 10/25/18 08:40 Dose: 200 mg Tiotropium [place] (Spiriva Cap.Inh*) 1 cap INH DAILY [facility] Last Admin: 10/25/18 08:28 Dose: 1 cap Trazodone HCl (Desyrel Tab*) 100 mg PO BEDTIME PRN PRN Reason: SLEEP Last Admin: 10/25/18 22:11 Dose: 100 mg Vital Signs - 8 hr 10/25/18 10/26/18 10/26/18 23:33 00:00 03:13 Temperature 97.7 F Pulse Rate 61 62 Respiratory 18 20 Rate Blood Pressure 116/60 (mmHg) O2 Sat by Pulse 95 95 95 Oximetry Oxygen Devices in Use Now: Nasal Cannula Exam: Sitting on chair, calm Heart normal S1S2 Lung bibasal creps Abdomen soft Walking with a walker, steady Result Diagrams: 10/24/18 05:40 10/24/18 05:40 Microbiology and Other Data: Microbiology 10/20/18 17:45 Gram Stain - Final Sputum Expectorated Sputum Culture - Preliminary Pseudomonas Aeruginosa 10/08/18 23:41 Aerobic Blood Culture - Final Blood Venous No Growth Day 5 Anaerobic Blood Culture - Final No Growth Day 5 10/08/18 23:41 Aerobic Blood Culture - Final Blood Venous No Growth Day 5 Anaerobic Blood Culture - Final No Growth Day 5 10/09/18 12:15 Gram Stain - Final Sputum Sputum Culture - Final Haemophilus Influenzae Normal Felipa 10/09/18 05:05 Urine Culture - Final Urine No Growth (<1,000 CFU/mL) 10/09/18 05:00 Nasal Screen MRSA (PCR) - Final Nasal Mrsa Not Detected Diagnostic Imaging: CT chest shows circumferential pneumothorax on the left side EKG Data: Sinus Tachycardia Assess/Plan/Problems-Billing Assessment: 67 y/o M came in initially for Acute respiratory failure due to left side large pneumothroax after lung biopsy requiring ICU stay and chest tube in the setting newly dx lung cancer , hospital course c/b acute exacerbation of COPD, AF with RVR, HFpEF, JOSE ENRIQUE, alcohol withdrawal,which all improving after treatment. - Patient Problems (1) Acute hypoxemic respiratory failure Status: Acute Code(s): J96.01 - ACUTE RESPIRATORY FAILURE WITH HYPOXIA SNOMED Code(s): 399475178 Comment: - 2/2 to L sided PTX, ongoing chronic hypercarbic chronic failure from severe COPD - intubated, chest tube removed on 10/18 - oralized steroid to pred 60mg, now on tapering schedule, will need pred 40mg for another 1 day, 20mg for another 2 days (2) Heart failure with preserved ejection fraction Status: Acute Code(s): I50.30 - UNSPECIFIED DIASTOLIC (CONGESTIVE) HEART FAILURE SNOMED Code(s): 357824474 Comment: - EF 40-45% in September 2018 while intubated - Euvolemic at this time - ON BB, not on diuertic (3) Lung cancer Status: Acute Code(s): C34.90 - MALIGNANT NEOPLASM OF UNSP PART OF UNSP BRONCHUS OR LUNG SNOMED Code(s): 442686436 Comment: - Newly dx by bx, has not met with oncology - plan for outpatient full evaluation including PET scan, MRI brain, gene test (4) COPD exacerbation Status: Acute Code(s): J44.1 - CHRONIC OBSTRUCTIVE PULMONARY DISEASE W (ACUTE ) EXACERBATION SNOMED Code(s): 842277248 Comment: - Secondary to current events - Completed Doxy 10/17 for H.influenza tx - Continue bronchodilators, on IV methylpred 40, transition to oral pred 10/23. currently on taper schedule - he would need home O2 therapy on discharge (5) Atrial fibrillation Status: Acute Code(s): I48.91 - UNSPECIFIED ATRIAL FIBRILLATION SNOMED Code( s): 54820126 Comment: - C/b fib with RVR in this stay - CHADS VASC 6, off Xarelto 2/2 to recent GIB - currently on metoprolo, diatiazem, dose was titrated up this adm, but still parosymal tachycardia was noted on discharge. (6) Pneumothorax, left Status: Acute Code(s): J93.9 - PNEUMOTHORAX, UNSPECIFIED SNOMED Code(s): 003312124 Comment: - 2/2 to procedure before this hospitlization - Clamped and removed 10/18 (7) Alcohol use disorder Status: Acute Code(s): GZZ0579 - SNOMED Code(s): 9450694 Comment: - Initially in acute withdrawal and encephalopathy, no recurrence - continue high dose thiamine - Remains on PRN ativan for anxiety (8) JOSE ENRIQUE (acute kidney injury) Status: Acute Code(s): N17.9 - ACUTE KIDNEY FAILURE, UNSPECIFIED SNOMED Code (s): 32760679 Comment: - Resolved (9) Alcoholism /alcohol abuse Status: Acute Priority: High Code(s): F10.20 - ALCOHOL DEPENDENCE, UNCOMPLICATED SNOMED Code(s): 9041088 Comment: no signs of withdrawal (10) Depression Status: Acute Priority: High Code(s): F32.9 - MAJOR DEPRESSIVE DISORDER, SINGLE EPISODE, UNSPECIFIED SNOMED Code(s): 90659268 Comment: - Correlated with ETOH use d/o - PATH and palliative consulted, declines pharmacotherapy, restart home trazodone (11) Full code status Status: Acute Code(s): Z78.9 - OTHER SPECIFIED HEALTH STATUS SNOMED Code(s) : 987817672 Comment: (12) DVT prophylaxis Status: Acute Code(s): RLY8719 - SNOMED Code(s): 268143094 Comment: - Start Lovenox (13) DNR (do not resuscitate) Status: Acute Status and Disposition: Will go back home with portable oxygen. Attestation Documenting Resident: Ayleen Joe Supervising Physician: Bella Mulligan Attestation: This service has been performed in part by a resident under the direction of a teaching physician.I, Bella Mulligan, performed the service, or was physically present during the critical, or lai portions of the service, furnished by the resident. I participated in the management of the patient.
[2018-10-26] MEDS: Tiotropium CAPSULE (NF) 1 CAP/18 MCG CAP.INH INH SCH (08:20)
[2018-10-26] MEDS: Folic Acid TAB* 1 MG PO SCH (08:27)
[2018-10-26] MEDS: Thiamine TAB* 100 MG TAB PO SCH (08:28)
[2018-10-26] MEDS: Aspirin 81 mg CHEW TAB* 81 MG TAB.CHEW PO SCH (08:30)
[2018-10-26] MEDS: Cyanocobalamin TAB* 500 MCG PO SCH (08:30)
[2018-10-26] MEDS: Metoprolol Tartrate TAB* 50 mg PO SCH (08:31)
[2018-10-26] MEDS: Amiodarone TAB* 200 MG PO SCH (08:32)
[2018-10-26] MEDS: Diltiazem CD CAP* 180 MG PO SCH (08:32)
[2018-10-26] MEDS: Famotidine TAB* 20 MG PO SCH (08:32)
[2018-10-26] MEDS: Enoxaparin(*) 40 MG/0.4 ML SYR SUBCUT SCH (08:33)
[2018-10-26] MEDS ORDERED: predniSONE TAB* 20 MG PO SCH (09:00)
[2018-10-26] MEDS ORDERED: Metoprolol Tartrate TAB* 50 mg PO ONE (10:14)
[2018-10-26] MEDS ORDERED: Metoprolol Tartrate IV* 1 MG/ML 5 ML VIAL IV ONE (10:32)
[2018-10-26 10:35] VITALS: BP 128/90
--- NOTE | 2018-10-28 09:20 | DS ---
CC: Betty Saunders NP; Dr. Meek* DISCHARGE SUMMARY: DATE OF ADMISSION: 10/09/18 DATE OF DISCHARGE: 10/26/18 PRIMARY CARE PHYSICIAN: Betty Saunders NP. ONCOLOGIST: Dr. Meek. PRINCIPAL DISCHARGE DIAGNOSES: 1. Vent-dependent respiratory failure. 2. Iatrogenic pneumothorax. 3. Chronic obstructive pulmonary disease exacerbation. 4. Acute on chronic hypoxic respiratory failure. 5. Atrial fibrillation with rapid ventricular response. 6. Alcohol withdrawal. 7. Recent diagnosis of lung cancer. 8. Non-ST elevation myocardial infarction. SECONDARY DISCHARGE DIAGNOSES: 1. Heart failure with preserved ejection fraction. 2. Recent lower gastrointestinal bleed. 3. Depression. 4. Tobacco use. MEDICATIONS AT DISCHARGE: 1. Vitamin B 1 tab daily. 2. Trazodone 100 mg q.h.s. p.r.n. insomnia. 3. Spiriva 1 cap inhaled daily. 4. Thiamine 100 mg daily. 5. Flomax 0.4 mg daily. 6. Oxybutynin 10 mg daily. 7. Folic acid 1 mg daily. 8. Vitamin D 1000 units daily. 9. Symbicort 1 puff inhaled b.i.d. 10. Mag-Ox 400 mg daily. 11. Ventolin 2 puffs inhaled q.4 p.r.n. wheezing. 12. Psyllium 1 packet daily p.r.n. constipation. 13. Tums 1000 mg daily. 14. Amiodarone 200 mg daily. 15. Diltiazem 180 mg daily. 16. Metoprolol 50 mg b.i.d. 17. Prednisone 20 mg daily for 5 more days. PHYSICAL EXAMINATION AT DISCHARGE: Please note the physical exam was limited as Mr. Solis was in the hallway leaving COCOLALLA. Temperature 97.3, heart rate 68 , respiratory rate 18, pulse ox 97% on 2 L, blood pressure 146/83. General: Alert man who appears older than his stated age, resting on his rolling walker. He is in no respiratory distress. He is able to speak in full sentences, no accessory respiratory muscle use. HEENT: Extraocular muscles are intact. His oral mucosa is moist. I am unable to appreciate JVP. His heart is in irregular rhythm. His lungs are clear bilaterally with no wheezes. The rest of the exam was deferred due to his agitation and desire to leave against medical advice. HOSPITAL COURSE: 1. Vent-dependent respiratory failure. Mr. Solis initially presented to the ED on 10/09/18 in respiratory distress and was noted to have a pneumothorax, which was thought to be iatrogenic from a recent lung biopsy. He was able to be weaned and extubated on 10/15/18 to noninvasive ventilation. 2. Iatrogenic pneumothorax. A chest tube was placed in the emergency department and was able to be clamped and pulled on 10/18/18. His serial subsequent of x-rays showed resolved pneumothorax. 3. Acute on chronic hypoxic respiratory failure. Attempts to wean his oxygen off entirely were unsuccessful, and he described requiring oxygen at home in the past but having trouble with insurance issues. I suspect his baseline is at 2 L oxygen requirement and that is what he was requiring at the time of discharge. Case management arranged this for him. He had a tank at the time of discharge and also tanks available at his home. The etiology of this is likely multifactorial and related to pneumothorax plus a COPD exacerbation. He was treated for COPD exacerbation and discharged on 5 more days of prednisone. 4. Atrial fibrillation with rapid ventricular response. He was continued on amiodarone and during this stay, his metoprolol and Cardizem were both increased with some effect. However, on the morning of discharge, he was noted to be in AFib with RVR and he required a dose of IV metoprolol. We suggested that he would stay and not be discharged. However, he elected to leave against medical advice. Please see the description of this conversation below. He had been on anticoagulation until July when he had a lower GI bleed and his anticoagulation had been discontinued at that time. It was thought to be related to internal hemorrhoids. 5. Alcohol withdrawal. He was noted to be in withdrawal in the ICU and required WAM protocol. He is not sure if he will remain sober at home. He was counseled on this at length. He was discharged on folic acid and thiamine. At the time of discharge he has not required benzodiazepines for over 48 hours. 6. Recent diagnosis of lung cancer. The patient had not yet had oncologic followup since his biopsy. So, Dr. Meek was consulted and evaluated the patient on 10/19/18. The pathology was obtained from the [facility] and was found to be adenocarcinoma. Dr. Meek recommended further workup as an outpatient, and I reached out to his office to ensure that they reach out to Mr. Solis to arrange outpatient followup. 7. Recent lower GI bleed. His anticoagulation continued to be on hold. His discharge hemoglobin is 9.7. He had no further episodes of bleeding during this hospitalization. DISPOSITION: Mr. Solis has elected to leave against medical advice on . I came to see him and he declined further evaluation or treatment. He says that he understands he may not have "much longer to live" given his recent diagnosis of lung cancer and he understands that leaving at this time is risky and includes a possibility of ongoing respiratory failure leading to , ongoing cardiac failure leading to , or other complications from his paroxysmally uncontrolled atrial fibrillation. However, he offers that if these things would happen, he prefers to at home and not in the hospital. This was deemed to be an insightful response and therefore the decision to allow him to leave against medical advice was made. He understands that he is to follow up with Betty and has an appointment with her next week and that he needs further oncologic workup for staging of his lung cancer. CONDITION AT THE TIME OF DISCHARGE: Guarded. [id number]/[facility] #: [id number] MTDD
== END 2018-10-26 10:58 | disposition left against medical advice (07) | DRG 207 ==
LOC: ED 22:52 → ICU 10-09 03:42 → MEDTELE 10-21 14:43
PROVIDERS: ADMIT Internal Medicine; ATTEND Internal Medicine Critical Care Medicine
PROC: 05HM33Z Insertion of Infusion Device into Right Internal Jugular Vein, Percutaneous Approach (ICD-10-PCS; principal; 2018-10-09)
PROC: 5A1955Z Respiratory Ventilation, Greater than 96 Consecutive Hours (ICD-10-PCS; 2018-10-09)
PROC: 0W9B30Z Drainage of Left Pleural Cavity with Drainage Device, Percutaneous Approach (ICD-10-PCS; 2018-10-09)
PROC: 0BH17EZ Insertion of Endotracheal Airway into Trachea, Via Natural or Artificial Opening (ICD-10-PCS; 2018-10-09)
PROC: 5A09357 Assistance with Respiratory Ventilation, Less than 24 Consecutive Hours, Continuous Positive Airway Pressure (ICD-10-PCS; 2018-10-17)
DX: J96.01 Acute respiratory failure with hypoxia (principal); J95.811 Postprocedural pneumothorax; I50.32 Chronic diastolic (congestive) heart failure; C34.90 Malignant neoplasm of unspecified part of unspecified bronchus or lung; N17.9 Acute kidney failure, unspecified; J44.1 Chronic obstructive pulmonary disease with (acute) exacerbation; K92.2 Gastrointestinal hemorrhage, unspecified; F10.231 Alcohol dependence with withdrawal delirium; J96.02 Acute respiratory failure with hypercapnia; F17.210 Nicotine dependence, cigarettes, uncomplicated; I11.0 Hypertensive heart disease with heart failure; E78.5 Hyperlipidemia, unspecified; F32.9 Major depressive disorder, single episode, unspecified; Y84.8 Other medical procedures as the cause of abnormal reaction of the patient, or of later complication, without mention of misadventure at the time of the procedure; Y92.239 Unspecified place in hospital as the place of occurrence of the external cause; R79.89 Other specified abnormal findings of blood chemistry; I95.9 Hypotension, unspecified; E86.0 Dehydration; F41.9 Anxiety disorder, unspecified; E78.00 Pure hypercholesterolemia, unspecified; D72.829 Elevated white blood cell count, unspecified; R41.0 Disorientation, unspecified; D53.9 Nutritional anemia, unspecified; I48.0 Paroxysmal atrial fibrillation; Z66 Do not resuscitate; I49.1 Atrial premature depolarization; I49.3 Ventricular premature depolarization; G31.2 Degeneration of nervous system due to alcohol; Z85.46 Personal history of malignant neoplasm of prostate; Z92.3 Personal history of irradiation; Z82.49 Family history of ischemic heart disease and other diseases of the circulatory system; Z88.5 Allergy status to narcotic agent; Z88.8 Allergy status to other drugs, medicaments and biological substances; Z91.5 Personal history of self-harm
CPT/HCPCS: 36415; 36600; 71045; 71250; 80048; 80053; 80061; 81003; 81015; 82550; 82553; 82803; 83605; 83735; 83880; 84100; 84484; 85025; 85027; 85610; 85730; 86140; 87040; 87070; 87077; 87086; 87185; 87186; 87205; 87641; 93005; 93306; 94003; 94640; 94660; 94667; 94668; 99285; 99406; A9270-GY; J0282; J0696; J1120; J1160; J1644; J1650; J1940; J2060; J2250; J2704; J2920; J2930; J3010; J3360; J3411; J3475; J3490; J7512

== ENCOUNTER 2018-12-10 23:07 | Inpatient (IN) | payer OTHER ==
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
[2018-12-10 23:32] LABS: Hematocrit 36 % (42-52); Hemoglobin 11.7 g/dL (14.0-18.0); Mean Corpuscular HGB Conc 32 g/dL (31-36); Mean Corpuscular Hemoglobin 33 pg (27-31); Mean Corpuscular Volume 103 fL (80-94); Mean Platelet Volume 7.6 fL (7.4-10.4); Platelet Count 385 10^3/uL (150-450); Red Blood Count 3.51 10^6 /uL (4.18-5.48); Red Cell Distribution Width 21 % (10-15); White Blood Count 16.4 10^3/uL (3.5-10.8)
--- OUTSIDE RECORDS SUMMARY | 2018-12-10 23:37 | XMS REPORT | Continuity of Care Document ---
:1950 External Reference #:[id number] Author Name Bren Ramos Care Team Providers Name Role Phone Yanet Otto M.D. 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 Payers Date Identification Numbers Payment Provider Subscriber Effective: 2018 Policy Number: [id number] [facility] Duane Solis JR Expires: 2019 Group Name: [facility]/ [facility] Va Care [address] [address] PayID: [id number] [place] [address] Expires: 2015 Policy Number: [id number] Medicare Duane Solis JR PayID: [id number] [address] [place] [address] Social History Type Date Description Comments Sex Unknown Procedures Date Code Description Status 10/09/2018 62998 ECHO Transthorasic Realtime 2D W Doppler & Color Flow Hosp Completed 09/06/2017 05106 EKG, Interpretation Only Completed 07/05/2017 84172 Moderate Sedation Services; Same Phys Each Additional 15 Completed Mins 07/05/2017 91990 Moderate Sedation Services; Same Phys Intl 15 Mins; PT >= Completed 5 Years 07/05/2017 74528 EKG, Interpretation Only Completed 07/05/2017 51206 Cardioversion Completed 07/02/2017 43123 EKG, Interpretation Only Completed 07/01/2017 52177 ECHO Transthorasic Realtime 2D W Doppler & Color Flow Hosp Completed 08/02/2015 43712 EKG, Interpretation Only Completed 07/31/2015 76082 ECHO Transthorasic Realtime 2D W Doppler & Color Flow Hosp Completed Encounters Type Date Location Provider Dx Diagnosis Office Visit 08/03/2018 [place] Dez Edwards.Paul Hemorrhage of anus 10:43a [facility]oc[facility] and rectum Hospitalists Office Visit 08/02/2018 [facility] Quinones.Paul Hemorrhage of anus 10:43a Assoc,pc N.P. and rectum Hospitalists Office Visit 09/09/2017 [facility] Basilia Gonzalez, J96.21 Acute and chronic 11:29a Assmick do M.D. respiratory Hospitalists failure with hypoxia J96.22 Acute and chronic respiratory failure with hypercapnia J44.1 Chronic obstructive pulmonary disease w (acute) exacerbation I48.91 Unspecified atrial fibrillation Office Visit 09/08/2017 11:29a [facility] aBsilia J96.21 Acute and chronic Assoc,mick Gonzalez M.D. respiratory Hospitalists failure with hypoxia J96.22 Acute and chronic respiratory failure with hypercapnia J44.1 Chronic obstructive pulmonary disease w (acute) exacerbation I48.91 Unspecified atrial fibrillation E83.42 Hypomagnesemia Office Visit 09/07/2017 11:29a [facility] Esvin Rajan, I10 Essential ( primary) M.D. hypertension E83.42 Hypomagnesemia I48.1 Persistent atrial fibrillation Office Visit 09/06/2017 11:28a [facility] Esvin Rajan, I48.91 Unspecified atrial M.D. fibrillation I48.1 Persistent atrial fibrillation Office Visit 09/05/2017 11:46a [facility] Parveen Long96.22 Acute and chronic MD respiratory failure with hypercapnia J44.1 Chronic obstructive pulmonary disease w (acute) exacerbation F17.210 Nicotine dependence, cigarettes, uncomplicated Office Visit 09/04/2017 11:46a [facility] Parveen Long96.22 Acute and chronic MD respiratory failure with hypercapnia J44.1 Chronic obstructive pulmonary disease w (acute) exacerbation F10.10 Alcohol abuse, uncomplicated F17.210 Nicotine dependence, cigarettes, uncomplicated Z87.440 Personal history of urinary (tract) infections Office Visit 09/03/2017 11:27a [facility] Diogo Saini96.01 Acute respiratory Love, D.O. failure with hypoxia J96.02 Acute respiratory failure with hypercapnia J44.1 Chronic obstructive pulmonary disease w (acute) exacerbation Office Visit 07/05/2017 [facility] Joy I48.1 Persistent atrial 1:34p Assoc,mick Cazares NP fibrillation Hospitalists I10 Essential (primary) hypertension I50.33 Acute on chronic diastolic (congestive) heart failure F10.20 Alcohol dependence, uncomplicated Office Visit 07/04/2017 1:33p [facility] Judith I48.1 Persistent atrial Assoc,mick Mulligan DO fibrillation Hospitalists I10 Essential (primary) hypertension I50.33 Acute on chronic diastolic (congestive) heart failure F10.20 Alcohol dependence, uncomplicated Office Visit 07/04/2017 2:09p [facility] Rajat Brewer I48.1 Persistent atrial Of Earline Bradley M.D. fibrillation Office Visit 07/03/2017 1:33p [facility] Judith I48.1 Persistent atrial Assoc,mick Mulligan DO fibrillation Hospitalists I10 Essential (primary) hypertension I50.33 Acute on chronic diastolic (congestive) heart failure F10.20 Alcohol dependence, uncomplicated Office Visit 07/02/2017 1:32p [facility] Judith I48.1 Persistent atrial Assoc,mick Mulligan DO fibrillation Hospitalists I10 Essential (primary) hypertension I50.33 Acute on chronic diastolic (congestive) heart failure F10.20 Alcohol dependence, uncomplicated Office Visit 07/01/2017 1:31p [facility] Escobar I48.1 Persistent atrial Assoc,CHANNING Dean fibrillation Hospitalists I10 Essential (primary) hypertension I50.33 Acute on chronic diastolic (congestive) heart failure F10.20 Alcohol dependence, uncomplicated Office Visit 08/02/2015 [facility] F10.230 Alcohol dependence 2:39p Assoc,mick Austin M.D. with withdrawal, Hospitalists uncomplicated A41.9 Sepsis, unspecified organism J18.9 Pneumonia, unspecified organism R79.89 Other specified abnormal findings of blood chemistry Office Visit 08/01/2015 [facility] F10.230 Alcohol dependence 2:38p Assoc,mick Austin M.D. with withdrawal, Hospitalists uncomplicated A41.9 Sepsis, unspecified organism J18.9 Pneumonia, unspecified organism R79.89 Other specified abnormal findings of blood chemistry Office Visit 07/31/2015 [facility] Heath Davila A41.9 Sepsis, 2:38p Assoc,mick DOS SANTOS M.D. unspecified Hospitalists organism J18.9 Pneumonia, unspecified organism F10.230 Alcohol dependence with withdrawal, uncomplicated R79.89 Other specified abnormal findings of blood chemistry
--- OUTSIDE RECORDS SUMMARY | 2018-12-10 23:37 | XMS REPORT | Continuity of Care Document ---
:1950 External Reference #:[id number] Author Name Bren Ramos Care Team Providers Name Role Phone Yanet Otto M.D. 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 Payers Date Identification Numbers Payment Provider Subscriber Effective: 2018 Policy Number: [id number] Va/ Non Va Care Duane Solis JR Expires: 2019 Group Name: Va/ Non Va Care [address] [address] PayID: [id number] [place] [address] Expires: 2015 Policy Number: [id number] Medicare Duane Solis JR PayID: [id number] [address] [place] [address] Social History Type Date Description Comments Sex Unknown Procedures Date Code Description Status 09/06/2017 41366 EKG, Interpretation Only Completed 07/05/2017 13398 Moderate Sedation Services; Same Phys Each Additional 15 Completed Mins 07/05/2017 59163 Moderate Sedation Services; Same Phys Intl 15 Mins; PT >= Completed 5 Years 07/05/2017 82051 EKG, Interpretation Only Completed 07/05/2017 81469 Cardioversion Completed 07/02/2017 77205 EKG, Interpretation Only Completed 07/01/2017 03704 ECHO Transthorasic Realtime 2D W Doppler & Color Flow Hosp Completed 08/02/2015 62016 EKG, Interpretation Only Completed 07/31/2015 64434 ECHO Transthorasic Realtime 2D W Doppler & Color Flow Hosp Completed Encounters Type Date Location Provider Dx Diagnosis Office Visit 08/03/2018 [place] Dez Edwards.5 Hemorrhage of anus 10:43a Assoc,pc N.P. and rectum Hospitalists Office Visit 08/02/2018 [facility] Quinones.Paul Hemorrhage of anus 10:43a Assoc,pc N.P. and rectum Hospitalists Office Visit 09/09/2017 [facility] Basilia Gonzalez, J96.21 Acute and chronic 11:29a Assocmick M.D. respiratory Hospitalists failure with hypoxia J96.22 Acute and chronic respiratory failure with hypercapnia J44.1 Chronic obstructive pulmonary disease w (acute) exacerbation I48.91 Unspecified atrial fibrillation Office Visit 09/08/2017 11:29a [facility] Basilia J96.21 Acute and chronic Assocmick M.D. respiratory Hospitalists failure with hypoxia J96.22 [...] disease w (acute) exacerbation Office Visit 07/05/2017 [facility] Joy I48.1 Persistent atrial 1:34p Assoc,mick Cazares NP fibrillation Hospitalists I10 Essential (primary) hypertension I50.33 Acute on chronic diastolic (congestive) heart failure F10.20 Alcohol dependence, uncomplicated Office Visit 07/04/2017 1:33p [facility] Judith I48.1 Persistent atrial Assoc,mick Mulligan DO fibrillation Hospitalists I10 Essential (primary) hypertension I50.33 Acute on chronic diastolic (congestive) heart failure F10.20 Alcohol dependence, uncomplicated Office Visit 07/04/2017 2:09p [facility] Rajat Brewer I48.1 Persistent atrial Of Earline Bradley M.D. fibrillation Office Visit 07/03/2017 1:33p [facility] Judith I48.1 Persistent atrial Assoc,mick Mulligan DO fibrillation Hospitalists I10 Essential (primary) hypertension I50.33 Acute on chronic diastolic (congestive) heart failure F10.20 Alcohol dependence, uncomplicated Office Visit 07/02/2017 1:32p [facility] Judith I48.1 Persistent atrial Assoc,mick Mulligan DO fibrillation Hospitalists I10 Essential (primary) hypertension I50.33 Acute on chronic diastolic (congestive) heart failure F10.20 Alcohol dependence, uncomplicated Office Visit 07/01/2017 1:31p [facility] Escobar I48.1 Persistent atrial Assoc,CHANNING Dean fibrillation Hospitalists I10 Essential (primary) hypertension I50.33 Acute on chronic diastolic (congestive) heart failure F10.20 Alcohol dependence, uncomplicated Office Visit 08/02/2015 [facility] F10.230 Alcohol dependence 2:39p Assoc,mick Austin M.D. with withdrawal, Hospitalists uncomplicated A41.9 Sepsis, unspecified organism J18.9 Pneumonia, unspecified organism R79.89 Other specified abnormal findings of blood chemistry Office Visit 08/01/2015 [facility] F10.230 Alcohol dependence 2:38p Assoc,mick Austin M.D. with withdrawal, Hospitalists uncomplicated A41.9 Sepsis, unspecified organism J18.9 Pneumonia, unspecified organism R79.89 Other specified abnormal findings of blood chemistry Office Visit 07/31/2015 [facility] Heath Davila A41.9 Sepsis, 2:38p Assoc,mick DOS SANTOS M.D. unspecified Hospitalists organism J18.9 Pneumonia, unspecified organism F10.230 Alcohol dependence with withdrawal, uncomplicated R79.89 Other specified abnormal findings of blood chemistry
[2018-12-10 23:53] LABS: ALT 10 U/L (7-52); AST 19 U/L (13-39); Albumin/Globulin Ratio 1.2 (1-3); Alkaline Phosphatase 93 U/L (34-104); Anion Gap 9 mmol/L (2-11); BUN/Creatinine Ratio 19.5 (8-20); Blood Urea Nitrogen 34 mg/dL (6-24); CO2 Carbon Dioxide 25 mmol/L (22-32); Calcium 8.6 mg/dL (8.6-10.3); Chloride 107 mmol/L (101-111); EGFR African American 47.3 (>60); EGFR Non-African American 39.1 (>60); Globulin 3.4 g/dL (2-4); Glucose 145 mg/dL (70-100); Potassium 4.2 mmol/L (3.5-5.0); Sodium 141 mmol/L (135-145); Total Protein 7.4 g/dL (6.4-8.9)
[2018-12-10 23:57] LABS: Troponin I 0.05 ng/mL (<0.04)
[2018-12-10 23:59] LABS: ABS Basophils 0.3 10^3/ul (0-0.2); ABS Eosinophils 0.5 10^3/ul (0-0.6); ABS Lymphocytes 2.8 10^3/ul (1.0-4.8); ABS Neutrophils 11.8 10^3/ul (1.5-7.7); ABS Nucleated RBC 0.1 10^3/ul; Eosinophil % 3.4 %; Lymphocyte % 16.9 %; Nucleated Red Blood Cells % 0.4
[2018-12-11] MEDS ORDERED: Calcium Carbonate CHEW TAB* 500 MG (TUMS) PO ONE (00:53)
[2018-12-11 02:29] LABS: Troponin I 0.06 ng/mL (<0.04)
[2018-12-11] MEDS ORDERED: Albuterol 2.5 MG/3 ML NEB.SOL* (0.083%) INH ONE (02:30)
[2018-12-11] MEDS ORDERED: Iodixanol* (CONTRAST) 320 MG/ML 100 ML SDV IV ONE (02:47)
[2018-12-11] MEDS ORDERED: Albuterol 0.5% CONC NEB.SOL* 5 MG/ML 20 ml BOT INH ONE (03:55)
[2018-12-11] MEDS ORDERED: Dexamethasone IV* 4 MG/ML 1 ML (4 MG) IV SLOW PU ONE (03:55)
[2018-12-11] MEDS ORDERED: Propofol* 100 ML ONE ×2 (04:13→07:51)
[2018-12-11] MEDS ORDERED: Etomidate* 2 MG/ML 20 ML VIAL (40 MG) ONE (04:15)
[2018-12-11] MEDS ORDERED: Etomidate* 2 MG/ML 10 ML VIAL IV ONE (04:18)
[2018-12-11] MEDS ORDERED: Succinylcholine* 20 MG/ML 10 ML VIAL IV ONE (04:19)
[2018-12-11] MEDS ORDERED: Propofol* 100 ML IV SCH ×2 (05:00)
[2018-12-11 05:57] LABS: Troponin I 0.05 ng/mL (<0.04)
[2018-12-11] MEDS ORDERED: Vancomycin(*) 1,000 MG in NS 0.9% 250 ML* 250 ML IVPB ONE (06:41)
[2018-12-11] MEDS ORDERED: Piperacillin/Tazobac ADVAN(*) 3.375 GM in NS 0.9% 100 ML* 100 ML IVPB ONE (06:41)
[2018-12-11] MEDS ORDERED: Vancomycin per Pharmacy* NOTE FOLLOW UP SCH (07:00)
[2018-12-11] MEDS ORDERED: Zosyn per Pharmacy* NOTE FOLLOW UP SCH (07:00)
[2018-12-11] MEDS: Albuterol/Ipratropium NEB.SOL* Albuterol 2.5 MG/Ipratropium 0.5 MG 3 ML INH SCH ×5 (07:04→23:29)
[2018-12-11] MEDS ORDERED: Thiamine INJ* 100 MG/ML 2 ML VIAL IV ONE (07:11)
[2018-12-11] MEDS ORDERED: Midazolam IV for DRIP* 100 MG in NS 0.9% 100 ML* 80 ML IV SCH (07:30)
[2018-12-11 08:51] LABS: Hematocrit 31 % (42-52); Hemoglobin 10.3 g/dL (14.0-18.0); Mean Corpuscular HGB Conc 33 g/dL (31-36); Mean Corpuscular Hemoglobin 34 pg (27-31); Mean Corpuscular Volume 104 fL (80-94); Platelet Count 304 10^3/uL (150-450); Red Blood Count 3.01 10^6 /uL (4.18-5.48); Red Cell Distribution Width 21 % (10-15); White Blood Count 13.9 10^3/uL (3.5-10.8)
[2018-12-11] MEDS: Midazolam IV for DRIP* 100 MG in NS 0.9% 100 ML* 80 ML IV SCH (09:00)
[2018-12-11] MEDS ORDERED: Folic Acid IV* 1 MG/0.2 ML SYRINGE IV SCH (09:00)
[2018-12-11] MEDS ORDERED: Multiple Vitamin IV ADULT* 10 ML VIAL IVPB SCH (09:00)
[2018-12-11 09:36] LABS: Albumin 3.7 g/dL (3.2-5.2); Calcium 8.7 mg/dL (8.6-10.3); Potassium 4.6 mmol/L (3.5-5.0); Total Bilirubin 0.3 mg/dL (0.2-1.0)
[2018-12-11 09:42] LABS: Albumin/Globulin Ratio 1.3 (1-3); BUN/Creatinine Ratio 19.9 (8-20); EGFR African American 57.9 (>60); EGFR Non-African American 47.9 (>60); Globulin 2.9 g/dL (2-4); Total Protein 6.6 g/dL (6.4-8.9)
[2018-12-11] MEDS: Pantoprazole IV* 40 MG IV SCH ×2 (10:07→10:18)
[2018-12-11] MEDS: methylPREDNISolone SOD 40 MG* 1 ML VIAL IV SCH ×3 (10:10→22:55)
[2018-12-11] MEDS: NS 0.9% 1000 ML** 1,000 ML IV SCH (10:16)
[2018-12-11] MEDS: Thiamine IV 100 MG, Folic Acid IV* 1 MG, Multiple Vitamin IV ADULT* 10 ML in NS 0.9% 10... IV SCH (10:17)
[2018-12-11] MEDS: Amiodarone TAB* 200 MG NG TUBE SCH (10:18)
--- NOTE | 2018-12-11 11:00 | HP ---
CC: Betty Saunders NP ADMISSION HISTORY AND PHYSICAL: DATE OF ADMISSION: 12/11/18 CHIEF COMPLAINT: Chest pain. HISTORY OF PRESENT ILLNESS: This is a 68-year-old male with past medical history of COPD, atrial fib rillation, on Xarelto up until 4 months ago, stopped due to lower GI bleed, history of diastolic steve estive heart failure, history of alcohol abuse and smoking, especially worsened after he was diagnose d with lung cancer recently, which was noted to be non-small cell lung cancer. The patient came in t o the ER with the complaint of chest pain since yesterday morning, which was worse prior to arrival, rated at 5/10 and was also having difficulty ambulating and shortness of breath and speaking only in half sentences. He worsened during the ER stay and was subsequently intubated, so rest of the histor y was obtained by reviewing records rather than with the patient. Postintubation, the patient had an NG-tube which was noted to be draining a large amount of fluids, at which point it was connected to suction. This fluid was smelling of alcohol and the NG suction drained more than 900 cc of reddish f luid, possibly wine. PAST MEDICAL HISTORY: 1. As mentioned, admitted for GI bleed 4 months ago, suspected to be internal hemorrhoids,. 2. AFib, was on Xarelto up until 4 months ago, was stopped at that point. 3. History of COPD. 4. History of newly diagnosed lung cancer, admitted 2 months ago with iatrogenic pneumothorax post l carole biopsy, which later was revealed to be non-small cell lung cancer. 5. There is also previous history of prostate cancer 7 to 8 years ago. 6. History of alcohol abuse, which the patient restarted after learning about his lung cancer diagno sis. 7. History of diastolic heart failure and chronic smoker and still continues to smoke. 8. History of depression. PAST SURGICAL HISTORY: Includes left knee screws, right knee ORIF, and previous chest tube placement which was removed a couple of months ago. HOME MEDICATIONS: Currently unconfirmed as the patient is unable to give us a history. ALLERGIES: The patient documented to have allergies to MEPERIDINE and MORPHINE. FAMILY HISTORY: Documented as mother of aneurysm and father related to an OR. Had several uncles who from an OR as well. REVIEW OF SYSTEMS: Unable to obtain as the patient was intubated. PHYSICAL EXAMINATION GENERAL: The patient is sedated, on ventilation. VITAL SIGNS: In the ER, BP was noted to be 87/57, on propofol. Temperature was documented as 97.5, heart rate 78, respiration rate 24, saturating 96% on ventilation. LUNGS: The patient had diffuse rhonchi. HEART: S1, S2. Regular rate and rhythm. ABDOMEN: Soft, nontender. EXTREMITIES: No cyanosis, clubbing, or edema. LABORATORY DATA: CBC shows elevated white count of 16.4, hemoglobin and hematocrit stable at 11.7 a nd 36, platelet count was noted to be 385. Comprehensive metabolic panel was unremarkable except for BUN elevated at 34 and creatinine 1.74, troponin minimally elevated at 0.05. Random glucose minimal ly elevated at 145. Initial ABG was noted to be pH of 7.17, pCO2 of 84, PaO2 of 73, oxygen saturatio n 92%, serum alcohol level was noted to be 188. Initial portable chest x-ray shows mild developing infiltrates in the right hilum, left side was aurelio r. A repeat chest x-ray shows infiltrate slightly worsening with an ET tube present. CT chest, abdomen, pelvis is still pending. IMPRESSION: This is a 68-year-old gentleman with a history of lung cancer, atrial fibrillation, hist ory of gastrointestinal bleeding, chronic obstructive pulmonary disease, chronic smoker, and chronic alcoholic, here due to hypoxic hypercapnic respiratory failure. ASSESSMENT: 1. Hypoxic hypercapnic respiratory failure, status post intubation. Continue with management. We w ill follow up CTA results, but unofficially I see the patient is having a large pneumonia especially on the right side. We will start the patient on broad-spectrum antibiotics with vancomycin and Zosyn along with the steroids given her history of chronic obstructive pulmonary disease. 2. Chronic obstructive pulmonary disease exacerbation. We will give steroids and DuoNeb. 3. Large amount of nasogastric suctioning with a history of alcohol abuse. We will monitor for any bleeding, repeat labs this morning and start the patient on IV Protonix. 3. History of alcohol abuse. We will start the patient on Versed as sedation and once he is off of it, we could consider starting the patient on WAM protocol. I instructed the patient on IV thiamine on a daily basis along with daily multivitamins and folic acid. 4. History of lung cancer. 5. History of hypertension, currently normotensive given his infection. 6. Sepsis, possible septic shock. 7. Acute kidney injury, likely secondary to sepsis. 8. Minimally elevated troponin, likely secondary to sepsis. 9. Depression, hypertension, and atrial fibrillation. We will hold all medications in light of the patient's intubation and also the fact that the patient cannot confirm his home medication. Once thi s is confirmed, we can switch to oral medication. In the meantime we can, however, give the amiodaro ne via the NG tube. 10. DVT prophylaxis with subcu heparin. 11. Code status: ER physician discussed case with the patient's significant other who suggested the patient to be a full code. 12. Overall prognosis is very poor. [id number] #: [id number]
[2018-12-11] MEDS: Propofol* 100 ML IV SCH ×4 (11:15→23:52)
--- NOTE | 2018-12-11 11:20 | PN ---
Date of Service: 12/11/18 - [facility] note Critical Care Services: Pt seen and examined at bedside. Pt came into ED for chest pain, worsening SOB, he then had worsening hypoxic and hypercapnic resp failure, was intubated and brought to ICU. He was also noted to have been intoxicated with blood alcohol level of 188. Active Medications Generic Name Dose Route Start Last Admin Trade Name Jennifer PRN Reason Stop Dose Admin Albuterol/Ipratropium 1 neb 12/11/18 07:00 12/11/18 11:19 Duoneb (Albuterol 2.5 Mg/Ipratropium 0.5 Mg) INH 1 neb [id number] AWAKE ARLENE Administration Amiodarone HCl 200 mg 12/11/18 09:00 12/11/18 10:18 Cordarone Tab* NG TUBE 200 mg DAILY ARLENE Administration Heparin Sodium (Porcine) 5,000 units 12/11/18 14:00 Heparin Vial(*) SUBCUT Q8HR ARLENE Sodium Chloride 1,000 mls @ 125 mls/hr 12/11/18 06:45 12/11/18 10:16 Ns 0.9% 1000 Ml IV 125 mls/hr PER RATE ARLENE Administration Propofol 100 mls @ 2.354 mls/hr 12/11/18 08:00 12/11/18 11:15 Diprivan* IV 2.354 mls/hr .PER PROTOCOL ARLENE Administration Protocol 5 MCG/KG/MIN Thiamine HCl 100 mg/ Folic 1,011.2 mls @ 125 mls/hr 12/11/18 09:00 12/11/18 10:17 Acid 1 mg/ Multivitamins 10 ml IV 125 mls/hr / Sodium Chloride DAILY ARLENE Administration Midazolam HCl 100 mg/ Sodium 100 mls @ 2 mls/hr 12/11/18 09:00 12/11/18 09:00 Chloride IV 2 mls/hr Q24H ARLENE Administration Protocol 2 MG/HR Piperacillin Sod/Tazobactam 100 mls @ 25 mls/hr 12/11/18 13:30 Sod 3.375 gm/ Sodium Chloride IVPB Q8H ARLENE Methylprednisolone Sodium Succinate 40 mg 12/11/18 07:00 12/11/18 10:10 Solu-Medrol 40 Mg IV 40 mg Q8H ARLENE Administration Pantoprazole Sodium 40 mg 12/11/18 08:00 12/11/18 10:18 Protonix Iv* IV 40 mg DAILY [facility] Administration Pharmacy Consult 1 note 12/11/18 07:00 Vancomycin Per Pharmacy* FOLLOW UP .VANC PER [facility]Y [facility] Protocol Pharmacy Consult 1 note 12/11/18 07:00 Zosyn Per Pharmacy* FOLLOW UP .ZOSYN [facility]Y [facility] Vital Signs: Temp Pulse Resp BP SpO2 FiO2 97.1 F 69 24 160/97 100 100 12/11/18 08:07 12/11/18 08:07 12/11/18 09:56 12/11/18 08:07 12/11/18 08:07 12/11 08:07 Physical Exam: Gen: Pt is sedated, withdraws to pain HEENT:ETT+ Lungs: Good a/e +, no wheeze Cardiac: S1, S2+, regular Abdomen: Soft, BS+ Extremities: No edema Neuro: Sedated, moves extremities spontaneously Labs: Laboratory Results - last 24 hr 12/10/18 12/10/18 12/10/18 23:26 23:26 23:26 WBC 16.4 H RBC 3.51 L Hgb 11.7 L Hct 36 L MCV 103 H MCH 33 H MCHC 32 RDW 21 H Plt Count 385 MPV 7.6 Neut % (Auto) 72.2 Lymph % (Auto) 16.9 [place] % (Auto) 5.9 Eos % (Auto) 3.4 Baso % (Auto) 1.6 Absolute Neuts (auto) 11.8 H Absolute Lymphs (auto) 2.8 Absolute Monos (auto) 1.0 H Absolute Eos (auto) 0.5 Absolute Basos (auto) 0.3 H Absolute Nucleated RBC 0.1 Immature Gran % Neutrophils % Band Neutrophils % Lymphocytes % Monocytes % Nucleated RBC % 0.4 Abs Neuts (Manual) Abs Lymphs (Manual) Abs Monocytes (Manual) Normal RBC Morphology Patient Temperature ABG pH ABG pH (Temp Correct) ABG pCO2 ABG pCO2 (Temp Corrct ABG pO2 ABG pO2 (Temp Correct ABG HCO3 ABG O2 Saturation ABG Base Excess Respiration Rate O2 Delivery Device Ventilator Type Vent Mode FiO2 Inspiratory Time PEEP Pressure Support Pressure Control EPAP IPAP BiPAP Sodium 141 Potassium 4.2 Chloride 107 Carbon Dioxide 25 Anion Gap 9 BUN 34 H Creatinine 1.74 H Est GFR ( Amer) 47.3 Est GFR (Non-Af Amer) 39.1 BUN/Creatinine Ratio 19.5 Glucose 145 H Lactic Acid 1.6 Calcium 8.6 Total Bilirubin 0.20 AST 19 ALT 10 Alkaline Phosphatase 93 Troponin I 0.05 H* Total Protein 7.4 Albumin 4.0 Globulin 3.4 Albumin/Globulin Ratio 1.2 Serum Alcohol 12/11/18 12/11/18 12/11/18 01:59 03:38 05:06 WBC RBC Hgb Hct MCV MCH MCHC RDW Plt Count MPV Neut % (Auto) Lymph % (Auto) [place] % (Auto) Eos % (Auto) Baso % (Auto) Absolute Neuts (auto) Absolute Lymphs (auto) Absolute Monos (auto) Absolute Eos (auto) Absolute Basos (auto) Absolute Nucleated RBC Immature Gran % Neutrophils % Band Neutrophils % Lymphocytes % Monocytes % Nucleated RBC % Abs Neuts (Manual) Abs Lymphs (Manual) Abs Monocytes (Manual) Normal RBC Morphology Patient Temperature Not Reportable ABG pH 7.17 L* ABG pH (Temp Correct) Not Reportable ABG pCO2 84 H* ABG pCO2 (Temp Corrct Not Reportable ABG pO2 73 L ABG pO2 (Temp Correct Not Reportable ABG HCO3 24.4 ABG O2 Saturation 92.9 L ABG Base Excess -0.4 Respiration Rate Not Reportable O2 Delivery Device oxymask Ventilator Type Not Reportable Vent Mode Not Reportable FiO2 Not Reportable Inspiratory Time Not Reportable PEEP Not Reportable Pressure Support Not Reportable Pressure Control Not Reportable EPAP Not Reportable IPAP Not Reportable BiPAP Not Reportable Sodium Potassium Chloride Carbon Dioxide Anion Gap BUN Creatinine Est GFR ( Amer) Est GFR (Non-Af Amer) BUN/Creatinine Ratio Glucose Lactic Acid Calcium Total Bilirubin AST ALT Alkaline Phosphatase Troponin I 0.06 H* 0.05 H* Total Protein Albumin Globulin Albumin/Globulin Ratio Serum Alcohol 12/11/18 12/11/18 12/11/18 05:06 05:15 07:23 WBC RBC Hgb Hct MCV MCH MCHC RDW Plt Count MPV Neut % (Auto) Lymph % (Auto) [place] % (Auto) Eos % (Auto) Baso % (Auto) Absolute Neuts (auto) Absolute Lymphs (auto) Absolute Monos (auto) Absolute Eos (auto) Absolute Basos (auto) Absolute Nucleated RBC Immature Gran % Neutrophils % Band Neutrophils % Lymphocytes % Monocytes % Nucleated RBC % Abs Neuts (Manual) Abs Lymphs (Manual) Abs Monocytes (Manual) Normal RBC Morphology Patient Temperature Not Reportable Not Reportable ABG pH 7.09 L* 7.25 L ABG pH (Temp Correct) Not Reportable Not Reportable ABG pCO2 85 H* 55 H ABG pCO2 (Temp Corrct Not Reportable Not Reportable ABG pO2 261 H 136 H ABG pO2 (Temp Correct Not Reportable Not Reportable ABG HCO3 21.7 21.9 ABG O2 Saturation 100.0 H 99.6 H ABG Base Excess -4.1 L -3.9 L Respiration Rate 14 24 O2 Delivery Device vent Ventilator Ventilator Type 500 500 Vent Mode cmv Cmv FiO2 100 100 Inspiratory Time 1.0 0.6 PEEP 5 5 Pressure Support Not Reportable Not Reportable Pressure Control Not Reportable Not Reportable EPAP Not Reportable Not Reportable IPAP Not Reportable Not Reportable BiPAP Not Reportable Not Reportable Sodium 143 Potassium 4.6 Chloride 110 Carbon Dioxide 21 L Anion Gap 12 H BUN 29 H Creatinine 1.46 H Est GFR ( Amer) 57.9 Est GFR (Non-Af Amer) 47.9 BUN/Creatinine Ratio 19.9 Glucose 156 H Lactic Acid Calcium 8.7 Total Bilirubin 0.30 AST 20 ALT 10 Alkaline Phosphatase 94 Troponin I Total Protein 6.6 Albumin 3.7 Globulin 2.9 Albumin/Globulin Ratio 1.3 Serum Alcohol 188 H 12/11/18 08:28 WBC 13.9 H RBC 3.01 L Hgb 10.3 L Hct 31 L MCV 104 H MCH 34 H MCHC 33 RDW 21 H Plt Count 304 MPV 8.0 Neut % (Auto) Not Reportable Lymph % (Auto) Not Reportable [place] % (Auto) Not Reportable Eos % (Auto) Not Reportable Baso % (Auto) Not Reportable Absolute Neuts (auto) Not Reportable Absolute Lymphs (auto) Not Reportable Absolute Monos (auto) Not Reportable Absolute Eos (auto) Not Reportable Absolute Basos (auto) Not Reportable Absolute Nucleated RBC Not Reportable Immature Gran % 12.0 H Neutrophils % 81.0 Band Neutrophils % 12.0 H Lymphocytes % 5.0 Monocytes % 2.0 Nucleated RBC % Not Reportable Abs Neuts (Manual) 12.9 H Abs Lymphs (Manual) 0.7 L Abs Monocytes (Manual) 0.3 Normal RBC Morphology Normal Patient Temperature ABG pH ABG pH (Temp Correct) ABG pCO2 ABG pCO2 (Temp Corrct ABG pO2 ABG pO2 (Temp Correct ABG HCO3 ABG O2 Saturation ABG Base Excess Respiration Rate O2 Delivery Device Ventilator Type Vent Mode FiO2 Inspiratory Time PEEP Pressure Support Pressure Control EPAP IPAP BiPAP Sodium Potassium Chloride Carbon Dioxide Anion Gap BUN Creatinine Est GFR ( Amer) Est GFR (Non-Af Amer) BUN/Creatinine Ratio Glucose Lactic Acid Calcium Total Bilirubin AST ALT Alkaline Phosphatase Troponin I Total Protein Albumin Globulin Albumin/Globulin Ratio Serum Alcohol Studies: CXR: Rt lung air space oapcity, ETT at level of clavicles, OGT in distal esophagus CT chest: Rt lower lung consolidation- PNA versus atelectasis. Nodular opacities in left lung. Patchy air space opacities b/l Nutrition: Tube feeds to be started Impression: 68 y o m with ETOH, tobacco abuse, recently dx with adenocarcinoma of rt lung after CT guided bx [place], post procedure complication with PTX requiring chest tube, pt also was hospitalized for acute hypercapnic and [place] resp [place] [facility] [place], signed out AMA after extubation before further optimization, unclear if he followed with oncology after that. He came in last night for evaluation of chest pain, SOB, quickly deteriorated, was intuabted. He was noted to be in acute on chronic hypoxic resp failure. He was supposed to be on O2, not compliant as per significant other. He also has been drinking whisky, ETOH level was around 180. 1. Acute on chronic hypoxic and hyper capnic resp failure 2. PNA 3. Recently dx Lung cancer, multiple nodules on left side, not bx proven however could be metastatic 4. Alcohol intoxication 5. Tobacco abuse 6. Acute renal failure Plan: Neuro: Pt is sedated while on vent. Will maintain RASS score at -1. Sedation vacation when appropriate. Keep HOB at 30 degrees Resp: Acute on chronic hypoxic and hypercapnic resp failure sec to PNA and underlying COPD and AMS. Vent settings adjusted. Pt on CMV Vt 500, rate 18, PEEP 5, FiO2 70%. Pulm toilet. Vent bundle ordered. c/w bronchodialtors prn. Pt also on steroids. CVS: Hemodynamically stable, not requiring pressors. Troponis likely sec to demand ischemia. No acute ST changes on EKG. H/o A.fib, off anticoagulation sec to recent GI bleed, pt on Amiodarone. ID: Suspected PNA- concern for aspiration. On broad spectrum abx, septic w/u sent. Pt meets sepsis criteria with HR and leucocytosis. Lactate within normal limits. GI: H/o recent GI bleed 4 months ago, suspected 2/2 int hemorrhoids. Pt with ETOH abuse, OGT suctioning revealed 900cc of reddish fluid-?wine with elevated ETOH levels. Pt has been drinking whiskey and wine as per . OGT to low intermittent suctioning. Will start tube feeds when stable and hold for possible extubation in am. c/w PPI. Renal: UO good, will monitor I/O. ARF, most likely prerenal. No electrolyte abnormalities. Haem: Leucocytosis, macrocytic anemia sec to chronic ETOH abuse. Pt started on thiamine and folate. No active bleeding. Endo: Blood sugars slightly elevated sec to steroids. Metabolic: Pt with ETOH toxicity, currently on propofol and versed. VAM protocol to continue after extubation. Musculoskeletal: Frequent turning and positioning Murphy catheter for hemodynamic monitoring and prevention of bedsores DVT px: Heparin sq IV access: Peripheral IV Full code Plan of care discussed with pts RN, pts significant other was updated over phone Critical Care Time:30 min
--- NOTE | 2018-12-11 11:51 | PN ---
Sepsis Event Evaluation Date of Evaluation: 12/11/18 Time of Evaluation: 11:00 Current Stage of Sepsis: Sepsis Vital Signs - Last 12 Hours: Vital Signs - 12 hr Temp Pulse Resp BP Pulse Ox 12/11/18 11:30 96.8 F 75 110/67 96 12/11/18 11:21 72 18 98 12/11/18 11:00 96.6 F 70 114/73 100 12/11/18 10:30 96.6 F 72 118/79 100 12/11/18 10:00 96.3 F 74 130/82 100 12/11/18 09:56 24 12/11/18 09:33 96.1 F 164/118 12/11/18 09:17 95.9 F 78 159/92 12/11/18 09:00 95.7 F 68 24 137/86 100 12/11/18 08:45 95.4 F 67 134/89 98 12/11/18 08:30 95.2 F 64 113/75 100 12/11/18 08:21 95.2 F 64 109/78 100 12/11/18 08:16 95.2 F 65 117/79 100 12/11/18 08:07 97.1 F 69 24 160/97 100 12/11/18 08:00 95.0 F 68 160/97 100 12/11/18 07:43 94.8 F 65 18 113/74 100 12/11/18 07:34 94.8 F 65 127/79 100 12/11/18 07:19 94.6 F 66 113/72 100 12/11/18 07:04 94.6 F 66 111/74 100 12/11/18 07:00 94.6 F 68 100 12/11/18 06:49 94.8 F 69 112/71 100 12/11/18 06:34 75 136/81 100 12/11/18 06:19 77 128/81 99 12/11/18 05:42 78 82/51 96 12/11/18 05:39 79 77/51 95 12/11/18 05:37 79 78/49 95 12/11/18 05:35 80 74/50 95 12/11/18 05:27 81 73/54 94 12/11/18 05:12 90 127/73 100 12/11/18 05:00 85 98 12/11/18 04:57 86 105/76 98 12/11/18 04:42 92 130/75 98 12/11/18 04:35 96 153/88 98 12/11/18 04:28 97 191/98 98 12/11/18 04:17 94 16 160/92 95 12/11/18 04:06 106 14 98 12/11/18 04:02 106 20 169/123 98 12/11/18 04:00 107 22 97 12/11/18 03:18 96 18 122/97 92 12/11/18 03:00 96 20 91 12/11/18 02:52 98 27 89 12/11/18 02:48 100 19 189/91 88 12/11/18 02:27 92 28 149/99 89 12/11/18 02:00 84 28 96 12/11/18 01:47 81 16 113/65 96 12/11/18 01:17 79 16 101/67 94 12/11/18 01:00 86 22 88 12/11/18 00:55 91 26 137/87 87 12/11/18 00:21 86 22 135/76 96 12/11/18 00:07 83 18 98 12/11/18 00:00 82 18 94 Lactic Acid: 12/10/18 23:26 Lactic Acid 1.6 - Cardiopulmonary Exam Capillary Refill: Immediate Respiratory: Symmetrical Chest Expansion and Respiratory Effort, Clear to Auscultation Cardiovascular: NL Sounds; No Murmurs; No JVD, No Edema - Peripheral Pulse Exam Radial Pulses: Bilateral Normal, Bilateral Diminished, Bilateral Absent Pedal Pulses: Bilateral Normal, Bilateral Diminished, Bilateral Absent Posterior Tibial Pulse: Bilateral Normal, Bilateral Diminished, Bilateral Absent Femoral Pulses: Bilateral Normal, Bilateral Diminished, Bilateral Absent Popliteal Pulses: Bilateral Normal, Bilateral Diminished, Bilateral Absent - Skin Exam Skin Exam: Normal Turgor - Serena Coma Scale Best Eye Response: 2 - To Pain Best Motor Response: 4 - Withdraws Best Verbal Response: 1 - Intubated - Patient is intubated and sedated. Coma Scale Total: 7.0 Assess/Plan/Problems-Billing Assessment:
[2018-12-11] MEDS ORDERED: ZOSYN 3.375 GM Q8H per EXTENDED INFUSION IVPB SCH ×2 (13:30)
[2018-12-11] MEDS: Heparin VIAL(*) 5000 UNITS/ML VIAL (FIVE THOUSAND) SUBCUT SCH ×2 (14:18→21:50)
[2018-12-11] MEDS: Chlorhexidine MOUTHWASH 0.12%* 15 ML UDC TOPICAL SCH ×5 (14:18→23:52)
[2018-12-11] MEDS: ZOSYN 3.375 GM Q6H - Intermittant 30 min Infusion IVPB SCH ×4 (15:41→21:37)
[2018-12-11] MEDS: Vancomycin(*) 1,000 MG in NS 0.9% 250 ML* 250 ML IVPB SCH (22:46)
[2018-12-12] MEDS: NS 0.9% 1000 ML** 1,000 ML IV SCH (00:45)
[2018-12-12] MEDS: ZOSYN 3.375 GM Q6H - Intermittant 30 min Infusion IVPB SCH ×8 (03:49→21:25)
[2018-12-12] MEDS: Albuterol/Ipratropium NEB.SOL* Albuterol 2.5 MG/Ipratropium 0.5 MG 3 ML INH SCH (03:49)
[2018-12-12] MEDS: Chlorhexidine MOUTHWASH 0.12%* 15 ML UDC TOPICAL SCH ×6 (04:13→23:28)
[2018-12-12] MEDS: Midazolam IV for DRIP* 100 MG in NS 0.9% 100 ML* 80 ML IV SCH ×2 (04:22→14:55)
[2018-12-12] MEDS ORDERED: cloNIDine 0.3 MG PATCH* 0.3 MG/24 HR 7 DAY PATCH TRANSDERM ONE ×2 (06:00)
[2018-12-12] MEDS: Heparin VIAL(*) 5000 UNITS/ML VIAL (FIVE THOUSAND) SUBCUT SCH ×3 (06:03→21:55)
[2018-12-12 06:25] LABS: Hematocrit 32 % (42-52); Hemoglobin 10.8 g/dL (14.0-18.0); Mean Corpuscular HGB Conc 34 g/dL (31-36); Mean Corpuscular Hemoglobin 35 pg (27-31); Mean Corpuscular Volume 103 fL (80-94); Mean Platelet Volume 8.1 fL (7.4-10.4); Platelet Count 351 10^3/uL (150-450); Red Blood Count 3.12 10^6 /uL (4.18-5.48); Red Cell Distribution Width 22 % (10-15); White Blood Count 8.5 10^3/uL (3.5-10.8)
[2018-12-12] MEDS ORDERED: Albuterol/Ipratropium NEB.SOL* Albuterol 2.5 MG/Ipratropium 0.5 MG 3 ML INH PRN (06:36)
[2018-12-12 06:52] LABS: Albumin 3.4 g/dL (3.2-5.2); Albumin/Globulin Ratio 1.1 (1-3); BUN/Creatinine Ratio 23.6 (8-20); Calcium 7.9 mg/dL (8.6-10.3); EGFR Non-African American 56.2 (>60); Globulin 3.2 g/dL (2-4); Potassium 4.7 mmol/L (3.5-5.0); Total Bilirubin 0.4 mg/dL (0.2-1.0); Total Protein 6.6 g/dL (6.4-8.9)
[2018-12-12 06:56] LABS: ABS Basophils 0.1 10^3/ul (0-0.2); ABS Lymphocytes 0.6 10^3/ul (1.0-4.8); ABS Monocytes 0.7 10^3/ul (0-0.8); ABS Neutrophils 7.1 10^3/ul (1.5-7.7); ABS Nucleated RBC 0.1 10^3/ul; Eosinophil % 0.1 %; Lymphocyte % 6.6 %; Nucleated Red Blood Cells % 0.7
[2018-12-12] MEDS: methylPREDNISolone SOD 40 MG* 1 ML VIAL IV SCH ×3 (07:11→23:23)
[2018-12-12] MEDS: Thiamine IV 100 MG, Folic Acid IV* 1 MG, Multiple Vitamin IV ADULT* 10 ML in NS 0.9% 10... IV SCH (09:43)
[2018-12-12] MEDS: Amiodarone TAB* 200 MG NG TUBE SCH (10:12)
[2018-12-12] MEDS: Pantoprazole IV* 40 MG IV SCH (10:12)
[2018-12-12] MEDS: Vancomycin(*) 1,000 MG in NS 0.9% 250 ML* 250 ML IVPB SCH ×2 (11:07→22:15)
[2018-12-12] MEDS ORDERED: Propofol* 100 ML IV SCH (12:00)
[2018-12-12] MEDS: Propofol* 100 ML IV SCH ×3 (13:28→23:27)
--- NOTE | 2018-12-12 16:43 | PN ---
Date of Service: 12/12/18 Critical Care Services: Major problems include lung CA, pneumonia, and ETOH withdrawal. Continues on ventilator and on propofol for ETOH withdrawal. Vital Signs: Temp Pulse Resp BP SpO2 FiO2 96.9 F 78 31 151/96 95 30 Physical Exam: Gen:Unresponsive on propofol HEENT:Pupils midposition and reactive Lungs: scattered rhonchi Cardiac: reg rhythm Abdomen:Not distended Extremities: No cyanosis or edema Fluid Balance (Past 24 Hours): 12/12/18 06:59 Intake Total 4972.5 Output Total 849 Balance 4123.5 Weight 181 lb 6.4 oz Intake: IV Fluids 3846.5 Banana Bag 589 NS (0.9%) 2836.5 Thiamine 421 IVPB 688 ABX 308 ABX - PIPERACILLIN 105 ABX - VANCOMYCIN 275 NS (0.9%) Medicated IV 343 Propofol 343 Thiamine, Folic Acid, Multivitamin IV Narcotic Infusion 95 Versed 95 Output: G Tube 150 Urine Umrphy 699 Other: Estimated Void Large Labs: Laboratory Results - last 24 hr 12/11/18 12/12/18 12/12/18 08:28 06:10 06:10 WBC 8.5 RBC 3.12 L Hgb 10.8 L Hct 32 L MCV 103 H MCH 35 H MCHC 34 RDW 22 H Plt Count 351 MPV 8.1 Neut % (Auto) 83.8 Lymph % (Auto) 6.6 [place] % (Auto) 8.5 Eos % (Auto) 0.1 Baso % (Auto) 1.0 Absolute Neuts (auto) 7.1 Absolute Lymphs (auto) 0.6 L Absolute Monos (auto) 0.7 Absolute Eos (auto) 0.0 Absolute Basos (auto) 0.1 Absolute Nucleated RBC 0.1 Nucleated RBC % 0.7 Hem Pathologist Commnt Sodium 140 Potassium 4.7 Chloride 112 H Carbon Dioxide 22 Anion Gap 6 BUN 30 H Creatinine 1.27 H Est GFR ( Amer) 68.0 Est GFR (Non-Af Amer) 56.2 BUN/Creatinine Ratio 23.6 H Glucose 161 H Calcium 7.9 L Total Bilirubin 0.40 AST 18 ALT 10 Alkaline Phosphatase 56 Total Protein 6.6 Albumin 3.4 Globulin 3.2 Albumin/Globulin Ratio 1.1 Studies: None today Nutrition: Started tube feedings with jevity 1.2 at 50 cc/hr Impression: Clinically stable, but remains on ventilator. Signs of etoh withdrawal are diminishing. Plan: Will attempt to wean from ventilator as soon as signs of ETOH withdrawal have subsided. Critical Care Time: 30 minutes
[2018-12-12] MEDS: Lactated Ringers 1000 ML Bag* 1,000 ML IV SCH (18:17)
[2018-12-12] MEDS ORDERED: Metoprolol Tartrate IV* 1 MG/ML 5 ML VIAL IV ONE (23:00)
[2018-12-12] MEDS: Albuterol/Ipratropium NEB.SOL* Albuterol 2.5 MG/Ipratropium 0.5 MG 3 ML INH PRN (23:09)
[2018-12-13] MEDS: Propofol* 100 ML IV SCH ×6 (03:08→21:48)
[2018-12-13] MEDS: Albuterol/Ipratropium NEB.SOL* Albuterol 2.5 MG/Ipratropium 0.5 MG 3 ML INH PRN ×2 (03:24→08:02)
[2018-12-13] MEDS ORDERED: Metoprolol Tartrate IV* 1 MG/ML 5 ML VIAL IV ONE (03:30)
[2018-12-13] MEDS: Chlorhexidine MOUTHWASH 0.12%* 15 ML UDC TOPICAL SCH ×5 (03:58→20:03)
[2018-12-13] MEDS: ZOSYN 3.375 GM Q6H - Intermittant 30 min Infusion IVPB SCH ×8 (03:58→21:16)
[2018-12-13 04:36] LABS: Hematocrit 25 % (42-52); Hemoglobin 8.1 g/dL (14.0-18.0); Mean Corpuscular HGB Conc 33 g/dL (31-36); Mean Corpuscular Hemoglobin 34 pg (27-31); Mean Corpuscular Volume 105 fL (80-94); Mean Platelet Volume 8.4 fL (7.4-10.4); Platelet Count 308 10^3/uL (150-450); Red Blood Count 2.36 10^6 /uL (4.18-5.48); Red Cell Distribution Width 22 % (10-15); White Blood Count 7.4 10^3/uL (3.5-10.8)
[2018-12-13 04:49] LABS: BUN/Creatinine Ratio 29.9 (8-20); EGFR African American 105.3 (>60); Potassium 4.3 mmol/L (3.5-5.0)
[2018-12-13] MEDS: methylPREDNISolone SOD 40 MG* 1 ML VIAL IV SCH ×2 (06:25→14:43)
[2018-12-13] MEDS: Heparin VIAL(*) 5000 UNITS/ML VIAL (FIVE THOUSAND) SUBCUT SCH ×3 (06:25→22:23)
[2018-12-13] MEDS: Lactated Ringers 1000 ML Bag* 1,000 ML IV SCH ×2 (07:16→17:25)
[2018-12-13] MEDS: Amiodarone TAB* 200 MG NG TUBE SCH (09:29)
[2018-12-13] MEDS: Pantoprazole IV* 40 MG IV SCH (09:29)
[2018-12-13] MEDS ORDERED: Vancomycin Trough Check NOTE FOLLOW UP ONE (09:30)
[2018-12-13] MEDS: Thiamine IV 100 MG, Folic Acid IV* 1 MG, Multiple Vitamin IV ADULT* 10 ML in NS 0.9% 10... IV SCH (09:31)
[2018-12-13] MEDS ORDERED: Vancomycin(*) 750 MG in NS 0.9% 250 ML* 250 ML IVPB SCH (12:00)
[2018-12-13] MEDS: Metoprolol Tartrate IV* 1 MG/ML 5 ML VIAL IV PRN (15:32)
--- NOTE | 2018-12-13 16:47 | PN ---
Date of Service: 12/13/18 Critical Care Services: No change in clinical status. Remains agitated on ventilator - controlled with propofol sedation. Has infiltrate on CXR but no organism identified. Vital Signs: Temp Pulse Resp BP SpO2 FiO2 98.3 F 76 29 169/103 92 50 Physical Exam: Gen:Unresponsive HEENT: OT tube in place Lungs: Crackles on right posteriorly. No wheezes. Cardiac: Reg rhythm. No murmurs Abdomen:Not distended Extremities:No cyanosis or edema Neuro: No tremors Fluid Balance (Past 24 Hours): 12/12/18 12/13/18 06:59 06:59 Intake Total 4972.5 3391 Output Total 849 857 Balance 4123.5 2534 Weight 181 lb 6.4 oz 184 lb 0.108 oz Intake: IV Fluids 3846.5 996 ABX Banana Bag 589 LR 920 NS (0.9%) 2836.5 76 Thiamine 421 IVPB 688 1161 ABX 308 630 ABX - PIPERACILLIN 105 ABX - VANCOMYCIN 275 NS (0.9%) 531 Medicated IV 343 830 Propofol 343 330 Thiamine, Folic Acid, 500 Multivitamin IV Narcotic Infusion 95 Versed 95 Tube Feeding 404 Tube Feeding Flush Amount Output: G Tube 150 Urine 690 Murphy 699 167 Other: Estimated Void Large Large Labs: Laboratory Results - last 24 hr 12/13/18 12/13/18 12/13/18 04:04 04:04 09:03 WBC 7.4 RBC 2.36 L Hgb 8.1 L Hct 25 L MCV 105 H MCH 34 H MCHC 33 RDW 22 H Plt Count 308 MPV 8.4 Sodium 138 Potassium 4.3 Chloride 111 Carbon Dioxide 19 L Anion Gap 8 BUN 26 H Creatinine 0.87 Est GFR ( Amer) 105.3 Est GFR (Non-Af Amer) 87.0 BUN/Creatinine Ratio 29.9 H Glucose 149 H Calcium 7.0 L Vancomycin Trough 20.1 Studies: None today Nutrition: Tube feeding with jevity 1.2 Impression: 1. Continued agitation most likely represents ETOH withdrawal. 2. Pneumonia vs neoplasm right lung - no pathogen identified so far. Is on empiric Rx with PIP/TAZO plus vancomycin. Plan: Continue propofol and mechanical ventilation at this point. Will assess for weaning daily. Critical Care Time: 35 minutes
[2018-12-14] MEDS: Chlorhexidine MOUTHWASH 0.12%* 15 ML UDC TOPICAL SCH ×6 (00:48→20:00)
[2018-12-14] MEDS: Propofol* 100 ML IV SCH ×5 (01:41→20:30)
[2018-12-14] MEDS: ZOSYN 3.375 GM Q6H - Intermittant 30 min Infusion IVPB SCH ×8 (03:36→20:00)
[2018-12-14 05:28] LABS: Hematocrit 29 % (42-52); Hemoglobin 10.3 g/dL (14.0-18.0); Mean Corpuscular HGB Conc 36 g/dL (31-36); Mean Corpuscular Hemoglobin 38 pg (27-31); Mean Corpuscular Volume 105 fL (80-94); Mean Platelet Volume 8.3 fL (7.4-10.4); Platelet Count 277 10^3/uL (150-450); Red Blood Count 2.74 10^6 /uL (4.18-5.48); Red Cell Distribution Width 22 % (10-15); White Blood Count 13.7 10^3/uL (3.5-10.8)
[2018-12-14 06:00] LABS: Anion Gap 3 mmol/L (2-11); BUN/Creatinine Ratio 28.9 (8-20); Blood Urea Nitrogen 24 mg/dL (6-24); CO2 Carbon Dioxide 24 mmol/L (22-32); Calcium 6.8 mg/dL (8.6-10.3); Chloride 102 mmol/L (101-111); EGFR African American 111.2 (>60); EGFR Non-African American 91.9 (>60); Glucose 168 mg/dL (70-100); Sodium 129 mmol/L (135-145)
[2018-12-14] MEDS: Heparin VIAL(*) 5000 UNITS/ML VIAL (FIVE THOUSAND) SUBCUT SCH ×3 (06:23→22:04)
[2018-12-14] MEDS: Pantoprazole IV* 40 MG IV SCH (08:39)
[2018-12-14] MEDS: Amiodarone TAB* 200 MG NG TUBE SCH (08:46)
[2018-12-14] MEDS: Lactated Ringers 1000 ML Bag* 1,000 ML IV SCH (08:46)
[2018-12-14] MEDS ORDERED: Dexmedetomidine* 1,000 MCG in NS 0.9% 250 ML* 240 ML IV SCH (11:00)
[2018-12-14] MEDS: Thiamine IV 100 MG, Folic Acid IV* 1 MG, Multiple Vitamin IV ADULT* 10 ML in NS 0.9% 10... IV SCH (11:05)
[2018-12-14] MEDS: Metoprolol Tartrate IV* 1 MG/ML 5 ML VIAL IV PRN (11:13)
[2018-12-14] MEDS: Dexmedetomidine* 1,000 MCG in NS 0.9% 250 ML* 240 ML IV SCH (14:43)
[2018-12-14] MEDS: Albuterol/Ipratropium NEB.SOL* Albuterol 2.5 MG/Ipratropium 0.5 MG 3 ML INH PRN (15:37)
--- NOTE | 2018-12-14 16:33 | PN ---
Date of Service: 12/14/18 Critical Care Services: Remains on ventilator and still gets agitated when propofol dose is reduced. We have started precedex in an attempt to get off propofol. Vital Signs: Temp Pulse Resp BP SpO2 FiO2 96.7 F 58 21 138/89 96 50 12/14/18 16:00 12/14/18 15:38 12/14/18 15:38 12/14/18 15:00 12/14/18 15:38 12/14 16:00 Physical Exam: Gen:Unresponsive (on propofol) HEENT: No facial asymmetry. Lungs: Scaterred rhonchi. No wheezes or crackles. Cardiac: Reg rhythm Abdomen:Not distended Extremities: Warm.No cyanosis. trace edema. Neuro: No tremors Fluid Balance (Past 24 Hours): 12/12/18 12/13/18 12/14/18 06:59 06:59 06:59 Intake Total 4972.5 3391 4672.6 Output Total 858 169 8388 Balance 4123.5 2534 3587.6 Weight 181 lb 6.4 oz 184 lb 0.108 oz 200 lb 6.403 oz Intake: IV Fluids 3846.5 996 1642.6 ABX 22.6 Banana Bag 589 LR 920 1485 NS (0.9%) 2836.5 76 135 Thiamine 421 IVPB 688 1161 723 ABX 308 630 723 ABX - PIPERACILLIN 105 ABX - VANCOMYCIN 275 NS (0.9%) 531 Medicated IV 577 692 4621 Propofol 343 330 575 Thiamine, Folic Acid, 500 637 Multivitamin IV Narcotic Infusion 95 Versed 95 Oral Tube Feeding 404 1045 Tube Feeding Flush Amount 50 Output: G Tube 150 Urine 690 760 Murphy 699 167 Straight Cath 325 Other: Estimated Void Large Large Large Date of Last Bowel Movement # Bowel Movements Estimated Stool Amount # Voids 1 Labs: Laboratory Results - last 24 hr 12/14/18 12/14/18 12/14/18 05:13 05:13 06:00 WBC 13.7 H RBC 2.74 L Hgb 10.3 L Hct 29 L MCV 105 H MCH 38 H MCHC 36 RDW 22 H Plt Count 277 MPV 8.3 Sodium 129 L D Potassium TNP 4.7 Chloride 102 Carbon Dioxide 24 Anion Gap 3 BUN 24 Creatinine 0.83 Est GFR ( Amer) 111.2 Est GFR (Non-Af Amer) 91.9 BUN/Creatinine Ratio 28.9 H Glucose 168 H Calcium 6.8 L Studies: CXR: Infiltrate in RUL and RLL. Nutrition: Tube feedings Impression: 1. Positive fluid balance 2. Hyponatremia due to #1 3. Infiltrate right lung - pneumonia vs CHF Plan: 1. D/C LR infusion 2. Diuresis with furosemide. 3. Culture blood and sputum 4. Decrease propofol and attempt wean if feasable. Critical Care Time: 50 minutes
[2018-12-14] MEDS ORDERED: Furosemide IV* 10 MG/ML 2 ML VIAL (20 MG) IV ONE (16:34)
[2018-12-14] MEDS: amLODIPine TAB* 5 MG PO SCH (19:58)
[2018-12-15] MEDS: Propofol* 100 ML IV SCH ×4 (01:00→20:42)
[2018-12-15] MEDS: Metoprolol Tartrate IV* 1 MG/ML 5 ML VIAL IV PRN (01:46)
[2018-12-15] MEDS: Dexmedetomidine* 1,000 MCG in NS 0.9% 250 ML* 240 ML IV SCH ×2 (01:51→13:45)
[2018-12-15] MEDS ORDERED: Metoprolol Tartrate IV* 1 MG/ML 5 ML VIAL IV ONE (02:10)
[2018-12-15] MEDS: ZOSYN 3.375 GM Q6H - Intermittant 30 min Infusion IVPB SCH ×6 (02:51→15:12)
[2018-12-15] MEDS: Chlorhexidine MOUTHWASH 0.12%* 15 ML UDC TOPICAL SCH ×7 (04:30→23:12)
[2018-12-15 05:21] LABS: Hematocrit 33 % (42-52); Hemoglobin 10.6 g/dL (14.0-18.0); Mean Corpuscular HGB Conc 33 g/dL (31-36); Mean Corpuscular Hemoglobin 34 pg (27-31); Mean Corpuscular Volume 104 fL (80-94); Mean Platelet Volume 7.8 fL (7.4-10.4); Platelet Count 286 10^3/uL (150-450); Red Blood Count 3.14 10^6 /uL (4.18-5.48); Red Cell Distribution Width 22 % (10-15); White Blood Count 15.1 10^3/uL (3.5-10.8)
[2018-12-15] MEDS: Heparin VIAL(*) 5000 UNITS/ML VIAL (FIVE THOUSAND) SUBCUT SCH ×3 (05:31→21:13)
[2018-12-15 05:44] LABS: BUN/Creatinine Ratio 22.5 (8-20); Blood Urea Nitrogen 20 mg/dL (6-24); CO2 Carbon Dioxide 30 mmol/L (22-32); Calcium 7.9 mg/dL (8.6-10.3); Chloride 107 mmol/L (101-111); EGFR African American 102.6 (>60); EGFR Non-African American 84.8 (>60); Glucose 128 mg/dL (70-100); Sodium 142 mmol/L (135-145)
[2018-12-15 05:46] LABS: Anion Gap 5 mmol/L (2-11)
[2018-12-15] MEDS: Amiodarone TAB* 200 MG NG TUBE SCH (08:51)
[2018-12-15] MEDS: Pantoprazole IV* 40 MG IV SCH (08:51)
[2018-12-15] MEDS: amLODIPine TAB* 5 MG PO SCH (08:51)
[2018-12-15] MEDS ORDERED: Vancomycin Trough Check NOTE FOLLOW UP ONE (11:30)
[2018-12-15] MEDS: Thiamine IV 100 MG, Folic Acid IV* 1 MG, Multiple Vitamin IV ADULT* 10 ML in NS 0.9% 10... IV SCH (11:41)
[2018-12-15] MEDS: Albuterol/Ipratropium NEB.SOL* Albuterol 2.5 MG/Ipratropium 0.5 MG 3 ML INH PRN (13:34)
--- NOTE | 2018-12-15 16:30 | PN ---
Date of Service: 12/15/18 Critical Care Services: remains on ventilator - gets agitated when propofol dose decreased. Vital Signs: Temp Pulse Resp BP SpO2 FiO2 98.2 F 58 23 146/83 92 50 Physical Exam: Gen:Unresponsive (on propofol) HEENT: No facial twitching Lungs:scaterred rhonchi Cardiac: Irreg rhythm (A Fib) Abdomen: Not distended Extremities:Warm. 1+edema Neuro: No tremors Fluid Balance (Past 24 Hours): 12/13/18 12/14/18 12/15/18 06:59 06:59 06:59 Intake Total 3391 4672.6 2814 Output Total 857 1085 1675 Balance 2534 3587.6 1139 Weight 184 lb 0.108 oz 200 lb 6.403 oz 201 lb 4.513 oz Intake: IV Fluids 996 1642.6 608 ABX 22.6 Banana Bag LR 920 1485 463 NS (0.9%) 76 135 145 IVPB 1161 723 390 ABX 630 723 177 NS (0.9%) 531 213 Medicated IV 830 1212 960 CC - Dexmedetomidine/ 172 Precedex Propofol 330 575 430 Thiamine, Folic Acid, 500 637 358 Multivitamin Oral 0 Tube Feeding 404 1045 736 Tube Feeding Flush Amount 50 120 Output: Urine 362 786 3873 Murphy 167 Straight Cath 325 Other: Estimated Void Large Large Large Date of Last Bowel 12/14/2018 Movement # Bowel Movements 1 Estimated Stool Amount Large # Voids 1 0 Labs: 12/15/18 12/15/18 12/15/18 05:10 05:10 06:00 WBC 15.1 H RBC 3.14 L Hgb 10.6 L Hct 33 L MCV 104 H MCH 34 H MCHC 33 RDW 22 H Plt Count 286 MPV 7.8 Sodium 142 D Potassium TNP TNP Chloride 107 Carbon Dioxide 30 Anion Gap 5 BUN 20 Creatinine 0.89 Est GFR ( Amer) 102.6 Est GFR (Non-Af Amer) 84.8 BUN/Creatinine Ratio 22.5 H Glucose 128 H Calcium 7.9 L 12/15/18 07:32 WBC RBC Hgb Hct MCV MCH MCHC RDW Plt Count MPV Sodium Potassium 4.0 Chloride Carbon Dioxide Anion Gap BUN Creatinine Est GFR ( Amer) Est GFR (Non-Af Amer) BUN/Creatinine Ratio Glucose Calcium Studies: Blood cultures negative. Sputum culture: Yeast Nutrition: Tube feedings Impression: 1. Remains ventilator-dependent. Has pneumonia, but no pathogen isolated. 2. ETOH withdrawal seems to have subsided. 3. Has positive fluid balance. 4. Overall, the prognosis seems poor in this case, particularly with the underlying lung CA (which has not been treated). Plan: 1. Attempt daily weaning trials. I would not want to move to tracheostomy in this case because of the lung CA and associated poor prognosis. 2. Cut back on IV fluids where possible, and diuresis if necessary. 3. Stop antibiotics if all cultures negative. Critical Care Time: 45 minutes (including time spent discussing case with patient's ).
[2018-12-15] MEDS ORDERED: Furosemide IV* 10 MG/ML VIAL (40 MG) IV ONE (16:36)
[2018-12-16] MEDS: Dexmedetomidine* 1,000 MCG in NS 0.9% 250 ML* 240 ML IV SCH ×4 (01:04→22:52)
[2018-12-16] MEDS: Propofol* 100 ML IV SCH ×4 (02:27→18:44)
[2018-12-16] MEDS: Chlorhexidine MOUTHWASH 0.12%* 15 ML UDC TOPICAL SCH ×5 (04:30→20:00)
[2018-12-16 04:55] LABS: Hematocrit 34 % (42-52); Hemoglobin 11.1 g/dL (14.0-18.0); Mean Corpuscular HGB Conc 33 g/dL (31-36); Mean Corpuscular Hemoglobin 34 pg (27-31); Mean Corpuscular Volume 102 fL (80-94); Mean Platelet Volume 7.9 fL (7.4-10.4); Platelet Count 265 10^3/uL (150-450); Red Blood Count 3.31 10^6 /uL (4.18-5.48); Red Cell Distribution Width 22 % (10-15); White Blood Count 14.6 10^3/uL (3.5-10.8)
[2018-12-16 05:11] LABS: BUN/Creatinine Ratio 22.4 (8-20); Calcium 8.2 mg/dL (8.6-10.3); EGFR Non-African American 101.7 (>60); Magnesium 1.7 mg/dL (1.9-2.7); Potassium 3.7 mmol/L (3.5-5.0)
[2018-12-16] MEDS: Heparin VIAL(*) 5000 UNITS/ML VIAL (FIVE THOUSAND) SUBCUT SCH ×3 (06:11→21:38)
[2018-12-16] MEDS: Pantoprazole IV* 40 MG IV SCH (08:50)
[2018-12-16] MEDS: amLODIPine TAB* 5 MG PO SCH (08:51)
[2018-12-16] MEDS: Amiodarone TAB* 200 MG NG TUBE SCH (08:51)
[2018-12-16] MEDS: Thiamine IV 100 MG, Folic Acid IV* 1 MG, Multiple Vitamin IV ADULT* 10 ML in NS 0.9% 10... IV SCH (09:22)
[2018-12-16] MEDS: Albuterol/Ipratropium NEB.SOL* Albuterol 2.5 MG/Ipratropium 0.5 MG 3 ML INH PRN ×2 (12:39→19:13)
--- NOTE | 2018-12-16 14:17 | PRO ---
PROCEDURE NOTE: DATE OF PROCEDURE: 12/16/18 PROCEDURE: Insertion of a triple lumen central venous catheter. INDICATION/DESCRIPTION OF PROCEDURE: This patient is a 68-year-old white male, who is currently hosp italized for respiratory failure and alcohol withdrawal, who required central venous access. A right internal jugular vein catheter was inserted under ultrasound guidance without difficulty and the ins ertion site was sutured and dressed in the usual sterile fashion. A postinsertion chest x-ray is pen ding, but the patient has tolerated the procedure well. [id number]/[facility] #: [id number]
--- NOTE | 2018-12-16 17:10 | PN ---
Date of Service: 12/16/18 Critical Care Services: Wean attempt today failed, but patient less anxious Vital Signs: Temp Pulse Resp BP SpO2 FiO2 98.1 F 60 23 142/84 95 50 Physical Exam: Gen:Awake when propofol off. HEENT:Oropharynx clear Lungs: coarse rhonchi both sides Cardiac: irreg rhythm Abdomen: Not distended Extremities: 1+edema. No cyanosis. Fluid Balance (Past 24 Hours): I= O= Net Intake & Output 12/14/18 12/15/18 12/16/18 06:59 06:59 06:59 Intake Total 4672.6 2814 3426 Output Total 1085 1675 3950 Balance 3587.6 1139 -524 Weight 200 lb 6.403 oz 201 lb 4.513 oz 203 lb 4.513 oz Intake: IV Fluids 1642.6 608 662 ABX 22.6 37 Banana Bag 582 LR 1485 463 NS (0.9%) 135 145 43 IVPB 723 390 218 ABX 723 177 109 NS (0.9%) 213 109 Medicated IV 1212 960 962 CC - Dexmedetomidine/ 172 556 Precedex Propofol 575 430 406 Thiamine, Folic Acid, 637 358 Multivitamin Oral 0 0 Tube Feeding 8887 928 3856 Tube Feeding Flush Amount 50 120 95 Output: Urine 760 1675 3550 Murphy 400 Straight Cath 325 Other: Estimated Void Large Large Medium Date of Last Bowel 12/14/2018 12/16/2018 Movement # Bowel Movements 1 1 Estimated Stool Amount Large Medium # Voids 1 0 1 Labs: Laboratory Results - last 24 hr 12/16/18 12/16/18 04:45 04:45 WBC 14.6 H RBC 3.31 L Hgb 11.1 L Hct 34 L MCV 102 H MCH 34 H MCHC 33 RDW 22 H Plt Count 265 MPV 7.9 Sodium 141 Potassium 3.7 Chloride 100 L Carbon Dioxide 35 H Anion Gap 6 BUN 17 Creatinine 0.76 Est GFR ( Amer) 123.0 Est GFR (Non-Af Amer) 101.7 BUN/Creatinine Ratio 22.4 H Glucose 162 H Calcium 8.2 L Magnesium 1.7 L Studies: CXR: RUL consolidation and right-sided pleural effusion. Nutrition: Tube feedings Impression: 1. ETOH withdrawal has subsided 2. Still ventilator-dependent because of lung CA and presumed pneumonia. Plan: Switch from propofol to dexmedetomidine and start daily wean trials. Critical Care Time: 40 minutes (including time to evaluate wean).
[2018-12-17] MEDS: Chlorhexidine MOUTHWASH 0.12%* 15 ML UDC TOPICAL SCH ×6 (00:01→20:15)
[2018-12-17] MEDS: Propofol* 100 ML IV SCH ×6 (00:58→18:03)
[2018-12-17 04:14] LABS: Hematocrit 31 % (42-52); Mean Corpuscular HGB Conc 33 g/dL (31-36); Mean Corpuscular Hemoglobin 33 pg (27-31); Mean Corpuscular Volume 102 fL (80-94); Mean Platelet Volume 8.1 fL (7.4-10.4); Platelet Count 224 10^3/uL (150-450); Red Blood Count 3.01 10^6 /uL (4.18-5.48); Red Cell Distribution Width 21 % (10-15); White Blood Count 13.3 10^3/uL (3.5-10.8)
[2018-12-17 04:22] LABS: Activated Partial Thrombo Time 34.7 seconds (26.0-38.0); INR 1.04 (0.82-1.09)
[2018-12-17 04:29] LABS: BUN/Creatinine Ratio 22.2 (8-20); Calcium 8.2 mg/dL (8.6-10.3); EGFR Non-African American 108.2 (>60); Potassium 3.8 mmol/L (3.5-5.0)
[2018-12-17] MEDS: Heparin VIAL(*) 5000 UNITS/ML VIAL (FIVE THOUSAND) SUBCUT SCH ×3 (05:18→21:53)
[2018-12-17] MEDS: Vancomycin(*) 1,000 MG in NS 0.9% 250 ML* 250 ML IVPB SCH (07:38)
[2018-12-17] MEDS: Amiodarone TAB* 200 MG NG TUBE SCH (08:51)
[2018-12-17] MEDS: amLODIPine TAB* 5 MG PO SCH (08:51)
[2018-12-17] MEDS: Thiamine IV 100 MG, Folic Acid IV* 1 MG, Multiple Vitamin IV ADULT* 10 ML in NS 0.9% 10... IV SCH (08:51)
[2018-12-17] MEDS: Pantoprazole IV* 40 MG IV SCH (08:51)
[2018-12-17] MEDS: Albuterol/Ipratropium NEB.SOL* Albuterol 2.5 MG/Ipratropium 0.5 MG 3 ML INH PRN ×2 (12:05→23:18)
[2018-12-17] MEDS ORDERED: Morphine INJ* 4 MG/ML 1 ML SYRINGE (NEW SYRINGE VERSION) ONE (13:28)
[2018-12-17] MEDS ORDERED: Morphine INJ* 4 MG/ML 1 ML SYRINGE (NEW SYRINGE VERSION) IV ONE (13:45)
[2018-12-17] MEDS: Dexmedetomidine* 1,000 MCG in NS 0.9% 250 ML* 240 ML IV SCH ×2 (14:28→22:33)
[2018-12-17] MEDS ORDERED: Furosemide IV* 10 MG/ML VIAL (40 MG) IV ONE (17:33)
[2018-12-17] MEDS ORDERED: Piperacillin/Tazobac ADVAN(*) 3.375 GM in NS 0.9% 100 ML* 100 ML IVPB ONE (17:36)
--- NOTE | 2018-12-17 17:47 | PN ---
Date of Service: 12/17/18 Critical Care Services: Remains on ventilator - attempted to switch from propofol to Precedex but patient became agitated. Also unablke to wean. Now has copious secretions and CXR shows progressive infiltration at right base. Vital Signs: Temp Pulse Resp BP SpO2 FiO2 98.1 F 61 18 89/54 98 80 12/17/18 16:00 12/17/18 16:15 12/17/18 15:00 12/17/18 16:15 12/17/18 16:15 12/17 16:00 Physical Exam: Gen:Unresponsive on propofol HEENT:Orotracheal tube in place Lungs: Scaterred rhonchi Cardiac: No murmurs Abdomen:Not distended Extremities: No cyanosis. 1-2+ edema Neuro: No tremors Fluid Balance (Past 24 Hours): 12/15/18 12/16/18 12/17/18 06:59 06:59 06:59 Intake Total 2814 3426 3444 Output Total 1675 4325 1775 Balance 1139 -899 1669 Weight 201 lb 4.513 oz 203 lb 4.513 oz 192 lb 0.362 oz Intake: IV Fluids 608 662 802 ABX 37 Banana Bag 582 802 LR 463 NS (0.9%) 145 43 IVPB 390 218 ABX 177 109 NS (0.9%) 213 109 Medicated IV 960 962 893 CC - Dexmedetomidine/ 172 556 488 Precedex Propofol 430 406 405 Thiamine, Folic Acid, 358 Multivitamin Oral 0 0 0 Tube Feeding 736 1489 1649 Tube Feeding Flush Amount 120 95 100 Output: Urine 1675 3925 1775 Murphy 400 Other: Estimated Void Large Medium Date of Last Bowel 12/14/2018 12/16/2018 12/17/18 Movement # Bowel Movements 1 1 1 Estimated Stool Amount Large Medium Large # Voids 0 1 Labs: 12/17/18 12/17/18 12/17/18 04:04 04:04 04:04 WBC 13.3 H RBC 3.01 L Hgb 10.0 L Hct 31 L MCV 102 H MCH 33 H MCHC 33 RDW 21 H Plt Count 224 MPV 8.1 INR (Anticoag Therapy) 1.04 APTT 34.7 Sodium 141 Potassium 3.8 Chloride 100 L Carbon Dioxide 36 H Anion Gap 5 BUN 16 Creatinine 0.72 Est GFR ( Amer) 131.0 Est GFR (Non-Af Amer) 108.2 BUN/Creatinine Ratio 22.2 H Glucose 164 H Calcium 8.2 L Studies: CXR: as mentioned. Sputum gram stain - inadequate specimen (mouth secretions). Nutrition: Tube feedings Impression: Unable to wean from the ventilator at this time. I do not know how much of the ventilator dependence is attributable to his lung CA, but there may be a pneumonia brewing 9considering the secretions). Plan: 1. Aggressive diuresis 2. Empiric antibiotics 3. Continue daily wean attempts I will speak with the about end-of-life decisions. Critical Care Time: 50 minutes (including time to evaluate wean).
[2018-12-17] MEDS ORDERED: Zosyn per Pharmacy* NOTE FOLLOW UP SCH (18:00)
[2018-12-17] MEDS: ZOSYN 3.375 GM Q8H per EXTENDED INFUSION IVPB SCH ×2 (21:53)
[2018-12-18] MEDS: Chlorhexidine MOUTHWASH 0.12%* 15 ML UDC TOPICAL SCH ×6 (00:23→21:02)
[2018-12-18] MEDS: ZOSYN 3.375 GM Q8H per EXTENDED INFUSION IVPB SCH ×6 (05:42→21:02)
[2018-12-18] MEDS: Heparin VIAL(*) 5000 UNITS/ML VIAL (FIVE THOUSAND) SUBCUT SCH ×3 (05:42→21:02)
[2018-12-18 05:58] LABS: Hematocrit 30 % (42-52); Hemoglobin 9.6 g/dL (14.0-18.0); Mean Corpuscular HGB Conc 32 g/dL (31-36); Mean Corpuscular Hemoglobin 33 pg (27-31); Mean Corpuscular Volume 102 fL (80-94); Mean Platelet Volume 8.5 fL (7.4-10.4); Platelet Count 227 10^3/uL (150-450); Red Blood Count 2.91 10^6 /uL (4.18-5.48); Red Cell Distribution Width 21 % (10-15); White Blood Count 12.9 10^3/uL (3.5-10.8)
[2018-12-18 06:09] LABS: BUN/Creatinine Ratio 23.5 (8-20); Calcium 8.1 mg/dL (8.6-10.3); EGFR African American 108.1 (>60); EGFR Non-African American 89.4 (>60)
[2018-12-18] MEDS: Propofol* 100 ML IV SCH ×3 (06:29→18:49)
[2018-12-18] MEDS: Dexmedetomidine* 1,000 MCG in NS 0.9% 250 ML* 240 ML IV SCH ×2 (07:33→16:36)
[2018-12-18] MEDS: Thiamine IV 100 MG, Folic Acid IV* 1 MG, Multiple Vitamin IV ADULT* 10 ML in NS 0.9% 10... IV SCH (08:51)
[2018-12-18] MEDS: amLODIPine TAB* 5 MG PO SCH ×2 (08:52→10:03)
[2018-12-18] MEDS: Pantoprazole IV* 40 MG IV SCH (08:52)
[2018-12-18] MEDS: Amiodarone TAB* 200 MG NG TUBE SCH (08:52)
[2018-12-18] MEDS ORDERED: Furosemide IV* 10 MG/ML VIAL (40 MG) IV ONE (13:50)
--- NOTE | 2018-12-18 16:10 | PN ---
Date of Service: 12/18/18 Critical Care Services: Continues to be vent-dependent - recent wean attempt failed after only a few minutes. Vital Signs: Temp Pulse Resp BP SpO2 FiO2 97.8 F 76 15 105/65 92 45 Physical Exam: Gen: Occasionally responds to verbal commands HEENT: no facial asymmetry Lungs: coarse rhonchi both sides Cardiac: Irreg rhythm Abdomen: Not distended Extremities: No cyanosis. 1+ edema. Fluid Balance (Past 24 Hours): 12/16/18 12/17/18 12/18/18 06:59 06:59 06:59 Intake Total 3426 3444 3499 Output Total 4325 1775 1175 Balance -899 1669 2324 Weight 203 lb 4.513 oz 192 lb 0.362 oz 192 lb 7.417 oz Intake: IV Fluids 662 802 976 ABX 37 Banana Bag 582 802 944 NS (0.9%) 43 32 IVPB 218 218 ABX 109 ABX - PIPERACILLIN 218 NS (0.9%) 109 Medicated IV 458 487 2748 CC - Dexmedetomidine/ 556 488 636 Precedex Propofol 406 405 467 Oral 0 0 Tube Feeding 1489 1649 1142 Tube Feeding Flush Amount 95 100 60 Output: Urine 3925 1775 1175 Murphy 400 Tube Feeding Residual Amount Wasted Other: Estimated Void Medium Large Date of Last Bowel 12/16/2018 12/17/18 Movement # Bowel Movements 1 1 Estimated Stool Amount Medium Large # Voids 1 1 Labs: 12/18/18 12/18/18 05:31 05:31 WBC 12.9 H RBC 2.91 L Hgb 9.6 L Hct 30 L MCV 102 H MCH 33 H MCHC 32 RDW 21 H Plt Count 227 MPV 8.5 Sodium 142 Potassium 4.0 Chloride 101 Carbon Dioxide 37 H Anion Gap 4 BUN 20 Creatinine 0.85 Est GFR ( Amer) 108.1 Est GFR (Non-Af Amer) 89.4 BUN/Creatinine Ratio 23.5 H Glucose 136 H Calcium 8.1 L Studies: CXR: Bilateral effusions (R>L) with atelectasis at right base Nutrition: Tube feeding Impression: Source of vent dependence could be a combination of lung CA, atelectasis, and infection. Prognosis for recovery, however, is poor at this time. Plan: Although I do not believe that the pseudomonas cultures of sputum are clinically relevant, I will try Rx with an antipseudomonal penecillin. I am also trying to diurese as much as possible. If these measures do not help, we need to speak with his about end-of-life measures. I do not think this patient is a tracheostomy candidate (because of underlying, untreated lung CA). Critical Care Time: 50 minutes
[2018-12-18 18:42] LABS: Urine Appearance Clear; Urine Bilirubin Negative (Negative); Urine Blood Negative (Negative); Urine Color Yellow; Urine Glucose Negative (Negative); Urine Ketones Negative (Negative); Urine Nitrite Negative (Negative); Urine Protein Negative (Negative); Urine Specific Gravity 1.017 (1.010-1.030); Urine Urobilinogen Negative (Negative)
[2018-12-19] MEDS: Chlorhexidine MOUTHWASH 0.12%* 15 ML UDC TOPICAL SCH ×7 (00:22→23:51)
[2018-12-19] MEDS: Dexmedetomidine* 1,000 MCG in NS 0.9% 250 ML* 240 ML IV SCH ×3 (00:46→17:07)
[2018-12-19 04:41] LABS: Hematocrit 29 % (42-52); Hemoglobin 9.6 g/dL (14.0-18.0); Mean Corpuscular HGB Conc 33 g/dL (31-36); Mean Corpuscular Hemoglobin 33 pg (27-31); Mean Corpuscular Volume 102 fL (80-94); Mean Platelet Volume 8.6 fL (7.4-10.4); Platelet Count 228 10^3/uL (150-450); Red Blood Count 2.89 10^6 /uL (4.18-5.48); Red Cell Distribution Width 21 % (10-15); White Blood Count 11.8 10^3/uL (3.5-10.8)
[2018-12-19 04:51] LABS: BUN/Creatinine Ratio 23.8 (8-20); Calcium 8.3 mg/dL (8.6-10.3); EGFR Non-African American 95.8 (>60); Potassium 3.7 mmol/L (3.5-5.0)
[2018-12-19] MEDS: ZOSYN 3.375 GM Q8H per EXTENDED INFUSION IVPB SCH ×6 (05:03→21:25)
[2018-12-19] MEDS: Heparin VIAL(*) 5000 UNITS/ML VIAL (FIVE THOUSAND) SUBCUT SCH ×3 (05:04→21:25)
[2018-12-19] MEDS: Propofol* 100 ML IV SCH ×3 (05:58→20:29)
[2018-12-19] MEDS: Albuterol/Ipratropium NEB.SOL* Albuterol 2.5 MG/Ipratropium 0.5 MG 3 ML INH PRN ×2 (07:27→20:56)
[2018-12-19] MEDS: Amiodarone TAB* 200 MG NG TUBE SCH (08:36)
[2018-12-19] MEDS: amLODIPine TAB* 5 MG PO SCH (10:32)
[2018-12-19] MEDS: Famotidine SUSP ORALSYR 8 MG/ML G TUBE SCH (10:46)
[2018-12-19] MEDS ORDERED: Furosemide IV* 10 MG/ML VIAL (40 MG) IV ONE (11:15)
--- NOTE | 2018-12-19 11:15 | PN ---
Date of Service: 12/19/18 Critical Care Services: Awake on vent requiring precedex and propofol to control agitation. Vital Signs: Temp Pulse Resp BP SpO2 FiO2 36.6 C 62 21 111/67 92 50 12/19/18 07:39 12/19/18 10:00 12/19/18 07:27 12/19/18 10:00 12/19/18 10:00 12/19 07:27 Physical Exam: Gen: awake and calm HEENT: NCAT, PERRL Lungs: scant wheeze on right, scattered rales Cardiac: S1S2 regular Abdomen: soft, NT, ND, +BS Extremities: trace edema Neuro: responsive, moves all 4s Fluid Balance (Past 24 Hours): I= O= Net Intake & Output 12/17/18 12/18/18 12/19/18 12/20/18 06:59 06:59 06:59 06:59 Intake Total 3444 3499 3104 Output Total 1775 1175 4885 173 Balance 1669 2324 -1781 -173 Weight 87.1 kg 87.3 kg 85.4 kg Intake: IV Fluids 802 976 238 ABX 150 Banana Bag 802 944 NS (0.9%) 32 88 IVPB 218 192 ABX 192 ABX - PIPERACILLIN 218 Medicated IV 893 1103 1378 CC - Dexmedetomidine/ 488 636 993 Precedex Propofol 405 467 385 Oral 0 Tube Feeding 1649 1142 1156 Tube Feeding Flush Amount 100 60 140 Output: Urine 1775 1175 250 Murphy 4409 173 Tube Feeding Residual 226 Amount Wasted Other: Estimated Void Large Date of Last Bowel 12/17/18 Movement # Bowel Movements 1 Estimated Stool Amount Large # Voids 1 Labs: Laboratory Results - last 24 hr 12/18/18 12/19/18 12/19/18 09:52 04:11 04:11 WBC 11.8 H RBC 2.89 L Hgb 9.6 L Hct 29 L MCV 102 H MCH 33 H MCHC 33 RDW 21 H Plt Count 228 MPV 8.6 Sodium 141 Potassium 3.7 Chloride 99 L Carbon Dioxide 39 H Anion Gap 3 BUN 19 Creatinine 0.80 Est GFR ( Amer) 116.0 Est GFR (Non-Af Amer) 95.8 BUN/Creatinine Ratio 23.8 H Glucose 134 H Calcium 8.3 L Urine Color Yellow Urine Appearance Clear Urine pH 5.0 Ur Specific [place] 1.017 Urine Protein Negative Urine Ketones Negative Urine Blood Negative Urine Nitrate Negative Urine Bilirubin Negative Urine Urobilinogen Negative Ur Leukocyte Esterase Negative Urine Glucose Negative Urine Ascorbic Acid * A Studies: CXR 12/18 with right pleural effusion and bilateral congestion Nutrition: Kelly TF Impression: 68 y/o male with COPD and new lung CA intubated with acute hypoxic respiratory failure Plan: Acute Hypoxic Respiratory Failure - COPD management and treatment of pseudomonal pneumonia. I moved his vent to CPAP this AM, currently good VTe on 20/50%. Needs a little lasix. Pseudomonal Pneumonia - Zosyn to complete 7 days Agitated Delirum/ETOH Withdrawal - currently on 2 continuous gtts. Will add Geodon and try to get propofol off and plan to extubate on Precedex. Lung CA - not fully worked up as of yet. Had a CT at [facility] scheduled for tomorrow for apparent staging. wants continued full supportive care but DNR if he were to arrest with my full support as discussed on rounds today. Critical Care Time: 40
[2018-12-19] MEDS ORDERED: Magnesium Sulfate 2 GM IV* 2 GM/50 ML BAG IVPB ONE (11:16)
[2018-12-19] MEDS ORDERED: Potassium Chlor TAB* 20 MEQ TAB.ER PO ONE (11:17)
[2018-12-19] MEDS ORDERED: Ziprasidone * 20 MG CAP (generic Geodon) PO SCH (12:00)
[2018-12-19] MEDS: Ziprasidone IM INJ* 20 MG/ML VIAL IM SCH (14:15)
[2018-12-19] MEDS: fentaNYL* 50 MCG/ML 2 ML VIAL (100 MCG VIAL) IV PRN (17:07)
[2018-12-19] MEDS: Metoprolol Tartrate IV* 1 MG/ML 5 ML VIAL IV PRN (20:36)
[2018-12-20] MEDS: Dexmedetomidine* 1,000 MCG in NS 0.9% 250 ML* 240 ML IV SCH ×2 (01:02→17:37)
[2018-12-20] MEDS: Propofol* 100 ML IV SCH ×2 (01:30→08:39)
[2018-12-20] MEDS: Ziprasidone IM INJ* 20 MG/ML VIAL IM SCH ×2 (01:35→13:20)
[2018-12-20] MEDS: Chlorhexidine MOUTHWASH 0.12%* 15 ML UDC TOPICAL SCH ×6 (05:00→23:38)
[2018-12-20] MEDS: Heparin VIAL(*) 5000 UNITS/ML VIAL (FIVE THOUSAND) SUBCUT SCH ×3 (05:36→21:19)
[2018-12-20] MEDS: ZOSYN 3.375 GM Q8H per EXTENDED INFUSION IVPB SCH ×6 (05:36→21:19)
[2018-12-20 05:56] LABS: Hematocrit 27 % (42-52); Mean Corpuscular HGB Conc 33 g/dL (31-36); Mean Corpuscular Hemoglobin 34 pg (27-31); Mean Corpuscular Volume 101 fL (80-94); Mean Platelet Volume 8.3 fL (7.4-10.4); Platelet Count 218 10^3/uL (150-450); Red Blood Count 2.68 10^6 /uL (4.18-5.48); Red Cell Distribution Width 22 % (10-15); White Blood Count 13.5 10^3/uL (3.5-10.8)
[2018-12-20 06:12] LABS: BUN/Creatinine Ratio 24.7 (8-20); Calcium 8.4 mg/dL (8.6-10.3); EGFR African American 108.1 (>60); EGFR Non-African American 89.4 (>60); Globulin 2.9 g/dL (2-4); Magnesium 2.1 mg/dL (1.9-2.7); Phosphorus 3.6 mg/dL (2.5-5.0); Total Bilirubin 0.3 mg/dL (0.2-1.0); Total Protein 5.9 g/dL (6.4-8.9)
[2018-12-20] MEDS: Famotidine SUSP ORALSYR 8 MG/ML G TUBE SCH (08:24)
[2018-12-20] MEDS: Amiodarone TAB* 200 MG NG TUBE SCH (08:24)
[2018-12-20] MEDS: amLODIPine TAB* 5 MG PO SCH (08:25)
[2018-12-20] MEDS: Albuterol/Ipratropium NEB.SOL* Albuterol 2.5 MG/Ipratropium 0.5 MG 3 ML INH PRN ×2 (09:59→17:24)
[2018-12-20] MEDS: niCARdipine 0.1MG/ML IVPREMIX* 20 MG/200 ML BAG IV SCH (10:00)
[2018-12-20] MEDS ORDERED: niCARdipine 0.1MG/ML IVPREMIX* 20 MG/200 ML BAG IV ONE (10:02)
--- NOTE | 2018-12-20 11:20 | PN ---
Date of Service: 12/20/18 Critical Care Services: Awake on vent on rounds this AM. Brittnee held overnight. Vital Signs: Temp Pulse Resp BP SpO2 FiO2 37.2 C 73 23 85/54 99 55 12/20/18 08:00 12/20/18 11:01 12/20/18 09:00 12/20/18 11:00 12/20/18 11:01 12/20 08:00 Physical Exam: Gen: awake and compliant, calm. HEENT: NCAT, PERRL Lungs: clear when calm then DC diprivan - wheeze and rales on wakeup Cardiac: S1S2 regular Abdomen: soft, NT, ND, +BS Extremities: no edema Neuro: grossly intact Fluid Balance (Past 24 Hours): I= O= Net Intake & Output 12/18/18 12/19/18 12/20/18 12/21/18 06:59 06:59 06:59 06:59 Intake Total 3499 3104 1715 Output Total 1175 4885 2428 200 Balance 2324 -1781 -713 -200 Weight 87.3 kg 85.4 kg 86.8 kg Intake: IV Fluids 976 238 35 ABX 150 Banana Bag 944 NS (0.9%) 32 88 35 IVPB 218 192 284 ABX 192 230 ABX - PIPERACILLIN 218 PB -Magnesium Sulfate 54 Medicated IV 1103 1378 1071 CC - Dexmedetomidine/ 636 993 792 Precedex Propofol 467 385 279 Tube Feeding 1142 1156 305 Tube Feeding Flush Amount 60 140 20 Output: Urine 1175 250 Murphy 4409 2428 200 Tube Feeding Residual 226 Amount Wasted Other: Estimated Void Large Date of Last Bowel 12/19/18 Movement # Bowel Movements 1 Estimated Stool Amount Large # Voids 1 Labs: Laboratory Results - last 24 hr 12/20/18 12/20/18 12/20/18 05:40 05:40 05:40 WBC 13.5 H RBC 2.68 L Hgb 9.0 L Hct 27 L MCV 101 H MCH 34 H MCHC 33 RDW 22 H Plt Count 218 MPV 8.3 Sodium 142 Potassium 4.0 Chloride 100 L Carbon Dioxide 38 H Anion Gap 4 BUN 21 Creatinine 0.85 Est GFR ( Amer) 108.1 Est GFR (Non-Af Amer) 89.4 BUN/Creatinine Ratio 24.7 H Glucose 172 H Calcium 8.4 L Ionized Calcium 1.11 L Phosphorus 3.6 Magnesium 2.1 Total Bilirubin 0.30 AST 11 L ALT 7 Alkaline Phosphatase 55 Total Protein 5.9 L Albumin 3.0 L Globulin 2.9 Albumin/Globulin Ratio 1.0 Studies: CXR pending Nutrition: Kelly TF Impression: Acute hypoxic respiratory failure in setting of COPD and pseudomonal pneumonia now with what clinically best fits as acute diastolic heart failure. Plan: Acute hypoxic respiratory failure - treating pneumonia and COPD. Pulmonary exam changes dramatically on wake-up, whether its withdrawal from the MIGUELITO effect of the propofol causing withdrawal and severe HTN and acute diastolic heart failure or another mechanism for acute diastolic heart failure it does seem to be the diagnosis. We started nicardipine and propofol to get control of a BP of 250 and are now adjusting both trying to get propofol off and nicardipine on and see if we have agitation/withdrawal or pure HTN. Wheezing and hypoxia resolve with afterload reduction. Alcohol Withdrawal - precedex and Geodon the goal. Need propofol off so we can get to extubation. Lung CA - undergoing outpt workup Pseudomonal Pneumonia - will confirm with pharmacy that we have had 10 days of Zosyn and then DC. Critical Care Time: 40 minutes
[2018-12-20] MEDS: fentaNYL* 50 MCG/ML 2 ML VIAL (100 MCG VIAL) IV PRN (11:51)
[2018-12-20] MEDS ORDERED: Lorazepam PYXIS KEY PRN (13:24)
[2018-12-20] MEDS: LORazepam INJ* 2 MG/ML 1 ML VIAL IV PUSH PRN ×4 (14:09→23:22)
[2018-12-21] MEDS: fentaNYL* 50 MCG/ML 2 ML VIAL (100 MCG VIAL) IV PRN (00:20)
[2018-12-21] MEDS: Dexmedetomidine* 1,000 MCG in NS 0.9% 250 ML* 240 ML IV SCH (00:51)
[2018-12-21] MEDS: Ziprasidone IM INJ* 20 MG/ML VIAL IM SCH (02:23)
[2018-12-21] MEDS: Chlorhexidine MOUTHWASH 0.12%* 15 ML UDC TOPICAL SCH (03:37)
[2018-12-21] MEDS: LORazepam INJ* 2 MG/ML 1 ML VIAL IV PUSH PRN ×2 (03:42→07:34)
[2018-12-21] MEDS: Heparin VIAL(*) 5000 UNITS/ML VIAL (FIVE THOUSAND) SUBCUT SCH (05:11)
[2018-12-21] MEDS: ZOSYN 3.375 GM Q8H per EXTENDED INFUSION IVPB SCH ×2 (05:12)
[2018-12-21 05:20] LABS: Hematocrit 30 % (42-52); Hemoglobin 9.6 g/dL (14.0-18.0); Mean Corpuscular HGB Conc 33 g/dL (31-36); Mean Corpuscular Hemoglobin 33 pg (27-31); Mean Corpuscular Volume 103 fL (80-94); Mean Platelet Volume 8.8 fL (7.4-10.4); Platelet Count 253 10^3/uL (150-450); Red Blood Count 2.87 10^6 /uL (4.18-5.48); Red Cell Distribution Width 21 % (10-15); White Blood Count 14.2 10^3/uL (3.5-10.8)
[2018-12-21 05:27] LABS: Albumin 3.2 g/dL (3.2-5.2); Calcium 8.5 mg/dL (8.6-10.3); EGFR Non-African American 95.8 (>60); Globulin 3.2 g/dL (2-4); Phosphorus 3.8 mg/dL (2.5-5.0); Potassium 4.1 mmol/L (3.5-5.0); Total Bilirubin 0.3 mg/dL (0.2-1.0); Total Protein 6.4 g/dL (6.4-8.9)
[2018-12-21] MEDS: Metoprolol Tartrate IV* 1 MG/ML 5 ML VIAL IV PRN (05:34)
[2018-12-21] MEDS: niCARdipine 0.1MG/ML IVPREMIX* 20 MG/200 ML BAG IV SCH (07:26)
[2018-12-21] MEDS ORDERED: Propofol* 100 ML ONE (07:54)
[2018-12-21] MEDS: Albuterol/Ipratropium NEB.SOL* Albuterol 2.5 MG/Ipratropium 0.5 MG 3 ML INH PRN (08:00)
[2018-12-21] MEDS ORDERED: Calcium Gluconate INJ* 2 GM in NS 0.9% 100 ML* 100 ML IV ONE (08:00)
[2018-12-21 10:29] VITALS: BP 137/92
[2018-12-21] MEDS ORDERED: LORazepam INJ* 2 MG/ML 1 ML VIAL IV PUSH PRN (10:47)
[2018-12-21] MEDS ORDERED: Morphine 10 MG/ML VIAL (1 ml) IV PRN (10:51)
[2018-12-21] MEDS ORDERED: Morphine PCA 5 MG/ML * Titrate per Protocol PCA SCH (11:00)
[2018-12-21] MEDS ORDERED: Morphine PCA LOW DOSE* 1 MG/ML 30 ML SYRINGE PCA SCH (11:00)
--- NOTE | 2018-12-21 11:30 | PN ---
Date of Service: 12/21/18 Critical Care Services: Uncomfortable and hypoxic Vital Signs: Temp Pulse Resp BP SpO2 FiO2 37.8 C 148 33 137/92 75 100 12/21/18 08:00 12/21/18 10:15 12/21/18 11:19 12/21/18 10:15 12/21/18 10:15 12/21 08:00 Physical Exam: Gen: appears uncomfortable with significant air hunger HEENT: NCAT, PERRL Lungs: wheeze, rales Cardiac: S1S2 irregular, tachycardic Abdomen: soft, ND, +BS Extremities: no edema Neuro: withdraws pain Fluid Balance (Past 24 Hours): I= O= Net Intake & Output 12/19/18 12/20/18 12/21/18 12/22/18 06:59 06:59 06:59 06:59 Intake Total 3104 1715 2248 Output Total 4885 2428 1174 180 Balance -1781 -713 1074 -180 Weight 85.4 kg 86.8 kg 86.4 kg Intake: IV Fluids 238 35 158 ABX 150 NS (0.9%) 88 35 158 IVPB 192 284 226 ABX 192 230 139 NS (0.9%) 87 PB -Magnesium Sulfate 54 Medicated IV 1378 1071 824 CC - Dexmedetomidine/ 993 792 673 Precedex Nicardipine 80 Propofol 385 279 71 Oral 0 Tube Feeding 1845 382 7886 Tube Feeding Flush Amount 140 20 10 Output: Urine 250 Murphy 4409 2428 890 180 Tube Feeding Residual 226 284 Amount Wasted Other: Date of Last Bowel 12/19/18 12/21/2018 Movement # Bowel Movements 1 Estimated Stool Amount Large Labs: Laboratory Results - last 24 hr 12/21/18 12/21/18 12/21/18 05:00 05:00 05:00 WBC 14.2 H RBC 2.87 L Hgb 9.6 L Hct 30 L MCV 103 H MCH 33 H MCHC 33 RDW 21 H Plt Count 253 MPV 8.8 Sodium 142 Potassium 4.1 Chloride 101 Carbon Dioxide 38 H Anion Gap 3 BUN 24 Creatinine 0.80 Est GFR ( Amer) 116.0 Est GFR (Non-Af Amer) 95.8 BUN/Creatinine Ratio 30.0 H Glucose 216 H Calcium 8.5 L Ionized Calcium 1.13 L Phosphorus 3.8 Magnesium 2.0 Total Bilirubin 0.30 AST 12 L ALT 10 Alkaline Phosphatase 82 Total Protein 6.4 Albumin 3.2 Globulin 3.2 Albumin/Globulin Ratio 1.0 Studies: CXR with worsening pulmonary edema Nutrition: Kelly TF Impression: Severe acute hypoxic respiratory failure coupled with acute alcohol withdrawal in the setting of newly diagnosed lung cancer Plan: Acute hypoxic respiratory failure - recurrent acute diastolic heart failure in the setting of adrenergic storm from alcohol withdrawal. Very difficult to get him awake and comfortable without going in to pulmonary edema. He has now been hypoxic with labile BP and mentation for hours. The pattern has repeated daily. Given the burden of the underlying malignancy, his reluctance to confront it and his ongoing alcoholism which is not expected to change I have discussed with the whether he would have wanted to be put through all he is going through just to be able to get to deal with the malignancy. His is clear that ongoing aggressive management of this sort is not consistent with his wishes and that he is currently suffering as we all can see and further that he would want us to make him comfortable. Comfort Care orders are written. MOLST is completed.
--- NOTE | 2018-12-21 12:13 | DS ---
68 y/o male admitted with acute hypoxic respiratory failure secondary to pseudomonal pneumonia and COPD exacerbation in setting of newly diagnosed lung malignancy. Persistent difficulty with extubation throughout his admission. Ultimately culminated in terminal desaturation despite aggressive measures and 100% FIO2 on the ventilator and was made comfort care consistent with his known wishes. He peacefully and rapidly with his at the bedside on 12/21/2018 at 1200 hrs. DC Diagnosis: Respiratory Failure secondary to Pseudomonal Pneumonia secondary to advanced COPD and Lung Cancer. Autopsy declined.
== END 2018-12-21 12:00 | disposition expired | DRG 870 ==
LOC: ED 23:07 → ICU 12-11 06:38 → UNDOADMIN 12-11 06:38 → ICU 12-13 12:21
PROVIDERS: ADMIT Internal Medicine; ATTEND Internal Medicine Critical Care Medicine
PROC: 0BH17EZ Insertion of Endotracheal Airway into Trachea, Via Natural or Artificial Opening (ICD-10-PCS; principal; 2018-12-11)
PROC: 5A1955Z Respiratory Ventilation, Greater than 96 Consecutive Hours (ICD-10-PCS; 2018-12-11)
PROC: 05HM33Z Insertion of Infusion Device into Right Internal Jugular Vein, Percutaneous Approach (ICD-10-PCS; 2018-12-11)
PROC: 0D9670Z Drainage of Stomach with Drainage Device, Via Natural or Artificial Opening (ICD-10-PCS; 2018-12-11)
PROC: 3E0G76Z Introduction of Nutritional Substance into Upper GI, Via Natural or Artificial Opening (ICD-10-PCS; 2018-12-11)
DX: A41.9 Sepsis, unspecified organism (principal); J96.21 Acute and chronic respiratory failure with hypoxia; J15.1 Pneumonia due to Pseudomonas; R40.2343 Coma scale, best motor response, flexion withdrawal, at hospital admission; R40.2123 Coma scale, eyes open, to pain, at hospital admission; R40.2213 Coma scale, best verbal response, none, at hospital admission; I50.33 Acute on chronic diastolic (congestive) heart failure; J96.22 Acute and chronic respiratory failure with hypercapnia; J44.1 Chronic obstructive pulmonary disease with (acute) exacerbation; C34.90 Malignant neoplasm of unspecified part of unspecified bronchus or lung; N17.9 Acute kidney failure, unspecified; E87.1 Hypo-osmolality and hyponatremia; J44.0 Chronic obstructive pulmonary disease with (acute) lower respiratory infection; F10.231 Alcohol dependence with withdrawal delirium; Z51.5 Encounter for palliative care; I48.91 Unspecified atrial fibrillation; F32.9 Major depressive disorder, single episode, unspecified; I11.0 Hypertensive heart disease with heart failure; R79.89 Other specified abnormal findings of blood chemistry; F17.210 Nicotine dependence, cigarettes, uncomplicated; E78.00 Pure hypercholesterolemia, unspecified; F41.9 Anxiety disorder, unspecified; Y90.6 Blood alcohol level of 120-199 mg/100 ml; D53.9 Nutritional anemia, unspecified; M17.12 Unilateral primary osteoarthritis, left knee; Z66 Do not resuscitate; F10.229 Alcohol dependence with intoxication, unspecified; Z85.46 Personal history of malignant neoplasm of prostate; Z88.5 Allergy status to narcotic agent; Z88.8 Allergy status to other drugs, medicaments and biological substances; Z91.5 Personal history of self-harm; Z92.3 Personal history of irradiation
CPT/HCPCS: 36415; 71045; 71275; 74177; 80048; 80053; 80202; 80320; 81003; 82330; 82803; 83605; 83735; 84100; 84484; 85025; 85027; 85060; 85610; 85730; 87040; 87070; 87077; 87186; 87205; 87641; 93005; 94003; 94640; 99285; A9270-GY; G0480; J0330; J0610; J1100; J1644; J1940; J2060; J2250; J2270; J2543; J2704; J2920; J3010; J3370; J3411; J3475; J3486; J3490; J7611; Q9967